=== PATIENT | female | born 1985 | race Hispanic/Latino ===

== ENCOUNTER → 2016-11-10 | Outpatient (CLI) | payer OTHER ==
[~2016-11-10] MED LIST: CIPR500T4 PO; FLC100T1 PO; GLBR5T; GLYB5TAB6 PO; HYDR-1231 PO; IBP600T1 PO; METF-380 PO; METR500T17 PO; MTF500T PO; ONDA8TAB13 PO; OXYC-12 PO; PREN1TAB39 PO; PRNMV1T
--- NOTE | 2016-11-10 16:13 | Diagnostic Imaging Report ---
INDICATION: Left-sided pelvic pain, irregular menstrual cycles. COMPARISON: None. DISCUSSION: Transabdominal and transvaginal sonographic evaluation of the pelvis was performed. The uterus is normal in echotexture and size measuring 6.6 x 5.7 x 4.9 cm. Normal endometrial thickness measuring 1.3 cm. The left ovary is enlarged. The left ovary contains a hemorrhagic-appearing follicle measuring 3.7 x 2.7 x 3.0 cm. Recommend 6-12 week sonographic followup to document resolution. The right ovary measures 2.9 x 2.3 x 2.1 cm. Normal color Doppler blood flow within the bilateral ovaries. Free fluid within the pelvis is likely physiologic. IMPRESSION: 1. Probable hemorrhagic follicle within the left ovary, however, recommend short-term sonographic followup to document resolution and to exclude other etiologies. Dictated by: Dictated on workstation # [id number]
== END ==
LOC: RAD 12:58
PROVIDERS: ATTEND Nurse Practitioner
DX: R10.32 Left lower quadrant pain (principal)
CPT/HCPCS: 76830; 76856

== ENCOUNTER 2017-05-25 23:11 | Emergency (ER) | payer OTHER ==
[~2017-05-25] VITALS: Ht 154.9 cm; Wt 60.8 kg
[2017-05-26 00:30] LABS: BASOPHILS % (AUTO) 0 % (0-10); EOSINOPHILS # (AUTO) 0.3 10^3/uL (0.0-0.3); EOSINOPHILS % (AUTO) 3 % (0-10); LYMPHOCYTES # (AUTO) 2.3 X 10^3 (1.0-4.0); LYMPHOCYTES % (AUTO) 23 % (12-44); MEAN CORPUSCULAR HEMOGLOBIN 26 PG (25-34); MEAN CORPUSCULAR HGB CONC 35 G/DL (32-36); MEAN CORPUSCULAR VOLUME 76 FL (80-99); MONOCYTES % (AUTO) 10 % (0-12); NEUTROPHILS # (AUTO) 6.5 X 10^3 (1.8-7.8); NEUTROPHILS % (AUTO) 64 % (42-75); PLATELET COUNT 342 10^3/uL (130-400); RED BLOOD COUNT 5.36 10^6/uL (4.35-5.85); RED CELL DISTRIBUTION WIDTH 12.5 % (10.0-14.5); WHITE BLOOD COUNT 10.1 10^3/uL (4.3-11.0)
[2017-05-26] MEDS ORDERED: OMEP20TA7 PO (00:37)
[2017-05-26] MEDS ORDERED: ATOR10TA66 PO (00:37)
[2017-05-26 00:38] LABS: ALANINE AMINOTRANSFERASE 19 U/L (0-55); ALBUMIN 4.4 GM/DL (3.2-4.5); AMYLASE 59 U/L (25-125); ANION GAP 12 MMOL/L (5-14); ASPARTATE AMINO TRANSFERASE 13 U/L (5-34); BILIRUBIN,TOTAL 0.6 MG/DL (0.1-1.0); BLOOD UREA NITROGEN 10 MG/DL (7-18); BUN/CREATININE RATIO 12; CALCIUM 9.6 MG/DL (8.5-10.1); CARBON DIOXIDE 21 MMOL/L (21-32); CHLORIDE 98 MMOL/L (98-107); CREATININE SERUM 0.86 MG/DL (0.60-1.30); GFR ESTIMATED > 60; LIPASE 35 U/L (8-78); POTASSIUM 3.9 MMOL/L (3.6-5.0); SODIUM 131 MMOL/L (135-145); TOTAL PROTEIN 8.6 GM/DL (6.4-8.2)
[2017-05-26] MEDS ORDERED: GLIM2TAB PO (00:38)
[2017-05-26] MEDS ORDERED: LISI-556 PO (00:38)
[2017-05-26] MEDS ORDERED: NITR100C PO (00:39)
[2017-05-26 00:40] LABS: GLUCOSE 451 MG/DL (70-105)
[2017-05-26] MEDS ORDERED: NS IV 1000 ML 1,000 ML IV ONE (00:48)
[2017-05-26] MEDS ORDERED: KETOROLAC 30 MG/ML VIAL IVP ONE (01:00)
[2017-05-26] MEDS ORDERED: PANTOPRAZOLE 40 MG/10 ML (PROTONIX) VIAL IV ONE (01:00)
[2017-05-26] MEDS ORDERED: inSUlin (REGULAR) HUMAN 1 UNIT/0.01 ML (CHARGE PER UNIT) IV ONE (01:00)
[2017-05-26] MEDS ORDERED: IOHEXOL 350 MG/ML 100 ML (OMNIPAQUE 350) VIAL IV ONE (01:30)
[2017-05-26] MEDS ORDERED: NS 100 ML (IVPB) BAG IV ONE (01:30)
[2017-05-26 01:50] LABS: BILIRUBIN,URINE NEGATIVE (NEGATIVE); KETONES,URINE 3+ (NEGATIVE); LEUKOCYTE ESTERASE ,URINE NEGATIVE (NEGATIVE); NITRITE,URINE NEGATIVE (NEGATIVE); PH,URINE 6 (5-9); PROTEIN,URINE 2+ (NEGATIVE); UROBILINOGEN,URINE NORMAL (NORMAL)
[2017-05-26 01:56] LABS: WBC,URINE RARE /HPF
[2017-05-26 01:57] LABS: SQUAMOUS EPITHELIAL CELL,UR 0-2 /HPF
[2017-05-26] MEDS ORDERED: NS IV 1000 ML 1,000 ML IV SCH (03:00)
[2017-05-26] MEDS ORDERED: HYOS0.1283 SL (03:51)
[2017-05-26] MEDS ORDERED: ONDA4TAB8 PO (03:51)
--- NOTE | 2017-05-26 03:51 | ED Abdominal Pain ---
General Chief Complaint: Abdominal/GI Problems Stated Complaint: RT SIDE PAIN Nursing Triage Note: PATIENT STATES THAT ABD PAIN BEGAN 2 WEEKS AGO AND THAT SHE HAS SEEN DR. WU FOR OVARIAN CYSTS, BUT THAT THE PAIN SIGNIFICANTLY INCREASED THIS EVENING AROUND 2100. Sepsis Screen: No Definite Risk Source of Information: Patient History of Present Illness Time Seen By Provider: 00:08 Initial Comments PT ARRIVES VIA POV FROM HOME PT C/O LUQ PAIN X 2 WEEKS, BECAME MUCH WORSE AT 2100 TONIGHT + NAUSEA, BUT NO VOMITING TODAY--HAS VOMITED A COUPLE OF TIMES OVER THE PAST COUPLE OF WEEKS NO DIARRHEA. HAD NORMAL BM TODAY. NO BLACK/BLOODY/TARRY STOOLS HAS HAD SUBJECTIVE LOW GRADE FEVER NO URINARY SYMPTOMS LMP--HAD DEPO PROVERA SHOT 2 WEEKS AGO, AND HAS BEEN SPOTTING SINCE THEN. PT HAS HAD BTL SAW DR. WU 2 WEEKS AGO FOR THIS PROBLEM, AND PT STATES DR. WU THOUGHT SHE HAD OVARIAN CYSTS, SO GAVE HER SHOT OF DEPO-PROVERA. PT STATES NO TESTS WERE DONE. PT DID HAVE UTI SYMPTOMS AND WAS SEEN AT [facility] 05/17 FOR THIS PROBLEM AND UTI SYMPTOMS, AND DX WITH UTI AND STARTED ON MACROBID. PT STATES UTI SYMPTOMS HAVE RESOLVED. HAS NOT ATTEMPTED TO FOLLOW UP WITH HER PCP AT [facility] FOR THIS PROBLEM NO HISTORY OF SIMILAR HAS NOT TAKEN ANYTHING FOR PAIN PCP: [facility] DYE COLORIST DYER: DR WU Allergies and Home Medications Allergies Coded Allergies: No Known Drug Allergies (Verified , 04/29/08) Home Medications Atorvastatin Calcium 10 Mg Tablet, 10 MG PO DAILY, (Reported) Glimepiride 2 Mg Tablet, 2 MG PO DAILY, (Reported) Hyoscyamine Sulfate 0.125 Mg Tab.subl, 1-2 TAB SL Q4H, #15 Prescribed by: ELLA AYALA on 05/26/17 0351 Lisinopril 5 Mg Tablet, 5 MG PO DAILY, (Reported) Metformin Hcl 500 Mg Tablet, 500 MG PO BID WITH MEALS, (Reported) Nitrofurantoin Macrocrystal 100 Mg Capsule, 100 MG PO BID, (Reported) Omeprazole 20 Mg Tablet.dr, 20 MG PO BID, (Reported) Ondansetron 4 Mg Tab.rapdis, 4 MG PO Q4H, #10 Prescribed by: ELLA AYALA on 05/26/17 0351 Review of Systems Constitutional: see HPI, fever EENTM: No Symptoms Reported Respiratory: No Symptoms Reported Cardiovascular: No Symptoms Reported Gastrointestinal: See HPI, Abdominal Pain, Denies Constipated, Denies Diarrhea , Nausea, Denies Vomiting Genitourinary: See HPI Musculoskeletal: no symptoms reported, No back pain Skin: no symptoms reported Psychiatric/Neurological: No Symptoms Reported Endocrine: No Symptoms Reported, Other (PT IS DIABETIC, DOES NOT CHECK HER BLOOD SUGARS, AND DID NOT TAKE HER MEDICATION TODAY) Hematologic/Lymphatic: No Symptoms Reported Past Tlimjbk-Opudqp-Snahni Hx Patient Social History Alcohol Use: Denies Use Recreational Drug Use: No Smoking Status: Never a Smoker Recent Foreign Travel: No Contact w/Someone Who Travel: No Recent Infectious Disease Expo: No Recent Hopitalizations: No Immunizations Up To Date Tetanus Booster (TDap): Less than 5yrs Date of Influenza Vaccine: May 16, 2012 Seasonal Allergies Seasonal Allergies: No Surgeries History of Surgeries: Yes (C-SECTIONS x3) Surgeries: Section, Tubal Ligation Respiratory History of Respiratory Disorde: No Cardiovascular History of Cardiac Disorders: Yes Cardiac Disorders: High Cholesterol, Hypertension Neurological History of Neurological Disord: No Reproductive System : No Hx Reproductive Disorders: No Female Reproductive Disorders: Ovarian Cyst 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 Genitourinary History of Genitourinary Disor: Yes Genitourinary Disorders: Bladder Infection Gastrointestinal History of Gastrointestinal Di: Yes Gastrointestinal Disorders: Gastroesophageal Reflux Musculoskeletal History of Musculoskeletal Dis: No Endocrine History of Endocrine Disorders: Yes Endocrine Disorders: Diabetes, Non-Insulin dep HEENT History of HEENT Disorders: No Cancer History of Cancer: No Psychosocial History of Psychiatric Problem: No Integumentary History of Skin or Integumenta: No Blood Transfusions History of Blood Disorders: No Physical Exam Vital Signs VS - Last 72 Hours, by Label 05/25/17 05/26/17 23:32 04:08 Temp 97.9 98.0 Pulse 106 79 Resp 20 18 B/P (MAP) 146/110 Pulse Ox 100 O2 Delivery Room Air Room Air Capillary Refill : Less Than 3 Seconds General Appearance: WD/WN, other (CRYING, HOLDING LUQ) HEENT: PERRL/EOMI Neck: normal inspection Respiratory: normal breath sounds, no respiratory distress, no accessory muscle use Cardiovascular: regular rate, rhythm, no murmur Gastrointestinal: normal bowel sounds, soft, no organomegaly, No distended, guarding, No rebound, tenderness (LUQ), No hernia, No mass Extremities: normal inspection, no pedal edema, no calf tenderness, normal capillary refill Back: normal inspection, no CVA tenderness, no vertebral tenderness Neurologic/Psychiatric: spring tacker II-XII nml as tested, no motor/sensory deficits, alert, oriented x 3 Skin: normal color, warm/dry, No rash Progress/Results/Core Measures Results/Orders Lab Results Laboratory Tests Test 05/25/17 00:01 05/26/17 01:40 05/26/17 02:38 05/26/17 03:46 Range/Units White Blood Count 10.1 4.3-11.0 10^3/uL Red Blood Count 5.36 4.35-5.85 10^6/uL Hemoglobin 14.1 11.5-16.0 G/DL Hematocrit 41 35-52 % Mean Corpuscular Volume 76 L 80-99 FL Mean Corpuscular Hemoglobin 26 25-34 PG Mean Corpuscular Hemoglobin Concent 35 32-36 G/DL Red Cell Distribution Width 12.5 10.0-14.5 % Platelet Count 342 130-400 10^3/uL Mean Platelet Volume 9.0 7.4-10.4 FL Neutrophils (%) (Auto) 64 42-75 % Lymphocytes (%) (Auto) 23 12-44 % Monocytes (%) (Auto) 10 0-12 % Eosinophils (%) (Auto) 3 0-10 % Basophils (%) (Auto) 0 0-10 % Neutrophils # (Auto) 6.5 1.8-7.8 X 10^3 Lymphocytes # (Auto) 2.3 1.0-4.0 X 10^3 Monocytes # (Auto) 1.0 0.0-1.0 X 10^3 Eosinophils # (Auto) 0.3 0.0-0.3 10^3/uL Basophils # (Auto) 0.0 0.0-0.1 10^3/uL Sodium Level 131 L 135-145 MMOL/L Potassium Level 3.9 3.6-5.0 MMOL/L Chloride Level 98 98-107 MMOL/L Carbon Dioxide Level 21 21-32 MMOL/L Anion Gap 12 5-14 MMOL/L Blood Urea Nitrogen 10 7-18 MG/DL Creatinine 0.86 0.60-1.30 MG/DL Estimat Glomerular Filtration Rate > 60 BUN/Creatinine Ratio 12 Glucose Level 451 *H 70-105 MG/DL Calcium Level 9.6 8.5-10.1 MG/DL Magnesium Level 2.0 1.8-2.4 MG/DL Total Bilirubin 0.6 0.1-1.0 MG/DL Aspartate Amino Transf (AST/SGOT) 13 5-34 U/L Alanine Aminotransferase (ALT/SGPT) 19 0-55 U/L Alkaline Phosphatase 105 40-136 U/L Total Protein 8.6 H 6.4-8.2 GM/DL Albumin 4.4 3.2-4.5 GM/DL Amylase Level 59 25-125 U/L Lipase 35 8-78 U/L Serum Test, Qualitative NEGATIVE NEGATIVE Urine Color YELLOW Urine Clarity CLEAR Urine pH 6 5-9 Urine Specific [place] 1.010 L 1.016-1.022 Urine Protein 2+ H NEGATIVE Urine Glucose (UA) 4+ H NEGATIVE Urine Ketones 3+ H NEGATIVE Urine Nitrite NEGATIVE NEGATIVE Urine Bilirubin NEGATIVE NEGATIVE Urine Urobilinogen NORMAL NORMAL MG/DL Urine Leukocyte Esterase NEGATIVE NEGATIVE Urine RBC (Auto) 5+ H NEGATIVE Urine RBC 0-2 /HPF Urine WBC RARE /HPF Urine Squamous Epithelial Cells 0-2 /HPF Urine Crystals NONE /LPF Urine Bacteria TRACE /HPF Urine Casts NONE /LPF Urine Mucus NEGATIVE /LPF Urine Culture Indicated NO Glucometer 365 H 272 H 70-110 MG/DL My Orders Orders - ELLA AYALA DO Saline Lock/Iv-Start (05/26/17 00:18) Amylase (05/26/17 00:18) Cbc With Automated Diff (05/26/17 00:18) Comprehensive Metabolic Panel (05/26/17 00:18) Hcg,Qualitative Serum (05/26/17 00:18) Lipase (05/26/17 00:18) Magnesium (05/26/17 00:18) Ua Culture If Indicated (05/26/17 00:18) Acute Abd Series (05/26/17 00:18) Ct Abdomen/Pelvis W (05/26/17 00:18) Ketorolac Injection (Toradol Injection) (05/26/17 01:00) Pantoprazole Injection (Protonix Injecti (05/26/17 01:00) Insulin (Regular) Human (Humulin R (Per (05/26/17 01:00) Saline Lock/Iv-Start (05/26/17 00:48) Ns Iv 1000 Ml (Sodium Chloride 0.9%) (05/26/17 00:48) Iohexol Injection (Omnipaque 350 Mg/Ml 1 (05/26/17 01:30) Ns (Ivpb) (Sodium Chloride 0.9% Ivpb Bag (05/26/17 01:30) Pharmacy Communication (Pharmacy Communi (05/26/17 01:25) Pharmacy Communication (Pharmacy Communi (05/26/17 01:25) Ns Iv 1000 Ml (Sodium Chloride 0.9%) (05/26/17 03:00) Accucheck Stat ONCE (05/26/17 03:25) Accucheck Stat ONCE (05/26/17 03:25) Medications Given in ED Current Medications Medications Dose Ordered Sig/Kendall Route Start Time Stop Time Status Last Admin Dose Admin Insulin Human Regular 20 unit ONCE ONCE IV 05/26/17 01:00 05/26/17 01:01 DC 05/26/17 01:04 20 UNIT Iohexol 100 ml ONCE ONCE IV 05/26/17 01:30 05/26/17 01:31 DC 05/26/17 01:29 100 ML Ketorolac Tromethamine 30 mg ONCE ONCE IVP 05/26/17 01:00 05/26/17 01:01 DC 05/26/17 01:04 30 MG Pantoprazole 40 mg ONCE ONCE IV 05/26/17 01:00 05/26/17 01:01 DC 05/26/17 01:04 40 MG Sodium Chloride 100 ml ONCE ONCE IV 05/26/17 01:30 05/26/17 01:31 DC 05/26/17 01:29 80 ML Sodium Chloride 1,000 ml @ 0 mls/hr Q0M ONCE IV 05/26/17 00:48 05/26/17 00:49 DC 05/26/17 01:04 0 MLS/HR Vital Signs/I&O Vital Sign - Last 12Hours 05/25/17 05/26/17 23:32 04:08 Temp 97.9 98.0 Pulse 106 79 Resp 20 18 B/P (MAP) 146/110 Pulse Ox 100 O2 Delivery Room Air Room Air Blood Pressure Mean: 122 Progress Note : Progress Note PT SLEPT THROUGH REMAINDER OF ER STAY ALL SYMPTOMS RESOLVED PRIOR TO DISMISSAL ACCUCHECK DOWN TO 272 AT DISMISSAL Diagnostic Imaging Comments ACUTE ABDOMEN XRAYS--NO ACUTE PROCESS, PENDING RADIOLOGIST REVIEW CT ABDOMEN/PELVIS--NON-SPECIFIC FLUID IN NON-DISTENDED LOOPS OF SMALL BOWEL, WITH SUGGESTION OF ENHANCED MUCOSA, NO BOWEL WALL THICKENING. POSSIBLE ENTERITIS. OTHERWISE NO ACUTE PROCESS--PER [facility] VIA FAX @ 0276 Reviewed: Reviewed by Me Departure Impression Impression: Primary Impression: LUQ abdominal pain Additional Impressions: Gastroenteritis UNCONTROLLED NIDDM Disposition: HOME, SELF-CARE Condition: Improved Departure-Patient Inst. Referrals: [facility] (PCP) Primary Care Physician VIKTOR HENSON (Family) Primary Care Physician Patient Instructions: Acute Abdomen (Belly Pain), Adult (DC), Blood Glucose Monitoring, Sick Day Management for Diabetics, Viral Gastroenteritis, Adult (DC) Add. Discharge Instructions: CLEAR LIQUIDS--WATER, BROTH, JELLO, GATORADE TOMORROW IF YOU ARE BETTER, ADD BRATS DIET TO CLEAR LIQUIDS--BANANAS, RICE, APPLESAUCE, TOAST, SALTINES CHECK YOUR BLOOD SUGAR AT LEAST 3 TIMES A DAY AND KEEP DIARY TAKE YOUR MEDICATIONS PRESCRIBED AND DO NOT MISS DOSES OF MEDICATIONS FOLLOW UP WITH [facility] IN 2-3 DAYS FOR FURTHER CARE All discharge instructions reviewed with patient and/or family. Voiced understanding. Scripts Hyoscyamine Sulfate (Levsin-Sl) 0.125 Mg Tab.subl 1-2 TAB SL Q4H for Abdominal Pain, #15 TAB Prov: ELLA AYALA DO 05/26/17 Ondansetron (Zofran Odt) 4 Mg Tab.rapdis 4 MG PO Q4H for Nausea/Vomiting, #10 TAB Prov: ELLA AYALA DO 05/26/17 ELLA AYALA DO May 26, 2017 03:51
[2017-05-26 04:08] VITALS: BP 124/89
--- NOTE | 2017-05-26 06:22 | Diagnostic Imaging Report ---
PROCEDURE: CT abdomen and pelvis with contrast. TECHNIQUE: Multiple contiguous axial images were obtained through the abdomen and pelvis after administration of intravenous contrast. INDICATION: Left-sided abdominal pain. COMPARISON: 04/29/2014. FINDINGS: Lower chest: The lung bases are clear. No pericardial or pleural effusion. Peritoneum: No free intraperitoneal air or fluid. Liver and biliary system: The liver has mild diffuse hypoattenuation which can be seen with hepatic steatosis. No focal hepatic lesion. Gallbladder is decompressed without radiopaque gallstones. No bile duct dilation. Spleen and Pancreas: Spleen is normal. The pancreas enhances normally without mass lesion or peripancreatic inflammatory changes. Adrenals: Normal. tract: The kidneys enhance normally without suspicious mass or obstruction. Urinary bladder is moderately distended without wall thickening. The uterus and ovaries are physiologic in appearance. GI tract: Stomach is decompressed. No bowel destruction. Multiple small bowel loops are fluid filled with mild uniform mucosal enhancement. No pericolonic inflammatory changes. The appendix is not seen with certainty, although there are no inflammatory changes in the right lower quadrant to indicate acute appendicitis. Vasculature and Lymph nodes: Normal caliber aorta. No abdominal or pelvic lymphadenopathy. Musculoskeletal: No concerning osseous lesion. IMPRESSION: 1. Findings suggestive of enteritis. No bowel obstruction, abscess or perforation. 2. Findings are in agreement with the preliminary report. Dictated by: Dictated on workstation # [id number]
--- NOTE | 2017-05-26 06:36 | Diagnostic Imaging Report ---
INDICATION: Left-sided abdominal pain for two weeks. Comparison study: None. FINDINGS: Upright view of the chest demonstrates the lungs to be clear. The heart, mediastinum, pulmonary vascularity are normal. Supine and upright views of the abdomen demonstrate increased stool throughout the colon. Small bowel gas pattern appears normal. No free air or air-fluid levels are present. Osseous structures are normal. IMPRESSION: Probable constipation. Dictated by: Dictated on workstation # [id number]
--- OUTSIDE RECORDS SUMMARY | 2017-05-26 08:59 | XMS REPORT ---
Author Author YVONNE GUAJARDO [facility] Address Unknown Care Team Providers Care Merchandising Intern Name Role Phone YVONNE GUAJARDO Unavailable PROBLEMS Type Condition ICD9-CM Code [id number] Code Onset Dates Condition Status SNOMED Code Problem Diabetes type 2, uncontrolled E11.65 Active 492503976 Problem Diabetes mellitus without mention of complication, type II or unspecified type, not stated as uncontrolled 250.00 Active 984454207 Assessment Dental examination Z01.20 Mar, Active 328049739 ALLERGIES Substance Reaction Event Type Date Status N.K.D.A. Unknown Non Drug Allergy Mar, Unknown SOCIAL HISTORY No smoking Hx information available PLAN OF CARE VITAL SIGNS Blood pressure systolic 132 mmHg 2016-04-06 Blood pressure diastolic 102-wrist 122 mmHg 2016-04-06 MEDICATIONS Medication Instructions Dosage Frequency Start Date End Date Duration Status Amoxicillin 500 MG Orally Three times a day 1 capsule 8h 7 days Active RESULTS No Results PROCEDURES Procedure Date Ordered Related Diagnosis Body Site LTD ORAL EVALUATION - PROBLEM FOCUS Apr 06, 2016 PANORAMIC FILM SEE ALSO CODE 46992 Apr 06, 2016 IMMUNIZATIONS No Known Immunizations
--- OUTSIDE RECORDS SUMMARY | 2017-05-26 08:59 | XMS REPORT ---
Author Author VIKTOR HENSON [facility] eClinicalWorks Address Unknown Phone Unavailable Care Team Providers Care Tank Cooper Name Role Phone VIKTOR HENSON Unavailable Allergies No Known Allergies Problems Problem Type Condition Code Onset Dates Condition Status Problem Diabetes mellitus without mention of complication, type II or unspecified type, not stated as uncontrolled 250.00 Active Problem Diabetes type 2, uncontrolled E11.65 Active Medications No Known Medications Results No Known Results Summary Purpose eClinicalWorks Submission
--- OUTSIDE RECORDS SUMMARY | 2017-05-26 08:59 | XMS REPORT ---
Author Author VIKTOR HENSON [facility] eClinicalWorks Address Unknown Phone Unavailable Care Team Providers Care Child Care Supervisor Name Role Phone VIKTOR HENSON Unavailable Allergies No Known Allergies Problems Problem Type Condition Code Onset Dates Condition Status Problem Diabetes mellitus without mention of complication, type II or unspecified type, not stated as uncontrolled 250.00 Active Problem Diabetes type 2, uncontrolled E11.65 Active Medications No Known Medications Results No Known Results Summary Purpose eClinicalWorks Submission
--- OUTSIDE RECORDS SUMMARY | 2017-05-26 08:59 | XMS REPORT ---
Author Author SIXTO VIKTOR Organization [facility] Address [address] [place] [address] Care Team Providers Care Grinder Mill Operator Name Role Phone VIKTOR HENSON Unavailable PROBLEMS Type Condition ICD9-CM Code ACM90-SI Code Onset Dates Condition Status SNOMED Code Problem Acute upper respiratory infection, unspecified J06.9 Active 745798372 Problem Diabetes type 2, uncontrolled E11.65 Active 539990594 ALLERGIES Substance Reaction Event Type Date Status N.K.D.A. Unknown Non Drug Allergy Jul, Unknown SOCIAL HISTORY No smoking Hx information available PLAN OF CARE Activity Details Follow Up 4 Weeks Reason:diabetes. VITAL SIGNS Height 61 in 2016-08-25 Weight 147.5 lbs 2016-08-25 Temperature 98.4 degrees Fahrenheit 2016-08-25 Heart Rate 82 bpm 2016-08-25 Respiratory Rate 18 2016-08-25 BMI 27.87 kg/m2 2016-08-25 Blood pressure systolic 132 mmHg 2016-08-25 Blood pressure diastolic 82 mmHg 2016-08-25 MEDICATIONS Medication Instructions Dosage Frequency Start Date End Date Duration Status Mucinex D 120-1200 MG Orally every 12 hrs 1 tablet as needed 12h Jul, Active MetFORMIN HCl ER 500 MG Orally 2 times a day 1 tablet 12h May, Active Levemir 100 UNIT/ML Subcutaneous Once a day 50 units 24h Sep, Active RESULTS Name Result Date Reference Range A1C (IN HOUSE) 2016-08-25 A1C IN HOUSE 13.4+ 4.3 - 5.6 % Previous A1c >14.0 Lot [id number] Exp date 05/2018 STREP A (IN HOUSE) 2016-08-25 STREP A negative Control + Lot # [id number] Exp date 02/02/2018 PROCEDURES Procedure Date Ordered Related Diagnosis Body Site Office Visit, Est Pt., Level 4 Aug 25, 2016 GLYCATED HEMOGLOBIN TEST Aug 25, 2016 STREP A ASSAY W/OPTIC Aug 25, 2016 IMMUNIZATIONS No Known Immunizations
--- OUTSIDE RECORDS SUMMARY | 2017-05-26 08:59 | XMS REPORT ---
Author Author SU CARRASCO [facility] Address [address] [place] [address] Care Team Providers Care Automatic Buffing Wheel Former Name Role Phone SU CARRASCO Unavailable PROBLEMS Type Condition ICD9-CM Code [id number] Code Onset Dates Condition Status SNOMED Code Problem Acute upper respiratory infection, unspecified J06.9 Active 040135184 Problem Diabetes type 2, uncontrolled E11.65 Active 582476130 ALLERGIES Unknown Allergies SOCIAL HISTORY No smoking Hx information available PLAN OF CARE VITAL SIGNS MEDICATIONS Unknown Medications RESULTS Name Result Date Reference Range TEST, SERUM (QUAL) 2016-09-07 hCG,Beta Subunit,Qual,Serum Negative Negative <6 PROCEDURES Procedure Date Ordered Related Diagnosis Body Site CHORIONIC GONADOTROPIN ASSAY Sep 07, 2016 VENIPUNCT, ROUTINE* Sep 07, 2016 IMMUNIZATIONS No Known Immunizations
--- OUTSIDE RECORDS SUMMARY | 2017-05-26 08:59 | XMS REPORT ---
Author Author VIKTOR HENSON [facility] eClinicalWorks Address Unknown Phone Unavailable Care Team Providers Care Small Engine Mechanic Name Role Phone VIKTOR HENSON Unavailable Allergies No Known Allergies Problems Problem Type Condition Code Onset Dates Condition Status Problem Diabetes mellitus without mention of complication, type II or unspecified type, not stated as uncontrolled 250.00 Active Problem Diabetes type 2, uncontrolled E11.65 Active Medications No Known Medications Results No Known Results Summary Purpose eClinicalWorks Submission
--- OUTSIDE RECORDS SUMMARY | 2017-05-26 08:59 | XMS REPORT | Continuity of Care Document ---
Author Author [facility] Address Unknown Phone Unavailable Allergies Active Description Code Type Severity Reaction Onset Reported/Identified Relationship to Patient Clinical Status Yes No Known Drug Allergies [id number] Drug Allergy Unknown N/ A 04/29/2008 Medications Problems Date Dx Coded Attending Type Code Diagnosis Diagnosed By 03/30/2009 SU CARRASCO DO 780.4 dizziness 03/30/2009 SU CARRASCO DO 780.79 MALAISE AND FATIGUE 09/27/2011 Ot 640.03 THREATEN ABORT-ANTEPART 06/09/2012 Ot 250.00 DIAB AXEL WO COMPL, TYPE II OR UNSPEC TY 06/09/2012 Ot 256.4 POLYCYSTIC OVARIES 06/09/2012 Ot 644.21 EARLY ONSET DELIVERY-DEL 06/09/2012 Ot 648.01 DIABETES-DELIVERED 06/09/2012 Ot 648.91 OTH CURR COND-DELIVERED 06/09/2012 Ot 648.92 OTH CURR COND-DEL W P/P 06/09/2012 Ot 654.21 PREV DELIVRY W/ OR W/O MENT ANT 06/09/2012 Ot 657.01 POLYHYDRAMNIOS,DEL W OR W/O MENTN ANTEPA 06/09/2012 Ot 659.71 ABN DEL FET HT RT/RHYTHM,W OR W/O MENTIO 06/09/2012 Ot 788.20 RETENTION OF URINE NOS 06/09/2012 Ot 997.5 SURG COMPL-URINARY TRACT 06/09/2012 Ot V02.51 GROUP B STREPT CARRIER/SUSPECTED CARRIER 06/09/2012 Ot V27.0 DELIVER-SINGLE LIVEBORN 02/04/2013 RHETT WU DO Ot 646.83 PREG COMPL NEC-ANTEPART 02/04/2013 RHETT WU DO Ot 789.00 ABDOMINAL PAIN, UNSPECIFIED SITE 03/19/2013 RHETT WU DO Ot 644.03 THRT ABEBE LABOR-ANTEPART 03/19/2013 RHETT WU DO Ot 648.83 ABN GLUCOSE-ANTEPARTUM 04/11/2013 KADEN MARTINEZ DO Ot 250.02 DIAB AXEL WO COMPL, TYPE II OR UNSPEC TY 04/11/2013 KADEN MARTINEZ DO Ot 278.00 OBESITY, NOS 04/11/2013 KADEN MARTINEZ DO Ot 644.03 THRT ABEBE LABOR-ANTEPART 04/11/2013 KADEN MARTINEZ DO Ot 648.03 DIABETES-ANTEPARTUM 04/11/2013 KADEN MARTINEZ DO Ot 649.13 OBESITY COMP PREG/CHILDBIRTH/PUERPERIUM , 04/11/2013 KADEN MARTINEZ DO Ot 654.23 PREV DELIVERY, ANTEPARTUM COND 04/11/2013 KADEN MARTINEZ DO Ot V15.81 HX OF PAST NONCOMPLIANCE 04/11/2013 KADEN MARTINEZ DO Ot V85.31 BODY MASS INDEX 31.0-31.9, ADULT 06/24/2013 SU CARRASCO DO 250.00 DIABETES II CONTROLLED (UNCOMPLICATED) 04/29/2014 FELICITAS OLIVAS Ot 564.00 UNSPEC CONSTIPATION 04/29/2014 FELICITAS OLIVAS Ot 599.0 URIN TRACT INFECTION NOS 04/29/2014 FELICITAS OLIVAS Ot 614.9 FEM PELV INFLAM DIS NOS 04/29/2014 FELICITAS OLIVAS Ot 789.00 ABDOMINAL PAIN, UNSPECIFIED SITE 06/23/2014 Ot 780.79 06/23/2014 Ot 625.9 06/23/2014 Ot 648.93 11/10/2016 Ot 625.9 FEM GENITAL SYMPTOMS NOS 11/10/2016 Ot 648.93 OTH CURR COND-ANTEPARTUM 11/10/2016 Ot 625.9 FEM GENITAL SYMPTOMS NOS 11/10/2016 Ot 648.93 OTH CURR COND-ANTEPARTUM 11/15/2016 МАРИЯ LOPEZ Ot R10.32 LEFT LOWER QUADRANT PAIN 11/25/2016 МАРИЯ LOPEZ Ot R10.32 LEFT LOWER QUADRANT PAIN Procedures Code Description Performed By Performed On 72.79 VACUUM EXTRACT DEL NEC 06/07/2012 74.1 LOW CERVICAL 06/07/2012 99.77 APPL/ADMIN OF AN ADHESION BARRIER SUBSTA 06/07/2012 75628 A1C (IN-HOUSE) Results Encounters ACCT No. Visit Date/Time Discharge Status Pt. Type Provider Facility Loc./Unit Complaint [id number] 06/24/2013 11:58:00 06/24/2013 23: 59:59 CLS Outpatient SU CARRASCO DO [id number] 11/10/2016 12:58:00 2016 23:59:59 CLS Outpatient МАРИЯ LOPEZ SHEET METAL ASSEMBLER [facility] RAD LLQ PAIN [id number] 04/29/2014 18:47:00 2013 23:01:00 DIS Emergency FELICITAS OLIVAS [facility] ER ABD PAIN [id number] 04/10/2013 17:50:00 2012 01:05:00 DIS Inpatient CORBINENRIS KADEN S [facility] WS C/O CONTRACTIONS [id number] 03/19/2013 14:00:00 2012 17:10:00 DIS Outpatient RHETT WU DO [facility] WSo C/O CONTRACTIONS [id number] 02/04/2013 09:30:00 2012 10:45:00 DIS Outpatient RHETT WU DO [facility] WSo ABD PAIN [id number] 06/23/2014 14:54:00 Document Registration [id number] 06/07/2012 09:55:00 Document Registration [id number] 09/28/2011 10:11:00 Document Registration [id number] 09/27/2011 17:11:00 Document Registration [id number] 03/31/2009 07:58:00 Document Registration
--- OUTSIDE RECORDS SUMMARY | 2017-05-26 08:59 | XMS REPORT ---
Author Author VIKTOR HENSON [facility] eClinicalWorks Address Unknown Phone Unavailable Care Team Providers Care Lean Consultant Name Role Phone VIKTOR HENSON Unavailable Allergies No Known Allergies Problems Problem Type Condition Code Onset Dates Condition Status Problem Diabetes mellitus without mention of complication, type II or unspecified type, not stated as uncontrolled 250.00 Active Problem Diabetes type 2, uncontrolled E11.65 Active Medications Medication Code System Code Instructions Start Date End Date Status Dosage MetFORMIN HCl ER [facility] [address]-51 500 MG Orally 2 times a day Jun 18, 2015 1 tablet Test strips NDC 0 Test Strips ICD10- E11.65 Ethan Contour 3 times a day November 02, 2015 test blood sugar Results No Known Results Summary Purpose eClinicalWorks Submission
--- OUTSIDE RECORDS SUMMARY | 2017-05-26 08:59 | XMS REPORT ---
Author VIKTOR Wright [facility] eClinicalWorks Address Unknown Phone Unavailable Care Team Providers Care Curing Press Operator Name Role Phone VIKTOR HENSON CP Unavailable Allergies, Adverse Reactions, Alerts Substance Reaction Event Type N.K.D.A. Info Not Available Non Drug Allergy Problems Problem Type Condition Code Onset Dates Condition Status Problem Diabetes mellitus without mention of complication, type II or unspecified type, not stated as uncontrolled 250.00 Active Assessment Diabetes type 2, uncontrolled E11.65 Active Problem Diabetes type 2, uncontrolled E11.65 Active Assessment Abdominal pain R10.9 Active Medications Medication Code System Code Instructions Start Date End Date Status Dosage MetFORMIN HCl ER [facility] [address]-76 500 MG Orally 2 times a day Jun 18, 2015 1 tablet with evening meal Esomeprazole Magnesium [facility] [address]-42 40 MG Orally Once a day Jun 18, 2015 1 capsule Procedures Procedure Coding System Code Date URINE TEST CPT-4 71405 Jun 18, 2015 IMMUNOASSAY,INFECTIOUS AGENT CPT-4 38243 Jun 18, 2015 GLYCATED HEMOGLOBIN TEST CPT-4 86437 Jun 18, 2015 Office Visit, Est Pt., Level 4 CPT-4 18085 Jun 18, 2015 Vital Signs Date/Time: Jun 18, 2015 Temperature 96.9 F Weight 136 lbs Height 61 in BMI 25.69 Index Blood Pressure Diastolic 82 mmHg Blood Pressure Systolic 128 mmHg Cardiac Monitoring Heart Rate 80 bpm Results Name Result Date Reference Range Unit Abnormality Flag A1C (IN HOUSE) Summary Purpose eClinicalWorks Submission
--- OUTSIDE RECORDS SUMMARY | 2017-05-26 08:59 | XMS REPORT ---
Author Author VIKTOR HENSON [facility] eClinicalWorks Address Unknown Phone Unavailable Care Team Providers Care Inspector Returned Materials Name Role Phone VIKTOR HENSON Unavailable Allergies No Known Allergies Problems Problem Type Condition Code Onset Dates Condition Status Problem Diabetes mellitus without mention of complication, type II or unspecified type, not stated as uncontrolled 250.00 Active Assessment Diabetes type 2, uncontrolled E11.65 Active Problem Diabetes type 2, uncontrolled E11.65 Active Medications Medication Code System Code Instructions Start Date End Date Status Dosage Blood Glucose Meter [facility] 0 November 30, 2015 not defined Results No Known Results Summary Purpose eClinicalWorks Submission
== END 2017-05-26 04:05 | disposition home or self-care (01) ==
LOC: EDUNIT# 23:11 → ER 23:14
DX: K52.9 Noninfective gastroenteritis and colitis, unspecified (principal); E11.9 Type 2 diabetes mellitus without complications; K21.9 Gastro-esophageal reflux disease without esophagitis; E78.00 Pure hypercholesterolemia, unspecified; I10 Essential (primary) hypertension; Z87.42 Personal history of other diseases of the female genital tract; Z98.51 Tubal ligation status; Z87.59 Personal history of other complications of pregnancy, childbirth and the puerperium; Z79.84 Long term (current) use of oral hypoglycemic drugs
CPT/HCPCS: 36415; 74022; 74177; 80053; 81000; 82150; 82962; 83690; 83735; 84703; 85025; 96374; 96375

== ENCOUNTER 2017-08-30 14:29 | Emergency (ER) | payer OTHER ==
[~2017-08-30] VITALS: Ht 154.9 cm; Wt 61.2 kg
[~2017-08-30 14:29] MED LIST changes: +ATOR10TA66 PO; +GLIM2TAB PO; +HYOS0.1283 SL; +LISI-556 PO; +NITR100C PO; +OMEP20TA7 PO; +ONDA4TAB8 PO
--- OUTSIDE RECORDS SUMMARY | 2017-08-30 14:36 | XMS REPORT | Continuity of Care Document ---
Author Author [facility] Address Unknown Phone Unavailable Allergies Active Description Code Type Severity Reaction Onset Reported/Identified Relationship to Patient Clinical Status Yes No Known Drug Allergies [id number] Drug Allergy Unknown N/A 04/29/2008 Medications There is no data. Problems Date Dx Coded Attending Type Code Diagnosis Diagnosed By 03/30/2009 SU CARRASCO DO 780.4 dizziness 03/30/2009 SU CARRASCO DO 780.79 MALAISE AND FATIGUE 09/27/2011 Ot 640.03 THREATEN ABORT-ANTEPART 06/09/2012 Ot 250.00 DIAB AXEL WO COMPL, TYPE II OR UNSPEC TY 06/09/2012 Ot 256.4 POLYCYSTIC OVARIES 06/09/2012 Ot 644.21 EARLY ONSET DELIVERY-DEL 06/09/2012 Ot 648.01 DIABETES- DELIVERED 06/09/2012 Ot 648.91 OTH CURR COND-DELIVERED 06/09/2012 Ot 648.92 OTH CURR COND-DEL W P/P 06/09/2012 Ot 654.21 PREV DELIVRY W/ OR W/O MENT ANT 06/09/2012 Ot 657.01 POLYHYDRAMNIOS,DEL W OR W/O MENTN ANTEPA 06/09/2012 Ot 659.71 ABN DEL FET HT RT/RHYTHM,W OR W/O MENTIO 06/09/2012 Ot 788.20 RETENTION OF URINE NOS 06/09/2012 Ot 997.5 SURG COMPL- URINARY TRACT 06/09/2012 Ot V02.51 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 B 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/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 06/09/2012 Ot V27.0 DELIVER- SINGLE LIVEBORN 02/04/2013 RHETT WU DO Ot 646.83 [...] KADEN MARTINEZ DO Ot 649.13 OBESITY COMP PREG/CHILDBIRTH/PUERPERIUM, 04/11/2013 KADEN MARTINEZ DO Ot 654.23 PREV [...] LOPEZ Ot R10.32 LEFT LOWER QUADRANT PAIN 05/26/2017 ELLA AYALA DO Ot E11.9 TYPE 2 DIABETES MELLITUS WITHOUT COMPLIC 05/26/2017 ELLA AYALA DO Ot E78.00 PURE HYPERCHOLESTEROLEMIA, UNSPECIFIED 05/26/2017 ELLA AYALA DO Ot I10 ESSENTIAL (PRIMARY) HYPERTENSION 05/26/2017 ELLA AYALA DO Ot K21.9 GASTRO-ESOPHAGEAL REFLUX DISEASE WITHOUT 05/26/2017 ELLA AYALA DO Ot K52.9 NONINFECTIVE GASTROENTERITIS AND COLITIS 05/26/2017 ELLA AYALA DO Sade Ot R10.12 LEFT UPPER QUADRANT PAIN 05/26/2017 ELLA AYALA DO Ot 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 05/26/2017 LUCY LOVETT ELLA Sade Ot Z87.42 PERSONAL HISTORY OF OTH DISEASES OF THE 05/26/2017 ELLA AYALA DO Sade Ot Z87.59 PERSONAL HISTORY OF COMP OF PREG, CHLDBR 05/26/2017 ELLA AYALA DO Ot Z98.51 TUBAL LIGATION STATUS Procedures Code Description Performed By Performed On 72.79 VACUUM EXTRACT DEL NEC 06/07/2012 74.1 LOW CERVICAL 06/07/2012 99.77 APPL/ADMIN OF AN ADHESION BARRIER SUBSTA 06/07/2012 82223 A1C (IN-HOUSE) 06/24/2013 Results Test Result Range Serum or plasma choriogonadotropin ( test) detection - 05/25/17 00:01 Serum or plasma choriogonadotropin ( test) detection NEGATIVE NEGATIVE Complete blood count (CBC) with automated white blood cell (WBC) differential - 05/25/17 00:01 Blood leukocytes automated count (number/volume) 10.1 10*3/uL 4.3-11.0 Blood erythrocytes automated count (number/volume) 5.36 10*6/uL 4.35-5.85 Venous blood hemoglobin measurement (mass/volume) 14.1 g/dL 11.5-16.0 Blood hematocrit (volume fraction) 41 % 35-52 Automated erythrocyte mean corpuscular volume 76 [foz_us] 80-99 Automated erythrocyte mean corpuscular hemoglobin (mass per erythrocyte) 26 pg 25-34 Automated erythrocyte mean corpuscular hemoglobin concentration measurement ( mass/volume) 35 g/dL 32-36 Automated erythrocyte distribution width ratio 12.5 % 10.0-14.5 Automated blood platelet count (count/volume) 342 10*3/uL 130-400 Automated blood platelet mean volume measurement 9.0 [foz_us] 7.4-10.4 Automated blood neutrophils/100 leukocytes 64 % 42-75 Automated blood lymphocytes/100 leukocytes 23 % 12-44 Blood monocytes/100 leukocytes 10 % 0-12 Automated blood eosinophils/100 leukocytes 3 % 0-10 Automated blood basophils/100 leukocytes 0 % 0-10 Blood neutrophils automated count (number/volume) 6.5 10*3 1.8-7.8 Blood lymphocytes automated count (number/volume) 2.3 10*3 1.0-4.0 Blood monocytes automated count (number/volume) 1.0 10*3 0.0-1.0 Automated eosinophil count 0.3 10*3/uL 0.0-0.3 Automated blood basophil count (count/volume) 0.0 10*3/uL 0.0-0.1 Comprehensive metabolic panel - 05/25/17 00:01 Serum or plasma sodium measurement (moles/volume) 131 mmol/L 135-145 Serum or plasma potassium measurement (moles/volume) 3.9 mmol/L 3.6-5.0 Serum or plasma chloride measurement (moles/volume) 98 mmol/L 98-107 Carbon dioxide 21 mmol/L 21-32 Serum or plasma anion gap determination (moles/volume) 12 mmol/L 5-14 Serum or plasma urea nitrogen measurement (mass/volume) 10 mg/dL 7-18 Serum or plasma creatinine measurement (mass/volume) 0.86 mg/dL 0.60-1.30 Serum or plasma urea nitrogen/creatinine mass ratio 12 NRG Serum or plasma creatinine measurement with calculation of estimated glomerular filtration rate > NRG Serum or plasma glucose measurement (mass/volume) 451 mg/dL 70-105 Serum or plasma calcium measurement (mass/volume) 9.6 mg/dL 8.5-10.1 Serum or plasma total bilirubin measurement (mass/volume) 0.6 mg/dL 0.1-1.0 Serum or plasma alkaline phosphatase measurement (enzymatic activity/volume) 105 U/L 40-136 Serum or plasma aspartate aminotransferase measurement (enzymatic activity/ volume) 13 U/L 5-34 Serum or plasma alanine aminotransferase measurement (enzymatic activity/volume ) 19 U/L 0-55 Serum or plasma protein measurement (mass/volume) 8.6 g/dL 6.4-8.2 Serum or plasma albumin measurement (mass/volume) 4.4 g/dL 3.2-4.5 Magnesium - 05/25/17 00:01 Magnesium 2.0 mg/dL 1.8-2.4 Serum or plasma amylase measurement (enzymatic activity/volume) - 05/25/17 00: 01 Serum or plasma amylase measurement (enzymatic activity/volume) 59 U /L 25-125 Lipase - 05/25/17 00:01 Lipase 35 U/L 8-78 Complete urinalysis with reflex to culture - 05/26/17 01:40 Urine color determination YELLOW NRG Urine clarity determination CLEAR NRG Urine pH measurement by test strip 6 5-9 Specific gravity of urine by test strip 1.010 1.016- 1.022 Urine protein assay by test strip, semi-quantitative 2+ NEGATIVE Urine glucose detection by automated test strip 4+ NEGATIVE Erythrocytes detection in urine sediment by light microscopy 5+ NEGATIVE Urine ketones detection by automated test strip 3+ NEGATIVE Urine nitrite detection by test strip NEGATIVE NEGATIVE Urine total bilirubin detection by test strip NEGATIVE NEGATIVE Urine urobilinogen measurement by automated test strip (mass/volume) NORMAL NORMAL Urine leukocyte esterase detection by dipstick NEGATIVE NEGATIVE Automated urine sediment erythrocyte count by microscopy (number/high power field) [HPF] NRG Automated urine sediment leukocyte count by microscopy (number/high power field ) RARE NRG Bacteria detection in urine sediment by light microscopy TRACE NRG Squamous epithelial cells detection in urine sediment by light microscopy 0-2 NRG Crystals detection in urine sediment by light microscopy NONE NRG Casts detection in urine sediment by light microscopy NONE NRG Mucus detection in urine sediment by light microscopy NEGATIVE NRG Complete urinalysis with reflex to culture NO NRG Capillary blood glucose measurement by glucometer (mass/volume) - 05/26/17 02: 38 Capillary blood glucose measurement by glucometer (mass/volume) 365 mg/dL 70-110 Capillary blood glucose measurement by glucometer (mass/volume) - 05/26/17 03: 46 Capillary blood glucose measurement by glucometer (mass/volume) 272 mg/dL 70-110 Encounters ACCT No. Visit Date/Time Discharge Status Pt. Type Provider Facility Loc./Unit Complaint [id number] 06/24/2013 11:58:00 06/24/2013 23:59:59 CLS Outpatient SU CARRASCO DO [id number] 05/25/2017 23:14:00 05/26/2017 04:05:00 DIS Emergency ELLA AYALA DO [facility] ER RT SIDE PAIN [id number] 11/10/2016 12:58:00 11/10/2016 23:59:59 CLS Outpatient JOHN МАРИЯLeisa LIRA [facility] RAD LLQ PAIN [id number] 04/29/2014 18:47:00 04/29/2014 23:01:00 DIS Emergency FELICITAS OLIVAS [facility] ER ABD PAIN [id number] 04/10/2013 17:50:00 04/11/2013 01:05:00 DIS Inpatient JUAN LOVETTKADEN S [facility] C/O CONTRACTIONS [id number] 03/19/2013 14:00:00 03/19/2013 17:10:00 DIS Outpatient RHETT WU DO [facility] C/O CONTRACTIONS [id number] 02/04/2013 09:30:00 02/04/2013 10:45:00 DIS Outpatient RHETT WU DO [facility] ABD PAIN [id number] 06/23/2014 14:54:00 Document Registration [id number] 06/07/2012 09:55:00 Document Registration [id number] 09/28/2011 10:11:00 Document Registration [id number] 09/27/2011 17:11:00 Document Registration [id number] 03/31/2009 07:58:00 Document Registration
--- NOTE | 2017-08-30 15:21 | ED General ---
General Chief Complaint: General Problems/Pain Stated Complaint: POSS DKA Nursing Triage Note: AMB TO ROOM FROM [facility] HAS BEEN SICK SINCE MONDAY WAS DX WITH UTI STARTED ON ANTIBIOITIC WAS SENT FROM [facility] FOR BODY ACHES AND HIGH BS. Nursing Sepsis Screen: No Definite Risk Source of Information: Patient Exam Limitations: No Limitations History of Present Illness Date Seen by Provider: Aug 30, 2017 Time Seen by Provider: 15:19 Initial Comments To ER per private vehicle referred here from quick care or urgent care. She's been sick since 08/25/16 with nausea, vomiting, body aches and general malaise. She was diagnosed with urinary tract infection at that time and has been on antibiotics. Urinalysis looked better today in the clinic but she is a known diabetic and her blood sugar has been high in the 570 range today. She has had fevers on Monday and Monday up to 103. Timing/Duration: 1-2 Days Severity: Moderate Associated Systoms: Headaches, Malaise, Nausea/Vomiting Allergies and Home Medications Allergies Coded Allergies: No Known Drug Allergies (Verified , 04/29/08) Home Medications Atorvastatin Calcium 10 Mg Tablet, 10 MG PO DAILY, (Reported) Glimepiride 2 Mg Tablet, 2 MG PO DAILY, (Reported) Hyoscyamine Sulfate 0.125 Mg Tab.subl, 1-2 TAB SL Q4H, #15 Prescribed by: ELLA AYALA on 05/26/17 0351 Lisinopril 5 Mg Tablet, 5 MG PO DAILY, (Reported) Metformin Hcl 500 Mg Tablet, 500 MG PO BID WITH MEALS, (Reported) Nitrofurantoin Macrocrystal 100 Mg Capsule, 100 MG PO BID, (Reported) Omeprazole 20 Mg Tablet.dr, 20 MG PO BID, (Reported) Ondansetron 4 Mg Tab.rapdis, 4 MG PO Q4H, #10 Prescribed by: ELLA AYALA on 05/26/17 0351 Constitutional: see HPI EENTM: see HPI Respiratory: no symptoms reported Cardiovascular: no symptoms reported Genitourinary: no symptoms reported Musculoskeletal: no symptoms reported Skin: no symptoms reported Psychiatric/Neurological: No Symptoms Reported Hematologic/Lymphatic: No Symptoms Reported Past [id number]-Epijcm-Xjvqvm Hx Patient Social History Alcohol Use: Denies Use Recreational Drug Use: No Recent Foreign Travel: No Contact w/Someone Who Travel: No Recent Infectious Disease Expo: No Recent Hopitalizations: No Immunizations Up To Date Tetanus Booster (TDap): Less than 5yrs Date of Influenza Vaccine: May 16, 2012 Seasonal Allergies Seasonal Allergies: No Surgeries History of Surgeries: Yes (C-SECTIONS x3) Surgeries: Section, Tubal Ligation Respiratory History of Respiratory Disorde: No Cardiovascular History of Cardiac Disorders: Yes Cardiac Disorders: High Cholesterol, Hypertension Neurological History of Neurological Disord: No Reproductive System Hx Reproductive Disorders: No Female Reproductive Disorders: Ovarian Cyst 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 Genitourinary History of Genitourinary Disor: Yes Genitourinary Disorders: Bladder Infection Gastrointestinal History of Gastrointestinal Di: Yes Gastrointestinal Disorders: Gastroesophageal Reflux Musculoskeletal History of Musculoskeletal Dis: No Endocrine History of Endocrine Disorders: Yes Endocrine Disorders: Diabetes, Non-Insulin dep HEENT History of HEENT Disorders: No Cancer History of Cancer: No Psychosocial History of Psychiatric Problem: No Integumentary History of Skin or Integumenta: No Blood Transfusions History of Blood Disorders: No Physical Exam Vital Signs Vital Sign - Last 12Hours 08/30/17 15:03 Temp 98.3 Pulse 117 Resp 18 B/P (MAP) 129/96 (107) Pulse Ox 96 O2 Delivery Room Air Capillary Refill : Less Than 3 Seconds General Appearance: No Apparent Distress, WD/WN Eyes: Bilateral Eye Normal Inspection, Bilateral Eye PERRL, Bilateral Eye EOMI HEENT: PERRL/EOMI, TMs Normal Neck: Full Range of Motion, Normal Inspection Respiratory: No Accessory Muscle Use, No Respiratory Distress Cardiovascular: Regular Rate, Rhythm, Normal Peripheral Pulses Gastrointestinal: Normal Bowel Sounds, Soft Extremity: Normal Capillary Refill, No Calf Tenderness Neurologic/Psychiatric: Alert, Oriented x3, No Motor/Sensory Deficits Skin: Normal Color, Warm/Dry Progress/Results/Core Measures Suspected Sepsis Recent Fever Within 48 Hours: Yes Infection Criteria Present: None New/Unexplained Altered Menta: No Sepsis Screen: No Definite Risk Sepsis Diagnosis: SIRS Temperature:98.3 Pulse: 117 Respiratory Rate: 18 Laboratory Tests 08/30/17 15:13: White Blood Count 10.8 Blood Pressure 129 /96 Mean: 107 Laboratory Tests 08/30/17 15:13: Creatinine 0.86, Platelet Count 329, Total Bilirubin 0.4 Results/Orders Lab Results Laboratory Tests Test 08/30/17 15:13 08/30/17 15:23 08/30/17 17:15 08/30/17 17:35 Range/Units White Blood Count 10.8 4.3-11.0 10^3/uL Red Blood Count 5.05 4.35-5.85 10^6/uL Hemoglobin 13.6 11.5-16.0 G/DL Hematocrit 39 35-52 % Mean Corpuscular Volume 77 L 80-99 FL Mean Corpuscular Hemoglobin 27 25-34 PG Mean Corpuscular Hemoglobin Concent 35 32-36 G/DL Red Cell Distribution Width 12.5 10.0-14.5 % Platelet Count 329 130-400 10^3/uL Mean Platelet Volume 8.9 7.4-10.4 FL Neutrophils (%) (Auto) 81 H 42-75 % Lymphocytes (%) (Auto) 11 L 12-44 % Monocytes (%) (Auto) 4 0-12 % Eosinophils (%) (Auto) 4 0-10 % Basophils (%) (Auto) 0 0-10 % Neutrophils # (Auto) 8.8 H 1.8-7.8 X 10^3 Lymphocytes # (Auto) 1.2 1.0-4.0 X 10^3 Monocytes # (Auto) 0.4 0.0-1.0 X 10^3 Eosinophils # (Auto) 0.4 H 0.0-0.3 10^3/uL Basophils # (Auto) 0.0 0.0-0.1 10^3/uL Sodium Level 130 L 135-145 MMOL/L Potassium Level 3.9 3.6-5.0 MMOL/L Chloride Level 97 L 98-107 MMOL/L Carbon Dioxide Level 22 21-32 MMOL/L Anion Gap 11 5-14 MMOL/L Blood Urea Nitrogen 12 7-18 MG/DL Creatinine 0.86 0.60-1.30 MG/DL Estimat Glomerular Filtration Rate > 60 BUN/Creatinine Ratio 14 Glucose Level 519 *H 70-105 MG/DL Calcium Level 8.8 8.5-10.1 MG/DL Total Bilirubin 0.4 0.1-1.0 MG/DL Aspartate Amino Transf (AST/SGOT) 13 5-34 U/L Alanine Aminotransferase (ALT/SGPT) 25 0-55 U/L Alkaline Phosphatase 90 40-136 U/L Total Protein 7.5 6.4-8.2 GM/DL Albumin 3.4 3.2-4.5 GM/DL Glucometer 427 *H 294 H 70-110 MG/DL Urine Color YELLOW Urine Clarity CLEAR Urine pH 6 5-9 Urine Specific [place] 1.010 L 1.016-1.022 Urine Protein NEGATIVE NEGATIVE Urine Glucose (UA) 4+ H NEGATIVE Urine Ketones 4+ H NEGATIVE Urine Nitrite NEGATIVE NEGATIVE Urine Bilirubin NEGATIVE NEGATIVE Urine Urobilinogen NORMAL NORMAL MG/DL Urine Leukocyte Esterase NEGATIVE NEGATIVE Urine RBC (Auto) NEGATIVE NEGATIVE Urine RBC NONE /HPF Urine WBC 0-2 /HPF Urine Crystals NONE /LPF Urine Bacteria NEGATIVE /HPF Urine Casts NONE /LPF Urine Mucus NEGATIVE /LPF Urine Culture Indicated NO Micro Results Microbiology 08/30/17 Influenza Types A,B Antigen (FABIOLA) - Final, Complete My Orders Orders - ERASMO KAUFMAN APRN Cbc With Automated Diff (08/30/17 15:18) Comprehensive Metabolic Panel (08/30/17 15:18) Ua Culture If Indicated (08/30/17 15:18) Urine Bedside (08/30/17 15:18) Saline Lock/Iv-Start (08/30/17 15:18) Ns Iv 1000 Ml (Sodium Chloride 0.9%) (08/30/17 15:30) Influenza A And B Antigens (08/30/17 15:18) Accucheck Stat ONCE (08/30/17 15:18) Ondansetron Injection (Zofran Injectio (08/30/17 15:30) Insulin (Regular) Human (Humulin R (Per (08/30/17 15:45) Ketorolac Injection (Toradol Injection) (08/30/17 16:15) Accucheck Stat ONCE (08/30/17 17:03) Ns Iv 1000 Ml (Sodium Chloride 0.9%) (08/30/17 17:30) Ns Iv 1000 Ml (Sodium Chloride 0.9%) (08/30/17 18:15) Medications Given in ED Current Medications Medications Dose Ordered Sig/Kendall Route Start Time Stop Time Status Last Admin Dose Admin Insulin Human Regular 8 unit ONCE ONCE IV 08/30/17 15:45 08/30/17 15:46 DC 08/30/17 16:18 8 UNIT Ketorolac Tromethamine 30 mg ONCE ONCE IVP 08/30/17 16:15 08/30/17 16:16 DC 08/30/17 16:18 30 MG Ondansetron HCl 4 mg ONCE ONCE IVP 08/30/17 15:30 08/30/17 15:31 DC 08/30/17 15:29 4 MG Vital Signs/I&O Vital Sign - Last 12Hours 08/30/17 15:03 Temp 98.3 Pulse 117 Resp 18 B/P (MAP) 129/96 (107) Pulse Ox 96 O2 Delivery Room Air Capillary Refill : Less Than 3 Seconds Blood Pressure Mean: 107 Departure Impression Impression: Primary Impression: Hyperglycemia Additional Impressions: Myalgia Viral syndrome Disposition: HOME, SELF-CARE Condition: Stable Departure-Patient Inst. Decision time for Depature: 18:12 Referrals: [facility]/ (PCP) Primary Care Physician VIKTOR HENSON (Family) Primary Care Physician Patient Instructions: DIABETES, VIRAL SYNDROME Add. Discharge Instructions: 1. Drink plenty of fluids and keep a close eye on her blood sugar. Return to ER for any concerns. Follow-up with your doctor within 2-3 days for recheck All discharge instructions reviewed with patient and/or family. Voiced understanding. ERASMO KAUFMAN APRN Aug 30, 2017 15:21
[2017-08-30 15:28] LABS: BASOPHILS % (AUTO) 0 % (0-10); EOSINOPHILS # (AUTO) 0.4 10^3/uL (0.0-0.3); EOSINOPHILS % (AUTO) 4 % (0-10); HEMATOCRIT 39 % (35-52); HEMOGLOBIN 13.6 G/DL (11.5-16.0); LYMPHOCYTES # (AUTO) 1.2 X 10^3 (1.0-4.0); LYMPHOCYTES % (AUTO) 11 % (12-44); MEAN CORPUSCULAR HEMOGLOBIN 27 PG (25-34); MEAN CORPUSCULAR HGB CONC 35 G/DL (32-36); MEAN CORPUSCULAR VOLUME 77 FL (80-99); MEAN PLATELET VOLUME 8.9 FL (7.4-10.4); MONOCYTES # (AUTO) 0.4 X 10^3 (0.0-1.0); MONOCYTES % (AUTO) 4 % (0-12); NEUTROPHILS # (AUTO) 8.8 X 10^3 (1.8-7.8); NEUTROPHILS % (AUTO) 81 % (42-75); PLATELET COUNT 329 10^3/uL (130-400); RED BLOOD COUNT 5.05 10^6/uL (4.35-5.85); RED CELL DISTRIBUTION WIDTH 12.5 % (10.0-14.5); WHITE BLOOD COUNT 10.8 10^3/uL (4.3-11.0)
[2017-08-30] MEDS ORDERED: ONDANSETRON 4 MG/2 ML (SDV) Z0FRAN IVP ONE (15:30)
[2017-08-30] MEDS ORDERED: NS IV 1000 ML 1,000 ML IV SCH ×3 (15:30→18:15)
[2017-08-30 15:39] LABS: ALANINE AMINOTRANSFERASE 25 U/L (0-55); ALBUMIN 3.4 GM/DL (3.2-4.5); ALKALINE PHOSPHATASE 90 U/L (40-136); BILIRUBIN,TOTAL 0.4 MG/DL (0.1-1.0); BUN/CREATININE RATIO 14; CALCIUM 8.8 MG/DL (8.5-10.1); CARBON DIOXIDE 22 MMOL/L (21-32); CHLORIDE 97 MMOL/L (98-107); CREATININE SERUM 0.86 MG/DL (0.60-1.30); GFR ESTIMATED > 60; POTASSIUM 3.9 MMOL/L (3.6-5.0); SODIUM 130 MMOL/L (135-145); TOTAL PROTEIN 7.5 GM/DL (6.4-8.2)
[2017-08-30] MEDS ORDERED: inSUlin (REGULAR) HUMAN 1 UNIT/0.01 ML (CHARGE PER UNIT) IV ONE (15:45)
[2017-08-30 15:46] LABS: GLUCOSE 519 MG/DL (70-105)
[2017-08-30] MEDS ORDERED: KETOROLAC 30 MG/ML VIAL IVP ONE (16:15)
[2017-08-30 17:44] LABS: BILIRUBIN,URINE NEGATIVE (NEGATIVE); CLARITY,URINE CLEAR; COLOR,URINE YELLOW; GLUCOSE, URINE (UA) 4+ (NEGATIVE); KETONES,URINE 4+ (NEGATIVE); LEUKOCYTE ESTERASE ,URINE NEGATIVE (NEGATIVE); NITRITE,URINE NEGATIVE (NEGATIVE); PH,URINE 6 (5-9); PROTEIN,URINE NEGATIVE (NEGATIVE); UROBILINOGEN,URINE NORMAL (NORMAL)
[2017-08-30 17:59] LABS: BACTERIA,URINE NEGATIVE /HPF; WBC,URINE 0-2 /HPF
[2017-08-30 18:24] VITALS: BP 119/78
== END 2017-08-30 18:24 | disposition home or self-care (01) ==
LOC: EDUNIT# 14:29 → ER 14:31
DX: E11.65 Type 2 diabetes mellitus with hyperglycemia (principal); M79.1 Myalgia; B34.9 Viral infection, unspecified; E78.00 Pure hypercholesterolemia, unspecified; I10 Essential (primary) hypertension; K21.9 Gastro-esophageal reflux disease without esophagitis; Z87.448 Personal history of other diseases of urinary system; Z79.84 Long term (current) use of oral hypoglycemic drugs; Z98.51 Tubal ligation status; Z87.59 Personal history of other complications of pregnancy, childbirth and the puerperium
CPT/HCPCS: 36415; 80053; 81000; 82962; 84703; 85025; 87804; 96361; 96374; 96375

== ENCOUNTER 2018-01-10 19:19 | Inpatient (IN) | payer OTHER ==
[~2018-01-10] VITALS: Ht 154.9 cm; Wt 58.9 kg
[2018-01-10] MEDS ORDERED: NS IV 1000 ML 1,000 ML IV ONE ×2 (19:48→20:40)
[2018-01-10 19:57] LABS: BASOPHILS % (AUTO) 0 % (0-10); EOSINOPHILS % (AUTO) 0 % (0-10); HEMATOCRIT 34 % (35-52); HEMOGLOBIN 11.3 G/DL (11.5-16.0); LYMPHOCYTES # (AUTO) 1.9 X 10^3 (1.0-4.0); LYMPHOCYTES % (AUTO) 22 % (12-44); MEAN CORPUSCULAR HEMOGLOBIN 26 PG (25-34); MEAN CORPUSCULAR HGB CONC 33 G/DL (32-36); MEAN CORPUSCULAR VOLUME 79 FL (80-99); MEAN PLATELET VOLUME 8.8 FL (7.4-10.4); MONOCYTES # (AUTO) 0.1 X 10^3 (0.0-1.0); MONOCYTES % (AUTO) 2 % (0-12); NEUTROPHILS # (AUTO) 6.4 X 10^3 (1.8-7.8); NEUTROPHILS % (AUTO) 75 % (42-75); PLATELET COUNT 578 10^3/uL (130-400); RED BLOOD COUNT 4.32 10^6/uL (4.35-5.85); RED CELL DISTRIBUTION WIDTH 12.2 % (10.0-14.5); WHITE BLOOD COUNT 8.5 10^3/uL (4.3-11.0)
[2018-01-10] MEDS ORDERED: LORazepam INJ 2 MG/ML (ATIVAN) VIAL IVP ONE (20:00)
[2018-01-10] MEDS ORDERED: fentaNYL INJECTION 100 MCG/2 ML AMP IVP ONE (20:00)
[2018-01-10 20:13] LABS: BILIRUBIN,URINE NEGATIVE (NEGATIVE); CLARITY,URINE SLIGHTLY CLOUDY; COLOR,URINE YELLOW; GLUCOSE, URINE (UA) 4+ (NEGATIVE); KETONES,URINE NEGATIVE (NEGATIVE); LEUKOCYTE ESTERASE ,URINE NEGATIVE (NEGATIVE); NITRITE,URINE POSITIVE (NEGATIVE); PH,URINE 5 (5-9); PROTEIN,URINE 3+ (NEGATIVE); UROBILINOGEN,URINE NORMAL (NORMAL)
[2018-01-10 20:14] LABS: ALANINE AMINOTRANSFERASE 23 U/L (0-55); ALKALINE PHOSPHATASE 129 U/L (40-136); BILIRUBIN,TOTAL 0.2 MG/DL (0.1-1.0); BUN/CREATININE RATIO 7; CALCIUM 9.8 MG/DL (8.5-10.1); CARBON DIOXIDE 16 MMOL/L (21-32); CHLORIDE 97 MMOL/L (98-107); CREATININE SERUM 0.96 MG/DL (0.60-1.30); GFR ESTIMATED > 60; POTASSIUM 4.2 MMOL/L (3.6-5.0); SODIUM 135 MMOL/L (135-145); TOTAL PROTEIN 8.8 GM/DL (6.4-8.2)
[2018-01-10 20:15] LABS: INR 1.2 (0.8-1.4); PROTHROMBIN TIME PATIENT 15.3 SEC (12.2-14.7)
[2018-01-10 20:17] LABS: GLUCOSE 417 MG/DL (70-105)
--- NOTE | 2018-01-10 20:19 | Diagnostic Imaging Report ---
INDICATION: Cold sweats, shaking. No chest complaints. Not feeling well. EXAMINATION: Chest, 01/10/2018. COMPARISON: 05/26/2017. FINDINGS: The cardiomediastinal silhouette is unremarkable. The pulmonary vasculature is within normal limits. The lungs and pleural spaces are clear. IMPRESSION: No evidence of an acute cardiopulmonary process. Dictated by: Dictated on workstation # [id number]
[2018-01-10 20:29] LABS: BACTERIA,URINE LARGE /HPF; WBC,URINE 50-100 /HPF
[2018-01-10] MEDS ORDERED: inSUlin (REGULAR) HUMAN 1 UNIT/0.01 ML (CHARGE PER UNIT) IV ONE (20:45)
[2018-01-10] MEDS ORDERED: cefTRIAXone INJECTION 1,000 MG in NS (IVPB) 50 ML IV ONE (20:45)
--- NOTE | 2018-01-10 21:20 | ED General ---
General Chief Complaint: Head/Cervical Problems Stated Complaint: DIABETES Nursing Triage Note: PT PRESENTS TO ER WITH COMPLAINT OF HEADACHE. STATES SHES HAD IT X6 DAYS. STATES HER NECK, CHEST, AND LEGS ARE PAINFUL. Nursing Sepsis Screen: No Definite Risk Source of Information: Patient Exam Limitations: No Limitations History of Present Illness Date Seen by Provider: Jan 10, 2018 Time Seen by Provider: 19:35 Initial Comments This 32-year-old woman presents to emergency room with complaints of fever, shortness of breath, back and leg aches, headaches, nausea, vomiting, and diarrhea. She reports her blood sugars have been high recently. She has tried to take metformin but does not tolerate it well as it causes nausea, vomiting, diarrhea. Her headaches and leg aches have been ongoing for about a month. Her fever and shortness of breath started within the last 24 hours. She appears to be hyperventilating and very anxious. She complains of numbness in her hands bilaterally. Patient is seen at [facility]. She is hyperglycemic with a fingerstick blood sugar of 362. She is extremely tachycardic. Monitor displays sinus tachycardia with a heart rate in the 160s. Allergies and Home Medications Allergies Coded Allergies: No Known Drug Allergies (Verified , 04/29/08) Home Medications Atorvastatin Calcium 10 Mg Tablet, 10 MG PO DAILY, (Reported) Glimepiride 2 Mg Tablet, 2 MG PO DAILY, (Reported) Hyoscyamine Sulfate 0.125 Mg Tab.subl, 1-2 TAB SL Q4H Prescribed by: ELLA AYALA on 05/26/17350 Lisinopril 5 Mg Tablet, 5 MG PO DAILY, (Reported) Metformin Hcl 500 Mg Tablet, 500 MG PO BID WITH MEALS, (Reported) Nitrofurantoin Macrocrystal 100 Mg Capsule, 100 MG PO BID, (Reported) Omeprazole 20 Mg Tablet.dr, 20 MG PO BID, (Reported) Ondansetron 4 Mg Tab.rapdis, 4 MG PO Q4H Prescribed by: ELLA AYALA on 05/26/17350 Patient Home Medication List Home Medication List Reviewed: Yes Review of Systems Constitutional: see HPI EENTM: no symptoms reported Respiratory: see HPI Cardiovascular: no symptoms reported Gastrointestinal: see HPI Genitourinary: no symptoms reported : No Musculoskeletal: see HPI Skin: no symptoms reported Psychiatric/Neurological: See HPI Hematologic/Lymphatic: No Symptoms Reported Immunological/Allergic: no symptoms reported Past Xsjlyha-Lkzxrw-Maqqci Hx Patient Social History Alcohol Use: Denies Use Recreational Drug Use: No Smoking Status: Never a Smoker Recent Foreign Travel: No Contact w/Someone Who Travel: No Recent Infectious Disease Expo: No Recent Hopitalizations: No Immunizations Up To Date Tetanus Booster (TDap): Less than 5yrs Date of Influenza Vaccine: May 16, 2012 Seasonal Allergies Seasonal Allergies: No Past Medical History Surgeries: Yes (C-SECTIONS x3) Section, Tubal Ligation Respiratory: No Cardiac: Yes High Cholesterol, Hypertension Neurological: No : No Reproductive Disorders: No Female Reproductive Disorders: 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 Genitourinary: Yes Bladder Infection Gastrointestinal: Yes Gastroesophageal Reflux Musculoskeletal: No Endocrine: Yes (Type II) Diabetes, Non-Insulin dep HEENT: No Cancer: No Psychosocial: No Integumentary: No Blood Disorders: No Physical Exam-Suspected Sepsis Physical Exam Vital Signs Vital Signs - First Documented 01/10/18 01/10/18 19:22 23:22 Temp 103.5 Pulse 154 Resp 35 B/P (MAP) 117/91 (100) Pulse Ox 97 O2 Delivery Room Air Capillary Refill : Less Than 3 Seconds Blood Pressure Mean: 100 General Appearance: WD/WN, Anxious, Moderate Distress (Hyperventilating) HEENT: PERRL/EOMI, Normal ENT Inspection, Pharynx Normal Neck: Normal Inspection Respiratory: Lungs Clear, Normal Breath Sounds, No Accessory Muscle Use, No Respiratory Distress, Other (Tachypnea) Cardiovascular: No Edema, No Murmur, Tachycardia Gastrointestinal: Normal Bowel Sounds, Non Tender, Soft Extremity: Normal Capillary Refill, Normal Inspection, Non Tender, No Calf Tenderness, No Pedal Edema Neurologic/Psychiatric: Alert, Oriented x3, No Motor/Sensory Deficits, 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 Norm as Tested, Other (Anxious, hyperventilating) Skin: normal color, warm/dry Focused Exam Lactate Level 01/10/18 19:35: Lactic Acid Level 10.63*H 01/10/18 21:42: Lactic Acid Level 3.53*H 01/11/18 02:00: Lactic Acid Level 1.48 Lactic Acid Level Progress/Results/Core Measures Suspected Sepsis Recent Fever Within 48 Hours: No Infection Criteria Present: None New/Unexplained Altered Menta: No Sepsis Screen: No Definite Risk SIRS Temperature:103.5 Pulse: 154 Respiratory Rate: 35 Laboratory Tests 01/10/18 19:35: White Blood Count 8.5 01/11/18 02:00: White Blood Count 15.6H Blood Pressure 117 /91 Mean: 100 01/10/18 19:35: Lactic Acid Level 10.63*H 01/10/18 21:42: Lactic Acid Level 3.53*H 01/11/18 02:00: Lactic Acid Level 1.48 Laboratory Tests 01/10/18 19:35: INR Comment 1.2, Platelet Count 578H, Total Bilirubin 0.2 01/11/18 00:25: Creatinine 0.76 01/11/18 02:00: Platelet Count 438H, Creatinine 0.67 01/11/18 05:55: Results/Orders Lab Results Laboratory Tests Test 01/10/18 19:30 01/10/18 19:35 01/10/18 20:03 01/10/18 21:42 Range/Units Glucometer 362 H 70-110 MG/DL White Blood Count 8.5 4.3-11.0 10^3/uL Red Blood Count 4.32 L 4.35-5.85 10^6/uL Hemoglobin 11.3 L 11.5-16.0 G/DL Hematocrit 34 L 35-52 % Mean Corpuscular Volume 79 L 80-99 FL Mean Corpuscular Hemoglobin 26 25-34 PG Mean Corpuscular Hemoglobin Concent 33 32-36 G/DL Red Cell Distribution Width 12.2 10.0-14.5 % Platelet Count 578 H 130-400 10^3/uL Mean Platelet Volume 8.8 7.4-10.4 FL Neutrophils (%) (Auto) 75 42-75 % Lymphocytes (%) (Auto) 22 12-44 % Monocytes (%) (Auto) 2 0-12 % Eosinophils (%) (Auto) 0 0-10 % Basophils (%) (Auto) 0 0-10 % Neutrophils # (Auto) 6.4 1.8-7.8 X 10^3 Lymphocytes # (Auto) 1.9 1.0-4.0 X 10^3 Monocytes # (Auto) 0.1 0.0-1.0 X 10^3 Eosinophils # (Auto) 0.0 0.0-0.3 10^3/uL Basophils # (Auto) 0.0 0.0-0.1 10^3/uL Prothrombin Time 15.3 H 12.2-14.7 SEC INR Comment 1.2 0.8-1.4 Activated Partial Thromboplast Time 27 24-35 SEC Sodium Level 135 135-145 MMOL/L Potassium Level 4.2 3.6-5.0 MMOL/L Chloride Level 97 L 98-107 MMOL/L Carbon Dioxide Level 16 L 21-32 MMOL/L Anion Gap 22 H 5-14 MMOL/L Blood Urea Nitrogen 7 7-18 MG/DL Creatinine 0.96 0.60-1.30 MG/DL Estimat Glomerular Filtration Rate > 60 BUN/Creatinine Ratio 7 Glucose Level 417 *H 70-105 MG/DL Lactic Acid Level 10.63 *H 3.53 *H 0.50-2.00 MMOL/L Calcium Level 9.8 8.5-10.1 MG/DL Total Bilirubin 0.2 0.1-1.0 MG/DL Aspartate Amino Transf (AST/SGOT) 22 5-34 U/L Alanine Aminotransferase (ALT/SGPT) 23 0-55 U/L Alkaline Phosphatase 129 40-136 U/L Total Creatine Kinase 36 29-168 U/L Total Protein 8.8 H 6.4-8.2 GM/DL Albumin 4.0 3.2-4.5 GM/DL Serum Test, Qualitative NEGATIVE NEGATIVE Urine Color YELLOW Urine Clarity SLIGHTLY CLOUDY Urine pH 5 5-9 Urine Specific Hamer 1.015 L 1.016-1.022 Urine Protein 3+ H NEGATIVE Urine Glucose (UA) 4+ H NEGATIVE Urine Ketones NEGATIVE NEGATIVE Urine Nitrite POSITIVE H NEGATIVE Urine Bilirubin NEGATIVE NEGATIVE Urine Urobilinogen NORMAL NORMAL MG/DL Urine Leukocyte Esterase NEGATIVE NEGATIVE Urine RBC (Auto) 3+ H NEGATIVE Urine RBC 10-25 H /HPF Urine WBC 50-100 H /HPF Urine Squamous Epithelial Cells 2-5 /HPF Urine Crystals NONE /LPF Urine Bacteria LARGE H /HPF Urine Casts NONE /LPF Urine Mucus NEGATIVE /LPF Urine Culture Indicated YES Test 01/10/18 23:14 01/10/18 23:40 01/11/18 00:25 01/11/18 01:04 Range/Units Glucometer 325 H 392 H 211 H 70-110 MG/DL Sodium Level 137 135-145 MMOL/L Potassium Level 3.5 L 3.6-5.0 MMOL/L Chloride Level 108 H 98-107 MMOL/L Carbon Dioxide Level 16 L 21-32 MMOL/L Anion Gap 13 5-14 MMOL/L Blood Urea Nitrogen 11 7-18 MG/DL Creatinine 0.76 0.60-1.30 MG/DL Estimat Glomerular Filtration Rate > 60 BUN/Creatinine Ratio 14 Glucose Level 261 H 70-105 MG/DL Calcium Level 8.9 8.5-10.1 MG/DL Test 01/11/18 02:00 01/11/18 02:02 01/11/18 03:07 01/11/18 03:59 Range/Units White Blood Count 15.6 H 4.3-11.0 10^3/uL Red Blood Count 3.41 L 4.35-5.85 10^6/uL Hemoglobin 9.1 L 11.5-16.0 G/DL Hematocrit 27 L 35-52 % Mean Corpuscular Volume 78 L 80-99 FL Mean Corpuscular Hemoglobin 27 25-34 PG Mean Corpuscular Hemoglobin Concent 34 32-36 G/DL Red Cell Distribution Width 11.9 10.0-14.5 % Platelet Count 438 H 130-400 10^3/uL Mean Platelet Volume 8.2 7.4-10.4 FL Neutrophils (%) (Auto) 79 H 42-75 % Lymphocytes (%) (Auto) 14 12-44 % Monocytes (%) (Auto) 8 0-12 % Eosinophils (%) (Auto) 0 0-10 % Basophils (%) (Auto) 0 0-10 % Neutrophils # (Auto) 12.3 H 1.8-7.8 X 10^3 Lymphocytes # (Auto) 2.1 1.0-4.0 X 10^3 Monocytes # (Auto) 1.2 H 0.0-1.0 X 10^3 Eosinophils # (Auto) 0.0 0.0-0.3 10^3/uL Basophils # (Auto) 0.0 0.0-0.1 10^3/uL Neutrophils % (Manual) 84 % Lymphocytes % (Manual) 13 % Monocytes % (Manual) 3 % Eosinophils % (Manual) 0 % Basophils % (Manual) 0 % Band Neutrophils 0 % Blood Morphology Comment NORMAL Sodium Level 136 135-145 MMOL/L Potassium Level 4.0 3.6-5.0 MMOL/L Chloride Level 107 98-107 MMOL/L Carbon Dioxide Level 18 L 21-32 MMOL/L Anion Gap 11 5-14 MMOL/L Blood Urea Nitrogen 11 7-18 MG/DL Creatinine 0.67 0.60-1.30 MG/DL Estimat Glomerular Filtration Rate > 60 BUN/Creatinine Ratio 16 Glucose Level 235 H 70-105 MG/DL Lactic Acid Level 1.48 0.50-2.00 MMOL/L Calcium Level 8.7 8.5-10.1 MG/DL Phosphorus Level 1.8 L 2.3-4.7 MG/DL Magnesium Level 1.5 L 1.8-2.4 MG/DL Glucometer 237 H 189 H 191 H 70-110 MG/DL Test 01/11/18 05:04 01/11/18 05:36 01/11/18 05:55 01/11/18 06:04 Range/Units Glucometer 148 H 148 H 140 H 70-110 MG/DL Micro Results Microbiology 01/10/18 Influenza Types A,B Antigen (FABIOLA) - Final, Complete My Orders Orders - MANDEEP MAXWELL MD Lorazepam Injection (Ativan Injection) (01/10/18 20:00) Fentanyl Injection (Sublimaze Injection (01/10/18 20:00) Cbc With Automated Diff (01/10/18 19:48) Comprehensive Metabolic Panel (01/10/18 19:48) Lactic Acid Analyzer (01/10/18 19:48) Blood Culture (01/10/18 19:48) Sputum Culture (01/10/18 19:48) Ua Culture If Indicated (01/10/18 19:48) Protime With Inr (01/10/18 19:48) Partial Thromboplastin Time (01/10/18 19:48) Chest 1 View, Ap/Pa Only (01/10/18 19:48) O2 (01/10/18 19:48) Saline Lock/Iv-Start (01/10/18 19:48) Saline Lock/Iv-Start (01/10/18 19:48) Vital Signs Adult Sepsis Patie Q1H (01/10/18 19:48) Remove Rings In Anticipation O (01/10/18 19:48) Influenza A And B Antigens (01/10/18 19:48) Saline Lock/Iv-Start (01/10/18 19:48) Ns Iv 1000 Ml (Sodium Chloride 0.9%) (01/10/18 19:48) Creatine Kinase (01/10/18 19:54) Urine Culture (01/10/18 20:03) Ceftriaxone Injection (Rocephin Injectio (01/10/18 20:45) Ns Iv 1000 Ml (Sodium Chloride 0.9%) (01/10/18 20:40) Insulin (Regular) Human (Humulin R (Per (01/10/18 20:45) Hcg,Qualitative Serum (01/10/18 20:47) Medications Given in ED Current Medications Medications Dose Ordered Sig/Kendall Route Start Time Stop Time Status Last Admin Dose Admin Ceftriaxone Sodium 1000 mg/ Sodium Chloride 50 ml @ 100 mls/hr ONCE ONCE IV 01/10/18 20:45 01/10/18 21:14 DC 01/10/18 21:02 100 MLS/HR Fentanyl Citrate 50 mcg ONCE ONCE IVP 01/10/18 20:00 01/10/18 20:01 DC 01/10/18 20:04 50 MCG Insulin Human Regular 5 unit ONCE ONCE IV 01/10/18 20:45 01/10/18 20:46 DC 01/10/18 21:01 5 UNIT Lorazepam 0.5 mg ONCE ONCE IVP 01/10/18 20:00 01/10/18 20:01 DC 01/10/18 20:03 0.5 MG Sodium Chloride 1,000 ml @ 0 mls/hr Q0M ONCE IV 01/10/18 19:48 01/10/18 19:50 DC 01/10/18 20:03 1,000 MLS/HR Sodium Chloride 1,000 ml @ 0 mls/hr Q0M ONCE IV 01/10/18 20:40 01/10/18 20:42 DC 01/10/18 21:02 1,000 MLS/HR Vital Signs/I&O 01/10/18 01/10/18 01/10/18 01/10/18 19:22 23:22 23:30 23:30 Temp 103.5 97.7 99.3 Pulse 154 115 112 Resp 35 24 12 B/P (MAP) 117/91 (100) 106/67 107/61 (76) Pulse Ox 97 97 98 O2 Delivery Room Air Room Air Room Air Room Air 01/10/18 01/11/18 01/11/18 01/11/18 23:34 00:00 01:00 01:00 Pulse 114 111 111 110 Resp 35 22 B/P (MAP) 101/65 (77) 96/61 (73) Pulse Ox 97 98 O2 Delivery Room Air Room Air 01/11/18 01/11/18 01/11/18 01/11/18 02:00 03:00 04:00 05:00 Pulse 106 102 101 96 Resp 37 29 29 21 B/P (MAP) 98/70 (79) 98/69 (79) 99/68 (78) 117/86 (96) Pulse Ox 97 97 99 99 O2 Delivery Room Air Room Air Room Air Room Air 01/11/18 06:00 Pulse 104 Resp 29 B/P (MAP) 113/89 (97) Pulse Ox 98 O2 Delivery Room Air Capillary Refill : Less Than 3 Seconds Blood Pressure Mean: 100 Progress Note : Progress Note Patient's anxiety was treated with Ativan and her pain was treated with fentanyl. This resolved her hyperventilating and improved her vital signs. She received 2 L of normal saline boluses. Heart rate improved significantly with fluid resuscitation. Insulin 5 units was administered by IV route in the ER. Patient was found to have urinary tract infection and was therefore presumed septic. Rocephin was started for initial antibiotic therapy. Case was discussed with Dr. Herrera who also requested an ABG. After 3 attempts ABG could not be obtained. Diagnostic Imaging Diagonstic Imaging: Xray Plain Films/CT/US/NM/MRI: chest Comments Chest x-ray viewed by me and report reviewed. See report below: NAME: LEIDA [facility]DEN [facility] REC#: [id number] PT STATUS: REG ER : 1985 PHYSICIAN: MANDEEP MAXWELL MD ADMIT DATE: 01/10/18/ER Signed Date of Exam: 01/10/18 CHEST 1 VIEW, AP/PA ONLY INDICATION: Cold sweats, shaking. No chest complaints. Not feeling well. EXAMINATION: Chest, 01/10/2018. COMPARISON: 05/26/2017. FINDINGS: The cardiomediastinal silhouette is unremarkable. The pulmonary vasculature is within normal limits. The lungs and pleural spaces are clear. IMPRESSION: No evidence of an acute cardiopulmonary process. Dictated by: Dictated on workstation # [id number] Dict: 01/10/182015 Trans: 01/10/182022 Interpreted by: BENEDICT SIERRA MD Electronically signed by: BENEDICT SIERRA MD 01/10/182022 Departure Communication (Admissions) Time/Spoke to Admitting Phy: 20:47 Dr. Herrera Impression Primary Impression: Sepsis Qualified Codes: A41.9 - Sepsis, unspecified organism Additional Impressions: Urinary tract infection Qualified Codes: N39.0 - Urinary tract infection, site not specified Hyperglycemia Diabetes mellitus type II, uncontrolled Qualified Codes: E11.10 - Type 2 diabetes mellitus with ketoacidosis without coma Anxiety Diabetic ketoacidosis Qualified Codes: E11.10 - Type 2 diabetes mellitus with ketoacidosis without coma Disposition: ADMITTED INPATIENT Condition: Improved Admissions Decision to Admit Reason: Admit from ER (General) Decision to Admit/Date: Jan 10, 2018 Time/Decision to Admit Time: 20:40 Departure-Patient Inst. Referrals: [facility]/ (PCP) Primary Care Physician VIKTOR HENSON (Family) Primary Care Physician MANDEEP MAXWELL MD Jan 10, 2018 21:20
--- OUTSIDE RECORDS SUMMARY | 2018-01-10 21:35 | XMS REPORT ---
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 Name Role Phone PERDOMODONY De La Fuente Unavailable PROBLEMS Type Condition ICD9-CM Code UJS63-NN Code Onset Dates Condition Status SNOMED Code Problem Gastroesophageal reflux disease without esophagitis K21.9 Active 729256846 Problem Acute upper respiratory infection, unspecified J06.9 Active 935885556 Problem Elevated LDL cholesterol level E78.00 Active 327859126 Problem Diabetes type 2, uncontrolled E11.65 Active 232776385 Problem Low HDL (under 40) E78.6 Active 148814339 ALLERGIES No Information ENCOUNTERS Encounter Location Date Diagnosis [place] [address] [address] [id number] [place] [phone] November, [place] [address] [address] Sep, Diabetes type 2, uncontrolled E11.65 [place] [id number] [place] [address] [phone] 17 Aug, 2017 [place] [id number] [place] [address] 31517- 1610 Aug, Encounter for test Z32.00 [place] [address] [address] [id number] [place] [phone] Apr, [place] [address] [address] Apr, Diabetes type 2, uncontrolled E11.65 ; Epigastric pain R10.13 and Gastroesophageal reflux disease without esophagitis K21.9 [place] [id number] [place] [phone] Oct, [facility] [address] [address] 08 Aug, 2016 Encounter for test, result unknown Z32.00 [facility] [id number] [place] [address]07- [address] 26 Jul, 2016 Acute upper respiratory infection, unspecified J06.9 ; Other viral agents as the cause of diseases classified elsewhere B97.89 and Diabetes type 2, uncontrolled E11.65 [facility] [id number] [place] [address] 30609- [phone] Apr, [facility] [id number] [place] [id number] [phone] Mar, 2016 Dental examination Z01.20 [facility] [id number] [place] [address]7620- [phone] November, [place] [address] [address] [id number] [place] [address] 12898- 9958 November, Diabetes type 2, uncontrolled E11.65 [facility] [id number] [place] [address] 60201- [address] Oct, [facility] [id number] [place] [address] [phone]- [phone] Oct, [facility] [id number] [place] [address] 78135- 9084 Oct, [facility] [id number] [place] [address] [phone] Oct, [facility] [id number] [place] [address] [phone] Sep, [facility] [id number] [place] [address] 36875- [phone] 30 Sep, 2015 [facility] [address] [place] [address] 01343- 8493 Sep, Diabetes type 2, uncontrolled E11.65 [facility] [id number] [place] [phone] [phone] Sep, ADRYAN (secretory otitis media) H65.90 ; Diabetes type 2, uncontrolled E11.65 ; Cindy vaginitis B37.3 and Nausea R11.0 [place] [id number] [place] [address] 36565- 6575 May, Diabetes type 2, uncontrolled E11.65 and Abdominal pain R10.9 [place] [address] [address] [id number] [place] [address] [phone] Jun, [place] [address] [address] [id number] [place] [address] [phone] Jun, [place] [address] [address] [id number] [place] [address]16- [address] May, [place] [id number] [place] [address] 44522- [phone] May, IMMUNIZATIONS No Known Immunizations SOCIAL HISTORY Never Assessed REASON FOR VISIT Med per Lab Result PLAN OF CARE VITAL SIGNS MEDICATIONS Medication Instructions Dosage Frequency Start Date End Date Duration Status Atorvastatin Calcium 10 mg Orally Once a day 1 tablet 24h Apr, Active RESULTS No Results PROCEDURES No Known procedures INSTRUCTIONS MEDICATIONS ADMINISTERED No Known Medications MEDICAL (GENERAL) HISTORY Type Description Date Medical History Diabetes type II Medical History gerd Surgical History cesearian section x3 Surgical History tubal ligation Hospitalization History Surgeries/childbirth only
--- OUTSIDE RECORDS SUMMARY | 2018-01-10 21:36 | XMS REPORT ---
Author Author CONORPHILLIPDONY Organization [facility] Address [address] [place] [address] Care Team Providers Care Co Director Name Role Phone TURKDONY De La Fuente Unavailable PROBLEMS Type Condition ICD9-CM Code VAC32-OK Code Onset Dates Condition Status SNOMED Code Problem Gastroesophageal reflux disease without esophagitis K21.9 Active 456851397 Problem Acute upper respiratory infection, unspecified J06.9 Active 985051179 Problem Elevated LDL cholesterol level E78.00 Active 740838547 Problem Diabetes type 2, uncontrolled E11.65 Active 343138248 Problem Low HDL (under 40) E78.6 Active [id number] ALLERGIES No Known Allergies ENCOUNTERS Encounter Location Date Diagnosis [place] [id number] [place] [address] November, [place] [address] [address] Sep, Diabetes type 2, uncontrolled E11.65 [place] [id number] [place] [address] 48903- [address] 17 Aug, 2017 [place] [id number] [place] [address] 74164- 7928 Aug, Encounter for test Z32.00 [place] [id number] [place] [address] 48745- 8414 Apr, [place] [address] [address] Apr, Diabetes type 2, uncontrolled E11.65 ; Epigastric pain R10.13 and Gastroesophageal reflux disease without esophagitis K21.9 [place] [address] [address] Oct, [facility] [address] [place] [address] 45365- [address] 08 Aug, 2016 Encounter for test, result unknown Z32.00 [facility] [id number] [place] [address] 36853- 2724 Jul, Acute upper respiratory infection, unspecified J06.9 ; Other viral agents as the cause of diseases classified elsewhere B97.89 and Diabetes type 2, uncontrolled E11.65 [facility] [id number] [place] [address] 10599- 0284 Apr, [facility] [address] [id number] Mar, 2016 Dental examination Z01.20 [facility] [id number] [place] [address] 80836- [address]96 November, [place] [address] [address] November, Diabetes type 2, uncontrolled E11.65 [facility] [id number] [place] [address] 28503- 2299 Oct, [facility] [id number] [place] [address] 41555- 6339 Oct, [facility] [id number] [place] [address] 15915- 2039 Oct, [facility] [id number] [place] [address] 92346- 3966 Oct, [facility] [id number] [place] [address] 24282- 3625 Sep, [facility] [address] [address] Sep, [facility] [id number] [place] [address] 16819- 4692 Sep, Diabetes type 2, uncontrolled E11.65 [facility] [id number] [place] [address] 92761 -[address]134 Sep, ADRYAN (secretory otitis media) H65.90 ; Diabetes type 2, uncontrolled E11.65 ; Cindy vaginitis B37.3 and Nausea R11.0 [place] [address] [place] [address] 11094- 4716 May, Diabetes type 2, uncontrolled E11.65 and Abdominal pain R10.9 [place] [id number] [place] [address] 47526- 3269 Jun, [place] [id number] [place] [address] 67716- 6007 Jun, [place] [id number] [place] [address] 49817- 4144 May, [place] [id number] [place] [address] 70917- 4423 May, IMMUNIZATIONS No Known Immunizations SOCIAL HISTORY Never Assessed REASON FOR VISIT Abdominal pain, pt. states constant pain in the middle of her upper abdomen and below her belly---[place],[facility] PLAN OF CARE Activity Details Follow Up 4 Weeks Reason:DM f/u with Turk please VITAL SIGNS Height 61 in 2017-05-08 Weight 139.1 lbs 2017-05-08 Temperature 97.6 degrees Fahrenheit 2017-05-08 Heart Rate 80 bpm 2017-05-08 Respiratory Rate 18 2017-05-08 BMI 26.28 kg/m2 2017-05-08 Blood pressure systolic 132 mmHg 2017-05-08 Blood pressure diastolic 84 mmHg 2017-05-08 MEDICATIONS Medication Instructions Dosage Frequency Start Date End Date Duration Status Lisinopril 5 mg Orally Once a day 1 tablet 24h Apr, 30 day(s) Active Glucocard Expression Test 1 subcutaneously 2 times a day test 2 times per day Apr, 12 months Active MetFORMIN HCl ER 500 mg Orally twice a day 1 tablet with evening meal x 1 week, then increase to one tablet twice daily with meals h Apr, 30 day(s) Active Glimepiride 2 MG Orally Once a day 1 tablet with breakfast or the first main meal of the day 24h Apr, 30 day(s) Active Omeprazole 20 mg Orally twice a day 1 capsule 12h Apr, 30 day(s ) Active RESULTS Name Result Date Reference Range A1C (IN HOUSE) 2017-05-08 A1C IN HOUSE >14 4.3 - 5.6 % Previous A1c 13.4 Lot [id number] Exp date MICROALBUMIN, URINE (IN HOUSE) 2017-05-08 MICROALBUMIN ABNORMAL Lot # [id number] Exp date 17/04/30 Clarity Clear Color Yellow ALB 80mg/L CRE 200mg/dL A:C (IN HOUSE) 30-300mg/g Control Control Lot # Exp TEST, URINE (IN HOUSE) 2017-05-08 RESULTS Negative Lot # [id number] Control + Exp date 18/08/30 UA LONG DIP (IN HOUSE) 2017-05-08 Lot # [id number] Exp date 15/10/30 Clarity Clear Color Yellow Odor None GLU 3+ EMILY Negative KET Negative SG 1.015 BLO 2+ pH 5.5 Protein Negative URO 0.2 NIT Negative LORNA Negative Lot # Exp THYROID ANALYZER 2017-05-08 TSH 1.340 0.450-4.500 CBC 2017-05-08 WBC 6.2 3.4-10.8 RBC 5.23 3.77-5.28 Hemoglobin 13.7 11.1-15.9 Hematocrit 43.1 34.0-46.6 MCV 82 79-97 MCH 26.2 26.6-33.0 MCHC 31.8 31.5-35.7 RDW 13.9 12.3-15.4 Platelets 367 150-379 Neutrophils 56 Not Estab. Lymphs 37 Not Estab. Monocytes 6 Not Estab. Eos 1 Not Estab. Basos 0 Not Estab. Neutrophils (Absolute) 3.5 1.4-7.0 Lymphs (Absolute) 2.3 0.7-3.1 Monocytes(Absolute) 0.4 0.1-0.9 Eos (Absolute) 0.1 0.0-0.4 Baso (Absolute) 0.0 0.0-0.2 Immature Granulocytes 0 Not Estab. Immature Grans (Abs) 0.0 0.0-0.1 MICROALBUMIN/CREATININE RATIO, URINE 2017-05-08 Creatinine, Urine 81.1 Not Estab. Microalbumin, Urine 22.9 Not Estab. Microalb/Creat Ratio 28.2 0.0-30.0 LIPID PANEL 2017-05-08 Cholesterol, Total 179 100-199 Triglycerides 128 0-149 HDL Cholesterol 33 >39 VLDL Cholesterol Chad 26 5-40 LDL Cholesterol Calc 120 0-99 CMP 2017-05-08 Glucose, Serum 381 65-99 BUN 9 6-20 Creatinine, Serum 0.55 0.57-1.00 eGFR If NonAfricn Am 125 >59 eGFR If Africn Am 144 >59 BUN/Creatinine Ratio 16 9-23 Sodium, Serum 132 134-144 Potassium, Serum 4.6 3.5-5.2 Chloride, Serum 95 96-106 Carbon Dioxide, Total 22 18-29 Calcium, Serum 9.8 8.7-10.2 Protein, Total, Serum 7.2 6.0-8.5 Albumin, Serum 4.4 3.5-5.5 Globulin, Total 2.8 1.5-4.5 A/G Ratio 1.6 1.2-2.2 Bilirubin, Total 0.3 0.0-1.2 Alkaline Phosphatase, S 92 39-117 AST (SGOT) 12 0-40 ALT (SGPT) 14 0-32 PROCEDURES Procedure Date Ordered Result Body Site MICROALBUMIN, QUANTITATIVE May 08, 2017 VENIPUNCT, ROUTINE* May 08, 2017 GLYCATED HEMOGLOBIN TEST May 08, 2017 MICROALBUMIN, SEMIQUANT May 08, 2017 URINALYSIS, AUTO, W/O SCOPE May 08, 2017 URINE TEST May 08, 2017 ASSAY OF URINE CREATININE May 08, 2017 COMPREHEN METABOLIC PANEL May 08, 2017 COMPLETE CBC W/AUTO DIFF WBC May 08, 2017 LIPID PANEL May 08, 2017 ASSAY THYROID STIM HORMONE May 08, 2017 INSTRUCTIONS MEDICATIONS ADMINISTERED No Known Medications MEDICAL (GENERAL) HISTORY Type Description Date Medical History Diabetes type II Medical History gerd Surgical History cesearian section x3 Surgical History tubal ligation Hospitalization History Surgeries/childbirth only
--- OUTSIDE RECORDS SUMMARY | 2018-01-10 21:37 | XMS REPORT | Continuity of Care Document ---
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 05/26/2017 ELLA AYALA DO Ot Z87.42 PERSONAL HISTORY OF OTH DISEASES OF THE 05/26/2017 ELLA AYALA DO Ot Z87.59 PERSONAL HISTORY OF COMP OF PREG, CHLDBR 05/26/2017 ELLA AYALA DO Ot Z98.51 TUBAL LIGATION STATUS 08/30/2017 ERASMO KAUFMAN APRN Ot B34.9 VIRAL INFECTION, UNSPECIFIED 08/30/2017 ERASMO KAUFMAN APRN Ot E11.65 TYPE 2 DIABETES MELLITUS WITH HYPERGLYCE 08/30/2017 ERASMO KAUFMAN APRN Ot E78.00 PURE HYPERCHOLESTEROLEMIA, UNSPECIFIED 08/30/2017 ERASMO KAUFMAN APRN Ot I10 ESSENTIAL (PRIMARY) HYPERTENSION 08/30/2017 ERASMO KAUFMAN APRN Ot K21.9 GASTRO-ESOPHAGEAL REFLUX DISEASE WITHOUT 08/30/2017 ERASMO KAUFMAN APRN Ot M79.1 MYALGIA 08/30/2017 ERASMO KAUFMAN APRN Ot R11.2 NAUSEA WITH VOMITING, UNSPECIFIED 08/30/2017 ERASMO KAUFMAN APRN Ot Z79.84 MCC (CURRENT) USE OF ORAL HYPOGLYC 08/30/2017 ERASMO KAUFMAN APRN Ot Z87.448 PERSONAL HISTORY OF OTHER DISEASES OF UR 08/30/2017 ERASMO KAUFMAN APRN Ot Z87.59 PERSONAL HISTORY OF COMP OF PREG, CHLDBR 08/30/2017 ERASMO KAUFMAN APRN Ot Z98.51 TUBAL LIGATION STATUS 08/30/2017 МАРИЯ LOPEZ Ot R10.32 LEFT LOWER QUADRANT PAIN 09/01/2017 ERASMO KAUFMAN APRN Ot B34.9 VIRAL INFECTION, UNSPECIFIED 09/01/2017 ERASMO KAUFMAN APRN Ot E11.65 TYPE 2 DIABETES MELLITUS WITH HYPERGLYCE 09/01/2017 ERASMO KAUFMAN APRN Ot E78.00 PURE HYPERCHOLESTEROLEMIA, UNSPECIFIED 09/01/2017 ERASMO KAUFMAN APRN Ot I10 ESSENTIAL (PRIMARY) HYPERTENSION 09/01/2017 ERASMO KAUFMAN APRN Ot K21.9 GASTRO-ESOPHAGEAL REFLUX DISEASE WITHOUT 09/01/2017 ERASMO KAUFMAN APRN Ot M79.1 MYALGIA 09/01/2017 ERASMO KAUFMAN APRN Ot R11.2 NAUSEA WITH VOMITING, UNSPECIFIED 09/01/2017 ERASMO KAUFMAN APRN Ot Z79.84 MCC (CURRENT) USE OF ORAL HYPOGLYC 09/01/2017 ERASMO KAUFMAN APRN Ot Z87.448 PERSONAL HISTORY OF OTHER DISEASES OF UR 09/01/2017 ERASMO KAUFMAN APRN, Ot Z87.59 PERSONAL HISTORY OF COMP OF PREG, CHLDBR 09/01/2017 ERASMO KAUFMAN APRN Ot Z98.51 TUBAL LIGATION STATUS Procedures Code Description Performed By Performed On 72.79 VACUUM EXTRACT DEL NEC 06/07/2012 74.1 LOW CERVICAL 06/07/2012 99.77 APPL/ADMIN OF AN ADHESION BARRIER SUBSTA 06/07/2012 42154 A1C (IN-HOUSE) 06/24/2013 Results Test Result Range hCG,Beta Subunit,Qual,Serum - 09/07/16 12:07 hCG,Beta Subunit,Qual,Serum Negative mIU/mL Negative <6 CMP - 05/08/17 08:56 Glucose, Serum 381 mg/dL 65-99 BUN 9 mg/dL 6-20 Creatinine, Serum 0.55 mg/dL 0.57-1.00 eGFR If NonAfricn Am 125 mL/min/1.73 >59 eGFR If Africn Am 144 mL/min/1.73 >59 BUN/Creatinine Ratio 16 9-23 Sodium, Serum 132 mmol/L 134-144 Potassium, Serum 4.6 mmol/L 3.5-5.2 Chloride, Serum 95 mmol/L 96-106 Carbon Dioxide, Total 22 mmol/L 18-29 Calcium, Serum 9.8 mg/dL 8.7-10.2 Protein, Total, Serum 7.2 g/dL 6.0-8.5 Albumin, Serum 4.4 g/dL 3.5-5.5 Globulin, Total 2.8 g/dL 1.5-4.5 A/G Ratio 1.6 1.2-2.2 Bilirubin, Total 0.3 mg/dL 0.0-1.2 Alkaline Phosphatase, S 92 IU/L 39-117 AST (SGOT) 12 IU/L 0-40 ALT (SGPT) 14 IU/L 0-32 MICROALBUMIN/CREATININE RATIO, URINE - 05/08/17 08:56 Creatinine, Urine 81.1 mg/dL Not Estab. Microalbumin, Urine 22.9 ug/mL Not Estab. Microalb/Creat Ratio 28.2 mg/g creat 0.0-30.0 Microalb/Creat Ratio, [facility] - 05/08/17 08:56 Creatinine, Urine 81.1 mg/dL Not Estab. Microalbumin, Urine 22.9 ug/mL Not Estab. Microalb/Creat Ratio 28.2 mg/g creat 0.0-30.0 CBC With Differential/Platelet - 05/08/17 08:56 WBC 6.2 x10E3/uL 3.4-10.8 RBC 5.23 x10E6/uL 3.77-5.28 Hemoglobin 13.7 g/dL 11.1-15.9 Hematocrit 43.1 % 34.0-46.6 MCV 82 fL 79-97 MCH 26.2 pg 26.6-33.0 MCHC 31.8 g/dL 31.5-35.7 RDW 13.9 % 12.3-15.4 Platelets 367 x10E3/uL 150-379 Neutrophils 56 % Not Estab. Lymphs 37 % Not Estab. Monocytes 6 % Not Estab. Eos 1 % Not Estab. Basos 0 % Not Estab. Neutrophils (Absolute) 3.5 x10E3/uL 1.4-7.0 Lymphs (Absolute) 2.3 x10E3/uL 0.7-3.1 Monocytes(Absolute) 0.4 x10E3/uL 0.1-0.9 Eos (Absolute) 0.1 x10E3/uL 0.0-0.4 Baso (Absolute) 0.0 x10E3/uL 0.0-0.2 Immature Granulocytes 0 % Not Estab. Immature Grans (Abs) 0.0 x10E3/uL 0.0-0.1 Comp. Metabolic Panel (14) - 05/08/17 08:56 Glucose, Serum 381 mg/dL 65-99 BUN 9 mg/dL 6-20 Creatinine, Serum 0.55 mg/dL 0.57-1.00 eGFR If NonAfricn Am 125 mL/min/1.73 >59 eGFR If Africn Am 144 mL/min/1.73 >59 BUN/Creatinine Ratio 16 9-23 Sodium, Serum 132 mmol/L 134-144 Potassium, Serum 4.6 mmol/L 3.5-5.2 Chloride, Serum 95 mmol/L 96-106 Carbon Dioxide, Total 22 mmol/L 18-29 Calcium, Serum 9.8 mg/dL 8.7-10.2 Protein, Total, Serum 7.2 g/dL 6.0-8.5 Albumin, Serum 4.4 g/dL 3.5-5.5 Globulin, Total 2.8 g/dL 1.5-4.5 A/G Ratio 1.6 1.2-2.2 Bilirubin, Total 0.3 mg/dL 0.0-1.2 Alkaline Phosphatase, S 92 IU/L 39-117 AST (SGOT) 12 IU/L 0-40 ALT (SGPT) 14 IU/L 0-32 Lipid Panel - 05/08/17 08:56 Cholesterol, Total 179 mg/dL 100-199 Triglycerides 128 mg/dL 0-149 HDL Cholesterol 33 mg/dL >39 VLDL Cholesterol Chad 26 mg/dL 5-40 LDL Cholesterol Calc 120 mg/dL 0-99 Thyroid [place] Profile - 05/08/17 08:56 TSH 1.340 uIU/mL 0.450-4.500 Serum or plasma choriogonadotropin ( test) detection [...] measurement by glucometer (mass/volume) 272 mg/dL 70-110 Complete blood count (CBC) with automated white blood cell (WBC) differential - 08/30/17 15:13 Blood leukocytes automated count (number/volume) 10.8 10*3/uL 4.3-11.0 Blood erythrocytes automated count (number/volume) 5.05 10*6/uL 4.35-5.85 Venous blood hemoglobin measurement (mass/volume) 13.6 g/dL 11.5-16.0 Blood hematocrit (volume fraction) 39 % 35-52 Automated erythrocyte mean corpuscular volume 77 [foz_us] 80-99 Automated erythrocyte mean corpuscular hemoglobin (mass per erythrocyte) 27 pg 25-34 Automated erythrocyte mean corpuscular hemoglobin concentration measurement ( mass/volume) 35 g/dL 32-36 Automated erythrocyte distribution width ratio 12.5 % 10.0-14.5 Automated blood platelet count (count/volume) 329 10*3/uL 130-400 Automated blood platelet mean volume measurement 8.9 [foz_us] 7.4-10.4 Automated blood neutrophils/100 leukocytes 81 % 42-75 Automated blood lymphocytes/100 leukocytes 11 % 12-44 Blood monocytes/100 leukocytes 4 % 0-12 Automated blood eosinophils/100 leukocytes 4 % 0-10 Automated blood basophils/100 leukocytes 0 % 0-10 Blood neutrophils automated count (number/volume) 8.8 10*3 1.8-7.8 Blood lymphocytes automated count (number/volume) 1.2 10*3 1.0-4.0 Blood monocytes automated count (number/volume) 0.4 10*3 0.0-1.0 Automated eosinophil count 0.4 10*3/uL 0.0-0.3 Automated blood basophil count (count/volume) 0.0 10*3/uL 0.0-0.1 Comprehensive metabolic panel - 08/30/17 15:13 Serum or plasma sodium measurement (moles/volume) 130 mmol/L 135-145 Serum or plasma potassium measurement (moles/volume) 3.9 mmol/L 3.6-5.0 Serum or plasma chloride measurement (moles/volume) 97 mmol/L 98-107 Carbon dioxide 22 mmol/L 21-32 Serum or plasma anion gap determination (moles/volume) 11 mmol/L 5-14 Serum or plasma urea nitrogen measurement (mass/volume) 12 mg/dL 7-18 Serum or plasma creatinine measurement (mass/volume) 0.86 mg/dL 0.60-1.30 Serum or plasma urea nitrogen/creatinine mass ratio 14 NRG Serum or plasma creatinine measurement with calculation of estimated glomerular filtration rate > NRG Serum or plasma glucose measurement (mass/volume) 519 mg/dL 70-105 Serum or plasma calcium measurement (mass/volume) 8.8 mg/dL 8.5-10.1 Serum or plasma total bilirubin measurement (mass/volume) 0.4 mg/dL 0.1-1.0 Serum or plasma alkaline phosphatase measurement (enzymatic activity/volume) 90 U/L 40-136 Serum or plasma aspartate aminotransferase measurement (enzymatic activity/ volume) 13 U/L 5-34 Serum or plasma alanine aminotransferase measurement (enzymatic activity/volume ) 25 U/L 0-55 Serum or plasma protein measurement (mass/volume) 7.5 g/dL 6.4-8.2 Serum or plasma albumin measurement (mass/volume) 3.4 g/dL 3.2-4.5 Influenza virus A and B antigen detection - 08/30/17 15:22 FLU RESULT NEGATIVE FOR INFLUENZA A AND B ANTIGENS BY IA NRG Capillary blood glucose measurement by glucometer (mass/volume) - 08/30/17 15: 23 Capillary blood glucose measurement by glucometer (mass/volume) 427 mg/dL 70-110 Capillary blood glucose measurement by glucometer (mass/volume) - 08/30/17 17: 15 Capillary blood glucose measurement by glucometer (mass/volume) 294 mg/dL 70-110 Complete urinalysis with reflex to culture - 08/30/17 17:35 Urine color determination YELLOW NRG Urine clarity determination CLEAR NRG Urine pH measurement by test strip 6 5-9 Specific gravity of urine by test strip 1.010 1.016- 1.022 Urine protein assay by test strip, semi-quantitative NEGATIVE NEGATIVE Urine glucose detection by automated test strip 4+ NEGATIVE Erythrocytes detection in urine sediment by light microscopy NEGATIVE NEGATIVE Urine ketones detection by automated test strip 4+ NEGATIVE Urine nitrite detection by test strip NEGATIVE NEGATIVE Urine total bilirubin detection by test strip NEGATIVE NEGATIVE Urine urobilinogen measurement by automated test strip (mass/volume) NORMAL NORMAL Urine leukocyte esterase detection by dipstick NEGATIVE NEGATIVE Automated urine sediment erythrocyte count by microscopy (number/high power field) NONE NRG Automated urine sediment leukocyte count by microscopy (number/high power field ) [HPF] NRG Bacteria detection in urine sediment by light microscopy NEGATIVE NRG Crystals detection in urine sediment by light microscopy NONE NRG Casts detection in urine sediment by light microscopy NONE NRG Mucus detection in urine sediment by light microscopy NEGATIVE NRG Complete urinalysis with reflex to culture NO NRG Capillary blood glucose measurement by glucometer (mass/volume) - 08/30/17 18: 19 Capillary blood glucose measurement by glucometer (mass/volume) 274 mg/dL 70-110 TEST, SERUM (QUAL) - 09/14/17 12:15 HCG, TOTAL, QL NEGATIVE See Note: Encounters ACCT No. Visit Date/Time Discharge Status Pt. Type Provider Facility Loc./Unit Complaint [id number] 06/24/2013 11:58:00 06/24/2013 23:59:59 CLS Outpatient SU CARRASCO DO [id number] 09/08/2016 08:06:00 Document Registration [id number] 12/28/2017 13:00:00 12/28/2017 23:59:59 CLS Outpatient CRISTIAN TRUJILLO APRN [facility] [id number] 09/14/2017 12:00:00 Document Registration [id number] 05/08/2017 08:00:00 Document Registration [id number] 05/09/2017 12:09:00 Document Registration [id number] 05/09/2017 12:09:00 Document Registration [id number] 08/30/2017 14:31:00 08/30/2017 18:24:00 DIS Emergency ERASMO KAUFMAN APRN [facility] ER POSS DKA [id number] 05/25/2017 23:14:00 05/26/2017 04:05:00 DIS Emergency ELLA AYALA DO [facility] ER RT SIDE PAIN [id number] 11/10/2016 12:58:00 11/10/2016 23:59:59 CLS Outpatient МАРИЯ LOPEZ [employer]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 [facility] RAD LLQ PAIN [id number] 04/29/2014 18:47:00 04/29/2014 23:01:00 DIS Emergency FELICITAS OLIVAS [facility] ER ABD PAIN [id number] 04/10/2013 17:50:00 04/11/2013 01:05:00 DIS Inpatient KADEN MARTINEZ DO [facility] C/O CONTRACTIONS [id number] 03/19/2013 14:00:00 03/19/2013 17:10:00 DIS Outpatient RHETT WU DO [facility] C/O CONTRACTIONS [id number] 02/04/2013 09:30:00 02/04/2013 10:45:00 DIS Outpatient RHETT WU DO [facility] ABD PAIN [id number] 06/23/2014 14:54:00 Document Registration [id number] 06/07/2012 09:55:00 Document Registration [id number] 09/28/2011 10:11:00 Document Registration [id number] 09/27/2011 17:11:00 Document Registration [id number] 03/31/2009 07:58:00 Document Registration
[2018-01-10 23:30] VITALS: BP 107/61
[2018-01-10] MEDS ORDERED: inSUlin (REGULAR) HUMAN 1 UNIT/0.01 ML (CHARGE PER UNIT) ONE (23:42)
[2018-01-10] MEDS ORDERED: NORMAL SALINE 250 ML ONE (23:43)
[2018-01-10] MEDS: DEXTROSE 10% IV SOLUTION 1,000 ML IV SCH (23:45)
[2018-01-10] MEDS: D5 1/2 NS IV 1,000 ML IV SCH (23:45)
[2018-01-10] MEDS ORDERED: ONDANSETRON 4 MG/2 ML (SDV) Z0FRAN IV PRN (23:45)
[2018-01-10] MEDS ORDERED: NS IV 1000 ML X 1 WIDE OPEN IV ONE (23:45)
[2018-01-10] MEDS ORDERED: 1/2 NS W/KCL 20 MEQ/L 1,000 ML IV ONE (23:55)
[2018-01-11] VITALS (24 sets, daily range): BP systolic 96–160; BP diastolic 61–127
[2018-01-11] MEDS: REGULAR inSUlin DRIP 250 UNITS/NS 250 ML IV SCH ×4 (00:02→23:30)
[2018-01-11 01:01] LABS: BUN/CREATININE RATIO 14; CALCIUM 8.9 MG/DL (8.5-10.1); CARBON DIOXIDE 16 MMOL/L (21-32); CHLORIDE 108 MMOL/L (98-107); CREATININE SERUM 0.76 MG/DL (0.60-1.30); GFR ESTIMATED > 60; GLUCOSE 261 MG/DL (70-105); POTASSIUM 3.5 MMOL/L (3.6-5.0); SODIUM 137 MMOL/L (135-145)
[2018-01-11] MEDS ORDERED: D5 1/2 NS W/KCL 20 MEQ/L 1,000 ML IV ONE ×2 (01:07→05:09)
[2018-01-11] MEDS: 1/2 NS IV SOLUTION 1,000 ML IV SCH ×4 (02:06→11:29)
[2018-01-11 02:09] LABS: EOSINOPHILS % (AUTO) 0 % (0-10); HEMATOCRIT 27 % (35-52); HEMOGLOBIN 9.1 G/DL (11.5-16.0); LYMPHOCYTES % (AUTO) 14 % (12-44); MEAN CORPUSCULAR HEMOGLOBIN 27 PG (25-34); MEAN CORPUSCULAR HGB CONC 34 G/DL (32-36); MEAN CORPUSCULAR VOLUME 78 FL (80-99); MEAN PLATELET VOLUME 8.2 FL (7.4-10.4); MONOCYTES % (AUTO) 8 % (0-12); NEUTROPHILS % (AUTO) 79 % (42-75); PLATELET COUNT 438 10^3/uL (130-400); RED BLOOD COUNT 3.41 10^6/uL (4.35-5.85); RED CELL DISTRIBUTION WIDTH 11.9 % (10.0-14.5); WHITE BLOOD COUNT 15.6 10^3/uL (4.3-11.0)
[2018-01-11 02:10] LABS: BASOPHILS % (AUTO) 0 % (0-10); LYMPHOCYTES # (AUTO) 2.1 X 10^3 (1.0-4.0); MONOCYTES # (AUTO) 1.2 X 10^3 (0.0-1.0); NEUTROPHILS # (AUTO) 12.3 X 10^3 (1.8-7.8)
[2018-01-11 02:27] LABS: BUN/CREATININE RATIO 16; CARBON DIOXIDE 18 MMOL/L (21-32); CHLORIDE 107 MMOL/L (98-107); CREATININE SERUM 0.67 MG/DL (0.60-1.30); GFR ESTIMATED > 60; GLUCOSE 235 MG/DL (70-105); MAGNESIUM 1.5 MG/DL (1.8-2.4); PHOSPHORUS 1.8 MG/DL (2.3-4.7); SODIUM 136 MMOL/L (135-145)
[2018-01-11 02:34] LABS: BAND NEUTROPHILS 0 %; EOSINOPHILS % (MANUAL) 0 %; LYMPHOCYTES % (MANUAL) 13 %; MONOCYTES % (MANUAL) 3 %; NEUTROPHILS % (MANUAL) 84 %
[2018-01-11 02:35] LABS: BASOPHILS % (MANUAL) 0 %; RBC MORPH NORMAL
[2018-01-11 02:36] LABS: CALCIUM 8.7 MG/DL (8.5-10.1)
[2018-01-11] MEDS: D5 1/2 NS IV 1,000 ML IV SCH ×3 (03:45→11:29)
[2018-01-11] MEDS: POTASSIUM CL 10MEQ/50ML IVPB 50 ML IV SCH (05:20)
[2018-01-11] MEDS: KCL 20 MEQ TAB (K-DUR) PO SCH (05:21)
[2018-01-11] MEDS: MAGNESIUM 1 GM/100 ML IVPB 100 ML IV SCH ×3 (05:21→06:45)
[2018-01-11] MEDS ORDERED: MAGNESIUM 1 GM/100 ML IVPB 200 ML IV ONE (05:45)
[2018-01-11] MEDS: DEXTROSE 10% IV SOLUTION 1,000 ML IV SCH (05:54)
[2018-01-11 06:21] LABS: BUN/CREATININE RATIO 12; CALCIUM 8.8 MG/DL (8.5-10.1); CARBON DIOXIDE 19 MMOL/L (21-32); CHLORIDE 107 MMOL/L (98-107); CREATININE SERUM 0.58 MG/DL (0.60-1.30); GFR ESTIMATED > 60; GLUCOSE 140 MG/DL (70-105); SODIUM 135 MMOL/L (135-145)
--- NOTE | 2018-01-11 07:54 | Diagnostic Imaging Report ---
INDICATION: Sepsis, urinary tract infection. TECHNIQUE: Single view chest 3:26 AM. CORRELATION STUDY: 01/10/2018 FINDINGS: Heart size and vasculature within normal limits. Does appear to be suggestion of slight right perihilar and small basilar infiltrate, changed from prior study. Remaining lung coulter clear. IMPRESSION: 1. Suggestion minimal right perihilar and basilar infiltrate, changed from prior study. Dictated by: Dictated on workstation # [id number]
--- NOTE | 2018-01-11 08:42 | History & Physicial (CHS) ---
HPI History of Present Illness: From ED notes: This 32-year-old woman presents to emergency room with complaints of fever, shortness of breath, back and leg aches, headaches, nausea, vomiting, and diarrhea. She reports her blood sugars have been high recently. She has tried to take metformin but does not tolerate it well as it causes nausea, vomiting, diarrhea. Her headaches and leg aches have been ongoing for about a month. Her fever and shortness of breath started within the last 24 hours. She appears to be hyperventilating and very anxious. She complains of numbness in her hands bilaterally. Patient is seen at [facility]. She is hyperglycemic with a fingerstick blood sugar of 362. She is extremely tachycardic. Monitor displays sinus tachycardia with a heart rate in the 160s. Clinic chart review shows that pt was seen on 12/28 to re-establish care and her A1C was too high to be read on the fingerstick machine. The patient reported she had not been taking her metformin because she was unable to tolerate the GI side effects. She was started on glipizide. Patient is admitted to ICU for DKA, Sepsis secondary to UTI. Source: patient, RN/MD, RN notes reviewed, old records Exam Limitations: no limitations Date seen by provider: Jan 11, 2018 Time Seen by Provider: 09:43 Attending Physician Sloane Herrera DO [facility] Consult Date of Admission Jan 10, 2018 at 21:24 Home Medications Home Medications Reviewed patient Home Medication Reconciliation performed by pharmacy medication reconciliations chief technician x ray and/or nursing. Patients Allergies have been reviewed. Allergies Coded Allergies: No Known Drug Allergies (Verified , 04/29/08) [id number] Hx Patient Social History Marrital Status: Number of Children: 3 Number of living children: 3 Living Status: lives at home with family Employed/Student: unemployed Alcohol Use: Denies Use Recreational Drug Use: No Smoking Status: Never a Smoker 2nd Hand Smoke Exposure: No Recent Foreign Travel: No Contact w/other who traveled: No Recent Hopitalizations: No Recent Infectious Disease Expo: No Physical Abuse Screen: No Sexual Abuse: No Immunizations Up To Date Tetanus Booster (TDap): Less than 5yrs Date of Pneumonia Vaccine: Jan 11, 2015 Date of Influenza Vaccine: May 16, 2012 Past Medical History Type II Diabetes SAB x1 C/S x3 Family Medical History Family History: Patient reports no known family medical history. Review of Systems (CHC) Constitutional: see HPI EENTM: see HPI Respiratory: no symptoms reported Cardiovascular: no symptoms reported Gastrointestinal: see HPI, abdominal pain, loss of appetite, nausea Genitourinary: see HPI, dysuria, frequency : No Musculoskeletal: see HPI Skin: no symptoms reported Psychiatric/Neurological: Headache Reviewed Test Results Reviewed Test Results Lab 01/10/18 19:35: Lactic Acid Level 10.63*H 01/10/18 21:42: Lactic Acid Level 3.53*H 01/11/18 02:00: Lactic Acid Level 1.48 Laboratory Tests Test 01/10/18 19:30 01/10/18 19:35 01/10/18 20:03 01/10/18 21:42 Range/Units Glucometer 362 H 70-110 MG/DL White Blood Count 8.5 4.3-11.0 10^3/uL Red Blood Count 4.32 L 4.35-5.85 10^6/uL Hemoglobin 11.3 L 11.5-16.0 G/DL Hematocrit 34 L 35-52 % Mean Corpuscular Volume 79 L 80-99 FL Mean Corpuscular Hemoglobin 26 25-34 PG Mean Corpuscular Hemoglobin Concent 33 32-36 G/DL Red Cell Distribution Width 12.2 10.0-14.5 % Platelet Count 578 H 130-400 10^3/uL Mean Platelet Volume 8.8 7.4-10.4 FL Neutrophils (%) (Auto) 75 42-75 % Lymphocytes (%) (Auto) 22 12-44 % Monocytes (%) (Auto) 2 0-12 % Eosinophils (%) (Auto) 0 0-10 % Basophils (%) (Auto) 0 0-10 % Neutrophils # (Auto) 6.4 1.8-7.8 X 10^3 Lymphocytes # (Auto) 1.9 1.0-4.0 X 10^3 Monocytes # (Auto) 0.1 0.0-1.0 X 10^3 Eosinophils # (Auto) 0.0 0.0-0.3 10^3/uL Basophils # (Auto) 0.0 0.0-0.1 10^3/uL Prothrombin Time 15.3 H 12.2-14.7 SEC INR Comment 1.2 0.8-1.4 Activated Partial Thromboplast Time 27 24-35 SEC Sodium Level 135 135-145 MMOL/L Potassium Level 4.2 3.6-5.0 MMOL/L Chloride Level 97 L 98-107 MMOL/L Carbon Dioxide Level 16 L 21-32 MMOL/L Anion Gap 22 H 5-14 MMOL/L Blood Urea Nitrogen 7 7-18 MG/DL Creatinine 0.96 0.60-1.30 MG/DL Estimat Glomerular Filtration Rate > 60 BUN/Creatinine Ratio 7 Glucose Level 417 *H 70-105 MG/DL Lactic Acid Level 10.63 *H 3.53 *H 0.50-2.00 MMOL/L Calcium Level 9.8 8.5-10.1 MG/DL Total Bilirubin 0.2 0.1-1.0 MG/DL Aspartate Amino Transf (AST/SGOT) 22 5-34 U/L Alanine Aminotransferase (ALT/SGPT) 23 0-55 U/L Alkaline Phosphatase 129 40-136 U/L Total Creatine Kinase 36 29-168 U/L Total Protein 8.8 H 6.4-8.2 GM/DL Albumin 4.0 3.2-4.5 GM/DL Serum Test, Qualitative NEGATIVE NEGATIVE Urine Color YELLOW Urine Clarity SLIGHTLY CLOUDY Urine pH 5 5-9 Urine Specific [place] 1.015 L 1.016-1.022 Urine Protein 3+ H NEGATIVE Urine Glucose (UA) 4+ H NEGATIVE Urine Ketones NEGATIVE NEGATIVE Urine Nitrite POSITIVE H NEGATIVE Urine Bilirubin NEGATIVE NEGATIVE Urine Urobilinogen NORMAL NORMAL MG/DL Urine Leukocyte Esterase NEGATIVE NEGATIVE Urine RBC (Auto) 3+ H NEGATIVE Urine RBC 10-25 H /HPF Urine WBC 50-100 H /HPF Urine Squamous Epithelial Cells 2-5 /HPF Urine Crystals NONE /LPF Urine Bacteria LARGE H /HPF Urine Casts NONE /LPF Urine Mucus NEGATIVE /LPF Urine Culture Indicated YES Test 01/10/18 23:14 01/10/18 23:40 01/11/18 00:25 01/11/18 01:04 Range/Units Glucometer 325 H 392 H 211 H 70-110 MG/DL Sodium Level 137 135-145 MMOL/L Potassium Level 3.5 L 3.6-5.0 MMOL/L Chloride Level 108 H 98-107 MMOL/L Carbon Dioxide Level 16 L 21-32 MMOL/L Anion Gap 13 5-14 MMOL/L Blood Urea Nitrogen 11 7-18 MG/DL Creatinine 0.76 0.60-1.30 MG/DL Estimat Glomerular Filtration Rate > 60 BUN/Creatinine Ratio 14 Glucose Level 261 H 70-105 MG/DL Calcium Level 8.9 8.5-10.1 MG/DL Test 01/11/18 02:00 01/11/18 02:02 01/11/18 03:07 01/11/18 03:59 Range/Units White Blood Count 15.6 H 4.3-11.0 10^3/uL Red Blood Count 3.41 L 4.35-5.85 10^6/uL Hemoglobin 9.1 L 11.5-16.0 G/DL Hematocrit 27 L 35-52 % Mean Corpuscular Volume 78 L 80-99 FL Mean Corpuscular Hemoglobin 27 25-34 PG Mean Corpuscular Hemoglobin Concent 34 32-36 G/DL Red Cell Distribution Width 11.9 10.0-14.5 % Platelet Count 438 H 130-400 10^3/uL Mean Platelet Volume 8.2 7.4-10.4 FL Neutrophils (%) (Auto) 79 H 42-75 % Lymphocytes (%) (Auto) 14 12-44 % Monocytes (%) (Auto) 8 0-12 % Eosinophils (%) (Auto) 0 0-10 % Basophils (%) (Auto) 0 0-10 % Neutrophils # (Auto) 12.3 H 1.8-7.8 X 10^3 Lymphocytes # (Auto) 2.1 1.0-4.0 X 10^3 Monocytes # (Auto) 1.2 H 0.0-1.0 X 10^3 Eosinophils # (Auto) 0.0 0.0-0.3 10^3/uL Basophils # (Auto) 0.0 0.0-0.1 10^3/uL Neutrophils % (Manual) 84 % Lymphocytes % (Manual) 13 % Monocytes % (Manual) 3 % Eosinophils % (Manual) 0 % Basophils % (Manual) 0 % Band Neutrophils 0 % Blood Morphology Comment NORMAL Sodium Level 136 135-145 MMOL/L Potassium Level 4.0 3.6-5.0 MMOL/L Chloride Level 107 98-107 MMOL/L Carbon Dioxide Level 18 L 21-32 MMOL/L Anion Gap 11 5-14 MMOL/L Blood Urea Nitrogen 11 7-18 MG/DL Creatinine 0.67 0.60-1.30 MG/DL Estimat Glomerular Filtration Rate > 60 BUN/Creatinine Ratio 16 Glucose Level 235 H 70-105 MG/DL Lactic Acid Level 1.48 0.50-2.00 MMOL/L Calcium Level 8.7 8.5-10.1 MG/DL Phosphorus Level 1.8 L 2.3-4.7 MG/DL Magnesium Level 1.5 L 1.8-2.4 MG/DL Glucometer 237 H 189 H 191 H 70-110 MG/DL Test 01/11/18 05:04 01/11/18 05:36 01/11/18 05:55 01/11/18 06:04 Range/Units Glucometer 148 H 148 H 140 H 70-110 MG/DL Sodium Level 135 135-145 MMOL/L Potassium Level 4.0 3.6-5.0 MMOL/L Chloride Level 107 98-107 MMOL/L Carbon Dioxide Level 19 L 21-32 MMOL/L Anion Gap 9 5-14 MMOL/L Blood Urea Nitrogen 7 7-18 MG/DL Creatinine 0.58 L 0.60-1.30 MG/DL Estimat Glomerular Filtration Rate > 60 BUN/Creatinine Ratio 12 Glucose Level 140 H 70-105 MG/DL Calcium Level 8.8 8.5-10.1 MG/DL Test 01/11/18 06:31 01/11/18 07:46 01/11/18 08:36 01/11/18 09:32 Range/Units Glucometer 173 H 201 H 312 H 361 H 70-110 MG/DL Test 01/11/18 14:00 01/11/18 14:25 01/11/18 16:49 01/11/18 19:52 Range/Units Sodium Level 138 135-145 MMOL/L Potassium Level 3.6 3.6-5.0 MMOL/L Chloride Level 109 H 98-107 MMOL/L Carbon Dioxide Level 23 21-32 MMOL/L Anion Gap 6 5-14 MMOL/L Blood Urea Nitrogen 5 L 7-18 MG/DL Creatinine 0.56 L 0.60-1.30 MG/DL Estimat Glomerular Filtration Rate > 60 BUN/Creatinine Ratio 9 Glucose Level 85 70-105 MG/DL Calcium Level 8.8 8.5-10.1 MG/DL Glucometer 82 212 H 79 70-110 MG/DL Test 01/11/18 22:22 01/12/18 04:26 01/12/18 04:28 01/12/18 11:24 Range/Units Glucometer 184 H 111 H 253 H 70-110 MG/DL White Blood Count 12.0 H 4.3-11.0 10^3/uL Red Blood Count 3.62 L 4.35-5.85 10^6/uL Hemoglobin 9.4 L 11.5-16.0 G/DL Hematocrit 28 L 35-52 % Mean Corpuscular Volume 78 L 80-99 FL Mean Corpuscular Hemoglobin 26 25-34 PG Mean Corpuscular Hemoglobin Concent 33 32-36 G/DL Red Cell Distribution Width 12.5 10.0-14.5 % Platelet Count 566 H 130-400 10^3/uL Mean Platelet Volume 8.5 7.4-10.4 FL Neutrophils (%) (Auto) 67 42-75 % Lymphocytes (%) (Auto) 21 12-44 % Monocytes (%) (Auto) 11 0-12 % Eosinophils (%) (Auto) 1 0-10 % Basophils (%) (Auto) 0 0-10 % Neutrophils # (Auto) 8.0 H 1.8-7.8 X 10^3 Lymphocytes # (Auto) 2.6 1.0-4.0 X 10^3 Monocytes # (Auto) 1.3 H 0.0-1.0 X 10^3 Eosinophils # (Auto) 0.1 0.0-0.3 10^3/uL Basophils # (Auto) 0.0 0.0-0.1 10^3/uL Sodium Level 136 135-145 MMOL/L Potassium Level 3.7 3.6-5.0 MMOL/L Chloride Level 105 98-107 MMOL/L Carbon Dioxide Level 21 21-32 MMOL/L Anion Gap 10 5-14 MMOL/L Blood Urea Nitrogen 5 L 7-18 MG/DL Creatinine 0.57 L 0.60-1.30 MG/DL Estimat Glomerular Filtration Rate > 60 BUN/Creatinine Ratio 9 Glucose Level 109 H 70-105 MG/DL Calcium Level 9.5 8.5-10.1 MG/DL Phosphorus Level 3.5 2.3-4.7 MG/DL Magnesium Level 1.9 1.8-2.4 MG/DL Test 01/12/18 16:10 01/12/18 20:20 Range/Units Glucometer 221 H 188 H 70-110 MG/DL Radiology Date of Exam: 01/10/18 CHEST 1 VIEW, AP/PA ONLY INDICATION: Cold sweats, shaking. No chest complaints. Not feeling well. EXAMINATION: Chest, 01/10/2018. COMPARISON: 05/26/2017. FINDINGS: The cardiomediastinal silhouette is unremarkable. The pulmonary vasculature is within normal limits. The lungs and pleural spaces are clear. IMPRESSION: No evidence of an acute cardiopulmonary process. Physical Exam-(CHC) Physical Exam Vital Signs VS - Last 72 Hours, by Label 01/10/18 01/10/18 01/10/18 01/10/18 19:22 23:22 23:30 23:30 Temp 103.5 97.7 99.3 Pulse 154 115 112 Resp 35 24 12 B/P (MAP) 117/91 (100) 106/67 107/61 (76) Pulse Ox 97 97 98 O2 Delivery Room Air Room Air Room Air Room Air 01/10/18 01/11/18 01/11/18 01/11/18 23:34 00:00 01:00 01:00 Pulse 114 111 111 110 Resp 35 22 B/P (MAP) 101/65 (77) 96/61 (73) Pulse Ox 97 98 O2 Delivery Room Air Room Air 01/11/18 01/11/18 01/11/18 01/11/18 02:00 03:00 04:00 04:00 Pulse 106 102 101 Resp 37 29 29 B/P (MAP) 98/70 (79) 98/69 (79) 99/68 (78) Pulse Ox 97 97 98 99 O2 Delivery Room Air Room Air Room Air Room Air 01/11/18 01/11/18 01/11/18 01/11/18 05:00 06:00 07:00 07:32 Pulse 96 104 107 101 Resp 21 29 18 B/P (MAP) 117/86 (96) 113/89 (97) 113/79 (90) Pulse Ox 99 98 98 O2 Delivery Room Air Room Air Room Air 01/11/18 01/11/18 01/11/18 01/11/18 08:00 08:00 09:00 10:00 Temp 98.6 Pulse 112 105 101 Resp 24 34 21 B/P (MAP) 119/84 (96) 99/67 (78) 117/83 (94) Pulse Ox 98 98 99 98 O2 Delivery Room Air Room Air Room Air Room Air 01/11/18 01/11/18 01/11/18 01/11/18 11:00 12:00 12:00 13:00 Temp 97.8 Pulse 98 94 94 Resp 22 22 17 B/P (MAP) 112/89 (97) 98/67 (77) 119/83 (95) Pulse Ox 99 98 99 99 O2 Delivery Room Air Room Air Room Air Room Air 01/11/18 01/11/18 01/11/18 01/11/18 13:00 14:00 15:00 16:00 Temp 97.6 Pulse 96 92 107 Resp 26 27 B/P (MAP) 106/73 (84) 108/73 (85) Pulse Ox 99 99 O2 Delivery Room Air Room Air 01/11/18 01/11/18 01/11/18 01/11/18 16:00 16:00 17:00 18:00 Pulse 96 96 93 Resp 24 27 21 B/P (MAP) 116/74 (88) 114/84 (94) 125/92 (103) Pulse Ox 98 100 99 100 O2 Delivery Room Air Room Air Room Air Room Air 01/11/18 01/11/18 01/11/18 01/11/18 19:00 19:00 20:00 20:00 Pulse 86 103 80 Resp 15 16 B/P (MAP) 136/98 (111) 160/127 (138) Pulse Ox 100 99 93 O2 Delivery Room Air Room Air Room Air 01/11/18 01/11/18 01/11/18 01/12/18 21:00 22:00 23:00 00:00 Pulse 67 78 76 Resp 10 12 15 B/P (MAP) 137/97 (110) 137/99 (112) 149/107 (121) Pulse Ox 99 95 96 99 O2 Delivery Room Air Room Air Room Air Room Air 01/12/18 01/12/18 01/12/18 01/12/18 00:00 01:00 01:00 02:00 Pulse 90 88 90 96 Resp 11 22 27 Pulse Ox 98 97 98 O2 Delivery Room Air Room Air Room Air 01/12/18 01/12/18 01/12/18 01/12/18 03:00 04:00 04:00 05:00 Pulse 94 101 111 Resp 28 26 28 B/P (MAP) 151/116 (128) Pulse Ox 99 99 98 97 O2 Delivery Room Air Room Air Room Air Room Air 01/12/18 01/12/18 01/12/18 01/12/18 06:00 07:00 07:00 08:00 Temp 97.8 Pulse 102 103 101 102 Resp 20 25 23 B/P (MAP) 160/100 (120) 120/86 (97) 127/94 (105) Pulse Ox 96 99 98 O2 Delivery Room Air Room Air Room Air 01/12/18 01/12/18 01/12/18 01/12/18 08:00 09:00 10:58 11:31 Temp 97.2 Pulse 95 90 Resp 22 18 B/P (MAP) 156/84 (108) Pulse Ox 100 99 98 O2 Delivery Room Air Room Air Room Air 01/12/18 01/12/18 01/12/18 12:24 16:00 20:00 Temp 97.9 99.0 98.0 Pulse 95 94 100 Resp 20 16 20 B/P (MAP) 156/84 (108) 140/97 (111) 164/99 (120) Pulse Ox 99 98 98 O2 Delivery Room Air Room Air Room Air Capillary Refill : Less Than 3 Seconds General Appearance: WD/WN, no apparent distress Eyes: Bilateral Eye Normal Inspection, Bilateral Eye EOMI HEENT: normal ENT inspection; No scleral icterus (R), No scleral icterus (L), No photophobia Neck: non-tender, full range of motion, supple, normal inspection Respiratory: chest non-tender, lungs clear, normal breath sounds, no respiratory distress, no accessory muscle use Cardiovascular: regular rate, rhythm, no edema, no gallop, no JVD, no murmur Gastrointestinal: normal bowel sounds, non tender, soft, no organomegaly, no pulsatile mass Rectal: deferred Back: normal inspection, no CVA tenderness, no vertebral tenderness Extremities: normal range of motion, non-tender, normal inspection, no pedal edema, no calf tenderness, normal capillary refill Neurologic/Psychiatric: map plotter II-XII nml as tested, no motor/sensory deficits, alert, normal mood/affect, oriented x 3 Skin: normal color, warm/dry Assessment/Plan Assessment/Plan Admission Dx DKA Sepsis UTI Type II Diabetes, Uncontrolled Admission Status: Inpatient Order (span 2 midnights) Reason for Inpatient Admission: treatment and stabilization of admission conditions (1) Diabetic ketoacidosis Status: Acute Assessment & Plan: 01/11 -insulin gtt per protocol started on admission -gap has closed and CO2 has normalized -given pt's severity of illness, will continue gtt at 1/hr for 24 hours -start sliding scale insulin with meals -accu checks AC and HS -levemir 30 units SQ -diabetic diet -pt needs to remain in ICU while on insulin gtt Qualifiers: Qualified Codes: E11.10 - Type 2 diabetes mellitus with ketoacidosis without coma (2) Sepsis Status: Acute Assessment & Plan: 01/11 -secondary to UTI -bolus 2L IVF this AM -lactate has normalized -see below for further details Qualifiers: Qualified Codes: A41.9 - Sepsis, unspecified organism (3) Urinary tract infection Status: Acute Assessment & Plan: 01/11 -day 2 Rocephin -culture pending -WBC 8.5 --> 15.6; rise reasonable considering bacteriolysis with initiation of abx Qualifiers: Qualified Codes: N30.00 - Acute cystitis without hematuria (4) Diabetes mellitus type II, uncontrolled Status: Chronic Assessment & Plan: 01/11 -DKA resolving as above -nausea improved, start diabetic diet -sliding scale B with meals, accuchecks AC and HS -30 units levemir SQ -discussed with patient that she will need to continue insulin use at home; pt reports she has been diabetic for about 10 years, was gestational diabetic with all of her pregnancies Qualifiers: Qualified Codes: E11.10 - Type 2 diabetes mellitus with ketoacidosis without coma (5) Anemia Assessment & Plan: 01/11 -Hgb 11.5 --> 9.1 -will continue to monitor Qualifiers: Qualified Codes: D64.9 - Anemia, unspecified Clinical Quality Measures DVT/VTE Risk/Contraindication: Risk Factor Score Per Nursin RFS Level Per Nursing on Admit: 3=High Copy Copies To 1: [facility]/SLOANE GAMING DO Jan 11, 2018 08:42
[2018-01-11] MEDS ORDERED: inSUlin DETERMIR 1 UNIT/0.01 ML (LEVEMIR) CHARGE PER UNIT SQ NR (08:45)
[2018-01-11] MEDS: NS IV 1000 ML 1,000 ML IV SCH ×7 (08:59→18:15)
[2018-01-11] MEDS ORDERED: GLIM4TAB PO (09:01)
[2018-01-11] MEDS ORDERED: OMEP20CA12 PO (09:01)
[2018-01-11] MEDS ORDERED: NAPR-915 PO (09:01)
[2018-01-11] MEDS ORDERED: METF500T8 PO (09:01)
[2018-01-11] MEDS ORDERED: GABA-488 PO (09:01)
[2018-01-11] MEDS ORDERED: inSUlin ASPART (NovoLOG) 1 UNIT/0.01 ML (CHARGE PER UNIT) ONE (09:42)
[2018-01-11] MEDS: ACETAMINOPHEN 500 MG TAB (TYLENOL) PO PRN ×2 (09:43→19:54)
[2018-01-11] MEDS ORDERED: inSUlin ASPART (NovoLOG) 1 UNIT/0.01 ML (CHARGE PER UNIT) SC SCH (09:45)
[2018-01-11] MEDS: inSUlin ASPART (NovoLOG) 1 UNIT/0.01 ML (CHARGE PER UNIT) SC SCH ×3 (09:59→22:25)
[2018-01-11 14:42] LABS: BUN/CREATININE RATIO 9; CALCIUM 8.8 MG/DL (8.5-10.1); CARBON DIOXIDE 23 MMOL/L (21-32); CHLORIDE 109 MMOL/L (98-107); CREATININE SERUM 0.56 MG/DL (0.60-1.30); GFR ESTIMATED > 60; GLUCOSE 85 MG/DL (70-105); POTASSIUM 3.6 MMOL/L (3.6-5.0); SODIUM 138 MMOL/L (135-145)
[2018-01-11] MEDS: cefTRIAXone 1 GM/NS 50 ML IVPB IV SCH ×2 (21:07)
[2018-01-12] VITALS (8 sets, daily range): BP systolic 120–164; BP diastolic 84–116
[2018-01-12 04:49] LABS: BASOPHILS % (AUTO) 0 % (0-10); EOSINOPHILS # (AUTO) 0.1 10^3/uL (0.0-0.3); EOSINOPHILS % (AUTO) 1 % (0-10); HEMATOCRIT 28 % (35-52); HEMOGLOBIN 9.4 G/DL (11.5-16.0); LYMPHOCYTES # (AUTO) 2.6 X 10^3 (1.0-4.0); LYMPHOCYTES % (AUTO) 21 % (12-44); MEAN CORPUSCULAR HEMOGLOBIN 26 PG (25-34); MEAN CORPUSCULAR HGB CONC 33 G/DL (32-36); MEAN CORPUSCULAR VOLUME 78 FL (80-99); MEAN PLATELET VOLUME 8.5 FL (7.4-10.4); MONOCYTES # (AUTO) 1.3 X 10^3 (0.0-1.0); MONOCYTES % (AUTO) 11 % (0-12); NEUTROPHILS % (AUTO) 67 % (42-75); PLATELET COUNT 566 10^3/uL (130-400); RED BLOOD COUNT 3.62 10^6/uL (4.35-5.85); RED CELL DISTRIBUTION WIDTH 12.5 % (10.0-14.5)
[2018-01-12] MEDS: NS IV 1000 ML 1,000 ML IV SCH ×4 (05:01→20:10)
[2018-01-12] MEDS: ACETAMINOPHEN 500 MG TAB (TYLENOL) PO PRN ×2 (05:02→23:54)
[2018-01-12 05:05] LABS: MAGNESIUM 1.9 MG/DL (1.8-2.4); PHOSPHORUS 3.5 MG/DL (2.3-4.7)
[2018-01-12] MEDS: MAGNESIUM 1 GM/100 ML IVPB 100 ML IV SCH (05:29)
[2018-01-12] MEDS: inSUlin ASPART (NovoLOG) 1 UNIT/0.01 ML (CHARGE PER UNIT) SC SCH ×4 (05:40→21:04)
[2018-01-12 05:45] LABS: BUN/CREATININE RATIO 9; CALCIUM 9.5 MG/DL (8.5-10.1); CARBON DIOXIDE 21 MMOL/L (21-32); CHLORIDE 105 MMOL/L (98-107); CREATININE SERUM 0.57 MG/DL (0.60-1.30); GFR ESTIMATED > 60; GLUCOSE 109 MG/DL (70-105); POTASSIUM 3.7 MMOL/L (3.6-5.0); SODIUM 136 MMOL/L (135-145)
[2018-01-12] MEDS: POTASSIUM CL 10MEQ/50ML IVPB 50 ML IV SCH (06:08)
[2018-01-12] MEDS: KCL 20 MEQ TAB (K-DUR) PO SCH (06:08)
--- NOTE | 2018-01-12 08:21 | Diagnostic Imaging Report ---
Indication: Sepsis. Portable chest 3:45 AM Heart size and pulmonary vascularity normal. Lungs are clear. There are no effusions or pneumothoraces. Impression: Negative chest Dictated by: Dictated on workstation # [id number]
--- NOTE | 2018-01-12 08:51 | Progress Note (SOAP) ---
Subjective Subjective/Events-last exam Patient has done well overnight. No complaints this morning other than a headache that does not seem to be getting better, pt thinks she might have an infected tooth, feels like the left side of her jaw is painful and swollen compared to right. Tolerating PO well, no nausea, no vomiting. No shortness of breath. Review of Systems Date Seen by Provider: Jan 12, 2018 Time Seen by Provider: 10:05 General: No Chills, No Night Sweats, No Fatigue, No Malaise, No Appetite, No Other HEENT: Head Aches; No Visual Changes, No Eye Pain, No Ear Pain, No Dysphasia, No Sinus Congestion, No Post Nasal Drip, No Sore Throat; Other (jaw pain/dental pain) Pulmonary: No Dyspnea, No Cough, No Pleuritic Chest Pain, No Other Cardiovascular: No: Chest Pain, Palpitations, Orthopnea, Paroxysmal Noc. Dyspnea, Edema, Lt Headedness, Other Gastrointestinal: No: Nausea, Vomiting, Abdominal Pain, Diarrhea, Constipation , Melena, Hematochezia, Other Genitourinary: No Dysuria, No Frequency, No Incontinence, No Hematuria, No Retention, No Other Musculoskeletal: No: other, neck pain, shoulder pain, arm pain, back pain, hand pain, leg pain, foot pain Neurological: No: Weakness, Numbness, Incoordination, Change in speech, Confusion, Seizures, Other Focused Exam Lactate Level 01/10/18 19:35: Lactic Acid Level 10.63*H 01/10/18 21:42: Lactic Acid Level 3.53*H 01/11/18 02:00: Lactic Acid Level 1.48 Objective Exam Last Set of Vital Signs Vital Signs Date Time Temp Pulse Resp B/P (MAP) Pulse Ox O2 Delivery O2 Flow Rate FiO2 01/12/18 07:00 101 01/12/18 06:00 20 160/100 (120) 96 Room Air 01/11/18 16:00 97.6 Capillary Refill : Less Than 3 Seconds I&O Intake and Output 01/12/18 00:00 Intake Total 5400 ml Output Total 3800 ml Balance 1600 ml Intake Oral 2800 ml IV Total 2600 ml Output Urine Total 3800 ml # Voids 3 General: Alert, Oriented X3, Cooperative, No Acute Distress HEENT: Atraumatic, EOMI, Mucous Memb Moist/Shiner, Other (no obvious signs of dental infection in mouth) Neck: Supple, No Thyromegaly, Other (left cervical lymphadenopathy) Lungs: Clear to Auscultation, Normal Air Movement Heart: Regular Rate, Normal S1, Normal S2 Abdomen: Normal Bowel Sounds, Soft, No Tenderness, No Masses Extremities: No Clubbing, No Cyanosis, No Edema, Normal Pulses Skin: No Rashes, No Significant Lesion Neuro: Normal Gait, Normal Speech, Normal Tone, Sensation Intact, Cranial Nerves 3-12 NL Psych/Mental Status: Mental Status NL, Mood NL Results/Procedures Lab Laboratory Tests 01/11/18 09:32: Glucometer 361H 01/11/18 14:00: Sodium Level 138, Potassium Level 3.6, Chloride Level 109H, Carbon Dioxide Level 23, Anion Gap 6, Blood Urea Nitrogen 5L, Creatinine 0.56L, Estimat Glomerular Filtration Rate > 60, BUN/Creatinine Ratio 9, Glucose Level 85, Calcium Level 8.8 01/11/18 14:25: Glucometer 82 01/11/18 16:49: Glucometer 212H 01/11/18 19:52: Glucometer 79 01/11/18 22:22: Glucometer 184H 01/12/18 04:26: White Blood Count 12.0H, Red Blood Count 3.62L, Hemoglobin 9.4L, Hematocrit 28L , Mean Corpuscular Volume 78L, Mean Corpuscular Hemoglobin 26, Mean Corpuscular Hemoglobin Concent 33, Red Cell Distribution Width 12.5, Platelet Count 566H, Mean Platelet Volume 8.5, Neutrophils (%) (Auto) 67, Lymphocytes (%) (Auto) 21, Monocytes (%) (Auto) 11, Eosinophils (%) (Auto) 1, Basophils (%) (Auto) 0, Neutrophils # (Auto) 8.0H, Lymphocytes # (Auto) 2.6, Monocytes # (Auto) 1.3H, Eosinophils # (Auto) 0.1, Basophils # (Auto) 0.0, Sodium Level 136, Potassium Level 3.7, Chloride Level 105, Carbon Dioxide Level 21, Anion Gap 10, Blood Urea Nitrogen 5L, Creatinine 0.57L, Estimat Glomerular Filtration Rate > 60, BUN /Creatinine Ratio 9, Glucose Level 109H, Calcium Level 9.5, Phosphorus Level 3.5 , Magnesium Level 1.9 01/12/18 04:28: Glucometer 111H Microbiology 01/10/18 Blood Culture - Preliminary, Resulted Escherichia coli 01/10/18 MRSA Screen - Final, Complete MRSA not isolated 01/10/18 Urine Culture - Preliminary, Resulted Escherichia coli Sent To [facility] Assessment/Plan Assessment/Plan (1) Diabetic ketoacidosis Status: Resolved Assessment & Plan: 01/11 -insulin gtt per protocol started on admission -gap has closed and CO2 has normalized -given pt's severity of illness, will continue gtt at 1/hr for 24 hours -start sliding scale insulin with meals -accu checks AC and HS -levemir 30 units SQ -diabetic diet -pt needs to remain in ICU while on insulin gtt 01/12 -pt has done well over the last 24 hours -insulin gtt off Qualifiers: Qualified Codes: E11.10 - Type 2 diabetes mellitus with ketoacidosis without coma (2) Sepsis Status: Acute Assessment & Plan: 01/11 -secondary to UTI -bolus 2L IVF this AM -lactate has normalized -see below for further details 01/12 -ecoli UTI, pt also with ecoli bacteremia Qualifiers: Qualified Codes: A41.51 - Sepsis due to Escherichia coli [e. coli] (3) Urinary tract infection Status: Acute Assessment & Plan: 01/11 -day 2 Rocephin -culture pending -WBC 8.5 --> 15.6; rise reasonable considering bacteriolysis with initiation of abx 01/12 -day 3 Rocephin -ecoli UTI, sensitive to Rocephin -continue abx Qualifiers: Qualified Codes: N30.00 - Acute cystitis without hematuria (4) Diabetes mellitus type II, uncontrolled Status: Chronic Assessment & Plan: 01/11 -DKA resolving as above -nausea improved, start diabetic diet -sliding scale B with meals, accuchecks AC and HS -30 units levemir SQ -discussed with patient that she will need to continue insulin use at home; pt reports she has been diabetic for about 10 years, was gestational diabetic with all of her pregnancies 01/12 -pt has done well over last 24 hours -continue sliding scale B, levemir 30 units at HS -accuchecks AC and HS -transfer to floor -if pt does well, likely could discharge home on PO abx in 24-48 hours Qualifiers: Qualified Codes: E11.10 - Type 2 diabetes mellitus with ketoacidosis without coma (5) Anemia Qualifiers: Qualified Codes: D64.9 - Anemia, unspecified (6) Pain, dental Status: Acute Assessment & Plan: 01/12 -no obvious signs of infection noted on exam -will monitor closely -if pt has rise in white count or any signs of dental infection, consider starting clindamycin for improved dental coverage -norco, ibuprofen PRN pain added (7) Bacteremia due to Escherichia coli Status: Acute Assessment & Plan: 01/12 -pt on day 3 Rocephin -ecoli sensitive to rocephin -will continue abx -pt afebrile with decreasing white count, if continues to do well, anticipate able to discharge home in 24-48 hours on PO abx Clinical Quality Measures DVT/VTE Risk/Contraindication: Risk Factor Score Per Nursin RFS Level Per Nursing on Admit: 3=High Copy Copies To 1: [facility]/LIZZETH GAMING DO Jan 12, 2018 08:51
[2018-01-12] MEDS ORDERED: IBUPROFEN 600 MG (MOTRIN) TAB PO PRN (10:45)
[2018-01-12] MEDS: HYDROcodone/APAP 5 MG/325 MG (LORTAB) TAB PO PRN (16:54)
[2018-01-12] MEDS: cefTRIAXone 1 GM/NS 50 ML IVPB IV SCH ×2 (20:11)
[2018-01-12] MEDS ORDERED: inSUlin DETERMIR 1 UNIT/0.01 ML (LEVEMIR) CHARGE PER UNIT SQ SCH (21:00)
[2018-01-13] VITALS: BP_SYST 156; BP_SYST 174; BP_DIAS 109; BP_DIAS 92
[2018-01-13] MEDS: NS IV 1000 ML 1,000 ML IV SCH (03:32)
[2018-01-13] MEDS: HYDROcodone/APAP 5 MG/325 MG (LORTAB) TAB PO PRN ×2 (03:34→10:43)
[2018-01-13 04:00] VITALS: BP 136/89
[2018-01-13 05:11] LABS: BASOPHILS % (AUTO) 0 % (0-10); EOSINOPHILS # (AUTO) 0.2 10^3/uL (0.0-0.3); EOSINOPHILS % (AUTO) 2 % (0-10); HEMATOCRIT 26 % (35-52); HEMOGLOBIN 8.8 G/DL (11.5-16.0); LYMPHOCYTES # (AUTO) 2.9 X 10^3 (1.0-4.0); LYMPHOCYTES % (AUTO) 30 % (12-44); MEAN CORPUSCULAR HEMOGLOBIN 26 PG (25-34); MEAN CORPUSCULAR HGB CONC 34 G/DL (32-36); MEAN CORPUSCULAR VOLUME 78 FL (80-99); MEAN PLATELET VOLUME 8.4 FL (7.4-10.4); MONOCYTES # (AUTO) 0.7 X 10^3 (0.0-1.0); MONOCYTES % (AUTO) 7 % (0-12); NEUTROPHILS # (AUTO) 6.1 X 10^3 (1.8-7.8); NEUTROPHILS % (AUTO) 61 % (42-75); PLATELET COUNT 583 10^3/uL (130-400); RED BLOOD COUNT 3.37 10^6/uL (4.35-5.85); WHITE BLOOD COUNT 9.9 10^3/uL (4.3-11.0)
[2018-01-13 05:27] LABS: BUN/CREATININE RATIO 7; CALCIUM 9.2 MG/DL (8.5-10.1); CARBON DIOXIDE 19 MMOL/L (21-32); CHLORIDE 107 MMOL/L (98-107); CREATININE SERUM 0.58 MG/DL (0.60-1.30); GFR ESTIMATED > 60; GLUCOSE 120 MG/DL (70-105); POTASSIUM 3.8 MMOL/L (3.6-5.0); SODIUM 138 MMOL/L (135-145)
[2018-01-13 05:28] LABS: MAGNESIUM 1.7 MG/DL (1.8-2.4); PHOSPHORUS 4.3 MG/DL (2.3-4.7)
[2018-01-13] MEDS: inSUlin ASPART (NovoLOG) 1 UNIT/0.01 ML (CHARGE PER UNIT) SC SCH ×2 (05:31→11:46)
[2018-01-13 08:00] VITALS: BP 156/48
[2018-01-13] MEDS ORDERED: INSU100V16 SC (10:23)
[2018-01-13] MEDS ORDERED: INSU100V5 SQ (10:24)
[2018-01-13] MEDS ORDERED: CIPR250T3 PO (10:24)
[2018-01-13] MEDS ORDERED: LISI-556 PO (10:24)
--- NOTE | 2018-01-13 10:27 | Discharge Instructions ---
Discharge Inst-[facility] Discharge Medications New, Converted or Re-Newed RX: Transmitted to Pharmacy ([facility]) New Medications: Ciprofloxacin HCl (Ciprofloxacin HCl) 250 Mg Tablet 250 MG PO BID for 3 Days, #6 TAB 0 Refills Insulin Aspart (Novolog) 100 Unit/1 Ml Susp 10 UNIT SC WM, #1 ML 3 Refills Insulin Determir (Levemir) 1,000 Units/10 Ml Soln 30 UNIT SQ HS, #1 EA 3 Refills Lisinopril (Lisinopril) 5 Mg Tablet 10 MG PO DAILY, #30 TAB 3 Refills Continued Medications: Gabapentin (Gabapentin) 300 Mg Capsule 300 MG PO DAILY, CAP Naproxen (Naproxen) 500 Mg Tablet 500 MG PO Q12H, TAB Omeprazole (Omeprazole) 20 Mg Capsule.dr 20 MG PO BID, CAP Discontinued Medications: Glimepiride (Glimepiride) 4 Mg Tablet 4 MG PO BID, TAB Lisinopril (Lisinopril) 5 Mg Tablet 5 MG PO DAILY, TAB Patient Instructions Goal/Follow Up Appt: Follow-up w Kvng Hunter APRN at [facility] 01/18/18 at 2pm Will need referral to Yaz Schulz for Diabetic Education at [facility] Activity & Diet Discharge Diet: ADA Diet Activity as Tolerated: Yes SU CARRASCO DO Jan 13, 2018 10:27
[2018-01-13] MEDS ORDERED: lisINopril 5 MG (PRINIVIL) TABLET PO SCH (10:30)
--- NOTE | 2018-01-13 10:35 | Discharge Summary ---
Diagnosis/Chief Complaint Date of Admission Jan 10, 2018 at 21:24 Date of Discharge January 13, 2018 Admission Diagnosis Admission Diagnosis DKA Sepsis UTI Type II Diabetes, Uncontrolled Discharge Diagnosis (1) Diabetic ketoacidosis Status: Resolved Assessment & Plan: 01/11 -insulin gtt per protocol started on admission -gap has closed and CO2 has normalized -given pt's severity of illness, will continue gtt at 1/hr for 24 hours -start sliding scale insulin with meals -accu checks AC and HS -levemir 30 units SQ -diabetic diet -pt needs to remain in ICU while on insulin gtt 01/12 -pt has done well over the last 24 hours -insulin gtt off Qualifiers: Qualified Codes: E11.10 - Type 2 diabetes mellitus with ketoacidosis without coma (2) Sepsis Status: Acute Assessment & Plan: 01/11 -secondary to UTI -bolus 2L IVF this AM -lactate has normalized -see below for further details 01/12 -ecoli UTI, pt also with ecoli bacteremia 01/13 - E coli sensitive to Rocephin RESOLVED Qualifiers: Qualified Codes: A41.51 - Sepsis due to Escherichia coli [e. coli] (3) Urinary tract infection Status: Acute Assessment & Plan: 01/11 -day 2 Rocephin -culture pending -WBC 8.5 --> 15.6; rise reasonable considering bacteriolysis with initiation of abx 01/12 -day 3 Rocephin -ecoli UTI, sensitive to Rocephin -continue abx 01/13 - day 4 Rocephin - will DC home of po Cipro to complete 7d of antibiotics Qualifiers: Qualified Codes: N30.00 - Acute cystitis without hematuria (4) Diabetes mellitus type II, uncontrolled Status: Chronic Assessment & Plan: 01/11 -DKA resolving as above -nausea improved, start diabetic diet -sliding scale B with meals, accuchecks AC and HS -30 units levemir SQ -discussed with patient that she will need to continue insulin use at home; pt reports she has been diabetic for about 10 years, was gestational diabetic with all of her pregnancies 01/12 -pt has done well over last 24 hours -continue sliding scale B, levemir 30 units at HS -accuchecks AC and HS -transfer to floor -if pt does well, likely could discharge home on PO abx in 24-48 hours 01/13 - BS improved but continues to be sporadic - though initially dx as Type 2, pt appears to be more consistent with Type 1 DM at this time. At risk for DKA, will need to continue to insulin. - DC home on Levemir 30 units qhs and Novolog 10 units w/ meals; will check BS fasting and 2h pp and bring to f/u appoint - patient needs f/u with Yaz Schulz for Diabetic Education; consider consult w / Dr. Mercado if BS are difficult to control. Qualifiers: Qualified Codes: E11.10 - Type 2 diabetes mellitus with ketoacidosis without coma (5) Anemia Qualifiers: Qualified Codes: D64.9 - Anemia, unspecified (6) Pain, dental Status: Acute Assessment & Plan: 01/12 -no obvious signs of infection noted on exam -will monitor closely -if pt has rise in white count or any signs of dental infection, consider starting clindamycin for improved dental coverage -norco, ibuprofen PRN pain added 01/13 - pt reports improvement in pain; pt will schedule w/ dental (7) Bacteremia due to Escherichia coli Status: Acute Assessment & Plan: 01/12 -pt on day 3 Rocephin -ecoli sensitive to rocephin -will continue abx -pt afebrile with decreasing white count, if continues to do well, anticipate able to discharge home in 24-48 hours on PO abx (8) Hypertension 01/13 - BP consistently elevated - increase Lisinopril to 10mg on DC DC home today F/u with Kirk Hunter 01/18/18 at 2pm. Chief Complaint/HPI Chief Complaint/HPI From ED notes: This 32-year-old woman presents to emergency room with complaints of fever, shortness of breath, back and leg aches, headaches, nausea, vomiting, and diarrhea. She reports her blood sugars have been high recently. She has tried to take metformin but does not tolerate it well as it causes nausea, vomiting, diarrhea. Her headaches and leg aches have been ongoing for about a month. Her fever and shortness of breath started within the last 24 hours. She appears to be hyperventilating and very anxious. She complains of numbness in her hands bilaterally. Patient is seen at [facility]. She is hyperglycemic with a fingerstick blood sugar of 362. She is extremely tachycardic. Monitor displays sinus tachycardia with a heart rate in the 160s. Clinic chart review shows that pt was seen on 12/28 to re-establish care and her A1C was too high to be read on the fingerstick machine. The patient reported she had not been taking her metformin because she was unable to tolerate the GI side effects. She was started on glipizide. Patient is admitted to ICU for DKA, Sepsis secondary to UTI. Discharge Summary-Simple/Stand Consultations Discharge Physical Examination Allergies: Coded Allergies: No Known Drug Allergies (Verified , 04/29/08) Vitals & I&Os Vital Sign - Last 12Hours Date Time Temp Pulse Resp B/P (MAP) Pulse Ox O2 Delivery O2 Flow Rate FiO2 01/13/18 08:00 97.1 95 20 156/48 (84) 94 Room Air Intake and Output 01/13/18 00:00 Intake Total 1930 ml Output Total 1200 ml Balance 730 ml General Appearance: Alert, Oriented X3, Cooperative Psych/Mental Status: Mood NL Hospital Course See final discharge diagnosis. Radiology Reviewed Date of Exam: 01/10/18 CHEST 1 VIEW, AP/PA ONLY INDICATION: Cold sweats, shaking. No chest complaints. Not feeling well. EXAMINATION: Chest, 01/10/2018. COMPARISON: 05/26/2017. FINDINGS: The cardiomediastinal silhouette is unremarkable. The pulmonary vasculature is within normal limits. The lungs and pleural spaces are clear. IMPRESSION: No evidence of an acute cardiopulmonary process. Discharge Instructions to patient/family Please see electronic discharge instructions given to patient. Patient Instructions Goal/Follow Up Appt: Follow-up jaqueline Hunter APRN at [facility] 01/18/18 at 2pm Will need referral to Yaz Schulz for Diabetic Education at [facility] Activity & Diet Discharge Diet: ADA Diet Activity as Tolerated: Yes Discharge Medications Reviewed and agree with Discharge Medication list on patient's Discharge Instruction sheet Discharge Medications New, Converted or Re-Newed RX: Transmitted to Pharmacy ([facility]) New Medications: Ciprofloxacin HCl (Ciprofloxacin HCl) 250 Mg Tablet 250 MG PO BID for 3 Days, #6 TAB 0 Refills Insulin Aspart (Novolog) 100 Unit/1 Ml Susp 10 UNIT SC WM, #1 ML 3 Refills Insulin Determir (Levemir) 1,000 Units/10 Ml Soln 30 UNIT SQ HS, #1 EA 3 Refills Lisinopril (Lisinopril) 5 Mg Tablet 10 MG PO DAILY, #30 TAB 3 Refills Continued Medications: Gabapentin (Gabapentin) 300 Mg Capsule 300 MG PO DAILY, CAP Naproxen (Naproxen) 500 Mg Tablet 500 MG PO Q12H, TAB Omeprazole (Omeprazole) 20 Mg Capsule.dr 20 MG PO BID, CAP Discontinued Medications: Glimepiride (Glimepiride) 4 Mg Tablet 4 MG PO BID, TAB Lisinopril (Lisinopril) 5 Mg Tablet 5 MG PO DAILY, TAB Clinical Quality Measures DVT/VTE Risk/Contraindication: Risk Factor Score Per Nursin RFS Level Per Nursing on Admit: 3=High SU CARRASCO DO Jan 13, 2018 10:35
[2018-01-13 12:00] VITALS: BP 154/72
[2018-01-13] MEDS ORDERED: inSUlin ASPART (NovoLOG) 1 UNIT/0.01 ML (CHARGE PER UNIT) SC SCH (12:00)
[2018-01-14] MEDS ORDERED: lisINopril 5 MG (PRINIVIL) TABLET PO SCH (09:00)
== END 2018-01-13 12:00 | disposition home or self-care (01) | DRG 871 ==
LOC: EDUNIT# 19:19 → ER 19:20 → ICU 21:24 → 4TH 01-12 10:50
PROVIDERS: ADMIT Family Medicine; ATTEND Family Medicine
DX: A41.51 Sepsis due to Escherichia coli [E. coli] (principal); N30.00 Acute cystitis without hematuria; E11.10 Type 2 diabetes mellitus with ketoacidosis without coma; E11.65 Type 2 diabetes mellitus with hyperglycemia; F41.9 Anxiety disorder, unspecified; I10 Essential (primary) hypertension; M79.661 Pain in right lower leg; M79.662 Pain in left lower leg; D64.9 Anemia, unspecified; R51 Headache; K08.89 Other specified disorders of teeth and supporting structures
CPT/HCPCS: 36415; 71045; 80048; 80053; 81000; 82550; 82962; 83605; 83735; 84100; 84703; 85007; 85025; 85027; 85610; 85730; 87040; 87077; 87081; 87088; 87186; 87804; 96361; 96365; 96375

== ENCOUNTER → 2018-10-02 | Outpatient (CLI) | payer OTHER ==
[~2018-10-02] MED LIST changes: +CIPR250T3 PO; +GABA-488 PO; +GLIM4TAB PO; +INSU100V16 SC; +INSU100V5 SQ; +METF500T8 PO; +NAPR-915 PO; +OMEP20CA12 PO
--- NOTE | 2018-10-02 10:38 | Diagnostic Imaging Report ---
INDICATION: Generalized abdominal pain TECHNIQUE: Multiple grayscale sonographic images were obtained of the right upper quadrant of the abdomen. CORRELATION STUDY: None FINDINGS: LIVER: There is uniform echotexture within the visualized portions of the liver. Liver size normal 16.5 cm. GALLBLADDER: The gallbladder demonstrates no definitive shadowing gallstones. No abnormal gallbladder wall thickening or pericholecystic fluid. COMMON BILE DUCT: Not visualized, largely obscured. No suggestion for bile duct dilatation. PANCREAS: Visualized portions appearing unremarkable. RIGHT KIDNEY: Measures 11.6 x 5.3 x 5.3 cm. No hydronephrosis. AORTA/IVC: Not well visualized. OTHER: None. IMPRESSION: 1. Negative appearing right upper quadrant abdominal ultrasound. Dictated by: Dictated on workstation # [id number]
== END ==
LOC: RAD 09:02
PROVIDERS: ATTEND Nurse Practitioner Community Health
DX: R10.84 Generalized abdominal pain (principal)
CPT/HCPCS: 76705

== ENCOUNTER 2019-02-14 10:34 | Observation (INO) | payer OTHER ==
[~2019-02-14] VITALS: Ht 154.9 cm; Wt 64.4 kg
[~2019-02-14 10:34] MED LIST changes: -OMEP20CA12 PO; +OMEP20CA13 PO
--- OUTSIDE RECORDS SUMMARY | 2019-02-14 10:39 | XMS REPORT ---
Author Author CRISTIAN TRUJILLO Organization [facility] Address [address] [place] [address] Care Team Providers Care Guest History Clerk Name Role Phone CRISTIAN TRUJILLO Unavailable PROBLEMS Type Condition ICD9-CM Code [id number] Code Onset Dates Condition Status SNOMED Code Problem Gastroesophageal reflux disease without esophagitis K21.9 Active 564943660 Problem Type 2 diabetes mellitus with hyperglycemia E11.65 Active 512140091773563 Problem Primary insomnia F51.01 Active 9264915 Problem Elevated LDL cholesterol level E78.00 Active 834847140 Problem Low HDL (under 40) E78.6 Active 784761980 Problem Diabetes type 2, uncontrolled E11.65 Active 469836964 Problem Acute upper respiratory infection, unspecified J06.9 Active 663028562 Problem Seasonal allergic rhinitis due to pollen J30.1 Active 66600301 Problem Arthritis M19.90 Active 4788386 Problem Hypertension, benign I10 Active 42707077 Problem Type 2 diabetes mellitus with diabetic autonomic (poly)neuropathy E11.43 Active 90078062 Problem Chronic fatigue R53.82 Active 37717848 Problem Uncontrolled type 2 diabetes mellitus without complication, without long- term current use of insulin E11.65 Active 258493149 ALLERGIES No Information ENCOUNTERS Encounter Location Date Diagnosis [facility] [id number] [place] [phone] Mar, Seasonal allergic rhinitis due to pollen J30.1 [facility] [id number] [address] Mar, [facility] [id number] [place] [phone] Mar, [facility] [id number] [address] Feb, [facility] [id number] [place] [phone] Feb, Chronic fatigue R53.82 ; Arthritis M19.90 and Frequent headaches R51 [place] [id number] [place] [phone] Feb, Diabetes type 2, uncontrolled E11.65 [place] [id number] [place] [phone] Feb, Diabetes type 2, uncontrolled E11.65 ; Hypertension, benign I10 and Primary insomnia F51.01 [place] [id number] [place] [phone] Jan, Uncontrolled type 2 diabetes mellitus without complication, without long-term current use of insulin E11.65 and Diabetes type 2, uncontrolled E11.65 [place] [id number] [place] [phone] Jan, Type 2 diabetes mellitus with diabetic autonomic (poly)neuropathy E11.43 [place] [id number] [place] [phone] Jan, Uncontrolled type 2 diabetes mellitus without complication, without long-term current use of insulin E11.65 and Primary insomnia F51.01 [place] [id number] [place] [phone] Jan, [place] [id number] [place] [phone] Dec, Uncontrolled type 2 diabetes mellitus without complication, without long-term current use of insulin E11.65 [place] [address] [address] Dec, Diabetes type 2, uncontrolled E11.65 [place] [id number] [place] [phone] Dec, [place] [id number] [place] [phone] Dec, Type 2 diabetes mellitus with diabetic autonomic (poly)neuropathy E11.43 [place] [id number] [address] Dec, [place] [id number] [place] [phone] Dec, [place] [id number] [place] [phone] November, Type 2 diabetes mellitus with diabetic autonomic (poly)neuropathy E11.43 [place] [id number] [place] [phone] November, Type 2 diabetes mellitus with diabetic autonomic (poly)neuropathy E11.43 ; Type 2 diabetes mellitus with hyperglycemia E11.65 ; Hypertension, benign I10 and Primary insomnia F51.01 [place] [id number] [place] [address] Sep, Diabetes type 2, uncontrolled E11.65 [place] [id number] [place] [phone] 17 Aug, 2017 [place] [id number] [place] [phone] Aug, Encounter for test Z32.00 [place] [id number] [place] [phone] Apr, [place] [id number] [place] [phone] Apr, Diabetes type 2, uncontrolled E11.65 ; Epigastric pain R10.13 and Gastroesophageal reflux disease without esophagitis K21.9 [place] [id number] [place] [phone] Oct, [place] [id number] [place] [phone] 08 Aug, 2016 Encounter for test, result unknown Z32.00 [place] [id number] [place] [phone] Jul, Acute upper respiratory infection, unspecified J06.9 ; Other viral agents as the cause of diseases classified elsewhere B97.89 and Diabetes type 2, uncontrolled E11.65 [facility] [id number] [address] Apr, [facility] [id number] [id number] 07 Mar, 2016 Dental examination Z01.20 [facility] [id number] [address] November, [facility] [id number] [place] [phone] November, Diabetes type 2, uncontrolled E11.65 [facility] [id number] [place] [phone] Oct, [facility] [id number] [place] [phone] Oct, [facility] [id number] [place] [phone] Oct, [facility] [id number] [place] [phone] Oct, [facility] [id number] [place] [phone] Sep, [facility] [id number] [address] Sep, [facility] [id number] [place] [phone] 28 Sep, 2015 Diabetes type 2, uncontrolled E11.65 [facility] [address] [address] Sep, ADRYAN (secretory otitis media) H65.90 ; Diabetes type 2, uncontrolled E11.65 ; Cindy vaginitis B37.3 and Nausea R11.0 [facility] [address] [address] May, Diabetes type 2, uncontrolled E11.65 and Abdominal pain R10.9 [facility] [address] [facility] [id number] [place] [address] Jun, [facility] [address] [facility] [id number] [address] Jun, [facility] [id number] [address] May, [facility] [address] [facility] [id number] [address] May, IMMUNIZATIONS No Known Immunizations SOCIAL HISTORY Never Assessed REASON FOR VISIT BS f/u PLAN OF CARE VITAL SIGNS MEDICATIONS No Known Medications RESULTS No Results PROCEDURES No Known procedures INSTRUCTIONS MEDICATIONS ADMINISTERED No Known Medications MEDICAL (GENERAL) HISTORY Type Description Date Medical History Diabetes type II Medical History gerd Surgical History cesearian section x3 Surgical History tubal ligation Hospitalization History Surgeries/childbirth only Hospitalization History DKA, Sepsis, UTI-[facility] 01/15/18
--- OUTSIDE RECORDS SUMMARY | 2019-02-14 10:39 | XMS REPORT ---
Author Author DONY Barnes Organization [facility] Address [address] [place] [address] Care Team Providers Care Fruit Farmer Name Role Phone DONY Barnes Unavailable PROBLEMS Type Condition ICD9-CM Code VOH11-RV Code Onset Dates Condition Status SNOMED Code Problem Gastroesophageal reflux disease without esophagitis K21.9 Active 227692259 Problem Type 2 diabetes mellitus with hyperglycemia E11.65 Active 520209350776134 Problem Primary insomnia F51.01 Active 6302884 Problem Elevated LDL cholesterol level E78.00 Active 022165204 Problem Low HDL (under 40) E78.6 Active 331297236 Problem Diabetes type 2, uncontrolled E11.65 Active 789971658 Problem Acute upper respiratory infection, unspecified J06.9 Active 772194189 Problem Seasonal allergic rhinitis due to pollen J30.1 Active 99504097 Problem Arthritis M19.90 Active 4235549 Problem Hypertension, benign I10 Active 74894211 Problem Type 2 diabetes mellitus with diabetic autonomic (poly)neuropathy E11.43 Active 04845921 Problem Chronic fatigue R53.82 Active 89853549 Problem Uncontrolled type 2 diabetes mellitus without complication, without long- term current use of insulin E11.65 Active 842458103 ALLERGIES No Known Allergies ENCOUNTERS Encounter Location Date Diagnosis [facility] [id number] [address] Mar, Seasonal allergic rhinitis due to pollen J30.1 [facility] [id number], [place] [address] Mar, [facility] [address], [place] [address] Mar, [facility] [id number], [place] [address] Feb, [facility] [id number], [place] [address] Feb, Chronic fatigue R53.82 ; Arthritis M19.90 and Frequent headaches R51 [place] [id number] [place] [address] Feb, Diabetes type 2, uncontrolled E11.65 [place] [id number] [place] [address] Feb, Diabetes type 2, uncontrolled E11.65 ; Hypertension, benign I10 and Primary insomnia F51.01 [place] [id number] [place] [address] Jan, Uncontrolled type 2 diabetes mellitus without complication, without long-term current use of insulin E11.65 and Diabetes type 2, uncontrolled E11.65 [place] [id number] [place] [address] Jan, Type 2 diabetes mellitus with diabetic autonomic (poly)neuropathy E11.43 [place] [id number] [place] [address] Jan, Uncontrolled type 2 diabetes mellitus without complication, without long-term current use of insulin E11.65 and Primary insomnia F51.01 [place] [id number] [place] [address] Jan, [place] [id number] [place] [address] Dec, Uncontrolled type 2 diabetes mellitus without complication, without long-term current use of insulin E11.65 [place] [address] [place] [address] Dec, Diabetes type 2, uncontrolled E11.65 [place] [id number] [place] [address] Dec, [place] [id number] [place] [address] Dec, Type 2 diabetes mellitus with diabetic autonomic (poly)neuropathy E11.43 [place] [address], [place] [address] Dec, [place] [id number] [place] [address] Dec, [place] [address] [address] November, Type 2 diabetes mellitus with diabetic autonomic (poly)neuropathy E11.43 [facility] [id number] [place] [address] November, Type 2 diabetes mellitus with diabetic autonomic (poly)neuropathy E11.43 ; Type 2 diabetes mellitus with hyperglycemia E11.65 ; Hypertension, benign I10 and Primary insomnia F51.01 [place] [id number], [place] [address] Sep, Diabetes type 2, uncontrolled E11.65 [place] [id number] [place] [address] 17 Aug, 2017 [place] [id number] [place] [address] 15 Aug, 2017 Encounter for test Z32.00 [place] [address] [place] [address] Apr, [place] [address] [place] [address] Apr, Diabetes type 2, uncontrolled E11.65 ; Epigastric pain R10.13 and Gastroesophageal reflux disease without esophagitis K21.9 [place] [address], [place] [address] Oct, [place] [id number] [place] [address] 08 Aug, 2016 Encounter for test, result unknown Z32.00 [place] [address], [place] [address] Jul, Acute upper respiratory infection, unspecified J06.9 ; Other viral agents as the cause of diseases classified elsewhere B97.89 and Diabetes type 2, uncontrolled E11.65 [facility] [address], [place] [address] Apr, [facility] [address] [id number] 07 Mar, 2016 Dental examination Z01.20 [facility] [id number] [place] [address] November, [facility] [id number] [place] [address] November, Diabetes type 2, uncontrolled E11.65 [facility] [id number] [place] [address] Oct, [facility] [id number] [place] [address] Oct, [facility] [id number] [place] [address] Oct, [facility] [id number] [place] [address] Oct, [facility] [id number] [place] [address] Sep, [facility] [address], [place] [address] Sep, [facility] [id number] [place] [address] Sep, Diabetes type 2, uncontrolled E11.65 [facility] [address], [place] [address] Sep, ADRYAN (secretory otitis media) H65.90 ; Diabetes type 2, uncontrolled E11.65 ; Cindy vaginitis B37.3 and Nausea R11.0 [facility] [address], [place] [address] May, Diabetes type 2, uncontrolled E11.65 and Abdominal pain R10.9 [facility] [address] [facility] [id number] [address] Jun, [facility] [address] [facility] [id number] [address] Jun, [facility] [address] [facility] [id number] [address] May, [facility] [address] [facility] [id number] [address] May, IMMUNIZATIONS Vaccine Route Administration Date Status DEXAMETHASONE 4MG/ML (PER 1 MG) IM Intramuscular 2018 Administered DEPO MEDROL 40 MG/ML IM Intramuscular 2018 Administered SOCIAL HISTORY Never Assessed REASON FOR VISIT cough/congestion x 2 days. C/O brown colored sputum. Patient c/o right lower naila k pain. C/O headache that will not go away.-awoods PLAN OF CARE Activity Details Follow Up prn Reason: VITAL SIGNS Height 61 in 2018 Weight 121.7 lbs 2018 Temperature 98.8 degrees Fahrenheit 2018 Heart Rate 100 bpm 2018 Respiratory Rate 18 2018 BMI 22.99 kg/m2 2018 Blood pressure systolic 112 mmHg 2018 Blood pressure diastolic 82 mmHg 2018 MEDICATIONS Medication Instructions Dosage Frequency Start Date End Date Duration Status Glimepiride 4 MG Orally 2 times a day 1 tablet 12h Apr, Active Calcium & Vit D3 Bone Health Active Lisinopril 20 MG Orally Once a day 1 tablet 24h Apr, 30 days Active Levemir FlexTouch 100 UNIT/ML Subcutaneous 2 times a day inject 25 units 12h Dec, Active NovoFine 32G X 6 MM subcutaneously 3 times a day use with humalog flex pens to inject insulin 8h Dec, Active Ferrous Sulfate 325 (65 Fe) MG Orally Once a day 1 tablet 24h Feb, Active RESULTS No Results PROCEDURES Procedure Date Ordered Result Body Site DEPO MEDROL 40 MG/ML 2018 THER/PROPH/DIAG INJ, SC/IM 2018 DEXAMETHASONE 4MG/ML (PER 1 MG) 2018 INSTRUCTIONS MEDICATIONS ADMINISTERED No Known Medications MEDICAL (GENERAL) HISTORY Type Description Date Medical History Diabetes type II Medical History gerd Surgical History cesearian section x3 Surgical History tubal ligation Hospitalization History Surgeries/childbirth only Hospitalization History DKA, Sepsis, UTI-[facility] 01/15/18
--- OUTSIDE RECORDS SUMMARY | 2019-02-14 10:39 | XMS REPORT ---
Author Author CRISTIAN TRUJILLO Organization [facility] Address [address] [place] [address] Care Team Providers Care Brewery Pumper Name Role Phone CRISTIAN TRUJILLO Unavailable PROBLEMS Type Condition ICD9-CM Code AIE28-IG Code Onset Dates Condition Status SNOMED Code Problem Acute upper respiratory infection, unspecified J06.9 Active 555130949 Problem Primary insomnia F51.01 Active 7904049 Problem Gastroesophageal reflux disease without esophagitis K21.9 Active 101365395 Problem Elevated LDL cholesterol level E78.00 Active 078785200 Problem Low HDL (under 40) E78.6 Active 448875818 Problem Diabetes type 2, uncontrolled E11.65 Active 989075003 Problem Arthritis M19.90 Active 3604159 Problem Chronic fatigue R53.82 Active 39541837 Problem Type 2 diabetes mellitus with diabetic autonomic (poly)neuropathy E11.43 Active 79236569 Problem Type 2 diabetes mellitus with hyperglycemia E11.65 Active 486674235897479 Problem Uncontrolled type 2 diabetes mellitus without complication, without long- term current use of insulin E11.65 Active 015715093 Problem Hypertension, benign I10 Active 93818520 ALLERGIES No Known Allergies ENCOUNTERS Encounter Location Date Diagnosis [facility] [address] [place] [address] Mar, [facility] [id number] [place] [address] Mar, [facility] [address] [place] [address] Feb, [place] [id number] [place] [address] Feb, Chronic fatigue R53.82 ; Arthritis M19.90 and Frequent headaches R51 [facility] [id number] [place] [address] Feb, Diabetes type 2, uncontrolled E11.65 [facility] [address], [place] [address] Feb, Diabetes type 2, uncontrolled E11.65 ; Hypertension, benign I10 and Primary insomnia F51.01 [facility] [id number], [place] [address] Jan, Uncontrolled type 2 diabetes mellitus without complication, without long-term current use of insulin E11.65 and Diabetes type 2, uncontrolled E11.65 [facility] [id number] [place] [address] Jan, Type 2 diabetes mellitus with diabetic autonomic (poly)neuropathy E11.43 [facility] [id number] [place] [address] Jan, Uncontrolled type 2 diabetes mellitus without complication, without long-term current use of insulin E11.65 and Primary insomnia F51.01 [facility] [id number] [place] [address] Jan, [facility] [id number] [place] [address] Dec, Uncontrolled type 2 diabetes mellitus without complication, without long-term current use of insulin E11.65 [facility] [address], [place] [address] Dec, Diabetes type 2, uncontrolled E11.65 [facility] [id number], [place] [address] Dec, [facility] [address], [place] [address] Dec, Type 2 diabetes mellitus with diabetic autonomic (poly)neuropathy E11.43 [facility] [address], [place] [address] Dec, [facility] [id number], [place] [address] Dec, [place] [address], [place] [address] November, Type 2 diabetes mellitus with diabetic autonomic (poly)neuropathy E11.43 [place] [id number] [place] [address] November, Type 2 diabetes mellitus with diabetic autonomic (poly)neuropathy E11.43 ; Type 2 diabetes mellitus with hyperglycemia E11.65 ; Hypertension, benign I10 and Primary insomnia F51.01 [place] [address] [place] [address] Sep, Diabetes type 2, uncontrolled E11.65 [address] [place] [address] 17 Aug, 2017 [address] [place] [address] 15 Aug, 2017 Encounter for test Z32.00 [address] [place] [address] Apr, [address] [place] [address] Apr, Diabetes type 2, uncontrolled E11.65 ; Epigastric pain R10.13 and Gastroesophageal reflux disease without esophagitis K21.[address] [place] [address] Oct, [id number] [place] [address] 08 Aug, 2016 Encounter for test, result unknown Z32.00 [address] [place] [address] Jul, Acute upper respiratory infection, unspecified J06.9 ; Other viral agents as the cause of diseases classified elsewhere B97.89 and Diabetes type 2, uncontrolled E11.65 [address] [place] [address] Apr, [address] [id number] 07 Mar, 2016 Dental examination Z01.20 [facility] [address], [place] [address] November, [facility] [address], [place] [address] November, Diabetes type 2, uncontrolled E11.65 [facility] [id number] [place] [address] Oct, [facility] [address] [place] [address] Oct, [facility] [id number] [place] [address] Oct, [facility] [id number] [place] [address] Oct, [facility] [id number] [place] [address] Sep, [facility] [address], [place] [address] Sep, [facility] [address] [place] [address] Sep, Diabetes type 2, uncontrolled E11.65 [facility] [address], [place] [address] Sep, ADRYAN (secretory otitis media) H65.90 ; Diabetes type 2, uncontrolled E11.65 ; Cindy vaginitis B37.3 and Nausea R11.0 [facility] [address], [place] [address] May, Diabetes type 2, uncontrolled E11.65 and Abdominal pain R10.9 [facility] [address], [place] [address] Jun, [facility] [id number] [place] [address] Jun, [facility] [address] [facility] [id number] [place] [address] May, [facility] [address] [facility] [id number], [place] [address] May, IMMUNIZATIONS Vaccine Route Administration Date Status TORADOL (IM) 60 MG/2ML (UP TO 15 MG) IM Intramuscular Mar 22, 2018 Administered SOCIAL HISTORY Never Assessed REASON FOR VISIT Swelling(feet) and pain continues, reports not much better. CBrumbackRN PLAN OF CARE VITAL SIGNS Height 61 in 2018-03-22 Weight 129.0 lbs 2018-03-22 Temperature 98.8 degrees Fahrenheit 2018-03-22 Heart Rate 106 bpm 2018-03-22 Respiratory Rate 18 2018-03-22 BMI 24.37 kg/m2 2018-03-22 Blood pressure systolic 118 mmHg 2018-03-22 Blood pressure diastolic 76 mmHg 2018-03-22 MEDICATIONS Medication Instructions Dosage Frequency Start Date End Date Duration Status Spironolactone 25 MG Orally Once a day 1 tablet 24h Feb, Active Lyrica 50 mg Orally Twice a day 1 capsule 12h Feb, Active Lisinopril 20 MG Orally Once a day 1 tablet 24h Apr, 30 days Active Glimepiride 4 MG Orally 2 times a day 1 tablet 12h Apr, Active Levemir FlexTouch 100 UNIT/ML Subcutaneous 2 times a day inject 25 units 12h Dec, Active NovoFine 32G X 6 MM subcutaneously 3 times a day use with humalog flex pens to inject insulin 8h Dec, Active Bactrim DS 800-160 MG Orally Twice a day 1 tablet 12h Feb, Mar, 10 day(s) Active Doxepin HCl 50 mg Orally Once a day 1 capsule at bedtime 24h Feb, 30 day(s) Not-Taking RESULTS No Results PROCEDURES Procedure Date Ordered Result Body Site URINE CULTURE/COLONY COUNT Mar 22, 2018 GLYCATED HEMOGLOBIN TEST Mar 22, 2018 TORADOL (IM) 60 MG/2ML (UP TO 15 MG) Mar 22, 2018 THER/PROPH/DIAG INJ, SC/IM Mar 22, 2018 URINALYSIS, AUTO, W/O SCOPE Mar 22, 2018 ASSAY THYROID STIM HORMONE Mar 22, 2018 VENIPUNCT, ROUTINE* Mar 22, 2018 COMPREHEN METABOLIC PANEL Mar 22, 2018 LIPID PANEL Mar 22, 2018 C-REACTIVE PROTEIN Mar 22, 2018 COMPLETE CBC W/AUTO DIFF WBC Mar 22, 2018 INSTRUCTIONS MEDICATIONS ADMINISTERED No Known Medications MEDICAL (GENERAL) HISTORY Type Description Date Medical History Diabetes type II Medical History gerd Surgical History cesearian section x3 Surgical History tubal ligation Hospitalization History Surgeries/childbirth only Hospitalization History DKA, Sepsis, UTI-[facility] 01/15/18
--- OUTSIDE RECORDS SUMMARY | 2019-02-14 10:39 | XMS REPORT ---
Author Author CRISTIAN TRUJILLO Organization [facility] Address [address] [place] [address] Care Team Providers Care High Density Finishing Operator Name Role Phone CRISTIAN TRUJILLO Unavailable PROBLEMS Type Condition ICD9-CM Code OAU97-NG Code Onset Dates Condition Status SNOMED Code Problem Gastroesophageal reflux disease without esophagitis K21.9 Active 530508220 Problem Type 2 diabetes mellitus with hyperglycemia E11.65 Active 091135437461986 Problem Primary insomnia F51.01 Active 4637131 Problem Elevated LDL cholesterol level E78.00 Active 958793587 Problem Low HDL (under 40) E78.6 Active 301255300 Problem Diabetes type 2, uncontrolled E11.65 Active 373656112 Problem Acute upper respiratory infection, unspecified J06.9 Active 466123900 Problem Seasonal allergic rhinitis due to pollen J30.1 Active 30368080 Problem Arthritis M19.90 Active 5071350 Problem Hypertension, benign I10 Active 22180427 Problem Type 2 diabetes mellitus with diabetic autonomic (poly)neuropathy E11.43 Active 31225957 Problem Chronic fatigue R53.82 Active 14805369 Problem Uncontrolled type 2 diabetes mellitus without complication, without long- term current use of insulin E11.65 Active 388176134 ALLERGIES No Information ENCOUNTERS Encounter Location Date Diagnosis [facility] [id number] [place] [address] Mar, Seasonal allergic rhinitis due to pollen J30.1 [facility] [id number] [address] Mar, [facility] [id number] [place] [address] Mar, [facility] [address] [address] Feb, [facility] [id number] [place] [address] Feb, Chronic fatigue R53.82 ; Arthritis M19.90 and Frequent headaches R51 [facility] [id number] [place] [address] Feb, Diabetes type 2, uncontrolled E11.65 [facility] [id number] [place] [address] Feb, Diabetes type 2, uncontrolled E11.65 ; Hypertension, benign I10 and Primary insomnia F51.01 [facility] [id number] [place] [address] Jan, Uncontrolled type 2 diabetes mellitus without complication, without long-term current use of insulin E11.65 and Diabetes type 2, uncontrolled E11.65 [facility] [id number] [place] [address] Jan, Type 2 diabetes mellitus with diabetic autonomic (poly)neuropathy E11.43 [facility] [id number] [place] [address] Jan, Uncontrolled type 2 diabetes mellitus without complication, without long-term current use of insulin E11.65 and Primary insomnia F51.01 [facility] [id number] [place] [address] Jan, [facility] [id number] [place] [address] Dec, Uncontrolled type 2 diabetes mellitus without complication, without long-term current use of insulin E11.65 [facility] [address] [address] Dec, Diabetes type 2, uncontrolled E11.65 [facility] [id number] [place] [address] Dec, [facility] [id number] [place] [address] Dec, Type 2 diabetes mellitus with diabetic autonomic (poly)neuropathy E11.43 [facility] [id number] [address] Dec, [facility] [id number] [place] [address] Dec, [facility] [id number] [place] [address] November, Type 2 diabetes mellitus with diabetic autonomic (poly)neuropathy E11.43 [facility] [id number] [place] [address] November, Type 2 diabetes mellitus with diabetic autonomic (poly)neuropathy E11.43 ; Type 2 diabetes mellitus with hyperglycemia E11.65 ; Hypertension, benign I10 and Primary insomnia F51.01 [facility] [id number] [place] [address] Sep, Diabetes type 2, uncontrolled E11.65 [facility] [id number] [place] [address] 17 Aug, 2017 [facility] [id number] [place] [address] Aug, Encounter for test Z32.00 [facility] [id number] [place] [address] Apr, [facility] [id number] [place] [address] Apr, Diabetes type 2, uncontrolled E11.65 ; Epigastric pain R10.13 and Gastroesophageal reflux disease without esophagitis K21.9 [facility] [id number] [place] [address] Oct, [facility] [id number] [place] [address] 08 Aug, 2016 Encounter for test, result unknown Z32.00 [facility] [id number] [place] [address] Jul, Acute upper respiratory infection, unspecified J06.9 ; Other viral agents as the cause of diseases classified elsewhere B97.89 and Diabetes type 2, uncontrolled E11.65 [facility] [address] [address] Apr, [facility] [address] [id number] 07 Mar, 2016 Dental examination Z01.20 [facility] [id number] [address] November, [facility] [id number] [place] [address] November, Diabetes type 2, uncontrolled E11.65 [facility] [id number] [place] [address] Oct, [facility] [id number] [place] [address] Oct, [facility] [id number] [place] [address] Oct, [facility] [id number] [place] [address] Oct, [facility] [id number] [place] [address] Sep, [facility] [address] [address] Sep, [facility] [id number] [place] [address] 28 Sep, 2015 Diabetes type 2, uncontrolled E11.65 [facility] [address] [address] Sep, ADRYAN (secretory otitis media) H65.90 ; Diabetes type 2, uncontrolled E11.65 ; Cindy vaginitis B37.3 and Nausea R11.0 [facility] [address] [address] May, Diabetes type 2, uncontrolled E11.65 and Abdominal pain R10.9 [facility] [address] [facility] [id number] [address] Jun, [facility] [address] [facility] [id number] [address] Jun, [facility] [id number] [address] May, [facility] [address] [facility] [id number] [address] May, IMMUNIZATIONS No Known Immunizations SOCIAL HISTORY Never Assessed REASON FOR VISIT BS ck f/u PLAN OF CARE VITAL SIGNS MEDICATIONS No Known Medications RESULTS No Results PROCEDURES No Known procedures INSTRUCTIONS MEDICATIONS ADMINISTERED No Known Medications MEDICAL (GENERAL) HISTORY Type Description Date Medical History Diabetes type II Medical History gerd Surgical History cesearian section x3 Surgical History tubal ligation Hospitalization History Surgeries/childbirth only Hospitalization History DKA, Sepsis, UTI-[facility] 01/15/18
--- OUTSIDE RECORDS SUMMARY | 2019-02-14 10:40 | XMS REPORT ---
Author Author CRISTIAN TRUJILLO Organization [facility] Address [address] [place] [address] Care Team Providers Care Mold Operator Name Role Phone CRISTIAN TRUJILLO Unavailable PROBLEMS Type Condition ICD9-CM Code LFE38-IW Code Onset Dates Condition Status SNOMED Code Problem Acute upper respiratory infection, unspecified J06.9 Active 568980912 Problem Primary insomnia F51.01 Active 7575735 Problem Gastroesophageal reflux disease without esophagitis K21.9 Active 203084269 Problem Elevated LDL cholesterol level E78.00 Active 249419251 Problem Low HDL (under 40) E78.6 Active 051925116 Problem Diabetes type 2, uncontrolled E11.65 Active 739736725 Problem Arthritis M19.90 Active 4667456 Problem Chronic fatigue R53.82 Active 88105506 Problem Type 2 diabetes mellitus with diabetic autonomic (poly)neuropathy E11.43 Active 13662814 Problem Type 2 diabetes mellitus with hyperglycemia E11.65 Active 726462348223089 Problem Uncontrolled type 2 diabetes mellitus without complication, without long- term current use of insulin E11.65 Active 020337027 Problem Hypertension, benign I10 Active 18243413 ALLERGIES No Known Allergies ENCOUNTERS Encounter Location Date Diagnosis [facility] [address] [place] [address] Mar, [facility] [id number] [place] [address] Feb, [facility] [id number] [place] [address] Feb, Chronic fatigue R53.82 ; Arthritis M19.90 and Frequent headaches R51 [facility] [address] [place] [address] Feb, Diabetes type 2, uncontrolled E11.65 [facility] [id number] [place] [address] Feb, Diabetes type 2, uncontrolled E11.65 ; Hypertension, benign I10 and Primary insomnia F51.01 [facility] [address] [place] [address] Jan, Uncontrolled type 2 diabetes mellitus without complication, without long-term current use of insulin E11.65 and Diabetes type 2, uncontrolled E11.65 [facility] [address] [place] [address] Jan, Type 2 diabetes mellitus with diabetic autonomic (poly)neuropathy E11.43 [facility] [address] [place] [address] Jan, Uncontrolled type 2 diabetes mellitus without complication, without long-term current use of insulin E11.65 and Primary insomnia F51.01 [facility] [id number] [place] [address] Jan, [facility] [address] [place] [address] Dec, Uncontrolled type 2 diabetes mellitus without complication, without long-term current use of insulin E11.65 [facility] [address] [place] [address] Dec, Diabetes type 2, uncontrolled E11.65 [facility] [id number] [address] Dec, [facility] [address] [place] [address] Dec, Type 2 diabetes mellitus with diabetic autonomic (poly)neuropathy E11.43 [facility] [id number] [place] [address] Dec, [facility] [facility] [address] [place] [address] Dec, [facility] [address], [place] [address] November, Type 2 diabetes mellitus with diabetic autonomic (poly)neuropathy E11.43 [facility] [address] [place] [address] November, Type 2 diabetes mellitus with diabetic autonomic (poly)neuropathy E11.43 ; Type 2 diabetes mellitus with hyperglycemia E11.65 ; Hypertension, benign I10 and Primary insomnia F51.01 [place] [address] [address] Sep, Diabetes type 2, uncontrolled E11.65 [facility] [address] [address] 17 Aug, 2017 [place] [address] [address] 15 Aug, 2017 Encounter for test Z32.00 [facility] [facility] [address] [address] Apr, [facility] [facility] [address] [address] 09 Apr, 2017 Diabetes type 2, uncontrolled E11.65 ; Epigastric pain R10.13 and Gastroesophageal reflux disease without esophagitis K21.9 [facility] [address] [address] Oct, [facility] [address] [address] 08 Aug, 2016 Encounter for test, result unknown Z32.00 [facility] [address] [address] Jul, Acute upper respiratory infection, unspecified J06.9 ; Other viral agents as the cause of diseases classified elsewhere B97.89 and Diabetes type 2, uncontrolled E11.65 [facility] [id number] [place] [address] Apr, [facility] [id number] [place] [id number] 07 Mar, 2016 Dental examination Z01.20 [facility] [address], [place] [address] November, [facility] [id number] [place] [address] November, Diabetes type 2, uncontrolled E11.65 [facility] [address], [place] [address] Oct, [facility] [id number] [place] [address] Oct, [facility] [address], [place] [address] Oct, [facility] [id number] [place] [address] Oct, [facility] [id number] [place] [address] Sep, [facility] [id number] [place] [address] Sep, [facility] [address] [place] [address] Sep, Diabetes type 2, uncontrolled E11.65 [facility] [address], [place] [address] Sep, ADRYAN (secretory otitis media) H65.90 ; Diabetes type 2, uncontrolled E11.65 ; Cindy vaginitis B37.3 and Nausea R11.0 [facility] [address], [place] [address] May, Diabetes type 2, uncontrolled E11.65 and Abdominal pain R10.9 [facility] [address], [place] [address] Jun, [facility] [address], [place] [address] Jun, [facility] [address], [place] [address] May, [facility] [address] [facility] [id number] [place] [address] May, IMMUNIZATIONS No Known Immunizations SOCIAL HISTORY Never Assessed REASON FOR VISIT DM f/u. KBoleRN, Concerned about high BP. PLAN OF CARE Activity Details Follow Up 4 Weeks Reason:dm2 uncontrolled VITAL SIGNS Height 61 in 2018-03-07 Weight 130.1 lbs 2018-03-07 Temperature 98.5 degrees Fahrenheit 2018-03-07 Heart Rate 88 bpm 2018-03-07 Respiratory Rate 18 2018-03-07 BMI 24.58 kg/m2 2018-03-07 Blood pressure systolic 142 mmHg 2018-03-07 Blood pressure diastolic 96 mmHg 2018-03-07 MEDICATIONS Medication Instructions Dosage Frequency Start Date End Date Duration Status Meloxicam 7.5 MG Orally Once a day 1 tablet 24h Feb, Mar, 30 day(s) Active Lisinopril 20 MG Orally Once a day 1 tablet 24h Apr, 30 days Active Glimepiride 4 MG Orally 2 times a day 1 tablet 12h Apr, Active Doxepin HCl 50 mg Orally Once a day 1 capsule at bedtime 24h Feb, 30 day(s) Active NovoFine 32G X 6 MM subcutaneously 3 times a day use with humalog flex pens to inject insulin 8h Dec, Active Levemir FlexTouch 100 UNIT/ML Subcutaneous 2 times a day inject 25 units 12h Dec, Active Humalog KwikPen 100 UNIT/ML Subcutaneous 3 times a day with meals Inject 15 units Dec, Active RESULTS No Results PROCEDURES No Known procedures INSTRUCTIONS MEDICATIONS ADMINISTERED No Known Medications MEDICAL (GENERAL) HISTORY Type Description Date Medical History Diabetes type II Medical History gerd Surgical History cesearian section x3 Surgical History tubal ligation Hospitalization History Surgeries/childbirth only Hospitalization History DKA, Sepsis, UTI-[facility] 01/15/18
--- OUTSIDE RECORDS SUMMARY | 2019-02-14 10:40 | XMS REPORT ---
Author Author CRISTIAN TRUJILLO Organization [facility] Address [address] [place] [address] Care Team Providers Care Assistant Distribution Manager Name Role Phone CRISTIAN TRUJILLO Unavailable PROBLEMS Type Condition ICD9-CM Code LXM72-XY Code Onset Dates Condition Status SNOMED Code Problem Acute upper respiratory infection, unspecified J06.9 Active 590249933 Problem Primary insomnia F51.01 Active 6549117 Problem Gastroesophageal reflux disease without esophagitis K21.9 Active 896444495 Problem Elevated LDL cholesterol level E78.00 Active 854087929 Problem Low HDL (under 40) E78.6 Active 048178173 Problem Diabetes type 2, uncontrolled E11.65 Active 553716322 Problem Arthritis M19.90 Active 8661485 Problem Chronic fatigue R53.82 Active 70374253 Problem Type 2 diabetes mellitus with diabetic autonomic (poly)neuropathy E11.43 Active 50781838 Problem Type 2 diabetes mellitus with hyperglycemia E11.65 Active 756890769115265 Problem Uncontrolled type 2 diabetes mellitus without complication, without long- term current use of insulin E11.65 Active 661156729 Problem Hypertension, benign I10 Active 55637699 ALLERGIES No Information ENCOUNTERS Encounter Location Date Diagnosis [facility] [address] [place] [address] Mar, [facility] [address] [place] [address] Feb, [facility] [id number] [place] [address] Feb, Chronic fatigue R53.82 ; Arthritis M19.90 and Frequent headaches R51 [facility] [id number] [place] [address] Feb, Diabetes type 2, uncontrolled E11.65 [facility] [id number] [place] [address] Feb, Diabetes type 2, uncontrolled E11.65 ; Hypertension, benign I10 and Primary insomnia F51.01 [facility] [address] [place] [address] Jan, Uncontrolled type 2 diabetes mellitus without complication, without long-term current use of insulin E11.65 and Diabetes type 2, uncontrolled E11.65 [facility] [id number] [place] [address] Jan, Type 2 diabetes mellitus with diabetic autonomic (poly)neuropathy E11.43 [facility] [address] [place] [address] Jan, Uncontrolled type 2 diabetes mellitus without complication, without long-term current use of insulin E11.65 and Primary insomnia F51.01 [facility] [place] [id number] [place] [address] Jan, [facility] [place] [id number] [place] [address] Dec, Uncontrolled type 2 diabetes mellitus without complication, without long-term current use of insulin E11.65 [facility] [id number] [place] [address] Dec, Diabetes type 2, uncontrolled E11.65 [facility] [id number] [place] [address] Dec, [facility] [place] [id number] [place] [address] Dec, Type 2 diabetes mellitus with diabetic autonomic (poly)neuropathy E11.43 [facility] [id number] [place] [address] Dec, [facility] [place] [id number] [place] [address] Dec, [facility] [place] [id number] [place] [address] November, Type 2 diabetes mellitus with diabetic autonomic (poly)neuropathy E11.43 [facility] [id number] [place] [address] November, Type 2 diabetes mellitus with diabetic autonomic (poly)neuropathy E11.43 ; Type 2 diabetes mellitus with hyperglycemia E11.65 ; Hypertension, benign I10 and Primary insomnia F51.01 [place] [address] [address] Sep, Diabetes type 2, uncontrolled E11.65 [facility] [address] [address] 17 Aug, 2017 [place] [address] [address] 15 Aug, 2017 Encounter for test Z32.00 [place] [address] [address] Apr, [place] [address] [address] 09 Apr, 2017 Diabetes type 2, uncontrolled E11.65 ; Epigastric pain R10.13 and Gastroesophageal reflux disease without esophagitis K21.9 [facility] [address] [address] 05 Oct, 2016 [place] [address] [address] 08 Aug, 2016 Encounter for test, result unknown Z32.00 [place] [address] [address] Jul, Acute upper respiratory infection, unspecified J06.9 ; Other viral agents as the cause of diseases classified elsewhere B97.89 and Diabetes type 2, uncontrolled E11.65 [place] [id number] [place] [address] Apr, [facility] [address] [place] [address] [id number] 07 Mar, 2016 Dental examination Z01.20 [place] [address], [place] [address] November, [facility] [address], [place] [address] November, Diabetes type 2, uncontrolled E11.65 [facility] [address], [place] [address] Oct, [facility] [id number] [place] [address] Oct, [facility] [address], [place] [address] Oct, [facility] [id number] [place] [address] Oct, [facility] [id number] [place] [address] Sep, [facility] [id number] [place] [address] Sep, [facility] [address] [place] [address] Sep, Diabetes type 2, uncontrolled E11.65 [facility] [address], [place] [address] Sep, ADRYAN (secretory otitis media) H65.90 ; Diabetes type 2, uncontrolled E11.65 ; Cindy vaginitis B37.3 and Nausea R11.0 [facility] [address], [place] [address] May, Diabetes type 2, uncontrolled E11.65 and Abdominal pain R10.9 [facility] [address], [place] [address] Jun, [facility] [address], [place] [address] Jun, [facility] [address], [place] [address] May, [facility] [address] [facility] [id number] [place] [address] May, IMMUNIZATIONS No Known Immunizations SOCIAL HISTORY Never Assessed REASON FOR VISIT BS f/u PLAN OF CARE VITAL SIGNS MEDICATIONS Medication Instructions Dosage Frequency Start Date End Date Duration Status Levemir FlexTouch 100 UNIT/ML Subcutaneous 2 times [...] History Surgeries/childbirth only Hospitalization History DKA, Sepsis, UTI-VC 01/15/18
--- OUTSIDE RECORDS SUMMARY | 2019-02-14 10:40 | XMS REPORT ---
Author Author CRISTIAN TRUJILLO Organization [facility] [place] Address [address] [place] [address] Care Team Providers Care Enterprise Cloud Architect Name Role Phone CRISTIAN TRUJILLO Unavailable PROBLEMS Type Condition ICD9-CM Code TNY65-OM Code Onset Dates Condition Status SNOMED Code Problem Acute upper respiratory infection, unspecified J06.9 Active 288695912 Problem Primary insomnia F51.01 Active 4866835 Problem Gastroesophageal reflux disease without esophagitis K21.9 Active 905116988 Problem Elevated LDL cholesterol level E78.00 Active 820705661 Problem Low HDL (under 40) E78.6 Active 905181423 Problem Diabetes type 2, uncontrolled E11.65 Active 940073622 Problem Arthritis M19.90 Active 9196683 Problem Chronic fatigue R53.82 Active 73646339 Problem Type 2 diabetes mellitus with diabetic autonomic (poly)neuropathy E11.43 Active 16212153 Problem Type 2 diabetes mellitus with hyperglycemia E11.65 Active 970055981791198 Problem Uncontrolled type 2 diabetes mellitus without complication, without long- term current use of insulin E11.65 Active 540730038 Problem Hypertension, benign I10 Active 07964104 ALLERGIES No Known Allergies ENCOUNTERS Encounter Location Date Diagnosis [facility] [place] [id number] [place] [address] Mar, [facility] [place] [id number] [place] [address] Feb, [facility] [place] [id number] [place] [address] Feb, Chronic fatigue R53.82 ; Arthritis M19.90 and Frequent headaches R51 [facility] [place] [id number] [place] [address] Feb, Diabetes type 2, uncontrolled E11.65 [facility] [place] [id number] [place] [address] Feb, Diabetes type 2, uncontrolled E11.65 ; Hypertension, benign I10 and Primary insomnia F51.01 [facility] [place] [id number] [place] [address] Jan, Uncontrolled type 2 diabetes mellitus without complication, without long-term current use of insulin E11.65 and Diabetes type 2, uncontrolled E11.65 [place] [id number] [place] [address] Jan, Type 2 diabetes mellitus with diabetic autonomic (poly)neuropathy E11.43 [place] [id number] [place] [address] Jan, Uncontrolled type 2 diabetes mellitus without complication, without long-term current use of insulin E11.65 and Primary insomnia F51.01 [place] [id number] [place] [address] Jan, [place] [id number] [place] [address] Dec, Uncontrolled type 2 diabetes mellitus without complication, without long-term current use of insulin E11.65 [place] [id number] [place] [address] Dec, Diabetes type 2, uncontrolled E11.65 [place] [id number] [place] [address] Dec, [place] [id number] [place] [address] Dec, Type 2 diabetes mellitus with diabetic autonomic (poly)neuropathy E11.43 [facility] [place] [id number] [place] [address] Dec, [place] [id number] [place] [address] Dec, [facility] [place] [address] [place] [address] November, Type 2 diabetes mellitus with diabetic autonomic (poly)neuropathy E11.43 [place] [id number] [place] [address] November, Type 2 diabetes mellitus with diabetic autonomic (poly)neuropathy E11.43 ; Type 2 diabetes mellitus with hyperglycemia E11.65 ; Hypertension, benign I10 and Primary insomnia F51.01 [place] [address] [address] Sep, Diabetes type 2, uncontrolled E11.65 [place] [address] [address] 17 Aug, 2017 [place] [address] [address] 15 Aug, 2017 Encounter for test Z32.00 [place] [address] [address] Apr, [place] [address] [address] 09 Apr, 2017 Diabetes type 2, uncontrolled E11.65 ; Epigastric pain R10.13 and Gastroesophageal reflux disease without esophagitis K21.9 [place] [address] [address] Oct, [place] [address] [address] 08 Aug, 2016 Encounter for test, result unknown Z32.00 [place] [address] [address] Jul, Acute upper respiratory infection, unspecified J06.9 ; Other viral agents as the cause of diseases classified elsewhere B97.89 and Diabetes type 2, uncontrolled E11.65 [place] [id number] [place] [address] Apr, [facility] [id number] [place] [id number] 07 Mar, 2016 Dental examination Z01.20 [place] [address] [place] [address] November, [facility] [place] [id number] [place] [address] November, Diabetes type 2, uncontrolled E11.65 [facility] [place] [address] [place] [address] Oct, [facility] [place] [id number] [place] [address] Oct, [facility] [place] [address] [place] [address] Oct, [facility] [place] [id number] [place] [address] Oct, [facility] [place] [id number] [place] [address] Sep, [facility] [place] [id number] [place] [address] Sep, [facility] [place] [id number] [place] [address] Sep, Diabetes type 2, uncontrolled E11.65 [facility] [address] [place] [address] Sep, ADRYAN (secretory otitis media) H65.90 ; Diabetes type 2, uncontrolled E11.65 ; Cindy vaginitis B37.3 and Nausea R11.0 [facility] [place] [address] [place] [address] May, Diabetes type 2, uncontrolled E11.65 and Abdominal pain R10.9 [facility] [place] [address] [place] [address] Jun, [facility] [place] [address] [place] [address] Jun, [facility] [place] [address] [place] [address] May, [facility] [address] [facility] [id number] [place] [address] May, IMMUNIZATIONS No Known Immunizations SOCIAL HISTORY Never Assessed REASON FOR VISIT Diabetes-Daniela SRIVASTAVA, -Sen SRIVASTAVA PLAN OF CARE Activity Details Follow Up 4 Weeks Reason:dm2 ooc VITAL SIGNS Height 61 in 2018-02-07 Weight 125.0 lbs 2018-02-07 Temperature 97.9 degrees Fahrenheit 2018-02-07 Heart Rate 91 bpm 2018-02-07 Respiratory Rate 20 2018-02-07 Oximetry on room air:97 % 2018-02-07 BMI 23.62 kg/m2 2018-02-07 Blood pressure systolic 136 mmHg 2018-02-07 Blood pressure diastolic 100 mmHg 2018-02-07 MEDICATIONS Medication Instructions Dosage Frequency Start Date End Date Duration Status Naproxen 500 mg Orally every 12 hrs 1 tablet with food or milk as needed 12h November, Active Omeprazole 20 mg Orally twice a day 1 capsule 12h Apr, 30 day(s) Active NovoFine 32G X 6 MM subcutaneously 3 times a day use with humalog flex pens to inject insulin 8h Dec, Active Lisinopril 10 MG Orally Once a day 1 tablet 24h Apr, Active Levemir FlexTouch 100 UNIT/ML Subcutaneous 2 times a day inject 20 units 12h Dec, Active Amitriptyline HCl 50 mg Orally Once a day 1 tablet 24h Jan, 30 day(s) Active Humalog KwikPen 100 UNIT/ML Subcutaneous 3 times a day with meals Inject 10 units Dec, Active RESULTS No Results PROCEDURES No Known procedures INSTRUCTIONS MEDICATIONS ADMINISTERED No Known Medications MEDICAL (GENERAL) HISTORY Type Description Date Medical History Diabetes type II Medical History gerd Surgical History cesearian section x3 Surgical History tubal ligation Hospitalization History Surgeries/childbirth only Hospitalization History DKA, Sepsis, UTI-[facility] 01/15/18
--- OUTSIDE RECORDS SUMMARY | 2019-02-14 10:40 | XMS REPORT ---
Author Author CRISTIAN TRUJILLO Organization [facility] Address [address] [place] [address] Care Team Providers Care Billiard Table Mechanic Name Role Phone CRISTIAN TRUJILLO Unavailable PROBLEMS Type Condition ICD9-CM Code NRX32-CM Code Onset Dates Condition Status SNOMED Code Problem Acute upper respiratory infection, unspecified J06.9 Active 410999761 Problem Primary insomnia F51.01 Active 7246082 Problem Gastroesophageal reflux disease without esophagitis K21.9 Active 740682781 Problem Elevated LDL cholesterol level E78.00 Active 397783647 Problem Low HDL (under 40) E78.6 Active 550065687 Problem Diabetes type 2, uncontrolled E11.65 Active 742417136 Problem Arthritis M19.90 Active 2100450 Problem Chronic fatigue R53.82 Active 15322903 Problem Type 2 diabetes mellitus with diabetic autonomic (poly)neuropathy E11.43 Active 50359452 Problem Type 2 diabetes mellitus with hyperglycemia E11.65 Active 254695011619571 Problem Uncontrolled type 2 diabetes mellitus without complication, without long- term current use of insulin E11.65 Active 903427947 Problem Hypertension, benign I10 Active 92629285 ALLERGIES No Information ENCOUNTERS Encounter Location Date Diagnosis [facility] [id number] [place] [address] Mar, [facility] [id number] [place] [address] Mar, [facility] [id number] [place] [address] Feb, [place] [id number] [place] [address] Feb, Chronic fatigue R53.82 ; Arthritis M19.90 and Frequent headaches R51 [facility] [id number] [place] [address] Feb, Diabetes type 2, uncontrolled E11.65 [facility] [address], [place] [address] Feb, Diabetes type 2, uncontrolled E11.65 ; Hypertension, benign I10 and Primary insomnia F51.01 [facility] [id number], [place] [address] Jan, Uncontrolled type 2 diabetes mellitus without complication, without long-term current use of insulin E11.65 and Diabetes type 2, uncontrolled E11.65 [facility] [id number] [place] [address] Jan, Type 2 diabetes mellitus with diabetic autonomic (poly)neuropathy E11.43 [facility] [id number] [place] [address] Jan, Uncontrolled type 2 diabetes mellitus without complication, without long-term current use of insulin E11.65 and Primary insomnia F51.01 [facility] [id number] [place] [address] Jan, [facility] [id number] [place] [address] Dec, Uncontrolled type 2 diabetes mellitus without complication, without long-term current use of insulin E11.65 [facility] [address], [place] [address] Dec, Diabetes type 2, uncontrolled E11.65 [facility] [address], [place] [address] Dec, [facility] [address], [place] [address] Dec, Type 2 diabetes mellitus with diabetic autonomic (poly)neuropathy E11.43 [facility] [address], [place] [address] Dec, [facility] [id number], [place] [address] Dec, [place] [id number] [place] [address] November, Type 2 diabetes mellitus with diabetic autonomic (poly)neuropathy E11.43 [place] [id number] [place] [address] November, Type 2 diabetes mellitus with diabetic autonomic (poly)neuropathy E11.43 ; Type 2 diabetes mellitus with hyperglycemia E11.65 ; Hypertension, benign I10 and Primary insomnia F51.01 [place] [id number] [place] [address] Sep, Diabetes type 2, uncontrolled E11.[address] [address] Aug, [place] [id number] [place] [address] 15 Aug, 2017 Encounter for test Z32.00 [place] [id number] [place] [address] Apr, [place] [id number] [place] [address] Apr, Diabetes type 2, uncontrolled E11.65 ; Epigastric pain R10.13 and Gastroesophageal reflux disease without esophagitis K21.9 [place] [id number] [place] [address] Oct, [place] [id number] [place] [address] 08 Aug, 2016 Encounter for test, result unknown Z32.00 [place] [id number] [place] [address] Jul, Acute upper respiratory infection, unspecified J06.9 ; Other viral agents as the cause of diseases classified elsewhere B97.89 and Diabetes type 2, uncontrolled E11.65 [address] [place] [address] Apr, [place] [address] [id number] [id number] 07 Mar, 2016 Dental examination Z01.20 [facility] [address], [place] [address] November, [facility] [id number], [place] [address] November, Diabetes type 2, uncontrolled E11.65 [facility] [id number] [place] [address] Oct, [facility] [address], [place] [address] Oct, [facility] [address] [place] [address] Oct, [facility] [address] [place] [address] Oct, [facility] [address] [place] [address] Sep, [facility] [address], [place] [address] Sep, [facility] [address], [place] [address] Sep, Diabetes type 2, uncontrolled E11.65 [facility] [id number] [address] Sep, ADRYAN (secretory otitis media) H65.90 ; Diabetes type 2, uncontrolled E11.65 ; Cindy vaginitis B37.3 and Nausea R11.0 [facility] [address], [place] [address] May, Diabetes type 2, uncontrolled E11.65 and Abdominal pain R10.9 [facility] [address], [place] [address] Jun, [facility] [id number] [place] [address] Jun, [facility] [address] [facility] [id number] [place] [address] May, [facility] [address] [facility] [id number] [address] May, IMMUNIZATIONS No Known Immunizations SOCIAL HISTORY Never Assessed REASON FOR VISIT Lab results PLAN OF CARE VITAL SIGNS MEDICATIONS Medication Instructions Dosage Frequency Start Date End Date Duration Status Ferrous Sulfate 325 (65 Fe) MG Orally Once a day 1 tablet 24h Feb, 30 day(s) Active RESULTS No Results PROCEDURES No Known procedures INSTRUCTIONS MEDICATIONS ADMINISTERED No Known Medications MEDICAL (GENERAL) HISTORY Type Description Date Medical History Diabetes type II Medical History gerd Surgical History cesearian section x3 Surgical History tubal ligation Hospitalization History Surgeries/childbirth only Hospitalization History DKA, Sepsis, UTI-[facility] 01/15/18
--- OUTSIDE RECORDS SUMMARY | 2019-02-14 10:40 | XMS REPORT ---
Author Author CRISTIAN TRUJILLO Organization [facility] Address [address] [place] [address] Care Team Providers Care Reinstatement Clerk Name Role Phone CRISTIAN TRUJILLO Unavailable PROBLEMS Type Condition ICD9-CM Code [id number] Code Onset Dates Condition Status SNOMED Code Problem Acute upper respiratory infection, unspecified J06.9 Active 233860530 Problem Primary insomnia F51.01 Active 5894474 Problem Gastroesophageal reflux disease without esophagitis K21.9 Active 577146639 Problem Elevated LDL cholesterol level E78.00 Active 822050087 Problem Low HDL (under 40) E78.6 Active 424617943 Problem Diabetes type 2, uncontrolled E11.65 Active 364353761 Problem Arthritis M19.90 Active 0555879 Problem Chronic fatigue R53.82 Active 09273595 Problem Type 2 diabetes mellitus with diabetic autonomic (poly)neuropathy E11.43 Active 27307175 Problem Type 2 diabetes mellitus with hyperglycemia E11.65 Active 986457690520891 Problem Uncontrolled type 2 diabetes mellitus without complication, without long- term current use of insulin E11.65 Active 820209823 Problem Hypertension, benign I10 Active 65517756 ALLERGIES No Information ENCOUNTERS Encounter Location Date Diagnosis [facility] [id number] [place] [address] Mar, [facility] [id number] [place] [address] Mar, [facility] [id number] [place] [address] Feb, [place] [id number] [place] [address] Feb, Chronic fatigue R53.82 ; Arthritis M19.90 and Frequent headaches R51 [facility] [id number] [place] [address] Feb, Diabetes type 2, uncontrolled E11.65 [facility] [address] [address] Feb, Diabetes type 2, uncontrolled E11.65 ; Hypertension, benign I10 and Primary insomnia F51.01 [facility] [id number] [address] Jan, Uncontrolled type 2 diabetes mellitus without complication, without long-term current use of insulin E11.65 and Diabetes type 2, uncontrolled E11.65 [facility] [id number] [place] [address] Jan, Type 2 diabetes mellitus with diabetic autonomic (poly)neuropathy E11.43 [facility] [id number] [place] [address] Jan, Uncontrolled type 2 diabetes mellitus without complication, without long-term current use of insulin E11.65 and Primary insomnia F51.01 [facility] [id number] [place] [address] Jan, [facility] [id number] [place] [address] Dec, Uncontrolled type 2 diabetes mellitus without complication, without long-term current use of insulin E11.65 [facility] [address] [address] Dec, Diabetes type 2, uncontrolled E11.65 [facility] [address] [address] Dec, [facility] [address] [address] Dec, Type 2 diabetes mellitus with diabetic autonomic (poly)neuropathy E11.43 [facility] [address] [address] Dec, [facility] [id number] [address] Dec, [place] [id number] [place] [address] November, Type 2 diabetes mellitus with diabetic autonomic (poly)neuropathy E11.43 [place] [id number] [place] [address] November, Type 2 diabetes mellitus with diabetic autonomic (poly)neuropathy E11.43 ; Type 2 diabetes mellitus with hyperglycemia E11.65 ; Hypertension, benign I10 and Primary insomnia F51.01 [place] [id number] [place] [address] Sep, Diabetes type 2, uncontrolled E11.[address] [address] Aug, [place] [id number] [place] [address] 15 Aug, 2017 Encounter for test Z32.00 [place] [id number] [place] [address] Apr, [place] [address] [id number] [place] [address] Apr, Diabetes type 2, uncontrolled E11.65 ; Epigastric pain R10.13 and Gastroesophageal reflux disease without esophagitis K21.9 [place] [id number] [place] [address] Oct, [place] [id number] [place] [address] 08 Aug, 2016 Encounter for test, result unknown Z32.00 [place] [id number] [place] [address] Jul, Acute upper respiratory infection, unspecified J06.9 ; Other viral agents as the cause of diseases classified elsewhere B97.89 and Diabetes type 2, uncontrolled E11.65 [address] [place] [address] Apr, [place] [id number] [id number] 07 Mar, 2016 Dental examination Z01.20 [facility] [address] [address] November, [facility] [id number] [address] November, Diabetes type 2, uncontrolled E11.65 [facility] [id number] [place] [address] Oct, [facility] [address] [address] Oct, [facility] [address] [place] [address] Oct, [facility] [address] [place] [address] Oct, [facility] [address] [place] [address] Sep, [facility] [address] [address] Sep, [facility] [address] [address] Sep, Diabetes type 2, uncontrolled E11.65 [facility] [id number] [address] Sep, ADRYAN (secretory otitis media) H65.90 ; Diabetes type 2, uncontrolled E11.65 ; Cindy vaginitis B37.3 and Nausea R11.0 [facility] [address] [address] May, Diabetes type 2, uncontrolled E11.65 and Abdominal pain R10.9 [facility] [address] [address] Jun, [facility] [id number] [place] [address] Jun, [facility] [address] [facility] [id number] [place] [address] May, [facility] [address] [facility] [id number] [address] May, IMMUNIZATIONS No Known Immunizations SOCIAL HISTORY Never Assessed REASON FOR VISIT BS f/u PLAN OF CARE VITAL SIGNS MEDICATIONS Medication Instructions Dosage Frequency Start Date End Date Duration Status Humalog KwikPen 100 UNIT/ML Subcutaneous 3 times a day with meals Inject 20 units Dec, Active RESULTS No Results PROCEDURES No Known procedures INSTRUCTIONS MEDICATIONS ADMINISTERED No Known Medications MEDICAL (GENERAL) HISTORY Type Description Date Medical History Diabetes type II Medical History gerd Surgical History cesearian section x3 Surgical History tubal ligation Hospitalization History Surgeries/childbirth only Hospitalization History DKA, Sepsis, UTI-[facility] 01/15/18
--- OUTSIDE RECORDS SUMMARY | 2019-02-14 10:41 | XMS REPORT ---
Author Author CRISTIAN TRUJILLO Organization [facility] Address [address] [place] [address] Care Team Providers Care Rod Cup Filler Name Role Phone CRISTIAN TRUJILLO Unavailable PROBLEMS Type Condition ICD9-CM Code [id number] Code Onset Dates Condition Status SNOMED Code Problem Acute upper respiratory infection, unspecified J06.9 Active 308053066 Problem Primary insomnia F51.01 Active 5330844 Problem Gastroesophageal reflux disease without esophagitis K21.9 Active 418203341 Problem Elevated LDL cholesterol level E78.00 Active 300279296 Problem Low HDL (under 40) E78.6 Active 900189278 Problem Diabetes type 2, uncontrolled E11.65 Active 342426588 Problem Arthritis M19.90 Active 1027307 Problem Chronic fatigue R53.82 Active 18629972 Problem Type 2 diabetes mellitus with diabetic autonomic (poly)neuropathy E11.43 Active 39560575 Problem Type 2 diabetes mellitus with hyperglycemia E11.65 Active 149845945483336 Problem Uncontrolled type 2 diabetes mellitus without complication, without long- term current use of insulin E11.65 Active 346758526 Problem Hypertension, benign I10 Active 84041180 ALLERGIES No Information ENCOUNTERS Encounter Location Date Diagnosis [facility] [id number] [place] [address] Mar, [facility] [id number] [place] [address] Mar, [facility] [id number] [place] [address] Feb, [place] [id number] [place] [address] Feb, Chronic fatigue R53.82 ; Arthritis M19.90 and Frequent headaches R51 [facility] [id number] [place] [address] Feb, Diabetes type 2, uncontrolled E11.65 [facility] [address] [address] Feb, Diabetes type 2, uncontrolled E11.65 ; Hypertension, benign I10 and Primary insomnia F51.01 [facility] [id number] [address] Jan, Uncontrolled type 2 diabetes mellitus without complication, without long-term current use of insulin E11.65 and Diabetes type 2, uncontrolled E11.65 [facility] [id number] [place] [address] Jan, Type 2 diabetes mellitus with diabetic autonomic (poly)neuropathy E11.43 [facility] [id number] [place] [address] Jan, Uncontrolled type 2 diabetes mellitus without complication, without long-term current use of insulin E11.65 and Primary insomnia F51.01 [facility] [id number] [place] [address] Jan, [facility] [id number] [place] [address] Dec, Uncontrolled type 2 diabetes mellitus without complication, without long-term current use of insulin E11.65 [facility] [address] [address] Dec, Diabetes type 2, uncontrolled E11.65 [facility] [address] [address] Dec, [facility] [address] [address] Dec, Type 2 diabetes mellitus with diabetic autonomic (poly)neuropathy E11.43 [facility] [address] [address] Dec, [facility] [id number] [address] Dec, [place] [place] [id number] [place] [address] November, Type 2 diabetes mellitus with diabetic autonomic (poly)neuropathy E11.43 [place] [id number] [place] [address] November, Type 2 diabetes mellitus with diabetic autonomic (poly)neuropathy E11.43 ; Type 2 diabetes mellitus with hyperglycemia E11.65 ; Hypertension, benign I10 and Primary insomnia F51.01 [place] [id number] [place] [address] Sep, Diabetes type 2, uncontrolled E11.[address] [address] Aug, [place] [id number] [place] [address] 15 Aug, 2017 Encounter for test Z32.00 [place] [id number] [place] [address] Apr, [place] [id number] [place] [address] Apr, Diabetes type 2, uncontrolled E11.65 ; Epigastric pain R10.13 and Gastroesophageal reflux disease without esophagitis K21.9 [place] [id number] [place] [address] Oct, [place] [id number] [place] [address] 08 Aug, 2016 Encounter for test, result unknown Z32.00 [place] [id number] [place] [address] Jul, Acute upper respiratory infection, unspecified J06.9 ; Other viral agents as the cause of diseases classified elsewhere B97.89 and Diabetes type 2, uncontrolled E11.65 [address] [place] [address] Apr, [place] [id number] [id number] 07 Mar, 2016 Dental examination Z01.20 [facility] [address] [address] November, [facility] [id number] [address] November, Diabetes type 2, uncontrolled E11.65 [facility] [id number] [place] [address] Oct, [facility] [address] [address] Oct, [facility] [address] [place] [address] Oct, [facility] [address] [place] [address] Oct, [facility] [address] [place] [address] Sep, [facility] [address] [address] Sep, [facility] [address] [address] Sep, Diabetes type 2, uncontrolled E11.65 [facility] [id number] [address] Sep, ADRYAN (secretory otitis media) H65.90 ; Diabetes type 2, uncontrolled E11.65 ; Cindy vaginitis B37.3 and Nausea R11.0 [facility] [address] [address] May, Diabetes type 2, uncontrolled E11.65 and Abdominal pain R10.9 [facility] [address] [address] Jun, [facility] [id number] [place] [address] Jun, [facility] [address] [facility] [id number] [place] [address] May, [facility] [address] [facility] [id number] [address] May, IMMUNIZATIONS No Known Immunizations SOCIAL HISTORY Never Assessed REASON FOR VISIT PLAN OF CARE VITAL SIGNS MEDICATIONS Medication Instructions Dosage Frequency Start Date End Date Duration Status Lisinopril 10 mg Orally Once a day 1 tablet 24h Apr, 30 days Active RESULTS No Results PROCEDURES No Known procedures INSTRUCTIONS MEDICATIONS ADMINISTERED No Known Medications MEDICAL (GENERAL) HISTORY Type Description Date Medical History Diabetes type II Medical History gerd Surgical History cesearian section x3 Surgical History tubal ligation Hospitalization History Surgeries/childbirth only Hospitalization History DKA, Sepsis, UTI-[facility] 01/15/18
--- OUTSIDE RECORDS SUMMARY | 2019-02-14 10:41 | XMS REPORT ---
Author Author CRISTIAN TRUJILLO Organization [facility] Address [address] [place] [address] Care Team Providers Care Director Of Math Name Role Phone CRISTIAN TRUJILLO Unavailable PROBLEMS Type Condition ICD9-CM Code ITC04-IV Code Onset Dates Condition Status SNOMED Code Problem Acute upper respiratory infection, unspecified J06.9 Active 672824123 Problem Primary insomnia F51.01 Active 9314738 Problem Gastroesophageal reflux disease without esophagitis K21.9 Active 613324386 Problem Elevated LDL cholesterol level E78.00 Active 025986684 Problem Low HDL (under 40) E78.6 Active 010796018 Problem Diabetes type 2, uncontrolled E11.65 Active 831538666 Problem Arthritis M19.90 Active 5417073 Problem Chronic fatigue R53.82 Active 89658223 Problem Type 2 diabetes mellitus with diabetic autonomic (poly)neuropathy E11.43 Active 38905350 Problem Type 2 diabetes mellitus with hyperglycemia E11.65 Active 525548994456876 Problem Uncontrolled type 2 diabetes mellitus without complication, without long- term current use of insulin E11.65 Active 985404463 Problem Hypertension, benign I10 Active 25790448 ALLERGIES No Known Allergies ENCOUNTERS Encounter Location Date Diagnosis [facility] [address] [place] [address] Mar, [facility] [id number] [place] [address] Feb, [facility] [id number] [place] [address] Feb, Chronic fatigue R53.82 ; Arthritis M19.90 and Frequent headaches R51 [facility] [address] [place] [address] Feb, Diabetes type 2, uncontrolled E11.65 [facility] [id number] [place] [address] Feb, Diabetes type 2, uncontrolled E11.65 ; Hypertension, benign I10 and Primary insomnia F51.01 [facility] [id number] [place] [address] Jan, Uncontrolled type 2 diabetes mellitus without complication, without long-term current use of insulin E11.65 and Diabetes type 2, uncontrolled E11.65 [place] [id number] [place] [address] Jan, Type 2 diabetes mellitus with diabetic autonomic (poly)neuropathy E11.43 [place] [id number] [place] [address] Jan, Uncontrolled type 2 diabetes mellitus without complication, without long-term current use of insulin E11.65 and Primary insomnia F51.01 [place] [id number] [place] [address] Jan, [place] [id number] [place] [address] Dec, Uncontrolled type 2 diabetes mellitus without complication, without long-term current use of insulin E11.65 [place] [id number] [place] [address] Dec, Diabetes type 2, uncontrolled E11.65 [place] [id number] [address] Dec, [place] [id number] [place] [address] Dec, Type 2 diabetes mellitus with diabetic autonomic (poly)neuropathy E11.43 [facility] [id number] [place] [address] Dec, [place] [id number] [place] [address] Dec, [facility] [address] [address] November, Type 2 diabetes mellitus with diabetic autonomic (poly)neuropathy E11.43 [place] [id number] [place] [address] November, Type 2 diabetes mellitus with diabetic autonomic (poly)neuropathy E11.43 ; Type 2 diabetes mellitus with hyperglycemia E11.65 ; Hypertension, benign I10 and Primary insomnia F51.01 [place] [address] [address] Sep, Diabetes type 2, uncontrolled E11.65 [place] [address] [address] 17 Aug, 2017 [place] [address] [address] 15 Aug, 2017 Encounter for test Z32.00 [place] [address] [address] Apr, [place] [address] [address] 09 Apr, 2017 Diabetes type 2, uncontrolled E11.65 ; Epigastric pain R10.13 and Gastroesophageal reflux disease without esophagitis K21.9 [place] [address] [address] Oct, [place] [address] [address] 08 Aug, 2016 Encounter for test, result unknown Z32.00 [place] [address] [address] Jul, Acute upper respiratory infection, unspecified J06.9 ; Other viral agents as the cause of diseases classified elsewhere B97.89 and Diabetes type 2, uncontrolled E11.65 [place] [id number] [place] [address] Apr, [facility] [id number] [place] [id number] 07 Mar, 2016 Dental examination Z01.20 [place] [address] [address] November, [facility] [id number] [place] [address] November, Diabetes type 2, uncontrolled E11.65 [facility] [address] [address] Oct, [facility] [id number] [place] [address] Oct, [facility] [address] [address] Oct, [facility] [id number] [place] [address] Oct, [facility] [id number] [place] [address] Sep, [facility] [id number] [place] [address] Sep, [facility] [address] [place] [address] Sep, Diabetes type 2, uncontrolled E11.65 [facility] [address] [address] Sep, ADRYAN (secretory otitis media) H65.90 ; Diabetes type 2, uncontrolled E11.65 ; Cindy vaginitis B37.3 and Nausea R11.0 [facility] [address] [address] May, Diabetes type 2, uncontrolled E11.65 and Abdominal pain R10.9 [facility] [address] [address] Jun, [facility] [address] [address] Jun, [facility] [address] [address] May, [facility] [address] [facility] [id number] [place] [address] May, IMMUNIZATIONS No Known Immunizations SOCIAL HISTORY Never Assessed REASON FOR VISIT PA for novolog PLAN OF CARE VITAL SIGNS MEDICATIONS Medication Instructions Dosage Frequency Start Date End Date Duration Status NovoFine 32G X 6 MM subcutaneously 3 times a day use with humalog flex pens to inject insulin 8h Dec, Active Humalog KwikPen 100 UNIT/ML Subcutaneous 3 times a day with meals Inject 10 units Dec, Active RESULTS No Results PROCEDURES No Known procedures INSTRUCTIONS MEDICATIONS ADMINISTERED No Known Medications MEDICAL (GENERAL) HISTORY Type Description Date Medical History Diabetes type II Medical History gerd Surgical History cesearian section x3 Surgical History tubal ligation Hospitalization History Surgeries/childbirth only Hospitalization History DKA, Sepsis, UTI-[facility] 01/15/18
--- OUTSIDE RECORDS SUMMARY | 2019-02-14 10:41 | XMS REPORT ---
Author Author CRISTIAN TRUJILLO Organization [facility] Address [address] [place] [address] Care Team Providers Care Television Actor Name Role Phone CRISTIAN TRUJILLO Unavailable PROBLEMS Type Condition ICD9-CM Code JSU87-XT Code Onset Dates Condition Status SNOMED Code Problem Acute upper respiratory infection, unspecified J06.9 Active 730737374 Problem Primary insomnia F51.01 Active 6160369 Problem Gastroesophageal reflux disease without esophagitis K21.9 Active 255461006 Problem Elevated LDL cholesterol level E78.00 Active 036422837 Problem Low HDL (under 40) E78.6 Active 846776666 Problem Diabetes type 2, uncontrolled E11.65 Active 453875217 Problem Arthritis M19.90 Active 5407862 Problem Chronic fatigue R53.82 Active 23398151 Problem Type 2 diabetes mellitus with diabetic autonomic (poly)neuropathy E11.43 Active 76564418 Problem Type 2 diabetes mellitus with hyperglycemia E11.65 Active 811076166099097 Problem Uncontrolled type 2 diabetes mellitus without complication, without long- term current use of insulin E11.65 Active 685717484 Problem Hypertension, benign I10 Active 38296500 ALLERGIES No Known Allergies ENCOUNTERS Encounter Location Date Diagnosis [facility] [address] [place] [address] Mar, [facility] [id number] [place] [address] Feb, [facility] [id number] [place] [address] Feb, Chronic fatigue R53.82 ; Arthritis M19.90 and Frequent headaches R51 [facility] [address] [place] [address] Feb, Diabetes type 2, uncontrolled E11.65 [facility] [id number] [place] [address] Feb, Diabetes type 2, uncontrolled E11.65 ; Hypertension, benign I10 and Primary insomnia F51.01 [facility] [id number] [place] [address] Jan, Uncontrolled type 2 diabetes mellitus without complication, without long-term current use of insulin E11.65 and Diabetes type 2, uncontrolled E11.65 [facility] [address] [place] [address] Jan, Type 2 diabetes mellitus with diabetic autonomic (poly)neuropathy E11.43 [facility] [address] [place] [address] Jan, Uncontrolled type 2 diabetes mellitus without complication, without long-term current use of insulin E11.65 and Primary insomnia F51.01 [facility] [address] [place] [address] Jan, [facility] [id number] [place] [address] Dec, Uncontrolled type 2 diabetes mellitus without complication, without long-term current use of insulin E11.65 [facility] [address] [place] [address] Dec, Diabetes type 2, uncontrolled E11.65 [facility] [address] [address] Dec, [facility] [address] [place] [address] Dec, Type 2 diabetes mellitus with diabetic autonomic (poly)neuropathy E11.43 [facility] [id number] [place] [address] Dec, [facility] [id number] [place] [address] Dec, [facility] [address] [place] [address] November, Type 2 diabetes mellitus with diabetic autonomic (poly)neuropathy E11.43 [facility] [address] [place] [address] November, Type 2 diabetes mellitus with diabetic autonomic (poly)neuropathy E11.43 ; Type 2 diabetes mellitus with hyperglycemia E11.65 ; Hypertension, benign I10 and Primary insomnia F51.01 [place] [address] [address] Sep, Diabetes type 2, uncontrolled E11.65 [place] [address] [address] 17 Aug, 2017 [place] [address] [address] 15 Aug, 2017 Encounter for test Z32.00 [place] [address] [address] Apr, [place] [address] [address] 09 Apr, 2017 Diabetes type 2, uncontrolled E11.65 ; Epigastric pain R10.13 and Gastroesophageal reflux disease without esophagitis K21.9 [place] [address] [address] Oct, [place] [address] [address] 08 Aug, 2016 Encounter for test, result unknown Z32.00 [place] [address] [address] Jul, Acute upper respiratory infection, unspecified J06.9 ; Other viral agents as the cause of diseases classified elsewhere B97.89 and Diabetes type 2, uncontrolled E11.65 [facility] [id number] [place] [address] Apr, [facility] [id number] [place] [id number] 07 Mar, 2016 Dental examination Z01.20 [place] [address] [address] November, [facility] [id number] [place] [address] November, Diabetes type 2, uncontrolled E11.65 [facility] [address], [place] [address] Oct, [facility] [id number] [place] [address] Oct, [facility] [address], [place] [address] Oct, [facility] [id number] [place] [address] Oct, [facility] [id number] [place] [address] Sep, [facility] [id number] [place] [address] Sep, [facility] [address] [place] [address] Sep, Diabetes type 2, uncontrolled E11.65 [facility] [address] [address] Sep, ADRYAN (secretory otitis media) H65.90 ; Diabetes type 2, uncontrolled E11.65 ; Cindy vaginitis B37.3 and Nausea R11.0 [facility] [address] [address] May, Diabetes type 2, uncontrolled E11.65 and Abdominal pain R10.9 [facility] [address], [place] [address] Jun, [facility] [address], [place] [address] Jun, [facility] [address], [place] [address] May, [facility] [address] [facility] [id number] [address] May, IMMUNIZATIONS No Known Immunizations SOCIAL HISTORY Never Assessed REASON FOR VISIT Diabetes f/u past BS running 169-200 CBrumbackRn PLAN OF CARE Activity Details Follow Up 2 Weeks Reason:dm2 uncontrolled VITAL SIGNS Height 61 in 2018-01-26 Weight 128.1 lbs 2018-01-26 Temperature 98.4 degrees Fahrenheit 2018-01-26 Heart Rate 92 bpm 2018-01-26 Respiratory Rate 18 2018-01-26 BMI 24.20 kg/m2 2018-01-26 Blood pressure systolic 124 mmHg 2018-01-26 Blood pressure diastolic 78 mmHg 2018-01-26 MEDICATIONS Medication Instructions Dosage Frequency Start Date End Date Duration Status Humalog KwikPen 100 UNIT/ML Subcutaneous 3 times a day with meals Inject 10 units Dec, Active NovoFine 32G X 6 MM subcutaneously 3 times a day use with humalog flex pens to inject insulin 8h Dec, Active Levemir FlexTouch 100 UNIT/ML Subcutaneous 2 times a day inject 15 units 12h Dec, Active Lisinopril 10 MG Orally Once a day 1 tablet 24h Apr, Active Omeprazole 20 mg Orally twice a day 1 capsule 12h Apr, 30 day(s) Active Neurontin 300 MG Orally Once a day, at night 1 capsule November, Active Naproxen 500 mg Orally every 12 hrs 1 tablet with food or milk as needed 12h November, Active RESULTS No Results PROCEDURES No Known procedures INSTRUCTIONS MEDICATIONS ADMINISTERED No Known Medications MEDICAL (GENERAL) HISTORY Type Description Date Medical History Diabetes type II Medical History gerd Surgical History cesearian section x3 Surgical History tubal ligation Hospitalization History Surgeries/childbirth only Hospitalization History DKA, Sepsis, UTI-[facility] 01/15/18
--- OUTSIDE RECORDS SUMMARY | 2019-02-14 10:41 | XMS REPORT ---
Author Author CRISTIAN TRUJILLO Organization [facility] Address [address] [place] [address] Care Team Providers Care Tobacco Feeder Catcher Name Role Phone CRISTIAN TRUJILLO Unavailable PROBLEMS Type Condition ICD9-CM Code KJC03-MN Code Onset Dates Condition Status SNOMED Code Problem Acute upper respiratory infection, unspecified J06.9 Active 278786077 Problem Primary insomnia F51.01 Active 1497778 Problem Gastroesophageal reflux disease without esophagitis K21.9 Active 409411670 Problem Elevated LDL cholesterol level E78.00 Active 406898053 Problem Low HDL (under 40) E78.6 Active 683692567 Problem Diabetes type 2, uncontrolled E11.65 Active 402796972 Problem Arthritis M19.90 Active 1161017 Problem Chronic fatigue R53.82 Active 09249354 Problem Type 2 diabetes mellitus with diabetic autonomic (poly)neuropathy E11.43 Active 27876704 Problem Type 2 diabetes mellitus with hyperglycemia E11.65 Active 005147210755100 Problem Uncontrolled type 2 diabetes mellitus without complication, without long- term current use of insulin E11.65 Active 254934263 Problem Hypertension, benign I10 Active 60576208 ALLERGIES No Information ENCOUNTERS Encounter Location Date Diagnosis [facility] [address] [place] [address] Mar, [facility] [id number] [place] [address] Feb, [facility] [id number] [place] [address] Feb, Chronic fatigue R53.82 ; Arthritis M19.90 and Frequent headaches R51 [facility] [id number] [place] [address] Feb, Diabetes type 2, uncontrolled E11.65 [facility] [id number] [place] [address] Feb, Diabetes type 2, uncontrolled E11.65 ; Hypertension, benign I10 and Primary insomnia F51.01 [facility] [facility] [id number] [place] [address] Jan, Uncontrolled type 2 diabetes mellitus without complication, without long-term current use of insulin E11.65 and Diabetes type 2, uncontrolled E11.65 [facility] [facility] [id number] [place] [address] Jan, Type 2 diabetes mellitus with diabetic autonomic (poly)neuropathy E11.43 [facility] [id number] [place] [address] Jan, Uncontrolled type 2 diabetes mellitus without complication, without long-term current use of insulin E11.65 and Primary insomnia F51.01 [facility] [facility] [id number] [place] [address] Jan, [facility] [id number] [place] [address] Dec, Uncontrolled type 2 diabetes mellitus without complication, without long-term current use of insulin E11.65 [facility] [id number] [place] [address] Dec, Diabetes type 2, uncontrolled E11.65 [facility] [id number] [place] [address] Dec, [facility] [id number] [place] [address] Dec, Type 2 diabetes mellitus with diabetic autonomic (poly)neuropathy E11.43 [facility] [id number] [place] [address] Dec, [facility] [id number] [place] [address] Dec, [facility] [id number] [place] [address] November, Type 2 diabetes mellitus with diabetic autonomic (poly)neuropathy E11.43 [facility] [facility] [id number] [place] [address] November, Type 2 diabetes mellitus with diabetic autonomic (poly)neuropathy E11.43 ; Type 2 diabetes mellitus with hyperglycemia E11.65 ; Hypertension, benign I10 and Primary insomnia F51.01 [place] [address] [address] Sep, Diabetes type 2, uncontrolled E11.65 [place] [address] [address] 17 Aug, 2017 [place] [address] [address] 15 Aug, 2017 Encounter for test Z32.00 [place] [address] [address] Apr, [place] [address] [address] 09 Apr, 2017 Diabetes type 2, uncontrolled E11.65 ; Epigastric pain R10.13 and Gastroesophageal reflux disease without esophagitis K21.9 [place] [facility] [address] [address] 05 Oct, 2016 [place] [address] [address] 08 Aug, 2016 Encounter for test, result unknown Z32.00 [place] [address] [address] Jul, Acute upper respiratory infection, unspecified J06.9 ; Other viral agents as the cause of diseases classified elsewhere B97.89 and Diabetes type 2, uncontrolled E11.65 [place] [id number] [place] [address] Apr, [facility] [address] [id number] 07 Mar, 2016 Dental examination Z01.20 [place] [address] [address] November, [facility] [address], [place] [address] November, Diabetes type 2, uncontrolled E11.65 [facility] [address], [place] [address] Oct, [facility] [id number] [place] [address] Oct, [facility] [address], [place] [address] Oct, [facility] [id number] [place] [address] Oct, [facility] [id number] [place] [address] Sep, [facility] [id number] [place] [address] Sep, [facility] [address] [place] [address] Sep, Diabetes type 2, uncontrolled E11.65 [facility] [address], [place] [address] Sep, ADRYAN (secretory otitis media) H65.90 ; Diabetes type 2, uncontrolled E11.65 ; Cindy vaginitis B37.3 and Nausea R11.0 [facility] [address], [place] [address] May, Diabetes type 2, uncontrolled E11.65 and Abdominal pain R10.9 [facility] [address], [place] [address] Jun, [facility] [address], [place] [address] Jun, [facility] [address], [place] [address] May, [facility] [address] [facility] [id number] [place] [address] May, IMMUNIZATIONS No Known Immunizations SOCIAL HISTORY Never Assessed REASON FOR VISIT BS f/u PLAN OF CARE VITAL SIGNS MEDICATIONS Unknown Medications RESULTS No Results PROCEDURES No Known procedures INSTRUCTIONS MEDICATIONS ADMINISTERED No Known Medications MEDICAL (GENERAL) HISTORY Type Description Date Medical History Diabetes type II Medical History gerd Surgical History cesearian section x3 Surgical History tubal ligation Hospitalization History Surgeries/childbirth only Hospitalization History DKA, Sepsis, UTI-[facility] 01/15/18
--- OUTSIDE RECORDS SUMMARY | 2019-02-14 10:41 | XMS REPORT ---
Author Author SU CARRASCO [facility] Address [address] [place] [address] Care Team Providers Care Route Jumper Name Role Phone SU CARRASCO Unavailable PROBLEMS Type Condition ICD9-CM Code TJB95-LA Code Onset Dates Condition Status SNOMED Code Problem Acute upper respiratory infection, unspecified J06.9 Active 431984273 Problem Primary insomnia F51.01 Active 7770510 Problem Gastroesophageal reflux disease without esophagitis K21.9 Active 144823984 Problem Elevated LDL cholesterol level E78.00 Active 654612569 Problem Low HDL (under 40) E78.6 Active 267281231 Problem Diabetes type 2, uncontrolled E11.65 Active 043945952 Problem Arthritis M19.90 Active 0871067 Problem Chronic fatigue R53.82 Active 90178714 Problem Type 2 diabetes mellitus with diabetic autonomic (poly)neuropathy E11.43 Active 90431309 Problem Type 2 diabetes mellitus with hyperglycemia E11.65 Active 998116135948619 Problem Uncontrolled type 2 diabetes mellitus without complication, without long- term current use of insulin E11.65 Active 419939926 Problem Hypertension, benign I10 Active 12190609 ALLERGIES No Information ENCOUNTERS Encounter Location Date Diagnosis [facility] [address] [place] [address] Mar, [facility] [id number] [place] [address] Feb, [facility] [id number] [place] [address] Feb, Chronic fatigue R53.82 ; Arthritis M19.90 and Frequent headaches R51 [facility] [address], [place] [address] Feb, Diabetes type 2, uncontrolled E11.65 [facility] [id number] [place] [address] Feb, Diabetes type 2, uncontrolled E11.65 ; Hypertension, benign I10 and Primary insomnia F51.01 [facility] [id number] [place] [address] Jan, Uncontrolled type 2 diabetes mellitus without complication, without long-term current use of insulin E11.65 and Diabetes type 2, uncontrolled E11.65 [place] [facility] [id number] [place] [address] Jan, Type 2 diabetes mellitus with diabetic autonomic (poly)neuropathy E11.43 [place] [facility] [id number] [place] [address] Jan, Uncontrolled type 2 diabetes mellitus without complication, without long-term current use of insulin E11.65 and Primary insomnia F51.01 [place] [id number] [place] [address] Jan, [place] [id number] [place] [address] Dec, Uncontrolled type 2 diabetes mellitus without complication, without long-term current use of insulin E11.65 [place] [address] [place] [address] Dec, Diabetes type 2, uncontrolled E11.65 [place] [address] [address] Dec, [place] [id number] [place] [address] Dec, Type 2 diabetes mellitus with diabetic autonomic (poly)neuropathy E11.43 [facility] [address] [address] Dec, [place] [id number] [place] [address] Dec, [place] [address] [place] [address] 31 May, 2018 Type 2 diabetes mellitus with diabetic autonomic (poly)neuropathy E11.43 [place] [id number] [place] [address] November, Type 2 diabetes mellitus with diabetic autonomic (poly)neuropathy E11.43 ; Type 2 diabetes mellitus with hyperglycemia E11.65 ; Hypertension, benign I10 and Primary insomnia F51.01 [place] [address] [address] Sep, Diabetes type 2, uncontrolled E11.65 [place] [address] [address] 17 Aug, [address] [address] 15 Aug, 2017 Encounter for test Z32.[address] [address] Apr, [address] [address] 09 Apr, 2017 Diabetes type 2, uncontrolled E11.65 ; Epigastric pain R10.13 and Gastroesophageal reflux disease without esophagitis K21.[address] [address] Oct, [address] [address] 08 Aug, 2016 Encounter for test, result unknown Z32.[address] [address] Jul, Acute upper respiratory infection, unspecified J06.9 ; Other viral agents as the cause of diseases classified elsewhere B97.89 and Diabetes type 2, uncontrolled E11.65 [place] [id number] [place] [address] Apr, [facility] [id number] [place] [id number] 07 Mar, 2016 Dental examination Z01.[address] [address] November, [facility] [address], [place] [address] November, Diabetes type 2, uncontrolled E11.65 [facility] [address], [place] [address] Oct, [facility] [id number] [place] [address] Oct, [facility] [address] [place] [address] Oct, [facility] [id number] [place] [address] Oct, [facility] [id number] [place] [address] Sep, [facility] [id number] [place] [address] Sep, [facility] [address] [place] [address] Sep, Diabetes type 2, uncontrolled E11.65 [facility] [address] [place] [address] Sep, ADRYAN (secretory otitis media) H65.90 ; Diabetes type 2, uncontrolled E11.65 ; Cindy vaginitis B37.3 and Nausea R11.0 [facility] [address], [place] [address] May, Diabetes type 2, uncontrolled E11.65 and Abdominal pain R10.9 [facility] [address] [address] Jun, [facility] [address], [place] [address] Jun, [facility] [address] [place] [address] May, [facility] [address] [facility] [id number] [place] [address] May, IMMUNIZATIONS No Known Immunizations SOCIAL HISTORY Never Assessed REASON FOR VISIT Requests return call PLAN OF CARE VITAL SIGNS MEDICATIONS Unknown Medications RESULTS No Results PROCEDURES No Known procedures INSTRUCTIONS MEDICATIONS ADMINISTERED No Known Medications MEDICAL (GENERAL) HISTORY Type Description Date Medical History Diabetes type II Medical History gerd Surgical History cesearian section x3 Surgical History tubal ligation Hospitalization History Surgeries/childbirth only Hospitalization History DKA, Sepsis, UTI-[facility] 01/15/18
--- OUTSIDE RECORDS SUMMARY | 2019-02-14 10:41 | XMS REPORT ---
Author Author SU CARRASCO [facility] Address [address] [place] [address] Care Team Providers Care Film Cleaner Name Role Phone SU CARRASCO Unavailable PROBLEMS Type Condition ICD9-CM Code NVM68-JH Code Onset Dates Condition Status SNOMED Code Problem Acute upper respiratory infection, unspecified J06.9 Active 357075599 Problem Primary insomnia F51.01 Active 6898147 Problem Gastroesophageal reflux disease without esophagitis K21.9 Active 045487504 Problem Elevated LDL cholesterol level E78.00 Active 762717920 Problem Low HDL (under 40) E78.6 Active 405156365 Problem Diabetes type 2, uncontrolled E11.65 Active 774739341 Problem Arthritis M19.90 Active 4304381 Problem Chronic fatigue R53.82 Active 93903642 Problem Type 2 diabetes mellitus with diabetic autonomic (poly)neuropathy E11.43 Active 36318065 Problem Type 2 diabetes mellitus with hyperglycemia E11.65 Active 548007640632493 Problem Uncontrolled type 2 diabetes mellitus without complication, without long- term current use of insulin E11.65 Active 359540855 Problem Hypertension, benign I10 Active 19471990 ALLERGIES No Information ENCOUNTERS Encounter Location Date Diagnosis [facility] [id number] [place] [address] Mar, [facility] [id number] [place] [address] Feb, [facility] [id number] [place] [address] Feb, Chronic fatigue R53.82 ; Arthritis M19.90 and Frequent headaches R51 [facility] [address] [address] Feb, Diabetes type 2, uncontrolled E11.65 [facility] [id number] [place] [address] Feb, Diabetes type 2, uncontrolled E11.65 ; Hypertension, benign I10 and Primary insomnia F51.01 [facility] [id number] [place] [address] Jan, Uncontrolled type 2 diabetes mellitus without complication, without long-term current use of insulin E11.65 and Diabetes type 2, uncontrolled E11.65 [place] [id number] [place] [address] Jan, Type 2 diabetes mellitus with diabetic autonomic (poly)neuropathy E11.43 [place] [id number] [place] [address] Jan, Uncontrolled type 2 diabetes mellitus without complication, without long-term current use of insulin E11.65 and Primary insomnia F51.01 [place] [id number] [place] [address] Jan, [place] [id number] [place] [address] Dec, Uncontrolled type 2 diabetes mellitus without complication, without long-term current use of insulin E11.65 [place] [address] [place] [address] Dec, Diabetes type 2, uncontrolled E11.65 [place] [id number] [address] Dec, [place] [id number] [place] [address] Dec, Type 2 diabetes mellitus with diabetic autonomic (poly)neuropathy E11.43 [facility] [id number] [address] Dec, [place] [id number] [place] [address] Dec, [place] [address] [address] 31 May, 2018 Type 2 diabetes mellitus with diabetic autonomic (poly)neuropathy E11.43 [place] [id number] [place] [address] November, Type 2 diabetes mellitus with diabetic autonomic (poly)neuropathy E11.43 ; Type 2 diabetes mellitus with hyperglycemia E11.65 ; Hypertension, benign I10 and Primary insomnia F51.01 [place] [address] [address] Sep, Diabetes type 2, uncontrolled E11.65 [place] [address] [address] 17 Aug, [address] [address] 15 Aug, 2017 Encounter for test Z32.[address] [address] Apr, [address] [address] 09 Apr, 2017 Diabetes type 2, uncontrolled E11.65 ; Epigastric pain R10.13 and Gastroesophageal reflux disease without esophagitis K21.[address] [address] Oct, [address] [address] 08 Aug, 2016 Encounter for test, result unknown Z32.[address] [address] Jul, Acute upper respiratory infection, unspecified J06.9 ; Other viral agents as the cause of diseases classified elsewhere B97.89 and Diabetes type 2, uncontrolled E11.65 [place] [id number] [place] [address] Apr, [facility] [id number] [place] [id number] 07 Mar, 2016 Dental examination Z01.[address] [address] November, [facility] [address] [address] November, Diabetes type 2, uncontrolled E11.65 [facility] [address] [address] Oct, [facility] [id number] [place] [address] Oct, [facility] [address] [place] [address] Oct, [facility] [id number] [place] [address] Oct, [facility] [id number] [place] [address] Sep, [facility] [id number] [place] [address] Sep, [facility] [address] [place] [address] Sep, Diabetes type 2, uncontrolled E11.65 [facility] [address] [address] Sep, ADRYAN (secretory otitis media) H65.90 ; Diabetes type 2, uncontrolled E11.65 ; Cindy vaginitis B37.3 and Nausea R11.0 [facility] [address] [address] May, Diabetes type 2, uncontrolled E11.65 and Abdominal pain R10.9 [facility] [id number] [address] Jun, [facility] [address] [address] Jun, [facility] [address] [place] [address] May, [facility] [address] [facility] [id number] [address] May, IMMUNIZATIONS No Known Immunizations SOCIAL HISTORY Never Assessed REASON FOR VISIT BS f/u PLAN OF CARE VITAL SIGNS MEDICATIONS Medication Instructions Dosage Frequency Start Date End Date Duration Status NovoLog Flexpen 100 UNIT/ML Subcutaneous 3 times a day before meals Inject 10 units Dec, Active Levemir FlexTouch 100 UNIT/ML Subcutaneous 2 times a day 15 inits 12h Dec, Active RESULTS No Results PROCEDURES No Known procedures INSTRUCTIONS MEDICATIONS ADMINISTERED No Known Medications MEDICAL (GENERAL) HISTORY Type Description Date Medical History Diabetes type II Medical History gerd Surgical History cesearian section x3 Surgical History tubal ligation Hospitalization History Surgeries/childbirth only Hospitalization History DKA, Sepsis, UTI-[facility] 01/15/18
--- OUTSIDE RECORDS SUMMARY | 2019-02-14 10:41 | XMS REPORT ---
Author Author SU CARRASCO [facility] Address [address] [place] [address] Care Team Providers Care Warehouse Pricing And Inventory Clerk Name Role Phone SU CARRASCO Unavailable PROBLEMS Type Condition ICD9-CM Code SAB03-OM Code Onset Dates Condition Status SNOMED Code Problem Acute upper respiratory infection, unspecified J06.9 Active 794791328 Problem Primary insomnia F51.01 Active 9450461 Problem Gastroesophageal reflux disease without esophagitis K21.9 Active 984689264 Problem Elevated LDL cholesterol level E78.00 Active 493838498 Problem Low HDL (under 40) E78.6 Active 119012742 Problem Diabetes type 2, uncontrolled E11.65 Active 975910976 Problem Arthritis M19.90 Active 6772061 Problem Chronic fatigue R53.82 Active 38622791 Problem Type 2 diabetes mellitus with diabetic autonomic (poly)neuropathy E11.43 Active 62231779 Problem Type 2 diabetes mellitus with hyperglycemia E11.65 Active 590128862971558 Problem Uncontrolled type 2 diabetes mellitus without complication, without long- term current use of insulin E11.65 Active 364779046 Problem Hypertension, benign I10 Active 75195032 ALLERGIES No Information ENCOUNTERS Encounter Location Date Diagnosis [facility] [address] [place] [address] Mar, [facility] [id number] [place] [address] Feb, [facility] [id number] [place] [address] Feb, Chronic fatigue R53.82 ; Arthritis M19.90 and Frequent headaches R51 [facility] [address], [place] [address] Feb, Diabetes type 2, uncontrolled E11.65 [facility] [id number] [place] [address] Feb, Diabetes type 2, uncontrolled E11.65 ; Hypertension, benign I10 and Primary insomnia F51.01 [facility] [id number] [place] [address] Jan, Uncontrolled type 2 diabetes mellitus without complication, without long-term current use of insulin E11.65 and Diabetes type 2, uncontrolled E11.65 [place] [id number] [place] [address] Jan, Type 2 diabetes mellitus with diabetic autonomic (poly)neuropathy E11.43 [place] [id number] [place] [address] Jan, Uncontrolled type 2 diabetes mellitus without complication, without long-term current use of insulin E11.65 and Primary insomnia F51.01 [place] [id number] [place] [address] Jan, [place] [id number] [place] [address] Dec, Uncontrolled type 2 diabetes mellitus without complication, without long-term current use of insulin E11.65 [place] [address] [place] [address] Dec, Diabetes type 2, uncontrolled E11.65 [place] [id number], [place] [address] Dec, [place] [id number] [place] [address] Dec, Type 2 diabetes mellitus with diabetic autonomic (poly)neuropathy E11.43 [facility] [id number], [place] [address] Dec, [place] [id number] [place] [address] Dec, [place] [address], [place] [address] 31 May, 2018 Type 2 diabetes mellitus with diabetic autonomic (poly)neuropathy E11.43 [place] [id number] [place] [address] November, Type 2 diabetes mellitus with diabetic autonomic (poly)neuropathy E11.43 ; Type 2 diabetes mellitus with hyperglycemia E11.65 ; Hypertension, benign I10 and Primary insomnia F51.01 [place] [address] [address] Sep, Diabetes type 2, uncontrolled E11.65 [place] [address] [address] 17 Aug, [address] [address] 15 Aug, 2017 Encounter for test Z32.[address] [address] Apr, [address] [address] 09 Apr, 2017 Diabetes type 2, uncontrolled E11.65 ; Epigastric pain R10.13 and Gastroesophageal reflux disease without esophagitis K21.[address] [address] Oct, [address] [address] 08 Aug, 2016 Encounter for test, result unknown Z32.[address] [address] Jul, Acute upper respiratory infection, unspecified J06.9 ; Other viral agents as the cause of diseases classified elsewhere B97.89 and Diabetes type 2, uncontrolled E11.65 [place] [id number] [place] [address] Apr, [facility] [id number] [place] [id number] 07 Mar, 2016 Dental examination Z01.[address], [place] [address] November, [facility] [address], [place] [address] November, Diabetes type 2, uncontrolled E11.65 [facility] [address], [place] [address] Oct, [facility] [id number] [place] [address] Oct, [facility] [address] [place] [address] Oct, [facility] [id number] [place] [address] Oct, [facility] [id number] [place] [address] Sep, [facility] [id number] [place] [address] Sep, [facility] [address] [place] [address] Sep, Diabetes type 2, uncontrolled E11.65 [facility] [address], [place] [address] Sep, ADRYAN (secretory otitis media) H65.90 ; Diabetes type 2, uncontrolled E11.65 ; Cindy vaginitis B37.3 and Nausea R11.0 [facility] [address], [place] [address] May, Diabetes type 2, uncontrolled E11.65 and Abdominal pain R10.9 [facility] [id number], [place] [address] Jun, [facility] [address], [place] [address] Jun, [facility] [address] [place] [address] May, [facility] [address] [facility] [id number] [address] May, IMMUNIZATIONS No Known Immunizations SOCIAL HISTORY Never Assessed REASON FOR VISIT TCM Call/Med rec PLAN OF CARE VITAL SIGNS MEDICATIONS Medication Instructions Dosage Frequency Start Date End Date Duration Status Lisinopril 10 MG Orally Once a day 1 tablet 24h Apr, Active Omeprazole 20 mg Orally twice a day 1 capsule 12h Apr, 30 day(s) Active Neurontin 300 MG Orally Once a day, at night 1 capsule November, Active Levemir FlexTouch 100 UNIT/ML Subcutaneous Once a day at bedtime 30 inits Dec, Active NovoLog Flexpen 100 UNIT/ML Subcutaneous 3 times a day before meals Inject 10 units Dec, Active Ciprofloxacin HCl 250 MG Orally every 12 hrs 1 tablet 12h Dec, Dec, Active Naproxen 500 mg Orally every 12 [...]
--- OUTSIDE RECORDS SUMMARY | 2019-02-14 10:42 | XMS REPORT ---
Author Author CRISTIAN TRUJILLO Organization [facility] Address [address] [place] [address] Care Team Providers Care Chronometer Assembler Name Role Phone CRISTIAN TRUJILLO Unavailable PROBLEMS Type Condition ICD9-CM Code RDP31-PG Code Onset Dates Condition Status SNOMED Code Problem Low HDL (under 40) E78.6 Active 707739759 Problem Acute upper respiratory infection, unspecified J06.9 Active 468001951 Problem Diabetes type 2, uncontrolled E11.65 Active 083721731 Problem Elevated LDL cholesterol level E78.00 Active 495538289 Problem Uncontrolled type 2 diabetes mellitus without complication, without long- term current use of insulin E11.65 Active 082933820 Problem Hypertension, benign I10 Active 92063217 Problem Primary insomnia F51.01 Active 7102283 Problem Gastroesophageal reflux disease without esophagitis K21.9 Active 267668625 Problem Type 2 diabetes mellitus with diabetic autonomic (poly)neuropathy E11.43 Active 58211089 Problem Type 2 diabetes mellitus with hyperglycemia E11.65 Active [id number] ALLERGIES No Known Allergies ENCOUNTERS Encounter Location Date Diagnosis [facility] [address] [address] Mar, [facility] [id number] [place] [address] Feb, Diabetes type 2, uncontrolled E11.65 ; Hypertension, benign I10 and Primary insomnia F51.01 [facility] [address], [place] [address] Jan, Uncontrolled type 2 diabetes mellitus without complication, without long-term current use of insulin E11.65 and Diabetes type 2, uncontrolled E11.65 [facility] [address], [place] [address] Jan, Type 2 diabetes mellitus with diabetic autonomic (poly)neuropathy E11.43 [facility] [address], [place] [address] 11 Jan, 2018 Uncontrolled type 2 diabetes mellitus without complication, without long-term current use of insulin E11.65 and Primary insomnia F51.01 [facility] [address], [place] [address] Jan, [facility] [id number] [place] [address] Dec, Uncontrolled type 2 diabetes mellitus without complication, without long-term current use of insulin E11.65 [facility] [address], [place] [address] Dec, Diabetes type 2, uncontrolled E11.65 [facility] [address] [address] Dec, [place] [id number] [place] [address] Dec, Type 2 diabetes mellitus with diabetic autonomic (poly)neuropathy E11.43 [facility] [address], [place] [address] 16 Dec, 2017 [facility] [address], [place] [address] Dec, [facility] [address], [place] [address] November, Type 2 diabetes mellitus with diabetic autonomic (poly)neuropathy E11.43 [facility] [address], [place] [address] November, Type 2 diabetes mellitus with diabetic autonomic (poly)neuropathy E11.43 ; Type 2 diabetes mellitus with hyperglycemia E11.65 ; Hypertension, benign I10 and Primary insomnia F51.01 [facility] [address], [place] [address] Sep, Diabetes type 2, uncontrolled E11.65 [facility] [address], [place] [address] 17 Aug, 2017 [facility] [address] [place] [address] 15 Aug, 2017 Encounter for test Z32.00 [facility] [id number] [place] [address] 11 Apr, 2017 [facility] [id number] [place] [address] Apr, Diabetes type 2, uncontrolled E11.65 ; Epigastric pain R10.13 and Gastroesophageal reflux disease without esophagitis K21.9 [place] [id number] [place] [address] Oct, [place] [id number] [place] [address] 08 Aug, 2016 Encounter for test, result unknown Z32.00 [place] [id number] [place] [address] Jul, Acute upper respiratory infection, unspecified J06.9 ; Other viral agents as the cause of diseases classified elsewhere B97.89 and Diabetes type 2, uncontrolled E11.65 [place] [id number] [place] [address] Apr, [facility] [address] [place] [id number] 07 Mar, 2016 Dental examination Z01.20 [facility] [id number] [place] [address] November, [facility] [id number] [place] [address] November, Diabetes type 2, uncontrolled E11.65 [facility] [id number] [place] [address] Oct, [facility] [id number] [place] [address] Oct, [facility] [address] [place] [address] Oct, [facility] [id number] [place] [address] Oct, [facility] [id number] [place] [address] Sep, [facility] [id number] [place] [address] Sep, [facility] [id number] [place] [address] Sep, Diabetes type 2, uncontrolled E11.65 [facility] [id number] [place] [address] Sep, ADRYAN (secretory otitis media) H65.90 ; Diabetes type 2, uncontrolled E11.65 ; Cindy vaginitis B37.3 and Nausea R11.0 [place] [id number] [place] [address] May, Diabetes type 2, uncontrolled E11.65 and Abdominal pain R10.9 [place] [id number] [place] [address] Jun, [facility] [id number] [place] [address] Jun, [place] [id number] [place] [address] May, [place] [id number] [place] [address] May, IMMUNIZATIONS No Known Immunizations SOCIAL HISTORY Never Assessed REASON FOR VISIT Transition of Care, PT has gone two weeks now not able to sleep at night and has swollen feet with pain-[facility] PLAN OF CARE Activity Details Follow Up 4 Weeks Reason:dm2 ooc VITAL SIGNS Height 61 in 2017-12-28 Weight 124.7 lbs 2017-12-28 Temperature 98.6 degrees Fahrenheit 2017-12-28 Heart Rate 89 bpm 2017-12-28 Respiratory Rate 18 2017-12-28 Oximetry 99 % 2017-12-28 BMI 23.56 kg/m2 2017-12-28 Blood pressure systolic 130 mmHg 2017-12-28 Blood pressure diastolic 82 mmHg 2017-12-28 MEDICATIONS Medication Instructions Dosage Frequency Start Date End Date Duration Status Lisinopril 5 mg Orally Once a day 1 tablet 24h Apr, 30 day(s) Active Omeprazole 20 mg Orally twice a day 1 capsule 12h Apr, 30 day(s) Active Naproxen 500 mg Orally every 12 hrs 1 tablet with food or milk as needed h November, Active Neurontin 300 MG Orally Once a day, at night 1 capsule November, Active Glimepiride 4 MG Orally 2 times a day 1 tablet with breakfast or the first main meal of the day 12h Apr, 30 day(s) Active RESULTS Name Result Date Reference Range A1C (IN HOUSE) 2017-12-28 A1C IN HOUSE >14 4.3 - 5.6 % Previous A1c >14 Lot [id number] Exp date 09/2019 PROCEDURES Procedure Date Ordered Result Body Site GLYCATED HEMOGLOBIN TEST December 28, 2017 INSTRUCTIONS MEDICATIONS ADMINISTERED No Known Medications MEDICAL (GENERAL) HISTORY Type Description Date Medical History Diabetes type II Medical History gerd Surgical History cesearian section x3 Surgical History tubal ligation Hospitalization History Surgeries/childbirth only Hospitalization History DKA, Sepsis, UTI-[facility] 01/15/18
--- OUTSIDE RECORDS SUMMARY | 2019-02-14 10:42 | XMS REPORT ---
Author Author CONOR DONY Organization [facility] Address [address] [place] [address] Care Team Providers Care Sample Tester Name Role Phone PERDOMOPHILLIP De La FuenteELE Unavailable PROBLEMS Type Condition ICD9-CM Code KUP36-CO Code Onset Dates Condition Status SNOMED Code Problem Low HDL (under 40) E78.6 Active 823970882 Problem Acute upper respiratory infection, unspecified J06.9 Active 836473873 Problem Diabetes type 2, uncontrolled E11.65 Active 822330079 Problem Elevated LDL cholesterol level E78.00 Active 030465890 Problem Uncontrolled type 2 diabetes mellitus without complication, without long- term current use of insulin E11.65 Active 157302957 Problem Hypertension, benign I10 Active 42290403 Problem Primary insomnia F51.01 Active 1952919 Problem Gastroesophageal reflux disease without esophagitis K21.9 Active 970866271 Problem Type 2 diabetes mellitus with diabetic autonomic (poly)neuropathy E11.43 Active 18241550 Problem Type 2 diabetes mellitus with hyperglycemia E11.65 Active [id number] ALLERGIES No Information ENCOUNTERS Encounter Location Date Diagnosis [place] [id number] [place] [address] Feb, [place] [id number] [place] [address] Jan, Uncontrolled type 2 diabetes mellitus without complication, without long-term current use of insulin E11.65 and Diabetes type 2, uncontrolled E11.65 [facility] [id number] [place] [address] Jan, Type 2 diabetes mellitus with diabetic autonomic (poly)neuropathy E11.43 [place] [id number] [place] [address] Jan, Uncontrolled type 2 diabetes mellitus without complication, without long-term current use of insulin E11.65 and Primary insomnia F51.01 [facility] [address], [place] [address] Jan, [facility] [id number] [place] [address] Dec, Uncontrolled type 2 diabetes mellitus without complication, without long-term current use of insulin E11.65 [facility] [id number] [place] [address] Dec, Diabetes type 2, uncontrolled E11.65 [facility] [id number] [place] [address] Dec, [place] [id number] [place] [address] Dec, Type 2 diabetes mellitus with diabetic autonomic (poly)neuropathy E11.43 [place] [id number] [place] [address] Dec, [facility] [id number] [place] [address] Dec, [place] [id number] [place] [address] November, Type 2 diabetes mellitus with diabetic autonomic (poly)neuropathy E11.43 [place] [id number] [place] [address] November, Type 2 diabetes mellitus with diabetic autonomic (poly)neuropathy E11.43 ; Type 2 diabetes mellitus with hyperglycemia E11.65 ; Hypertension, benign I10 and Primary insomnia F51.01 [facility] [address] [place] [address] Sep, Diabetes type 2, uncontrolled E11.65 [place] [address] [place] [address] Aug, [facility] [address], [place] [address] Aug, Encounter for test Z32.00 [place] [id number] [place] [address] Apr, [place] [address] [address] Apr, Diabetes type 2, uncontrolled E11.65 ; Epigastric pain R10.13 and Gastroesophageal reflux disease without esophagitis K21.9 [place] [address] [address] Oct, [place] [id number] [place] [address] Aug, Encounter for test, result unknown Z32.00 [place] [address] [address] Jul, Acute upper respiratory infection, unspecified J06.9 ; Other viral agents as the cause of diseases classified elsewhere B97.89 and Diabetes type 2, uncontrolled E11.65 [place] [id number] [place] [address] Apr, [facility] [id number] [place] [id number] Mar, Dental examination Z01.20 [place] [id number] [place] [address] November, [place] [id number] [place] [address] November, Diabetes type 2, uncontrolled E11.65 [place] [id number] [place] [address] Oct, [place] [address] [address] Oct, [facility] [id number] [place] [address] Oct, [place] [address] [address] Oct, [facility] [address], [place] [address] Sep, [facility] [id number] [place] [address] Sep, [facility] [id number] [place] [address] Sep, Diabetes type 2, uncontrolled E11.65 [facility] [id number] [place] [address] Sep, ADRYAN (secretory otitis media) H65.90 ; Diabetes type 2, uncontrolled E11.65 ; Cindy vaginitis B37.3 and Nausea R11.0 [facility] [id number] [place] [address] May, Diabetes type 2, uncontrolled E11.65 and Abdominal pain R10.9 [place] [id number] [place] [address] Jun, [facility] [id number] [place] [address] Jun, [place] [id number] [place] [address] May, [facility] [id number] [place] [address] May, IMMUNIZATIONS No Known Immunizations SOCIAL HISTORY Never Assessed REASON FOR VISIT Refill request PLAN OF CARE VITAL SIGNS MEDICATIONS Medication Instructions Dosage Frequency Start Date End Date Duration Status MetFORMIN HCl ER 500 mg Orally twice a day 1 tablet 12h Apr, 30 day(s) Active RESULTS No Results PROCEDURES No Known procedures INSTRUCTIONS MEDICATIONS ADMINISTERED No Known Medications MEDICAL (GENERAL) HISTORY Type Description Date Medical History Diabetes type II Medical History gerd Surgical History cesearian section x3 Surgical History tubal ligation Hospitalization History Surgeries/childbirth only Hospitalization History DKA, Sepsis, UTI-[facility] 01/15/18
--- OUTSIDE RECORDS SUMMARY | 2019-02-14 10:42 | XMS REPORT ---
Author Author SU CARRASCO [facility] Address [address] [place] [address] Care Team Providers Care Patient Financial Representative Name Role Phone SU CARRASCO Unavailable PROBLEMS Type Condition ICD9-CM Code TRN81-XC Code Onset Dates Condition Status SNOMED Code Problem Low HDL (under 40) E78.6 Active 202983815 Problem Acute upper respiratory infection, unspecified J06.9 Active 446177653 Problem Diabetes type 2, uncontrolled E11.65 Active 271037932 Problem Elevated LDL cholesterol level E78.00 Active 871417474 Problem Uncontrolled type 2 diabetes mellitus without complication, without long- term current use of insulin E11.65 Active 499241121 Problem Hypertension, benign I10 Active 73876247 Problem Primary insomnia F51.01 Active 1019079 Problem Gastroesophageal reflux disease without esophagitis K21.9 Active 636210176 Problem Type 2 diabetes mellitus with diabetic autonomic (poly)neuropathy E11.43 Active 97534536 Problem Type 2 diabetes mellitus with hyperglycemia E11.65 Active [id number] ALLERGIES No Information ENCOUNTERS Encounter Location Date Diagnosis [place] [address] [place] [address] Jan, [place] [address] [id number] [place] [address] Jan, [place] [address] [id number] [place] [address] Dec, Uncontrolled type 2 diabetes mellitus without complication, without long-term current use of insulin E11.65 [place] [id number] [place] [address] Dec, Diabetes type 2, uncontrolled E11.65 [place] [id number] [place] [address] Dec, [place] [address] [place] [address] Dec, Type 2 diabetes mellitus with diabetic autonomic (poly)neuropathy E11.43 [place] [id number] [place] [address] Dec, [place] [id number] [place] [address] Dec, [place] [address] [id number] [place] [address] November, Type 2 diabetes mellitus with diabetic autonomic (poly)neuropathy E11.43 [place] [address] [address] November, Type 2 diabetes mellitus with diabetic autonomic (poly)neuropathy E11.43 ; Type 2 diabetes mellitus with hyperglycemia E11.65 ; Hypertension, benign I10 and Primary insomnia F51.01 [place] [id number] [place] [address] Sep, Diabetes type 2, uncontrolled E11.65 [place] [address] [id number] [place] [address] 17 Aug, 2017 [place] [address] [id number] [place] [address] 15 Aug, 2017 Encounter for test Z32.00 [place] [id number] [place] [address] Apr, [place] [address] [id number] [place] [address] Apr, Diabetes type 2, uncontrolled E11.65 ; Epigastric pain R10.13 and Gastroesophageal reflux disease without esophagitis K21.9 [place] [id number] [place] [address] Oct, [place] [address] [id number] [place] [address] 08 Aug, 2016 Encounter for test, result unknown Z32.00 [facility] [address], [place] [address] Jul, Acute upper respiratory infection, unspecified J06.9 ; Other viral agents as the cause of diseases classified elsewhere B97.89 and Diabetes type 2, uncontrolled E11.65 [facility] [address], [place] [address] Apr, [facility] [address] [id number] 07 Mar, 2016 Dental examination Z01.20 [facility] [id number] [place] [address] November, [facility] [address] [id number] [place] [address] November, Diabetes type 2, uncontrolled E11.65 [facility] [id number] [place] [address] Oct, [facility] [address] [place] [address] Oct, [facility] [id number] [place] [address] Oct, [facility] [address], [place] [address] Oct, [facility] [id number] [place] [address] Sep, [facility] [address], [place] [address] Sep, [facility] [id number] [place] [address] Sep, Diabetes type 2, uncontrolled E11.65 [facility] [address], [place] [address] Sep, ADRYAN (secretory otitis media) H65.90 ; Diabetes type 2, uncontrolled E11.65 ; Cindy vaginitis B37.3 and Nausea R11.0 [facility] [address], [place] [address] May, Diabetes type 2, uncontrolled E11.65 and Abdominal pain R10.9 [facility] [address], [place] [address] Jun, [facility] [id number] [place] [address] Jun, [facility] [address], [place] [address] May, [place] [id number] [place] [address] May, IMMUNIZATIONS No Known Immunizations SOCIAL HISTORY Never Assessed REASON FOR VISIT test (walk-in)--[facility] PLAN OF CARE VITAL SIGNS MEDICATIONS Unknown Medications RESULTS No Results PROCEDURES Procedure Date Ordered Result Body Site CHORIONIC GONADOTROPIN ASSAY Sep 14, 2017 VENIPUNCT, ROUTINE* Sep 14, 2017 INSTRUCTIONS MEDICATIONS ADMINISTERED No Known Medications MEDICAL (GENERAL) HISTORY Type Description Date Medical History Diabetes type II Medical History gerd Surgical History cesearian section x3 Surgical History tubal ligation Hospitalization History Surgeries/childbirth only Hospitalization History DKA, Sepsis, UTI-[facility] 01/15/18
--- OUTSIDE RECORDS SUMMARY | 2019-02-14 10:42 | XMS REPORT ---
Author Author SU CARRASCO [facility] Address [address] [place] [address] Care Team Providers Care Waste Water Or Water Plant Operator Name Role Phone SU CARRASCO Unavailable PROBLEMS Type Condition ICD9-CM Code PXD01-DL Code Onset Dates Condition Status SNOMED Code Problem Low HDL (under 40) E78.6 Active 313017497 Problem Acute upper respiratory infection, unspecified J06.9 Active 262247305 Problem Diabetes type 2, uncontrolled E11.65 Active 552724003 Problem Elevated LDL cholesterol level E78.00 Active 537426075 Problem Uncontrolled type 2 diabetes mellitus without complication, without long- term current use of insulin E11.65 Active 736968085 Problem Hypertension, benign I10 Active 76025300 Problem Primary insomnia F51.01 Active 3272687 Problem Gastroesophageal reflux disease without esophagitis K21.9 Active 440875227 Problem Type 2 diabetes mellitus with diabetic autonomic (poly)neuropathy E11.43 Active 97157688 Problem Type 2 diabetes mellitus with hyperglycemia E11.65 Active [id number] ALLERGIES No Information ENCOUNTERS Encounter Location Date Diagnosis [place] [address] [place] [address] Jan, [place] [address] [place] [id number] [place] [address] Jan, [place] [address] [id number] [place] [address] Dec, Uncontrolled type 2 diabetes mellitus without complication, without long-term current use of insulin E11.65 [place] [id number] [place] [address] Dec, Diabetes type 2, uncontrolled E11.65 [place] [id number] [place] [address] Dec, [place] [address] [place] [address] Dec, Type 2 diabetes mellitus with diabetic autonomic (poly)neuropathy E11.43 [place] [id number] [place] [address] Dec, [place] [id number] [place] [address] Dec, [place] [id number] [place] [address] November, Type 2 diabetes mellitus with diabetic autonomic (poly)neuropathy E11.43 [place] [address] [address] November, Type 2 diabetes mellitus with diabetic autonomic (poly)neuropathy E11.43 ; Type 2 diabetes mellitus with hyperglycemia E11.65 ; Hypertension, benign I10 and Primary insomnia F51.01 [place] [id number] [place] [address] Sep, Diabetes type 2, uncontrolled E11.65 [place] [id number] [place] [address] 17 Aug, 2017 [place] [id number] [place] [address] 15 Aug, 2017 Encounter for test Z32.00 [place] [id number] [place] [address] Apr, [place] [id number] [place] [address] Apr, Diabetes type 2, uncontrolled E11.65 ; Epigastric pain R10.13 and Gastroesophageal reflux disease without esophagitis K21.9 [place] [id number] [place] [address] Oct, [place] [id number] [place] [address] 08 Aug, 2016 Encounter for test, result unknown Z32.00 [facility] [address], [place] [address] Jul, Acute upper respiratory infection, unspecified J06.9 ; Other viral agents as the cause of diseases classified elsewhere B97.89 and Diabetes type 2, uncontrolled E11.65 [facility] [address], [place] [address] Apr, [facility] [address] [id number] 07 Mar, 2016 Dental examination Z01.20 [facility] [id number] [place] [address] November, [facility] [address] [id number] [place] [address] November, Diabetes type 2, uncontrolled E11.65 [facility] [id number] [place] [address] Oct, [facility] [address] [place] [address] Oct, [facility] [id number] [place] [address] Oct, [facility] [address], [place] [address] Oct, [facility] [id number] [place] [address] Sep, [facility] [address], [place] [address] Sep, [facility] [id number] [place] [address] Sep, Diabetes type 2, uncontrolled E11.65 [facility] [address], [place] [address] Sep, ADRYAN (secretory otitis media) H65.90 ; Diabetes type 2, uncontrolled E11.65 ; Cindy vaginitis B37.3 and Nausea R11.0 [facility] [address], [place] [address] May, Diabetes type 2, uncontrolled E11.65 and Abdominal pain R10.9 [facility] [address], [place] [address] Jun, [facility] [id number] [place] [address] Jun, [facility] [address], [place] [address] May, [place] [address] [place] [address] May, IMMUNIZATIONS No Known Immunizations SOCIAL HISTORY [...] History Surgeries/childbirth only Hospitalization History DKA, Sepsis, UTI-[facility] 01/15/18
--- OUTSIDE RECORDS SUMMARY | 2019-02-14 10:42 | XMS REPORT ---
Author Author CRISTIAN TRUJILLO Organization [facility] Address [address] [place] [address] Care Team Providers Care Sales Assistant Name Role Phone CRISTIAN TRUJILLO Unavailable PROBLEMS Type Condition ICD9-CM Code IHZ52-HE Code Onset Dates Condition Status SNOMED Code Problem Acute upper respiratory infection, unspecified J06.9 Active 097663405 Problem Primary insomnia F51.01 Active 8066539 Problem Gastroesophageal reflux disease without esophagitis K21.9 Active 788184613 Problem Elevated LDL cholesterol level E78.00 Active 050345850 Problem Low HDL (under 40) E78.6 Active 187218185 Problem Diabetes type 2, uncontrolled E11.65 Active 039865314 Problem Arthritis M19.90 Active 1968571 Problem Chronic fatigue R53.82 Active 38619061 Problem Type 2 diabetes mellitus with diabetic autonomic (poly)neuropathy E11.43 Active 39683629 Problem Type 2 diabetes mellitus with hyperglycemia E11.65 Active 363371639282797 Problem Uncontrolled type 2 diabetes mellitus without complication, without long- term current use of insulin E11.65 Active 560789808 Problem Hypertension, benign I10 Active 51498246 ALLERGIES No Information ENCOUNTERS Encounter Location Date Diagnosis [facility] [id number] [place] [address] Mar, [facility] [id number] [place] [address] Feb, [facility] [id number] [place] [address] Feb, Chronic fatigue R53.82 ; Arthritis M19.90 and Frequent headaches R51 [facility] [id number] [place] [address] Feb, Diabetes type 2, uncontrolled E11.65 [facility] [id number] [place] [address] Feb, Diabetes type 2, uncontrolled E11.65 ; Hypertension, benign I10 and Primary insomnia F51.01 [place] [id number] [place] [address] Jan, Uncontrolled type 2 diabetes mellitus without complication, without long-term current use of insulin E11.65 and Diabetes type 2, uncontrolled E11.65 [place] [id number] [place] [address] Jan, Type 2 diabetes mellitus with diabetic autonomic (poly)neuropathy E11.43 [facility] [facility] [id number] [place] [address] Jan, Uncontrolled type 2 diabetes mellitus without complication, without long-term current use of insulin E11.65 and Primary insomnia F51.01 [place] [id number] [place] [address] Jan, [place] [id number] [place] [address] Dec, Uncontrolled type 2 diabetes mellitus without complication, without long-term current use of insulin E11.65 [facility] [facility] [id number] [place] [address] Dec, Diabetes type 2, uncontrolled E11.65 [facility] [id number] [place] [address] Dec, [facility] [facility] [id number] [place] [address] Dec, Type 2 diabetes mellitus with diabetic autonomic (poly)neuropathy E11.43 [facility] [id number] [place] [address] Dec, [place] [id number] [place] [address] Dec, [place] [facility] [id number] [place] [address] November, Type 2 diabetes mellitus with diabetic autonomic (poly)neuropathy E11.43 [place] [id number] [place] [address] November, Type 2 diabetes mellitus with diabetic autonomic (poly)neuropathy E11.43 ; Type 2 diabetes mellitus with hyperglycemia E11.65 ; Hypertension, benign I10 and Primary insomnia F51.01 [place] [address] [address] Sep, Diabetes type 2, uncontrolled E11.65 [place] [address] [address] 17 Aug, 2017 [place] [address] [address] 15 Aug, 2017 Encounter for test Z32.00 [place] [address] [address] Apr, [place] [address] [address] 09 Apr, 2017 Diabetes type 2, uncontrolled E11.65 ; Epigastric pain R10.13 and Gastroesophageal reflux disease without esophagitis K21.9 [place] [address] [address] 05 Oct, 2016 [place] [address] [address] 08 Aug, 2016 Encounter for test, result unknown Z32.00 [place] [address] [address] Jul, Acute upper respiratory infection, unspecified J06.9 ; Other viral agents as the cause of diseases classified elsewhere B97.89 and Diabetes type 2, uncontrolled E11.65 [place] [id number] [place] [address] Apr, [facility] [address] [id number] 07 Mar, 2016 Dental examination Z01.20 [place] [address] [address] November, [facility] [address] [address] November, Diabetes type 2, uncontrolled E11.65 [facility] [address] [address] Oct, [facility] [id number] [place] [address] Oct, [facility] [address] [address] Oct, [facility] [id number] [place] [address] Oct, [facility] [id number] [place] [address] Sep, [facility] [id number] [place] [address] Sep, [facility] [address] [place] [address] Sep, Diabetes type 2, uncontrolled E11.65 [facility] [address] [address] Sep, ADRYAN (secretory otitis media) H65.90 ; Diabetes type 2, uncontrolled E11.65 ; Cindy vaginitis B37.3 and Nausea R11.0 [facility] [address] [address] May, Diabetes type 2, uncontrolled E11.65 and Abdominal pain R10.9 [facility] [address] [address] Jun, [facility] [address] [address] Jun, [facility] [address] [address] May, [facility] [address] [facility] [id number] [place] [address] May, IMMUNIZATIONS No Known Immunizations SOCIAL HISTORY [...]
--- OUTSIDE RECORDS SUMMARY | 2019-02-14 10:42 | XMS REPORT ---
Author Author CRISTIAN TRUJILLO Organization [facility] Address [address] [place] [address] Care Team Providers Care Counselor Camp Name Role Phone CRISTIAN TRUJILLO Unavailable PROBLEMS Type Condition ICD9-CM Code TBJ16-ZO Code Onset Dates Condition Status SNOMED Code Problem Low HDL (under 40) E78.6 Active 526046695 Problem Acute upper respiratory infection, unspecified J06.9 Active 614666823 Problem Diabetes type 2, uncontrolled E11.65 Active 152847495 Problem Elevated LDL cholesterol level E78.00 Active 254041178 Problem Uncontrolled type 2 diabetes mellitus without complication, without long- term current use of insulin E11.65 Active 172412110 Problem Hypertension, benign I10 Active 89919296 Problem Primary insomnia F51.01 Active 3485075 Problem Gastroesophageal reflux disease without esophagitis K21.9 Active 965265969 Problem Type 2 diabetes mellitus with diabetic autonomic (poly)neuropathy E11.43 Active 33858553 Problem Type 2 diabetes mellitus with hyperglycemia E11.65 Active [id number] ALLERGIES No Information ENCOUNTERS Encounter Location Date Diagnosis [facility] [address] [place] [address] Mar, [facility] [id number] [place] [address] Feb, Diabetes type 2, uncontrolled E11.65 ; Hypertension, benign I10 and Primary insomnia F51.01 [facility] [id number] [place] [address] Jan, Uncontrolled type 2 diabetes mellitus without complication, without long-term current use of insulin E11.65 and Diabetes type 2, uncontrolled E11.65 [facility] [address] [place] [address] Jan, Type 2 diabetes mellitus with diabetic autonomic (poly)neuropathy E11.43 [place] [address], [place] [address] Jan, Uncontrolled type 2 diabetes mellitus without complication, without long-term current use of insulin E11.65 and Primary insomnia F51.01 [facility] [id number] [address] Jan, [facility] [id number] [place] [address] Dec, Uncontrolled type 2 diabetes mellitus without complication, without long-term current use of insulin E11.65 [facility] [address], [place] [address] Dec, Diabetes type 2, uncontrolled E11.65 [facility] [id number] [address] Dec, [place] [id number] [place] [address] Dec, Type 2 diabetes mellitus with diabetic autonomic (poly)neuropathy E11.43 [place] [address], [place] [address] Dec, [place] [id number] [address] Dec, [place] [address], [place] [address] November, Type 2 diabetes mellitus with diabetic autonomic (poly)neuropathy E11.43 [facility] [address], [place] [address] November, Type 2 diabetes mellitus with diabetic autonomic (poly)neuropathy E11.43 ; Type 2 diabetes mellitus with hyperglycemia E11.65 ; Hypertension, benign I10 and Primary insomnia F51.01 [facility] [address], [place] [address] Sep, Diabetes type 2, uncontrolled E11.65 [facility] [address], [place] [address] 17 Aug, 2017 [facility] [address] [place] [address] 15 Aug, 2017 Encounter for test Z32.00 [facility] [id number] [place] [address] 11 Apr, 2017 [facility] [id number] [place] [address] Apr, Diabetes type 2, uncontrolled E11.65 ; Epigastric pain R10.13 and Gastroesophageal reflux disease without esophagitis K21.9 [place] [id number] [place] [address] Oct, [place] [id number] [place] [address] 08 Aug, 2016 Encounter for test, result unknown Z32.00 [place] [id number] [place] [address] Jul, Acute upper respiratory infection, unspecified J06.9 ; Other viral agents as the cause of diseases classified elsewhere B97.89 and Diabetes type 2, uncontrolled E11.65 [place] [id number] [place] [address] Apr, [facility] [address] [place] [id number] 07 Mar, 2016 Dental examination Z01.20 [facility] [id number] [place] [address] November, [place] [id number] [place] [address] November, Diabetes type 2, uncontrolled E11.65 [facility] [id number] [place] [address] Oct, [facility] [id number] [place] [address] Oct, [facility] [address] [place] [address] Oct, [facility] [id number] [place] [address] Oct, [facility] [id number] [place] [address] Sep, [facility] [id number] [place] [address] Sep, [facility] [id number] [place] [address] Sep, Diabetes type 2, uncontrolled E11.65 [facility] [id number] [place] [address] Sep, ADRYAN (secretory otitis media) H65.90 ; Diabetes type 2, uncontrolled E11.65 ; Cindy vaginitis B37.3 and Nausea R11.0 [place] [id number] [place] [address] May, Diabetes type 2, uncontrolled E11.65 and Abdominal pain R10.9 [place] [id number] [place] [address] Jun, [facility] [id number] [place] [address] Jun, [place] [address] [place] [address] May, [place] [id number] [place] [address] May, IMMUNIZATIONS No Known Immunizations SOCIAL HISTORY Never Assessed REASON FOR VISIT PLAN OF CARE VITAL SIGNS MEDICATIONS Medication Instructions Dosage Frequency Start Date End Date Duration Status Glimepiride 4 MG Orally 2 times a day 1 tablet 12h 09 Apr, 2017 30 day(s) Active RESULTS No Results PROCEDURES No Known procedures INSTRUCTIONS MEDICATIONS ADMINISTERED No Known Medications MEDICAL (GENERAL) HISTORY Type Description Date Medical History Diabetes type II Medical History gerd Surgical History cesearian section x3 Surgical History tubal ligation Hospitalization History Surgeries/childbirth only Hospitalization History DKA, Sepsis, UTI-[facility] 01/15/18
--- OUTSIDE RECORDS SUMMARY | 2019-02-14 10:45 | XMS REPORT | Continuity of Care Document ---
Author Organization Unknown Address Unknown Allergies Active Description Code Type Severity Reaction Onset Reported/Identified Relationship to Patient Clinical Status Yes No Known Drug Allergies [id number] Drug Allergy Unknown N/A 04/29/2008 Medications There is no data. Problems Date Dx Coded Attending Type Code Diagnosis Diagnosed By 03/30/2009 SU CARRASCO DO 780.4 dizziness 03/30/2009 SU CARRASCO DO 780.79 MALAISE AND FATIGUE 09/27/2011 Ot 640.03 THREATEN ABORT- ANTEPART 06/09/2012 Ot 250.00 DIAB AXEL WO COMPL, TYPE II OR UNSPEC TY 06/09/2012 Ot 256.4 POLYCYSTIC OVARIES 06/09/2012 Ot 644.21 EARLY ONSET DELIVERY- DEL 06/09/2012 Ot 648.01 DIABETES-DELIVERED 06/09/2012 Ot 648.91 OTH CURR COND- DELIVERED 06/09/2012 Ot 648.92 OTH CURR COND- DEL W P/P 06/09/2012 Ot 654.21 PREV DELIVRY [...] SYMPTOMS NOS 11/10/2016 Ot 648.93 OTH CURR COND- ANTEPARTUM 11/10/2016 Ot 625.9 FEM GENITAL SYMPTOMS NOS 11/10/2016 Ot 648.93 OTH CURR COND- ANTEPARTUM 11/15/2016 МАРИЯ LOPEZ Ot R10.32 LEFT LOWER [...] PAIN 05/26/2017 ELLA AYALA DO Ot 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 05/26/2017 ELLA AYALA DO Ot Z87.42 PERSONAL HISTORY OF OTH DISEASES OF THE 05/26/2017 ELLA AYALA DO Ot Z87.59 PERSONAL HISTORY OF COMP OF PREG, CHLDBR 05/26/2017 LUCY LOVETT ELLA K Ot Z98.51 TUBAL LIGATION STATUS 08/30/2017 ERASMO [...] UNSPECIFIED 08/30/2017 ERASMO KAUFMAN APRN Ot Z79.84 FPC (CURRENT) USE OF ORAL HYPOGLYC 08/30/2017 ERASMO KAUFMAN APRN Ot Z87.448 PERSONAL HISTORY OF OTHER DISEASES OF UR 08/30/2017 ERASOM KAUFMAN APRN Ot Z87.59 PERSONAL HISTORY OF [...] UNSPECIFIED 09/01/2017 ERASMO KAUFMAN APRN Ot Z79.84 FPC (CURRENT) USE OF ORAL HYPOGLYC 09/01/2017 ERASMO KAUFMAN APRN Ot Z87.448 PERSONAL HISTORY OF OTHER DISEASES OF UR 09/01/2017 ERASMO KAUFMAN APRN Ot Z87.59 PERSONAL HISTORY OF COMP OF PREG, CHLDBR 09/01/2017 ERASMO KAUFMAN APRN Ot Z98.51 TUBAL LIGATION STATUS 01/12/2018 LEXNIDGUrban DOLIZZETH Ot A41.9 SEPSIS, UNSPECIFIED ORGANISM 01/12/2018 LIZZETH PRESCOTT DO Ot E11.10 TYPE 2 DIABETES MELLITUS WITH KETOACIDOS 01/12/2018 LIZZETH PRESCOTT DO Ot E11.65 TYPE 2 DIABETES MELLITUS WITH HYPERGLYCE 01/12/2018 LIZZETH PRESCOTT DO Ot F41.9 ANXIETY DISORDER, UNSPECIFIED 01/12/2018 LIZZETH PRESCOTT DO Ot M79.661 PAIN IN RIGHT LOWER LEG 01/12/2018 LIZZETH PRESCOTT DO Ot M79.662 PAIN IN LEFT LOWER LEG 01/12/2018 LIZZETH PRESCOTT DO Ot N39.0 URINARY TRACT INFECTION, SITE NOT SPECIF 01/12/2018 LEXNILIZZETH BRYAN DO Ot R51 HEADACHE 01/12/2018 LIZZETH PRESCOTT DO Ot A41.9 SEPSIS, UNSPECIFIED ORGANISM 01/12/2018 LIZZETH PRESCOTT DO E Ot E11.10 TYPE 2 DIABETES MELLITUS WITH KETOACIDOS 01/12/2018 LIZZETH PRESCOTT DO Ot E11.65 TYPE 2 DIABETES MELLITUS WITH HYPERGLYCE 01/12/2018 LIZZETH PRESCOTT DO Ot F41.9 ANXIETY DISORDER, UNSPECIFIED 01/12/2018 LIZZETH PRESCOTT DO Ot M79.661 PAIN IN RIGHT LOWER LEG 01/12/2018 BARNIE DO, LIZZETH Duggan Ot M79.662 PAIN IN LEFT LOWER LEG 01/12/2018 BARNIE DO, LIZZETH Duggan Ot N39.0 URINARY TRACT INFECTION, SITE NOT SPECIF 01/12/2018 BARNIE DOLIZZETH Ot R51 HEADACHE 01/13/2018 [facility] DOLIZZETH Ot A41.9 SEPSIS, UNSPECIFIED ORGANISM 01/13/2018 [facility] DOLIZZETH Ot E11.10 TYPE 2 DIABETES MELLITUS WITH KETOACIDOS 01/13/2018 [facility] DOLIZZETH Ot E11.65 TYPE 2 DIABETES MELLITUS WITH HYPERGLYCE 01/13/2018 [facility] DOLIZZETH Ot F41.9 ANXIETY DISORDER, UNSPECIFIED 01/13/2018 [facility] DOLIZZETH Ot M79.661 PAIN IN RIGHT LOWER LEG 01/13/2018 [facility] DOLIZZETH Ot M79.662 PAIN IN LEFT LOWER LEG 01/13/2018 [facility] DO, LIZZETH Duggan Ot N39.0 URINARY TRACT INFECTION, SITE NOT SPECIF 01/13/2018 [facility] DOLIZZETH Ot R51 HEADACHE 01/13/2018 [facility] DOLIZZETH Ot A41.51 SEPSIS DUE TO ESCHERICHIA COLI [E. COLI] 01/13/2018 [facility] DOLIZZETH Ot A41.9 SEPSIS, UNSPECIFIED ORGANISM 01/13/2018 [facility] DOLIZZETH Ot D64.9 ANEMIA, UNSPECIFIED 01/13/2018 [facility] DOLIZZETH Ot E11.10 TYPE 2 DIABETES MELLITUS WITH KETOACIDOS 01/13/2018 [facility] DOLIZZETH Ot E11.65 TYPE 2 DIABETES MELLITUS WITH HYPERGLYCE 01/13/2018 [facility] DOLIZZETH Ot F41.9 ANXIETY DISORDER, UNSPECIFIED 01/13/2018 [facility] DOLIZZETH Ot I10 ESSENTIAL (PRIMARY) HYPERTENSION 01/13/2018 [facility] DOLIZZETH Ot K08.89 OTHER SPECIFIED DISORDERS OF TEETH AND S 01/13/2018 LIZZETH PRESCOTT DO Ot M79.661 PAIN IN RIGHT LOWER LEG 01/13/2018 GAYLALIZZETH Duggan DO Ot M79.662 PAIN IN LEFT LOWER LEG 01/13/2018 GAYLALIZZETH Duggan DO Ot N30.00 ACUTE CYSTITIS WITHOUT HEMATURIA 01/13/2018 LIZZETH PRESCOTT DO Ot N39.0 URINARY TRACT INFECTION, SITE NOT SPECIF 01/13/2018 LIZZETH PRESCOTT DO Ot R51 HEADACHE 07/10/2018 МАРИЯ LOPEZ ANIMAL NUTRITION TEACHER Ot R10.32 LEFT LOWER QUADRANT PAIN 10/01/2018 МАРИЯ LOPEZ ANIMAL NUTRITION TEACHER Ot R10.32 LEFT LOWER QUADRANT PAIN 10/05/2018 CRISTIAN TRUJILLO ANIMAL NUTRITION TEACHER Ot R10.84 GENERALIZED ABDOMINAL PAIN 11/27/2018 CRISTIAN TRUJILLO Ot R10.84 GENERALIZED ABDOMINAL PAIN 11/27/2018 CRISTIAN TRUJILLOP Ot R10.84 GENERALIZED ABDOMINAL PAIN 12/05/2018 CRISTIAN TRUJILLO ANIMAL NUTRITION TEACHER Ot R10.84 GENERALIZED ABDOMINAL PAIN Procedures Code Description Performed By Performed On 72.79 VACUUM EXTRACT DEL NEC 06/07/2012 74.1 LOW CERVICAL 06/07/2012 99.77 APPL/ADMIN OF AN ADHESION BARRIER SUBSTA 06/07/2012 35169 A1C (IN-HOUSE) 06/24/2013 Results Test Result Range [...] Automated erythrocyte mean corpuscular hemoglobin concentration measurement (mass/volume) 35 g/dL 32-36 Automated erythrocyte distribution width ratio 12.5 % 10.0- 14.5 Automated blood platelet count (count/volume) 342 10*3/uL [...] Blood monocytes automated count (number/volume) 1.0 10*3 0.0- 1.0 Automated eosinophil count 0.3 10*3/uL 0.0-0.3 Automated [...] Serum or plasma aspartate aminotransferase measurement (enzymatic activity/volume) 13 U/L 5-34 Serum or plasma alanine aminotransferase measurement (enzymatic activity/volume) 19 U/L 0-55 Serum or plasma protein measurement (mass/volume) 8.6 g/dL 6.4-8.2 Serum or plasma albumin measurement (mass/volume) 4.4 g/dL 3.2-4.5 Magnesium - 05/25/17 00:01 Magnesium 2.0 mg/dL 1.8-2.4 Serum or plasma amylase measurement (enzymatic activity/volume) - 05/25/17 00:01 Serum or plasma amylase measurement (enzymatic activity/volume) 59 U/L 25-125 Lipase - 05/25/17 00:01 Lipase 35 U/L 8-78 Complete urinalysis with reflex to culture - 05/26/17 01:40 Urine color determination YELLOW NRG Urine clarity determination CLEAR NRG Urine pH measurement by test strip 6 5-9 Specific gravity of urine by test strip 1.010 1.016-1.022 Urine protein assay by test strip, semi-quantitative [...] sediment leukocyte count by microscopy (number/high power field) RARE NRG Bacteria detection in urine sediment [...] glucose measurement by glucometer (mass/volume) - 05/26/17 02:38 Capillary blood glucose measurement by glucometer (mass/volume) 365 mg/dL 70-110 Capillary blood glucose measurement by glucometer (mass/volume) - 05/26/17 03:46 Capillary blood glucose measurement by glucometer (mass/volume) [...] Automated erythrocyte mean corpuscular hemoglobin concentration measurement (mass/volume) 35 g/dL 32-36 Automated erythrocyte distribution width ratio 12.5 % 10.0- 14.5 Automated blood platelet count (count/volume) 329 10*3/uL [...] Blood monocytes automated count (number/volume) 0.4 10*3 0.0- 1.0 Automated eosinophil count 0.4 10*3/uL 0.0-0.3 Automated [...] Serum or plasma aspartate aminotransferase measurement (enzymatic activity/volume) 13 U/L 5-34 Serum or plasma alanine aminotransferase measurement (enzymatic activity/volume) 25 U/L 0-55 Serum or plasma protein measurement (mass/volume) 7.5 g/dL 6.4-8.2 Serum or plasma albumin measurement (mass/volume) 3.4 g/dL 3.2-4.5 Influenza virus A and B antigen detection - 08/30/17 15:22 FLU RESULT NEGATIVE FOR INFLUENZA A AND B ANTIGENS BY IA NRG Capillary blood glucose measurement by glucometer (mass/volume) - 08/30/17 15:23 Capillary blood glucose measurement by glucometer (mass/volume) 427 mg/dL 70-110 Capillary blood glucose measurement by glucometer (mass/volume) - 08/30/17 17:15 Capillary blood glucose measurement by glucometer (mass/volume) 294 mg/dL 70-110 Complete urinalysis with reflex to culture - 08/30/17 17:35 Urine color determination YELLOW NRG Urine clarity determination CLEAR NRG Urine pH measurement by test strip 6 5-9 Specific gravity of urine by test strip 1.010 1.016-1.022 Urine protein assay by test strip, semi-quantitative [...] sediment leukocyte count by microscopy (number/high power field) [HPF] NRG Bacteria detection in urine sediment by light microscopy NEGATIVE NRG Crystals detection in urine sediment by light microscopy NONE NRG Casts detection in urine sediment by light microscopy NONE NRG Mucus detection in urine sediment by light microscopy NEGATIVE NRG Complete urinalysis with reflex to culture NO NRG Capillary blood glucose measurement by glucometer (mass/volume) - 08/30/17 18:19 Capillary blood glucose measurement by glucometer (mass/volume) 274 mg/dL 70-110 Capillary blood glucose measurement by glucometer (mass/volume) - 01/10/18 19:30 Capillary blood glucose measurement by glucometer (mass/volume) 362 mg/dL 70-110 Complete blood count (CBC) with automated white blood cell (WBC) differential - 01/10/18 19:35 Blood leukocytes automated count (number/volume) 8.5 10*3/uL 4.3-11.0 Blood erythrocytes automated count (number/volume) 4.32 10*6/uL 4.35-5.85 Venous blood hemoglobin measurement (mass/volume) 11.3 g/dL 11.5-16.0 Blood hematocrit (volume fraction) 34 % 35-52 Automated erythrocyte mean corpuscular volume 79 [foz_us] 80-99 Automated erythrocyte mean corpuscular hemoglobin (mass per erythrocyte) 26 pg 25-34 Automated erythrocyte mean corpuscular hemoglobin concentration measurement (mass/volume) 33 g/dL 32-36 Automated erythrocyte distribution width ratio 12.2 % 10.0- 14.5 Automated blood platelet count (count/volume) 578 10*3/uL 130-400 Automated blood platelet mean volume measurement 8.8 [foz_us] 7.4-10.4 Automated blood neutrophils/100 leukocytes 75 % 42-75 Automated blood lymphocytes/100 leukocytes 22 % 12-44 Blood monocytes/100 leukocytes 2 % 0-12 Automated blood eosinophils/100 leukocytes 0 % 0-10 Automated blood basophils/100 leukocytes 0 % 0-10 Blood neutrophils automated count (number/volume) 6.4 10*3 1.8-7.8 Blood lymphocytes automated count (number/volume) 1.9 10*3 1.0-4.0 Blood monocytes automated count (number/volume) 0.1 10*3 0.0- 1.0 Automated eosinophil count 0.0 10*3/uL 0.0-0.3 Automated blood basophil count (count/volume) 0.0 10*3/uL 0.0-0.1 Blood lactic acid measurement (moles/volume) - 01/10/18 19:35 Blood lactic acid measurement (moles/volume) 10.63 mmol/L 0.50-2.00 Comprehensive metabolic panel - 01/10/18 19:35 Serum or plasma sodium measurement (moles/volume) 135 mmol/L 135-145 Serum or plasma potassium measurement (moles/volume) 4.2 mmol/L 3.6-5.0 Serum or plasma chloride measurement (moles/volume) 97 mmol/L 98-107 Carbon dioxide 16 mmol/L 21-32 Serum or plasma anion gap determination (moles/volume) 22 mmol/L 5-14 Serum or plasma urea nitrogen measurement (mass/volume) 7 mg/dL 7-18 Serum or plasma creatinine measurement (mass/volume) 0.96 mg/dL 0.60-1.30 Serum or plasma urea nitrogen/creatinine mass ratio 7 NRG Serum or plasma creatinine measurement with calculation of estimated glomerular filtration rate > NRG Serum or plasma glucose measurement (mass/volume) 417 mg/dL 70-105 Serum or plasma calcium measurement (mass/volume) 9.8 mg/dL 8.5-10.1 Serum or plasma total bilirubin measurement (mass/volume) 0.2 mg/dL 0.1-1.0 Serum or plasma alkaline phosphatase measurement (enzymatic activity/volume) 129 U/L 40-136 Serum or plasma aspartate aminotransferase measurement (enzymatic activity/volume) 22 U/L 5-34 Serum or plasma alanine aminotransferase measurement (enzymatic activity/volume) 23 U/L 0-55 Serum or plasma protein measurement (mass/volume) 8.8 g/dL 6.4-8.2 Serum or plasma albumin measurement (mass/volume) 4.0 g/dL 3.2-4.5 Serum or plasma creatine kinase measurement (enzymatic activity/volume) - 01/10/18 19:35 Serum or plasma creatine kinase measurement (enzymatic activity/volume) 36 U/L 29-168 PT panel in platelet poor plasma by coagulation assay - 01/10/18 19:35 Prothrombin time (PT) in platelet poor plasma by coagulation assay 15.3 s 12.2-14.7 INR in platelet poor plasma or blood by coagulation assay 1.2 0.8-1.4 Activated partial thromboplastin time (aPTT) in platelet poor plasma bycoagulation assay - 01/10/18 19:35 Activated partial thromboplastin time (aPTT) in platelet poor plasma bycoagulation assay 27 s 24-35 Serum or plasma choriogonadotropin ( test) detection - 01/10/18 19:35 Serum or plasma choriogonadotropin ( test) detection NEGATIVE NEGATIVE Bacterial blood culture - 01/10/18 19:35 Bacterial blood culture NG NRG Influenza virus A and B antigen detection - 01/10/18 19:48 FLU RESULT NEGATIVE FOR INFLUENZA A AND B ANTIGENS BY IA NRG Complete urinalysis with reflex to culture - 01/10/18 20:03 Urine color determination YELLOW NRG Urine clarity determination SLIGHTLY CLOUDY NRG Urine pH measurement by test strip 5 5-9 Specific gravity of urine by test strip 1.015 1.016-1.022 Urine protein assay by test strip, semi-quantitative 3+ NEGATIVE Urine glucose detection by automated test strip 4+ NEGATIVE Erythrocytes detection in urine sediment by light microscopy 3+ NEGATIVE Urine ketones detection by automated test strip NEGATIVE NEGATIVE Urine nitrite detection by test strip POSITIVE NEGATIVE Urine total bilirubin detection by test strip NEGATIVE NEGATIVE Urine urobilinogen measurement by automated test strip (mass/volume) NORMAL NORMAL Urine leukocyte esterase detection by dipstick NEGATIVE NEGATIVE Automated urine sediment erythrocyte count by microscopy (number/high power field) [HPF] NRG Automated urine sediment leukocyte count by microscopy (number/high power field) [HPF] NRG Bacteria detection in urine sediment by light microscopy LARGE NRG Squamous epithelial cells detection in urine sediment by light microscopy 2-5 NRG Crystals detection in urine sediment by light microscopy NONE NRG Casts detection in urine sediment by light microscopy NONE NRG Mucus detection in urine sediment by light microscopy NEGATIVE NRG Complete urinalysis with reflex to culture YES NRG Bacterial urine culture - 01/10/18 20:03 Bacterial urine culture RML NRG COLONY COUNT . NRG FTX;REPORTABLE RML SENT SENSITIVITY REPORT 01/12 09:06 NR RML Sensitivity Panel - 01/10/18 20:03 Gentamicin susceptibility test by minimum inhibitory concentration <= NRG Trimethoprim/sulfamethoxazole susceptibility test by minimum inhibitoryconcentration > NRG Levofloxacin susceptibility test by minimum inhibitory concentration <= NRG Ampicillin susceptibility test by minimum inhibitory concentration > NRG Cefazolin susceptibility test by minimum inhibitory concentration 2 NRG Ceftriaxone susceptibility test by minimum inhibitory concentration <= NRG Ciprofloxacin susceptibility test by minimum inhibitory concentration <= NRG Meropenem susceptibility test by minimum inhibitory concentration <= NRG Nitrofurantoin susceptibility test by minimum inhibitory concentration <= NRG Amoxicillin and clavulanate potassium susc FABIOLA = NRG Bacterial blood culture - 01/10/18 20:07 FREE TEXT EXTERNAL REFER TO CULTURE URINE [id number] FOR SENS NRG QUANTITY OF GROWTH Isolated NRG Bacterial blood culture [id number] NRG Serum or plasma lactate measurement (moles/volume) - 01/10/18 21:42 Serum or plasma lactate measurement (moles/volume) 3.53 mmol/L 0.50-2.00 Capillary blood glucose measurement by glucometer (mass/volume) - 01/10/18 23:14 Capillary blood glucose measurement by glucometer (mass/volume) 325 mg/dL 70-110 Methicillin resistant Staphylococcus aureus (MRSA) screening culture - 01/10/18 23:30 Methicillin resistant Staphylococcus aureus (MRSA) screening culture NEG NRG Capillary blood glucose measurement by glucometer (mass/volume) - 01/10/18 23:40 Capillary blood glucose measurement by glucometer (mass/volume) 392 mg/dL 70-110 Whole blood basic metabolic panel - 01/11/18 00:25 Serum or plasma sodium measurement (moles/volume) 137 mmol/L 135-145 Serum or plasma potassium measurement (moles/volume) 3.5 mmol/L 3.6-5.0 Serum or plasma chloride measurement (moles/volume) 108 mmol/L 98-107 Carbon dioxide 16 mmol/L 21-32 Serum or plasma anion gap determination (moles/volume) 13 mmol/L 5-14 Serum or plasma urea nitrogen measurement (mass/volume) 11 mg/dL 7-18 Serum or plasma creatinine measurement (mass/volume) 0.76 mg/dL 0.60-1.30 Serum or plasma urea nitrogen/creatinine mass ratio 14 NRG Serum or plasma creatinine measurement with calculation of estimated glomerular filtration rate > NRG Serum or plasma glucose measurement (mass/volume) 261 mg/dL 70-105 Serum or plasma calcium measurement (mass/volume) 8.9 mg/dL 8.5-10.1 Capillary blood glucose measurement by glucometer (mass/volume) - 01/11/18 01:04 Capillary blood glucose measurement by glucometer (mass/volume) 211 mg/dL 70-110 Complete blood count (CBC) with automated white blood cell (WBC) differential - 01/11/18 02:00 Blood leukocytes automated count (number/volume) 15.6 10*3/uL 4.3-11.0 Blood erythrocytes automated count (number/volume) 3.41 10*6/uL 4.35-5.85 Venous blood hemoglobin measurement (mass/volume) 9.1 g/dL 11.5-16.0 Blood hematocrit (volume fraction) 27 % 35-52 Automated erythrocyte mean corpuscular volume 78 [foz_us] 80-99 Automated erythrocyte mean corpuscular hemoglobin (mass per erythrocyte) 27 pg 25-34 Automated erythrocyte mean corpuscular hemoglobin concentration measurement (mass/volume) 34 g/dL 32-36 Automated erythrocyte distribution width ratio 11.9 % 10.0- 14.5 Automated blood platelet count (count/volume) 438 10*3/uL 130-400 Automated blood platelet mean volume measurement 8.2 [foz_us] 7.4-10.4 Automated blood neutrophils/100 leukocytes 79 % 42-75 Automated blood lymphocytes/100 leukocytes 14 % 12-44 Blood monocytes/100 leukocytes 8 % 0-12 Automated blood eosinophils/100 leukocytes 0 % 0-10 Automated blood basophils/100 leukocytes 0 % 0-10 Blood neutrophils automated count (number/volume) 12.3 10*3 1.8-7.8 Blood lymphocytes automated count (number/volume) 2.1 10*3 1.0-4.0 Blood monocytes automated count (number/volume) 1.2 10*3 0.0- 1.0 Automated eosinophil count 0.0 10*3/uL 0.0-0.3 Automated blood basophil count (count/volume) 0.0 10*3/uL 0.0-0.1 Blood lactic acid measurement (moles/volume) - 01/11/18 02:00 Blood lactic acid measurement (moles/volume) 1.48 mmol/L 0.50- 2.00 Whole blood basic metabolic panel - 01/11/18 02:00 Serum or plasma sodium measurement (moles/volume) 136 mmol/L 135-145 Serum or plasma potassium measurement (moles/volume) 4.0 mmol/L 3.6-5.0 Serum or plasma chloride measurement (moles/volume) 107 mmol/L 98-107 Carbon dioxide 18 mmol/L 21-32 Serum or plasma anion gap determination (moles/volume) 11 mmol/L 5-14 Serum or plasma urea nitrogen measurement (mass/volume) 11 mg/dL 7-18 Serum or plasma creatinine measurement (mass/volume) 0.67 mg/dL 0.60-1.30 Serum or plasma urea nitrogen/creatinine mass ratio 16 NRG Serum or plasma creatinine measurement with calculation of estimated glomerular filtration rate > NRG Serum or plasma glucose measurement (mass/volume) 235 mg/dL 70-105 Serum or plasma calcium measurement (mass/volume) 8.7 mg/dL 8.5-10.1 Serum or plasma phosphate measurement (mass/volume) - 01/11/18 02:00 Serum or plasma phosphate measurement (mass/volume) 1.8 mg/dL 2.3-4.7 Magnesium - 01/11/18 02:00 Magnesium 1.5 mg/dL 1.8-2.4 Blood manual differential performed detection - 01/11/18 02:00 Blood monocytes/100 leukocytes 3 % NRG Manual blood segmented neutrophils/100 leukocytes 84 % NRG Blood band neutrophils/100 leukocytes 0 % NRG Manual blood lymphocytes/100 leukocytes 13 % NRG Manual eosinophils/100 leukocytes in nose 0 % NRG Manual blood basophils/100 leukocytes 0 % NRG Blood erythrocyte morphology finding identification NORMAL NRG Capillary blood glucose measurement by glucometer (mass/volume) - 01/11/18 02:02 Capillary blood glucose measurement by glucometer (mass/volume) 237 mg/dL 70-110 Capillary blood glucose measurement by glucometer (mass/volume) - 01/11/18 03:07 Capillary blood glucose measurement by glucometer (mass/volume) 189 mg/dL 70-110 Capillary blood glucose measurement by glucometer (mass/volume) - 01/11/18 03:59 Capillary blood glucose measurement by glucometer (mass/volume) 191 mg/dL 70-110 Capillary blood glucose measurement by glucometer (mass/volume) - 01/11/18 05:04 Capillary blood glucose measurement by glucometer (mass/volume) 148 mg/dL 70-110 Capillary blood glucose measurement by glucometer (mass/volume) - 01/11/18 05:36 Capillary blood glucose measurement by glucometer (mass/volume) 148 mg/dL 70-110 Whole blood basic metabolic panel - 01/11/18 05:55 Serum or plasma sodium measurement (moles/volume) 135 mmol/L 135-145 Serum or plasma potassium measurement (moles/volume) 4.0 mmol/L 3.6-5.0 Serum or plasma chloride measurement (moles/volume) 107 mmol/L 98-107 Carbon dioxide 19 mmol/L Serum or plasma anion gap determination (moles/volume) 9 mmol/L -14 Serum or plasma urea nitrogen measurement (mass/volume) 7 mg/dL -18 Serum or plasma creatinine measurement (mass/volume) 0.58 mg/dL 0.60-1.30 Serum or plasma urea nitrogen/creatinine mass ratio 12 NRG Serum or plasma creatinine measurement with calculation of estimated glomerular filtration rate > NRG Serum or plasma glucose measurement (mass/volume) 140 mg/dL 70-105 Serum or plasma calcium measurement (mass/volume) 8.8 mg/dL 8.5-10.1 Capillary blood glucose measurement by glucometer (mass/volume) - 01/11/18 06:04 Capillary blood glucose measurement by glucometer (mass/volume) 140 mg/dL 70-110 Capillary blood glucose measurement by glucometer (mass/volume) - 01/11/18 06:31 Capillary blood glucose measurement by glucometer (mass/volume) 173 mg/dL 70-110 Capillary blood glucose measurement by glucometer (mass/volume) - 01/11/18 07:46 Capillary blood glucose measurement by glucometer (mass/volume) 201 mg/dL 70-110 Capillary blood glucose measurement by glucometer (mass/volume) - 01/11/18 08:36 Capillary blood glucose measurement by glucometer (mass/volume) 312 mg/dL 70-110 Capillary blood glucose measurement by glucometer (mass/volume) - 01/11/18 09:32 Capillary blood glucose measurement by glucometer (mass/volume) 361 mg/dL 70-110 Whole blood basic metabolic panel - 01/11/18 14:00 Serum or plasma sodium measurement (moles/volume) 138 mmol/L 135-145 Serum or plasma potassium measurement (moles/volume) 3.6 mmol/L 3.6-5.0 Serum or plasma chloride measurement (moles/volume) 109 mmol/L 98-107 Carbon dioxide 23 mmol/L -32 Serum or plasma anion gap determination (moles/volume) 6 mmol/L -14 Serum or plasma urea nitrogen measurement (mass/volume) 5 mg/dL 18 Serum or plasma creatinine measurement (mass/volume) 0.56 mg/dL 0.60-1.30 Serum or plasma urea nitrogen/creatinine mass ratio 9 NRG Serum or plasma creatinine measurement with calculation of estimated glomerular filtration rate > NRG Serum or plasma glucose measurement (mass/volume) 85 mg/dL 70-105 Serum or plasma calcium measurement (mass/volume) 8.8 mg/dL 8.5-10.1 Capillary blood glucose measurement by glucometer (mass/volume) - 01/11/18 14:25 Capillary blood glucose measurement by glucometer (mass/volume) 82 mg/dL 70-110 Capillary blood glucose measurement by glucometer (mass/volume) - 01/11/18 16:49 Capillary blood glucose measurement by glucometer (mass/volume) 212 mg/dL 70-110 Capillary blood glucose measurement by glucometer (mass/volume) - 01/11/18 19:52 Capillary blood glucose measurement by glucometer (mass/volume) 79 mg/dL 70-110 Capillary blood glucose measurement by glucometer (mass/volume) - 01/11/18 22:22 Capillary blood glucose measurement by glucometer (mass/volume) 184 mg/dL 70-110 Complete blood count (CBC) with automated white blood cell (WBC) differential - 01/12/18 04:26 Blood leukocytes automated count (number/volume) 12.0 10*3/uL 4.3-11.0 Blood erythrocytes automated count (number/volume) 3.62 10*6/uL 4.35-5.85 Venous blood hemoglobin measurement (mass/volume) 9.4 g/dL 11.5-16.0 Blood hematocrit (volume fraction) 28 % 35-52 Automated erythrocyte mean corpuscular volume 78 [foz_us] 80-99 Automated erythrocyte mean corpuscular hemoglobin (mass per erythrocyte) 26 pg 25-34 Automated erythrocyte mean corpuscular hemoglobin concentration measurement (mass/volume) 33 g/dL 32-36 Automated erythrocyte distribution width ratio 12.5 % 10.0- 14.5 Automated blood platelet count (count/volume) 566 10*3/uL 130-400 Automated blood platelet mean volume measurement 8.5 [foz_us] 7.4-10.4 Automated blood neutrophils/100 leukocytes 67 % 42-75 Automated blood lymphocytes/100 leukocytes 21 % 12-44 Blood monocytes/100 leukocytes 11 % 0-12 Automated blood eosinophils/100 leukocytes 1 % 0-10 Automated blood basophils/100 leukocytes 0 % 0-10 Blood neutrophils automated count (number/volume) 8.0 10*3 1.8-7.8 Blood lymphocytes automated count (number/volume) 2.6 10*3 1.0-4.0 Blood monocytes automated count (number/volume) 1.3 10*3 0.0- 1.0 Automated eosinophil count 0.1 10*3/uL 0.0-0.3 Automated blood basophil count (count/volume) 0.0 10*3/uL 0.0-0.1 Serum or plasma phosphate measurement (mass/volume) - 01/12/18 04:26 Serum or plasma phosphate measurement (mass/volume) 3.5 mg/dL 2.3-4.7 Magnesium - 01/12/18 04:26 Magnesium 1.9 mg/dL 1.8-2.4 Whole blood basic metabolic panel - 01/12/18 04:26 Serum or plasma sodium measurement (moles/volume) 136 mmol/L 135-145 Serum or plasma potassium measurement (moles/volume) 3.7 mmol/L 3.6-5.0 Serum or plasma chloride measurement (moles/volume) 105 mmol/L 98-107 Carbon dioxide 21 mmol/L 21-32 Serum or plasma anion gap determination (moles/volume) 10 mmol/L 5-14 Serum or plasma urea nitrogen measurement (mass/volume) 5 mg/dL 7-18 Serum or plasma creatinine measurement (mass/volume) 0.57 mg/dL 0.60-1.30 Serum or plasma urea nitrogen/creatinine mass ratio 9 NRG Serum or plasma creatinine measurement with calculation of estimated glomerular filtration rate > NRG Serum or plasma glucose measurement (mass/volume) 109 mg/dL 70-105 Serum or plasma calcium measurement (mass/volume) 9.5 mg/dL 8.5-10.1 Capillary blood glucose measurement by glucometer (mass/volume) - 01/12/18 04:28 Capillary blood glucose measurement by glucometer (mass/volume) 111 mg/dL 70-110 Capillary blood glucose measurement by glucometer (mass/volume) - 01/12/18 11:24 Capillary blood glucose measurement by glucometer (mass/volume) 253 mg/dL 70-110 Capillary blood glucose measurement by glucometer (mass/volume) - 01/12/18 16:10 Capillary blood glucose measurement by glucometer (mass/volume) 221 mg/dL 70-110 Capillary blood glucose measurement by glucometer (mass/volume) - 01/12/18 20:20 Capillary blood glucose measurement by glucometer (mass/volume) 188 mg/dL 70-110 Complete blood count (CBC) with automated white blood cell (WBC) differential - 01/13/18 04:47 Blood leukocytes automated count (number/volume) 9.9 10*3/uL 4.3-11.0 Blood erythrocytes automated count (number/volume) 3.37 10*6/uL 4.35-5.85 Venous blood hemoglobin measurement (mass/volume) 8.8 g/dL 11.5-16.0 Blood hematocrit (volume fraction) 26 % 35-52 Automated erythrocyte mean corpuscular volume 78 [foz_us] 80-99 Automated erythrocyte mean corpuscular hemoglobin (mass per erythrocyte) 26 pg 25-34 Automated erythrocyte mean corpuscular hemoglobin concentration measurement (mass/volume) 34 g/dL 32-36 Automated erythrocyte distribution width ratio 12.0 % 10.0- 14.5 Automated blood platelet count (count/volume) 583 10*3/uL 130-400 Automated blood platelet mean volume measurement 8.4 [foz_us] 7.4-10.4 Automated blood neutrophils/100 leukocytes 61 % 42-75 Automated blood lymphocytes/100 leukocytes 30 % 12-44 Blood monocytes/100 leukocytes 7 % 0-12 Automated blood eosinophils/100 leukocytes 2 % 0-10 Automated blood basophils/100 leukocytes 0 % 0-10 Blood neutrophils automated count (number/volume) 6.1 10*3 1.8-7.8 Blood lymphocytes automated count (number/volume) 2.9 10*3 1.0-4.0 Blood monocytes automated count (number/volume) 0.7 10*3 0.0- 1.0 Automated eosinophil count 0.2 10*3/uL 0.0-0.3 Automated blood basophil count (count/volume) 0.0 10*3/uL 0.0-0.1 Whole blood basic metabolic panel - 01/13/18 04:47 Serum or plasma sodium measurement (moles/volume) 138 mmol/L 135-145 Serum or plasma potassium measurement (moles/volume) 3.8 mmol/L 3.6-5.0 Serum or plasma chloride measurement (moles/volume) 107 mmol/L 98-107 Carbon dioxide 19 mmol/L 21-32 Serum or plasma anion gap determination (moles/volume) 12 mmol/L 5-14 Serum or plasma urea nitrogen measurement (mass/volume) 4 mg/dL 7-18 Serum or plasma creatinine measurement (mass/volume) 0.58 mg/dL 0.60-1.30 Serum or plasma urea nitrogen/creatinine mass ratio 7 NRG Serum or plasma creatinine measurement with calculation of estimated glomerular filtration rate > NRG Serum or plasma glucose measurement (mass/volume) 120 mg/dL 70-105 Serum or plasma calcium measurement (mass/volume) 9.2 mg/dL 8.5-10.1 Serum or plasma phosphate measurement (mass/volume) - 01/13/18 04:47 Serum or plasma phosphate measurement (mass/volume) 4.3 mg/dL 2.3-4.7 Magnesium - 01/13/18 04:47 Magnesium 1.7 mg/dL 1.8-2.4 Capillary blood glucose measurement by glucometer (mass/volume) - 01/13/18 10:43 Capillary blood glucose measurement by glucometer (mass/volume) 191 mg/dL 70-110 Encounters ACCT No. Visit Date/Time Discharge Status Pt. Type Provider Facility Loc./Unit Complaint [id number] 06/24/2013 11:58:00 06/24/2013 23:59:59 CLS Outpatient SU CARRASCO DO [id number] 10/02/2018 09:02:00 10/02/2018 23:59:59 CLS Outpatient CRISTIAN TRUJILLO [facility] RAD GENERALIZED ABD PAIN [id number] 01/10/2018 21:24:00 01/13/2018 12:00:00 DIS Inpatient LIZZETH PRESCOTT DO [facility] 4TH SEPSIS;UTI;LACTIC ACIDOSIS;HYPERGLYCEMIA;ANXIETY [id number] 08/30/2017 14:31:00 08/30/2017 18:24:00 DIS Emergency ERASMO KAUFMAN APRN [facility] ER POSS DKA [id number] 05/25/2017 23:14:00 05/26/2017 04:05:00 DIS Emergency ELLA AYALA DO [facility] ER RT SIDE PAIN [id number] 11/10/2016 12:58:00 11/10/2016 23:59:59 CLS Outpatient JOHN МАРИЯLeisa LIRA [facility] RAD LLQ PAIN [id number] 04/29/2014 18:47:00 04/29/2014 23:01:00 DIS Emergency FELICITAS OLIVAS [facility] ER ABD PAIN [id number] 04/10/2013 17:50:00 04/11/2013 01:05:00 DIS Inpatient CORBINNERIS KADEN S [facility] C/O CONTRACTIONS [id number] 03/19/2013 14:00:00 03/19/2013 17:10:00 DIS Outpatient RHETT WU DO [facility] C/O CONTRACTIONS [id number] 02/04/2013 09:30:00 02/04/2013 10:45:00 DIS Out[facility] [id number] 06/23/2014 14:54:00 Document Registration [id number] 06/07/2012 09:55:00 Document Registration [id number] 09/28/2011 10:11:00 Document Registration [id number] 09/27/2011 17:11:00 Document Registration [id number] 03/31/2009 07:58:00 Document Registration
[2019-02-14] MEDS ORDERED: LACTATED RINGERS 1,000 ML IV ONE ×2 (10:48)
--- NOTE | 2019-02-14 10:58 | ED Respiratory ---
General Stated Complaint: LIGHTHEADED;SOA;BODY ACHES;WEAKNESS Source: patient Exam Limitations: no limitations History of Present Illness Date Seen by Provider: Feb 14, 2019 Time Seen by Provider: 10:40 Initial Comments The patient presents to ER by private conveyance with chief complaint of one week of body aches nausea without vomiting and shortness of breath. She has had diarrhea for the past week off and on. She took some Pepto-Bismol with moderate benefit. She denies any recent camping or drinking unsafe water supply. She denies recent travel outside the [facility]. Does have a history of diabetes for which she is mostly on insulin but she has not taken it for over a year and does not divulge a reason why. She's had C-sections and a tubal ligation on her most recent child. No dysuria, discharge. No tick bites or insect bites that she is aware of. She has not seen anybody else for this yet. She's had a cough that is not productive and denies a history of COPD, asthma, lung disease or history of smoking alcohol or drugs. Allergies and Home Medications Allergies Coded Allergies: No Known Drug Allergies (Verified , 04/29/08) Home Medications Gabapentin 300 Mg Capsule, 300 MG PO DAILY, (Reported) Insulin Aspart 100 Unit/1 Ml Susp, 10 UNIT SC WM Prescribed by: SU CARRASCO on 01/13/18 1023 Insulin Determir 1,000 Units/10 Ml Soln, 30 UNIT SQ HS Prescribed by: SU CARRASCO on 01/13/18 1024 Lisinopril 5 Mg Tablet, 10 MG PO DAILY Prescribed by: SU CARRASCO on 01/13/18 1024 Patient Home Medication List Home Medication List Reviewed: Yes Review of Systems Review of Systems Constitutional: No chills, No diaphoresis EENTM: No ear discharge, No hearing loss Respiratory: see HPI, cough; No phlegm; short of breath; No wheezing Cardiovascular: No chest pain, No edema, No palpitations Gastrointestinal: No abdominal pain, No constipation; diarrhea, nausea; No vomiting Genitourinary: No discharge Musculoskeletal: No back pain, No joint pain Skin: No pruritus, No rash Psychiatric/Neurological: Headache; Denies Numbness, Denies Paresthesia Past Qztjlmf-Mswmew-Ambfwl Hx Patient Social History Alcohol Use: Denies Use Recreational Drug Use: No Smoking Status: Never a Smoker 2nd Hand Smoke Exposure: No Recent Hopitalizations: No Immunizations Up To Date Tetanus Booster (TDap): Less than 5yrs Date of Pneumonia Vaccine: Jan 11, 2015 Date of Influenza Vaccine: May 16, 2012 Seasonal Allergies Seasonal Allergies: No Past Medical History Surgeries: Yes (C-SECTIONS x3) Section, Tubal Ligation Respiratory: No Cardiac: No High Cholesterol, Hypertension Neurological: No Reproductive Disorders: No Female Reproductive Disorders: 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 Physical Exam Vital Signs - First Documented 02/14/19 10:38 Temp 98.0 Pulse 105 Resp 18 B/P (MAP) 147/94 (111) Pulse Ox 98 O2 Delivery Room Air Capillary Refill : Height: 5'1.00" Weight: 129lbs. 12.8oz. 58.163748tm; 24.2 BMI Method:Stated General Appearance: WD/WN, mild distress Eyes: Bilateral Eye Normal Inspection, Bilateral Eye PERRL, Bilateral Eye EOMI HEENT: PERRL/EOMI, normal ENT inspection, TMs normal; No photophobia; pharyngeal erythema; No tonsillar exudate Neck: non-tender, full range of motion, supple, normal inspection Respiratory: chest non-tender, lungs clear, normal breath sounds, no respiratory distress, no accessory muscle use Cardiovascular: normal peripheral pulses, regular rate, rhythm, no edema Gastrointestinal: normal bowel sounds, non tender, soft, no organomegaly Neurologic/Psychiatric: no motor/sensory deficits, alert, normal mood/affect, oriented x 3 Skin: normal color, warm/dry Focused Exam Lactate Level 02/14/19 10:52: Lactic Acid Level 2.18*H Lactic Acid Level Laboratory Tests Test 02/14/19 10:52 Lactic Acid Level 2.18 MMOL/L (0.50-2.00) *H Progress/Results/Core Measures Suspected Sepsis SIRS Temperature: Pulse: Respiratory Rate: Laboratory Tests 02/14/19 10:52: White Blood Count 7.8 Blood Pressure / Mean: 02/14/19 10:52: Lactic Acid Level 2.18*H Laboratory Tests 02/14/19 10:52: Creatinine 1.25, INR Comment 1.0, Platelet Count 629H, Total Bilirubin 0.3 Results/Orders Lab Results Laboratory Tests Test 02/14/19 10:52 02/14/19 11:08 02/14/19 11:09 Range/Units White Blood Count 7.8 4.3-11.0 10^3/uL Red Blood Count 5.03 4.35-5.85 10^6/uL Hemoglobin 10.8 L 11.5-16.0 G/DL Hematocrit 34 L 35-52 % Mean Corpuscular Volume 68 L 80-99 FL Mean Corpuscular Hemoglobin 21 L 25-34 PG Mean Corpuscular Hemoglobin Concent 32 32-36 G/DL Red Cell Distribution Width 15.7 H 10.0-14.5 % Platelet Count 629 H 130-400 10^3/uL Mean Platelet Volume 8.4 7.4-10.4 FL Neutrophils (%) (Auto) 60 42-75 % Lymphocytes (%) (Auto) 30 12-44 % Monocytes (%) (Auto) 9 0-12 % Eosinophils (%) (Auto) 1 0-10 % Basophils (%) (Auto) 0 0-10 % Neutrophils # (Auto) 4.7 1.8-7.8 X 10^3 Lymphocytes # (Auto) 2.4 1.0-4.0 X 10^3 Monocytes # (Auto) 0.7 0.0-1.0 X 10^3 Eosinophils # (Auto) 0.1 0.0-0.3 10^3/uL Basophils # (Auto) 0.0 0.0-0.1 10^3/uL Prothrombin Time 13.4 12.2-14.7 SEC INR Comment 1.0 0.8-1.4 Activated Partial Thromboplast Time 26 24-35 SEC Sodium Level 132 L 135-145 MMOL/L Potassium Level 4.1 3.6-5.0 MMOL/L Chloride Level 98 98-107 MMOL/L Carbon Dioxide Level 24 21-32 MMOL/L Anion Gap 10 5-14 MMOL/L Blood Urea Nitrogen 10 7-18 MG/DL Creatinine 1.25 0.60-1.30 MG/DL Estimat Glomerular Filtration Rate 49 BUN/Creatinine Ratio 8 Glucose Level 457 *H 70-105 MG/DL Lactic Acid Level 2.18 *H 0.50-2.00 MMOL/L Calcium Level 9.9 8.5-10.1 MG/DL Corrected Calcium 9.6 8.5-10.1 MG/DL Total Bilirubin 0.3 0.1-1.0 MG/DL Aspartate Amino Transf (AST/SGOT) 13 5-34 U/L Alanine Aminotransferase (ALT/SGPT) 17 0-55 U/L Alkaline Phosphatase 114 40-136 U/L Total Protein 8.5 H 6.4-8.2 GM/DL Albumin 4.4 3.2-4.5 GM/DL Urine Color YELLOW Urine Clarity CLEAR Urine pH 6 5-9 Urine Specific [place] 1.015 L 1.016-1.022 Urine Protein NEGATIVE NEGATIVE Urine Glucose (UA) 4+ H NEGATIVE Urine Ketones NEGATIVE NEGATIVE Urine Nitrite POSITIVE H NEGATIVE Urine Bilirubin NEGATIVE NEGATIVE Urine Urobilinogen NORMAL NORMAL MG/DL Urine Leukocyte Esterase 1+ H NEGATIVE Urine RBC (Auto) 4+ H NEGATIVE Urine RBC 0-2 /HPF Urine WBC 5-10 H /HPF Urine Squamous Epithelial Cells 2-5 /HPF Urine Crystals NONE /LPF Urine Bacteria MODERATE H /HPF Urine Casts NONE /LPF Urine Mucus NEGATIVE /LPF Urine Culture Indicated CULTURE PENDING Urine Test NEGATIVE NEGATIVE Urine Opiates Screen NEGATIVE NEGATIVE Urine Oxycodone Screen NEGATIVE NEGATIVE Urine Methadone Screen NEGATIVE NEGATIVE Urine Propoxyphene Screen NEGATIVE NEGATIVE Urine Barbiturates Screen NEGATIVE NEGATIVE Ur Tricyclic Antidepressants Screen NEGATIVE NEGATIVE Urine Phencyclidine Screen NEGATIVE NEGATIVE Urine Amphetamines Screen NEGATIVE NEGATIVE Urine Methamphetamines Screen NEGATIVE NEGATIVE Urine Benzodiazepines Screen NEGATIVE NEGATIVE Urine Cocaine Screen NEGATIVE NEGATIVE Urine Cannabinoids Screen NEGATIVE NEGATIVE Group A Streptococcus Screen NEGATIVE NEGATIVE My Orders Orders - AUGUSTINA GUTIERREZ Cbc With Automated Diff (02/14/19 10:48) Comprehensive Metabolic Panel (02/14/19 10:48) Blood Culture (02/14/19 10:48) Sputum Culture (02/14/19 10:48) Urinalysis (02/14/19 10:48) Urine Culture (02/14/19 10:48) Protime With Inr (02/14/19 10:48) Partial Thromboplastin Time (02/14/19 10:48) Ed Iv/Invasive Line Start (02/14/19 10:48) Ed Iv/Invasive Line Start (02/14/19 10:48) Vital Signs Adult Sepsis Patie Q15M (02/14/19 10:48) Ondansetron Injection (Zofran Injectio (02/14/19 11:00) O2 (02/14/19 10:48) Remove Rings In Anticipation O (02/14/19 10:48) Lactic Acid Analyzer (02/14/19 10:48) Lactated Ringers (Lr 1000 Ml Iv Solution (02/14/19 10:48) Ceftriaxone For Iv Use (Rocephin For I (02/14/19 11:00) Azithromycin Injection (Zithromax Inject (02/14/19 11:00) Rapid Strep A Screen (02/14/19 10:48) Drug Screen Stat (Urine) (02/14/19 10:48) Chest Pa/Lat (2 View) (02/14/19 10:48) Ketorolac Injection (Toradol Injection) (02/14/19 11:00) Ed Iv/Invasive Line Start (02/14/19 10:48) Lactated Ringers (Lr 1000 Ml Iv Solution (02/14/19 10:48) Hcg,Qualitative Urine (02/14/19 11:08) Insulin (Regular) Human (Humulin R (Per (02/14/19 11:30) Medications Given in ED Current Medications Medications Dose Ordered Sig/Kendall Route Start Time Stop Time Status Last Admin Dose Admin Azithromycin 500 mg/Sodium Chloride 250 ml @ 250 mls/hr ONCE ONCE IV 02/14/19 11:00 02/14/19 11:59 DC 02/14/19 12:10 250 MLS/HR Ceftriaxone Sodium 1000 mg/ Sterile Water 10 ml @ 200 mls/hr ONCE ONCE IV 02/14/19 11:00 02/14/19 11:02 DC 02/14/19 11:27 200 MLS/HR Insulin Human Regular 15 unit ONCE ONCE SC 02/14/19 11:30 02/14/19 11:31 DC 02/14/19 11:42 15 UNIT Ketorolac Tromethamine 30 mg ONCE ONCE IVP 02/14/19 11:00 02/14/19 11:01 DC 02/14/19 11:31 30 MG Lactated Ringer's 1,000 ml @ 0 mls/hr Q0M ONCE IV 02/14/19 10:48 02/14/19 10:53 DC 02/14/19 11:27 1,000 MLS/HR Lactated Ringer's 1,000 ml @ 0 mls/hr Q0M ONCE IV 02/14/19 10:48 02/14/19 10:53 DC 02/14/19 12:20 1,000 MLS/HR Ondansetron HCl 4 mg PRN PRN IV 02/14/19 11:00 02/14/19 11:31 DC 02/14/19 11:27 4 MG Vital Signs/I&O 02/14/19 10:38 Temp 98.0 Pulse 105 Resp 18 B/P (MAP) 147/94 (111) Pulse Ox 98 O2 Delivery Room Air Capillary Refill : Progress Note #1: Time: 10:59 Progress Note Afebrile, tachycardia. Possible she could have a lung infection or bladder infection in which case Rocephin will be helpful. Her abdomen is nontender and she's having diarrhea which could be viral. Plan to do a septic workup which will give her fluids to replace her she was dehydrated. She denies any rash, fever or evidence of tick bites. Toradol for her headache, body ache. Progress Note #2: Time: 12:50 Progress Note Patient is tearful as we are giving her diagnosis and plan and says she is just sensitive and does not endorse low mood, suicidal ideation, being unsafe at home or other acute concerns. Diagnostic Imaging Diagonstic Imaging: Xray Plain Films/CT/US/NM/MRI: chest (2v) Comments NAME: LEIDA WALDEN [facility] REC#: [id number] PT STATUS: REG ER : 1985 PHYSICIAN: AUGUSTINA GUTIERREZ MD ADMIT DATE: 02/14/19/ER Draft Date of Exam:02/14/19 CHEST PA/LAT (2 VIEW) INDICATION: Shortness of air and diarrhea as well as generalized fatigue. TIME OF EXAM: 11:35 AM Correlation is made with prior chest from 01/12/2018. FINDINGS: The heart size is normal. The pulmonary vascularity is unremarkable. The lungs are clear. No infiltrate, effusion or pneumothorax is detected. IMPRESSION: No acute cardiopulmonary process is detected. Dictated on workstation # [id number] Dict: 02/14/19 1137 Trans: 02/14/19 1139 [id number] Interpreted by: LAMINE AMADOR MD Electronically signed by: Reviewed: Reviewed by Me Departure Communication (Admissions) Time/Spoke to Admitting Phy: 12:40 Dr. Douglass agrees to admit the patient. She would like a hemoglobin A1c. She agrees with Rocephin IV fluids and medical floor. Impression Primary Impression: UTI (urinary tract infection) Qualified Codes: N30.00 - Acute cystitis without hematuria Additional Impressions: Sepsis Qualified Codes: A41.9 - Sepsis, unspecified organism Hyperglycemia due to type 2 diabetes mellitus Qualified Codes: E11.65 - Type 2 diabetes mellitus with hyperglycemia Disposition: ADMITTED INPATIENT Condition: Stable Admissions Decision to Admit Reason: Admit from ER (General) Decision to Admit/Date: Feb 14, 2019 Time/Decision to Admit Time: 16:30 Departure-Patient Inst. Referrals: [facility] (PCP) Primary Care Physician VIKTOR HENSON (Family) Primary Care Physician AUGUSTINA GUTIERREZ Feb 14, 2019 10:58
[2019-02-14] MEDS ORDERED: AZITHROMYCIN INJECTION 500 MG in NS (IVPB) 250 ML IV ONE (11:00)
[2019-02-14] MEDS ORDERED: KETOROLAC 30 MG/ML VIAL IVP ONE (11:00)
[2019-02-14] MEDS ORDERED: ONDANSETRON 4 MG/2 ML (SDV) Z0FRAN IV PRN (11:00)
[2019-02-14] MEDS ORDERED: cefTRIAXone FOR IV USE 1,000 MG in WATER (STERILE) FOR INJECTION 10 ML IV ONE (11:00)
[2019-02-14 11:01] LABS: BASOPHILS % (AUTO) 0 % (0-10); EOSINOPHILS # (AUTO) 0.1 10^3/uL (0.0-0.3); EOSINOPHILS % (AUTO) 1 % (0-10); HEMATOCRIT 34 % (35-52); HEMOGLOBIN 10.8 G/DL (11.5-16.0); LYMPHOCYTES # (AUTO) 2.4 X 10^3 (1.0-4.0); LYMPHOCYTES % (AUTO) 30 % (12-44); MEAN CORPUSCULAR HGB CONC 32 G/DL (32-36); MEAN CORPUSCULAR VOLUME 68 FL (80-99); MEAN PLATELET VOLUME 8.4 FL (7.4-10.4); MONOCYTES # (AUTO) 0.7 X 10^3 (0.0-1.0); MONOCYTES % (AUTO) 9 % (0-12); NEUTROPHILS # (AUTO) 4.7 X 10^3 (1.8-7.8); NEUTROPHILS % (AUTO) 60 % (42-75); PLATELET COUNT 629 10^3/uL (130-400); RED CELL DISTRIBUTION WIDTH 15.7 % (10.0-14.5); WHITE BLOOD COUNT 7.8 10^3/uL (4.3-11.0)
[2019-02-14 11:04] LABS: MEAN CORPUSCULAR HEMOGLOBIN 21 PG (25-34)
[2019-02-14 11:10] LABS: PROTHROMBIN TIME PATIENT 13.4 SEC (12.2-14.7)
[2019-02-14 11:13] LABS: BILIRUBIN,URINE NEGATIVE (NEGATIVE); CLARITY,URINE CLEAR; COLOR,URINE YELLOW; GLUCOSE, URINE (UA) 4+ (NEGATIVE); KETONES,URINE NEGATIVE (NEGATIVE); LEUKOCYTE ESTERASE ,URINE 1+ (NEGATIVE); NITRITE,URINE POSITIVE (NEGATIVE); PH,URINE 6 (5-9); PROTEIN,URINE NEGATIVE (NEGATIVE); UROBILINOGEN,URINE NORMAL (NORMAL)
[2019-02-14 11:16] LABS: ALBUMIN 4.4 GM/DL (3.2-4.5); BILIRUBIN,TOTAL 0.3 MG/DL (0.1-1.0); CALCIUM 9.9 MG/DL (8.5-10.1); CREATININE SERUM 1.25 MG/DL (0.60-1.30); POTASSIUM 4.1 MMOL/L (3.6-5.0); TOTAL PROTEIN 8.5 GM/DL (6.4-8.2)
[2019-02-14 11:18] LABS: HCG,QUALITATIVE URINE NEGATIVE (NEGATIVE)
[2019-02-14 11:25] LABS: BACTERIA,URINE MODERATE /HPF; RBC,URINE 0-2 /HPF
[2019-02-14 11:26] LABS: AMPHETAMINE SCREEN, URINE NEGATIVE (NEGATIVE); BARBITURATE SCREEN URINE NEGATIVE (NEGATIVE); BENZODIAZEPINES SCREEN URINE NEGATIVE (NEGATIVE); CANNABINOID SCREEN, URINE NEGATIVE (NEGATIVE); COCAINE SCREEN URINE NEGATIVE (NEGATIVE); METHADONE STAT NEGATIVE (NEGATIVE); METHAMPHETAMINE SCREEN URINE S NEGATIVE (NEGATIVE); OPIATE SCREEN URINE NEGATIVE (NEGATIVE); OXYCODONE STAT NEGATIVE (NEGATIVE); PROPOXYPHENE STAT NEGATIVE (NEGATIVE); TRICYCLIC ANTIDEPRESSANTS SCRE NEGATIVE (NEGATIVE)
[2019-02-14] MEDS ORDERED: inSUlin (REGULAR) HUMAN 1 UNIT/0.01 ML (CHARGE PER UNIT) SC ONE (11:30)
--- NOTE | 2019-02-14 11:32 | NUR ---
TO X RAY PER W/C
--- NOTE | 2019-02-14 11:40 | Diagnostic Imaging Report ---
INDICATION: Shortness of air and diarrhea as well as generalized fatigue. TIME OF EXAM: 11:35 AM Correlation is made with prior chest from 01/12/2018. FINDINGS: The heart size is normal. The pulmonary vascularity is unremarkable. The lungs are clear. No infiltrate, effusion or pneumothorax is detected. IMPRESSION: No acute cardiopulmonary process is detected. Dictated by: Dictated on workstation # [id number]
--- NOTE | 2019-02-14 12:50 | NUR ---
2ND LATIC ACID DRAWN AND SENT TO LAB
--- NOTE | 2019-02-14 13:00 | NUR ---
LEIDA WALDEN admitted to room 421-1, with an admitting diagnosis of UTI, SEPSIS, HYPERGLYCEMIA AND NIDDM, on 02/14/19 from ED via W/C, accompanied by ED STAFF. LEIDA WLADEN introduced to surroundings, call light, bed controls, phone, TV, temperature control, lights, meal times, smoking policy, visitor policy, side rail policy, bathrooms and showers. Patient Rights given to patient in the handbook. LEIDA WALDEN verbalizes understanding that [facility] is not responsible for the loss or damage to any personal effects or valuables that are kept in the patients possession during their hospitalization.
[2019-02-14 13:30] VITALS: BP 122/83
[2019-02-14] MEDS ORDERED: LORazepam INJ 2 MG/ML (ATIVAN) VIAL IVP PRN (14:00)
[2019-02-14] MEDS ORDERED: KETOROLAC 15 MG/ML VIAL IVP PRN (14:00)
[2019-02-14] MEDS ORDERED: ACETAMINOPHEN 500 MG TAB (TYLENOL) PO PRN (14:00)
[2019-02-14] MEDS ORDERED: ONDANSETRON 4 MG/2 ML (SDV) Z0FRAN IVP PRN (14:00)
--- NOTE | 2019-02-14 14:15 | NUR ---
PATIENT STATES SHE IS NOT CURRENTLY TAKING ANY MEDICATIONS. THE MEDICATIONS WE HAD ON FILE FROM HER LAST VISIT WERE REMOVED SHE VERIFIED SHE IS NO LONGER TAKING THEM. I CALLED [facility] AND VERIFIED THEY HAVE NOT DISPENSED ANY MEDICATIONS FOR HER SINCE AUG AND AT THAT TIME IT WAS AN ANTIBIOTIC.
[2019-02-14 16:33] VITALS: BP 118/78
[2019-02-14] MEDS: inSUlin ASPART (NovoLOG) 1 UNIT/0.01 ML (CHARGE PER UNIT) SC SCH ×3 (16:45→21:36)
[2019-02-14] MEDS: NS IV 1000 ML 1,000 ML IV SCH (16:45)
[2019-02-14 20:11] VITALS: BP 122/78
[2019-02-14] MEDS ORDERED: MELATONIN 3 MG TABLET PO PRN (21:00)
[2019-02-14] MEDS ORDERED: DOCUSATE SODIUM 100 MG (COLACE) CAP PO PRN (21:00)
[2019-02-14] MEDS ORDERED: LOPERAMIDE 2 MG (IMODIUM) TABLET PO PRN (21:00)
[2019-02-14] MEDS ORDERED: CALCIUM CARBONATE 500 MG (TUMS) TAB.CHEW PO PRN (21:00)
[2019-02-14] MEDS ORDERED: ALPRAZolam 0.25 MG (XANAX) TAB PO PRN (21:00)
[2019-02-14] MEDS ORDERED: HYDROcodone/APAP 5 MG/325 MG (LORTAB) TAB PO PRN (21:00)
[2019-02-14] MEDS: SENNA W/DOCUSATE (SENOKOT S) TABLET PO SCH (21:37)
[2019-02-15 00:22] VITALS: BP 108/64
[2019-02-15] MEDS: NS IV 1000 ML 1,000 ML IV SCH ×2 (02:26→09:38)
[2019-02-15 04:31] VITALS: BP 102/68
[2019-02-15 05:37] LABS: BASOPHILS % (AUTO) 0 % (0-10); EOSINOPHILS # (AUTO) 0.1 10^3/uL (0.0-0.3); EOSINOPHILS % (AUTO) 2 % (0-10); HEMATOCRIT 29 % (35-52); HEMOGLOBIN 8.9 G/DL (11.5-16.0); LYMPHOCYTES # (AUTO) 3.5 X 10^3 (1.0-4.0); LYMPHOCYTES % (AUTO) 41 % (12-44); MEAN CORPUSCULAR HEMOGLOBIN 21 PG (25-34); MEAN CORPUSCULAR HGB CONC 30 G/DL (32-36); MEAN CORPUSCULAR VOLUME 70 FL (80-99); MEAN PLATELET VOLUME 9.1 FL (7.4-10.4); MONOCYTES # (AUTO) 0.7 X 10^3 (0.0-1.0); MONOCYTES % (AUTO) 9 % (0-12); NEUTROPHILS # (AUTO) 4.1 X 10^3 (1.8-7.8); NEUTROPHILS % (AUTO) 49 % (42-75); PLATELET COUNT 470 10^3/uL (130-400); RED CELL DISTRIBUTION WIDTH 15.1 % (10.0-14.5); WHITE BLOOD COUNT 8.4 10^3/uL (4.3-11.0)
[2019-02-15 05:54] LABS: ALANINE AMINOTRANSFERASE 14 U/L (0-55); ALBUMIN 3.2 GM/DL (3.2-4.5); ALKALINE PHOSPHATASE 74 U/L (40-136); BILIRUBIN,TOTAL 0.1 MG/DL (0.1-1.0); BUN/CREATININE RATIO 14; CALCIUM 8.7 MG/DL (8.5-10.1); CARBON DIOXIDE 21 MMOL/L (21-32); CHLORIDE 106 MMOL/L (98-107); CREATININE SERUM 0.65 MG/DL (0.60-1.30); GFR ESTIMATED > 60; GLUCOSE 114 MG/DL (70-105); POTASSIUM 3.5 MMOL/L (3.6-5.0); SODIUM 137 MMOL/L (135-145); TOTAL PROTEIN 6.4 GM/DL (6.4-8.2)
[2019-02-15] MEDS: inSUlin ASPART (NovoLOG) 1 UNIT/0.01 ML (CHARGE PER UNIT) SC SCH ×4 (06:13→12:18)
[2019-02-15 08:00] VITALS: BP 117/86
[2019-02-15] MEDS: SENNA W/DOCUSATE (SENOKOT S) TABLET PO SCH (09:38)
[2019-02-15] MEDS ORDERED: INSU100I29 SQ (10:51)
[2019-02-15] MEDS ORDERED: AMOX-355 PO (10:51)
[2019-02-15] MEDS ORDERED: INSU100I14 SQ (10:51)
--- NOTE | 2019-02-15 10:52 | Short Stay Summary-Hospitalist ---
History of Present Illness HPI/Chief Complaint Chief complaint: Dysuria with elevated sugar History of present illness: This is a 33-year-old female with a past medical history of diabetes who has not taken insulin for several months who presented to the ER found to have UTI and severely elevated blood sugar requiring inpatient status for blood sugar control and empiric antibiotics. She has since improved a great deal and upon review of previous urine culture she will be placed on Augmentin at discharge and restarted on all of her home insulin regimen. I did secure close follow-up next week a [facility]. Source: patient Exam Limitations: no limitations Date Seen 02/15/19 Time Seen by a Provider: 10:00 Attending Physician Sybil Douglass DO [facility] Referring Physician Date of Admission Feb 14, 2019 at 12:55 Home Medications & Allergies Home Medications Reviewed patient Home Medication Reconciliation performed by pharmacy medication reconciliations auto body technician and/or nursing. Patients Allergies have been reviewed. Allergies Allergies Coded Allergies No Known Drug Allergies (Verified04/29/08) Past Ncolifx-Spztgp-Epwode Hx Past Med/Social Hx: Reviewed Nursing Past Med/Soc Hx, Reviewed and Corrections made Patient Social History Alcohol Use: Denies Use Recreational Drug Use: No Smoking Status: Never a Smoker 2nd Hand Smoke Exposure: No Recent Foreign Travel: No Contact w/other who traveled: No Recent Hopitalizations: No Recent Infectious Disease Expo: No Immunizations Up To Date Tetanus Booster (TDap): Less than 5yrs Date of Pneumonia Vaccine: Jan 11, 2015 Date of Influenza Vaccine: May 16, 2012 Seasonal Allergies Seasonal Allergies: No Past Medical History Surgeries: Section, Tubal Ligation Cardiac: High Cholesterol, Hypertension Reproductive: No Female Reproductive Disorders: Ovarian Cyst Tubal Ligation Genitourinary: Bladder Infection Gastrointestinal: Gastroesophageal Reflux Endocrine: Diabetes, Non-Insulin dep History of Blood Disorders: No Family History Patient reports no known family medical history. Review of Systems Constitutional: see HPI, malaise, weakness EENTM: no symptoms reported Respiratory: no symptoms reported Cardiovascular: no symptoms reported Gastrointestinal: no symptoms reported Genitourinary: dysuria, frequency Musculoskeletal: no symptoms reported Skin: no symptoms reported Psychiatric/Neurological: No Symptoms Reported All Other Systems Reviewed Negative Unless Noted: Yes Physical Exam Physical Exam Vital Signs Vital Signs - First Documented 02/14/19 10:38 Temp 98.0 Pulse 105 Resp 18 B/P (MAP) 147/94 (111) Pulse Ox 98 O2 Delivery Room Air Capillary Refill : Less Than 3 Seconds Height, Weight, BMI Height: 5'1.00" Weight: 141lbs. 14.4oz. 64.429507fn; 26.8 BMI Method:Stated General Appearance: No Apparent Distress, WD/WN, Chronically ill Eyes: Bilateral Eye Normal Inspection, Bilateral Eye PERRL, Bilateral Eye EOMI HEENT: PERRL/EOMI, Normal ENT Inspection, Pharynx Normal Neck: Full Range of Motion, Normal Inspection, Non Tender, Supple, Carotid Bruit Respiratory: Chest Non Tender, Lungs Clear, Normal Breath Sounds, No Accessory Muscle Use, No Respiratory Distress Cardiovascular: Regular Rate, Rhythm, No Edema, No Gallop, No JVD, No Murmur, Normal Peripheral Pulses Gastrointestinal: Normal Bowel Sounds, No Organomegaly, No Pulsatile Mass, Non Tender, Soft Back: Normal Inspection, No CVA Tenderness, No Vertebral Tenderness Extremity: Normal Capillary Refill, Normal Inspection, Normal Range of Motion, Non Tender, No Calf Tenderness, No Pedal Edema Neurologic/Psychiatric: Alert, Oriented x3, No Motor/Sensory Deficits, Normal Mood/Affect Skin: Normal Color, Warm/Dry Lymphatic: No Adenopathy Results Results/Procedures Labs Laboratory Tests 02/14/19 10:52 02/15/19 04:38 Patient resulted labs reviewed. Short Stay Diagnosis Discharge Diagnosis-Short Stay Admission Diagnosis Assessment: UTI Severe hyperglycemia Noncompliance with insulin Final Discharge Diagnosis Assessment: UTI Severe hyperglycemia Noncompliance with insulin Conclusion Plan Discharge home Close follow-up next week at [facility] Restart insulin Augmentin Diagnosis/Problems Diagnosis/Problems (1) UTI (urinary tract infection) Status: Acute Qualifiers: Qualified Codes: N30.00 - Acute cystitis without hematuria (2) Hyperglycemia due to type 2 diabetes mellitus Status: Acute Qualifiers: Qualified Codes: E11.65 - Type 2 diabetes mellitus with hyperglycemia (3) Anemia Status: Chronic Qualifiers: Qualified Codes: D64.9 - Anemia, unspecified Clinical Quality Measures DVT/VTE Risk/Contraindication: Risk Factor Score Per Nursin RFS Level Per Nursing on Admit: 2=Moderate SYBIL DOUGLASS DO Feb 15, 2019 10:52
[2019-02-15 12:33] VITALS: BP 117/86
[2019-02-15] MEDS ORDERED: cefTRIAXone 1,000 MG/SWFI 10 ML IV PUSH IV SCH ×2 (13:00)
== END 2019-02-15 12:39 | disposition home or self-care (01) ==
LOC: EDUNIT# 10:34 → ER 10:35 → INTOOBSV 12:55 → 4TH 12:55 → UNDOADMOB 12:55 → 4TH 13:30 → UNDODISOB 02-15 12:39
PROVIDERS: ADMIT Internal Medicine; ATTEND Internal Medicine
DX: N30.00 Acute cystitis without hematuria (principal); A41.9 Sepsis, unspecified organism; E11.65 Type 2 diabetes mellitus with hyperglycemia; E78.00 Pure hypercholesterolemia, unspecified; D64.9 Anemia, unspecified; I10 Essential (primary) hypertension; K21.9 Gastro-esophageal reflux disease without esophagitis; Z97.4 Presence of external hearing-aid; Z91.19 Patient's noncompliance with other medical treatment and regimen; Z98.51 Tubal ligation status
CPT/HCPCS: 36415; 71046; 80053; 80306; 81000; 82962; 83036; 83605; 84703; 85025; 85610; 85730; 87040; 87077; 87088; 87186; 87430; 96361; 96365; 96367; 96372; 96375; G0378

== ENCOUNTER 2019-08-10 09:38 | Emergency (ER) | payer BC, OTHER ==
[~2019-08-10] VITALS: Ht 154 cm; Wt 61.0 kg
[~2019-08-10 09:38] MED LIST changes: +AMOX-355 PO; -GLIM2TAB PO; +GLIM2TAB2 PO; -GLIM4TAB PO; +GLIM4TAB3 PO; +INSU100I14 SQ; +INSU100I29 SQ; +METF500T19 PO; -METF500T8 PO; +OMEP-280 PO; -OMEP20CA13 PO
[2019-08-10 10:07] LABS: BILIRUBIN,URINE NEGATIVE (NEGATIVE); CLARITY,URINE CLEAR; COLOR,URINE YELLOW; GLUCOSE, URINE (UA) 3+ (NEGATIVE); KETONES,URINE NEGATIVE (NEGATIVE); LEUKOCYTE ESTERASE ,URINE NEGATIVE (NEGATIVE); NITRITE,URINE POSITIVE (NEGATIVE); PROTEIN,URINE NEGATIVE (NEGATIVE)
[2019-08-10 10:16] LABS: BACTERIA,URINE LARGE /HPF
[2019-08-10] MEDS ORDERED: NS IV 500 ML 500 ML IV ONE (10:30)
--- NOTE | 2019-08-10 10:34 | ED Abdominal Pain ---
General Chief Complaint: Abdominal/GI Problems Stated Complaint: ABD PAIN Nursing Triage Note: PT CO OF ABD PAIN FOR 6 DAYS LOWER ABD TO L SIDE BACK, DENIES URINARY SX Sepsis Screen: No Definite Risk Source of Information: Patient, Spouse Exam Limitations: No Limitations History of Present Illness Date Seen by Provider: Aug 10, 2019 Time Seen by Provider: 10:14 Initial Comments Patient resents to ER by private conveyance with her spouse Adria and chief complaint of left-sided abdominal pain upper and lower quadrants. Unrelated to bowel movements. No diarrhea or constipation. This been going on for 6 days and [facility] and had a clean urinalysis. No labs or imaging were done. She was recommended to follow-up with her primary care doctor area and she says the pain is only progressively gotten worse and she rates it now as an 8 out of 10, constant, sharp, unrelenting. No history of kidn ey stones. No dysuria or hematuria. She's had 3 C-sections and a tubal ligation but no other abdominal surgeries or trauma. No other significant medical history. She does not take any medicines routinely. She's been using Tylenol and it rolled over her last dose of ibuprofen around midnight. Allergies and Home Medications Allergies Coded Allergies: No Known Drug Allergies (Verified , 04/29/08) Home Medications Insulin Detemir 100 Unit/1 Ml Insuln.pen, 20 UNIT SQ BID Prescribed by: JONA NAVARRO on 02/15/19 1051 Patient Home Medication List Home Medication List Reviewed: Yes Review of Systems Review of Systems Constitutional: No chills, No diaphoresis, No fever EENTM: No Blurred Vision, No Double Vision Respiratory: Denies Cough, Denies Shortness of Air Cardiovascular: Denies Chest Pain Gastrointestinal: Abdomen Distended, Abdominal Pain; Denies Constipated, Denies Diarrhea, Denies Nausea Genitourinary: Denies Burning, Denies Discharge Musculoskeletal: No back pain, No joint pain Skin: No pruritus, No rash All Other Systems Reviewed Negative Unless Noted: Yes Past Pmnkgld-Sxoazt-Krzqme Hx Patient Social History Alcohol Use: Denies Use Recreational Drug Use: No Smoking Status: Never a Smoker 2nd Hand Smoke Exposure: No Recent Foreign Travel: No Contact w/Someone Who Travel: No Recent Infectious Disease Expo: No Recent Hopitalizations: No Immunizations Up To Date Tetanus Booster (TDap): Less than 5yrs Date of Pneumonia Vaccine: Jan 11, 2015 Date of Influenza Vaccine: May 16, 2012 Seasonal Allergies Seasonal Allergies: No Past Medical History Surgeries: Yes (C-SECTIONS x3) Section, Tubal Ligation Respiratory: No Cardiac: No High Cholesterol, Hypertension Neurological: No : No Last Menstrual Period: Jul 27, 2019 Reproductive Disorders: No Female Reproductive Disorders: Ovarian Cyst RAYON WINDER History: Tubal Ligation Genitourinary: Yes Bladder Infection Gastrointestinal: Yes Gastroesophageal Reflux Musculoskeletal: No Endocrine: Yes (Type II) Diabetes, Non-Insulin dep HEENT: No Cancer: No Psychosocial: No Integumentary: No Blood Disorders: No Family Medical History Patient reports no known family medical history. Physical Exam Vital Signs Vital Signs - First Documented 08/10/19 09:50 Temp 36.5 Pulse 91 Resp 18 B/P (MAP) 127/85 (99) Pulse Ox 98 Capillary Refill : Less Than 3 Seconds Height/Weight/BMI Height: 5'1.00" Weight: 141lbs. 14.4oz. 64.272534yi; 25.00 BMI Method:Stated General Appearance: WD/WN, no apparent distress HEENT: PERRL/EOMI, normal ENT inspection, pharynx normal Neck: full range of motion, normal inspection Respiratory: lungs clear, normal breath sounds, no respiratory distress, no accessory muscle use Cardiovascular: normal peripheral pulses, regular rate, rhythm Peripheral Pulses: 2+ Radial Pulses (R), 2+ Radial Pulses (L) Gastrointestinal: normal bowel sounds, soft, tenderness Extremities: normal inspection, normal capillary refill Neurologic/Psychiatric: alert, normal mood/affect, oriented x 3 Skin: normal color, warm/dry Progress/Results/Core Measures Results/Orders Lab Results Laboratory Tests Test 08/10/19 10:00 08/10/19 10:55 Range/Units Urine Color YELLOW Urine Clarity CLEAR Urine pH 6.0 5-9 Urine Specific [place] 1.020 1.016-1.022 Urine Protein NEGATIVE NEGATIVE Urine Glucose (UA) 3+ H NEGATIVE Urine Ketones NEGATIVE NEGATIVE Urine Nitrite POSITIVE NEGATIVE Urine Bilirubin NEGATIVE NEGATIVE Urine Urobilinogen 0.2 < = 1.0 MG/DL Urine Leukocyte Esterase NEGATIVE NEGATIVE Urine RBC (Auto) NEGATIVE NEGATIVE Urine RBC NONE /HPF Urine WBC NONE /HPF Urine Squamous Epithelial Cells 5-10 /HPF Urine Crystals NONE /LPF Urine Bacteria LARGE H /HPF Urine Casts NONE /LPF Urine Mucus NEGATIVE /LPF Urine Culture Indicated YES White Blood Count 8.6 4.3-11.0 10^3/uL Red Blood Count 5.37 4.35-5.85 10^6/uL Hemoglobin 11.8 11.5-16.0 G/DL Hematocrit 37 35-52 % Mean Corpuscular Volume 70 L 80-99 FL Mean Corpuscular Hemoglobin 22 L 25-34 PG Mean Corpuscular Hemoglobin Concent 32 32-36 G/DL Red Cell Distribution Width 16.2 H 10.0-14.5 % Platelet Count 502 H 130-400 10^3/uL Mean Platelet Volume 8.5 7.4-10.4 FL Neutrophils (%) (Auto) 54 42-75 % Lymphocytes (%) (Auto) 37 12-44 % Monocytes (%) (Auto) 7 0-12 % Eosinophils (%) (Auto) 1 0-10 % Basophils (%) (Auto) 0 0-10 % Neutrophils # (Auto) 4.7 1.8-7.8 X 10^3 Lymphocytes # (Auto) 3.2 1.0-4.0 X 10^3 Monocytes # (Auto) 0.6 0.0-1.0 X 10^3 Eosinophils # (Auto) 0.1 0.0-0.3 10^3/uL Basophils # (Auto) 0.0 0.0-0.1 10^3/uL Sodium Level 136 135-145 MMOL/L Potassium Level 4.1 3.6-5.0 MMOL/L Chloride Level 102 98-107 MMOL/L Carbon Dioxide Level 21 21-32 MMOL/L Anion Gap 13 5-14 MMOL/L Blood Urea Nitrogen 8 7-18 MG/DL Creatinine 0.90 0.60-1.30 MG/DL Estimat Glomerular Filtration Rate > 60 BUN/Creatinine Ratio 9 Glucose Level 305 H 70-105 MG/DL Calcium Level 9.6 8.5-10.1 MG/DL Corrected Calcium 9.2 8.5-10.1 MG/DL Total Bilirubin 0.3 0.1-1.0 MG/DL Aspartate Amino Transf (AST/SGOT) 12 5-34 U/L Alanine Aminotransferase (ALT/SGPT) 15 0-55 U/L Alkaline Phosphatase 100 40-136 U/L Total Protein 8.6 H 6.4-8.2 GM/DL Albumin 4.5 3.2-4.5 GM/DL Monoscreen NEGATIVE NEGATIVE My Orders Orders - AUGUSTINA GUTIERREZ Ua Culture If Indicated (08/10/19 09:40) Urine Bedside (08/10/19 09:40) Urine Culture (08/10/19 10:00) Cbc With Automated Diff (08/10/19 10:30) Comprehensive Metabolic Panel (08/10/19 10:30) Monotest (08/10/19 10:30) Ct Abd/Pelvis Wo(Kidney Stone) (08/10/19 10:30) Ed Iv/Invasive Line Start (08/10/19 10:30) Ns Iv 500 Ml (Sodium Chloride 0.9%) (08/10/19 10:30) Ketorolac Injection (Toradol Injection) (08/10/19 10:45) Medications Given in ED Current Medications Medications Dose Ordered Sig/Kendall Route Start Time Stop Time Status Last Admin Dose Admin Ketorolac Tromethamine 30 mg ONCE ONCE IVP 08/10/19 10:45 08/10/19 10:46 DC 08/10/19 10:51 30 MG Sodium Chloride 500 ml @ 0 mls/hr Q0M ONCE IV 08/10/19 10:30 08/10/19 10:32 DC 08/10/19 10:51 500 MLS/HR Vital Signs/I&O 08/10/19 09:50 Temp 36.5 Pulse 91 Resp 18 B/P (MAP) 127/85 (99) Pulse Ox 98 Blood Pressure Mean: 99 Progress Progress Note : Time: 10:33 Progress Note Toradol for pain, 500 cc of fluid and some labs. Urine demonstrates nitrites but no red or white blood cells. Possible she has a kidney stone obstructing her ureter. Plan to get a CT without IV contrast. Diagnostic Imaging Diagonstic Imaging: CT (without IV contrast) Plain Films/CT/US/NM/MRI: abdomen, pelvis Comments NAME: MAGEN WALDENSHARADKAUR Dave MED REC#: [id number] PT STATUS: REG ER : 1985 PHYSICIAN: AUGUSTINA GUTIERREZ MD ADMIT DATE: 08/10/19/ER Draft Date of Exam:08/10/19 CT ABD/PELVIS WO(KIDNEY STONE) PROCEDURE: CT urinary tract, rule out kidney stone. TECHNIQUE: Multiple contiguous axial images were obtained through the abdomen and pelvis without the use of intravenous contrast. Auto Exposure Controls were utilized during the CT exam to meet ALARA standards for radiation dose reduction. INDICATION: Left flank pain x6 days. CORRELATION STUDY: 05/26/2017 FINDINGS: Visualized lung bases are clear. Heart size is normal. The unenhanced liver, gallbladder, spleen, pancreas and adrenal glands are unremarkable. Abdominal aorta is of normal contour. There is increased density of the medullary pyramids which could be reflective of underlying nephrocalcinosis. There is otherwise normal configuration of the renal parenchyma. Ureters are incompletely traceable, however, no definitive obstructive calcification. Stomach is relatively unremarkable. A few gas-filled loops of small bowel are noted in the left upper quadrant. Mild severity of fecal retention is noted. No evidence for large fecal impaction. Cecum sits very low within the pelvis. The appendix is not well-defined. No significant abdominal ascites or free air. Urinary bladder is decompressed. Uterus is mildly prominent and slightly retroverted towards the right. Probable small ovarian cyst. Osseous structures demonstrate no acute findings. IMPRESSION: 1. Negative for acute abnormality about the abdomen and/or pelvis. No definitive obstructive uropathy. 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 Dictated on workstation # [id number] Dict: 08/10/19 1146 Trans: 08/10/19 1157 [facility] [id number] Interpreted by: TERRANCE RODRIGEZ DO Electronically signed by: Reviewed: Reviewed by Me Departure Impression Primary Impression: Urinary tract infection Qualified Codes: N30.00 - Acute cystitis without hematuria Disposition: HOME, SELF-CARE Condition: Stable Departure-Patient Inst. Decision time for Depature: 12:38 Referrals: NO,LOCAL PHYSICIAN (PCP/Family) Primary Care Physician Patient Instructions: Urinary Tract Infections in Adults Add. Discharge Instructions: Drink plenty of fluids and start taking Keflex one capsule twice a day for the next week. Keep your follow-up appointment with your primary provider. Tylenol 1000 mg every 8 hours as needed for pain. Ibuprofen 800 mg every 8 hours as needed for pain. Heating pads As necessary. Return to the ER if you have intractable pain, intractable nausea vomiting or fever above 102.5. All discharge instructions reviewed with patient and/or family. Voiced under standing. Scripts Cephalexin (Keflex) 500 Mg Capsule 500 MG PO BID for 7 Days, #14 CAP 0 Refills Prov: AUGUSTINA GUTIERREZ 08/10/19 AUGUSTINA GUTIERREZ Aug 10, 2019 10:34
[2019-08-10] MEDS ORDERED: KETOROLAC 30 MG/ML VIAL IVP ONE (10:45)
[2019-08-10 11:03] LABS: BASOPHILS % (AUTO) 0 % (0-10); EOSINOPHILS # (AUTO) 0.1 10^3/uL (0.0-0.3); EOSINOPHILS % (AUTO) 1 % (0-10); HEMATOCRIT 37 % (35-52); HEMOGLOBIN 11.8 G/DL (11.5-16.0); LYMPHOCYTES # (AUTO) 3.2 X 10^3 (1.0-4.0); LYMPHOCYTES % (AUTO) 37 % (12-44); MEAN CORPUSCULAR HEMOGLOBIN 22 PG (25-34); MEAN CORPUSCULAR HGB CONC 32 G/DL (32-36); MEAN CORPUSCULAR VOLUME 70 FL (80-99); MEAN PLATELET VOLUME 8.5 FL (7.4-10.4); MONOCYTES # (AUTO) 0.6 X 10^3 (0.0-1.0); MONOCYTES % (AUTO) 7 % (0-12); NEUTROPHILS # (AUTO) 4.7 X 10^3 (1.8-7.8); NEUTROPHILS % (AUTO) 54 % (42-75); PLATELET COUNT 502 10^3/uL (130-400); RED CELL DISTRIBUTION WIDTH 16.2 % (10.0-14.5); WHITE BLOOD COUNT 8.6 10^3/uL (4.3-11.0)
[2019-08-10 11:23] LABS: ALANINE AMINOTRANSFERASE 15 U/L (0-55); ALBUMIN 4.5 GM/DL (3.2-4.5); ALKALINE PHOSPHATASE 100 U/L (40-136); BILIRUBIN,TOTAL 0.3 MG/DL (0.1-1.0); BUN/CREATININE RATIO 9; CALCIUM 9.6 MG/DL (8.5-10.1); CARBON DIOXIDE 21 MMOL/L (21-32); CHLORIDE 102 MMOL/L (98-107); GFR ESTIMATED > 60; GLUCOSE 305 MG/DL (70-105); POTASSIUM 4.1 MMOL/L (3.6-5.0); SODIUM 136 MMOL/L (135-145); TOTAL PROTEIN 8.6 GM/DL (6.4-8.2)
--- NOTE | 2019-08-10 11:58 | Diagnostic Imaging Report ---
PROCEDURE: CT urinary tract, rule out kidney stone. TECHNIQUE: Multiple contiguous axial images were obtained through the abdomen and pelvis without the use of intravenous contrast. Auto Exposure Controls were utilized during the CT exam to meet ALARA standards for radiation dose reduction. INDICATION: Left flank pain x6 days. CORRELATION STUDY: 05/26/2017 FINDINGS: Visualized lung bases are clear. Heart size is normal. The unenhanced liver, gallbladder, spleen, pancreas and adrenal glands are unremarkable. Abdominal aorta is of normal contour. There is increased density of the medullary pyramids which could be reflective of underlying nephrocalcinosis. There is otherwise normal configuration of the renal parenchyma. Ureters are incompletely traceable, however, no definitive obstructive calcification. Stomach is relatively unremarkable. A few gas-filled loops of small bowel are noted in the left upper quadrant. Mild severity of fecal retention is noted. No evidence for large fecal impaction. Cecum sits very low within the pelvis. The appendix is not well-defined. No significant abdominal ascites or free air. Urinary bladder is decompressed. Uterus is mildly prominent and slightly retroverted towards the right. Probable small ovarian cyst. Osseous structures demonstrate no acute findings. IMPRESSION: 1. Negative for acute abnormality about the abdomen and/or pelvis. No definitive obstructive uropathy. 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 Dictated by: Dictated on workstation # [id number]
[2019-08-10] MEDS ORDERED: CEPH-507 PO (12:39)
[2019-08-10 12:55] VITALS: BP 127/85
== END 2019-08-10 12:58 | disposition home or self-care (01) ==
LOC: EDUNIT# 09:38 → ER 09:39
DX: N39.0 Urinary tract infection, site not specified (principal); I10 Essential (primary) hypertension; E11.9 Type 2 diabetes mellitus without complications; E78.00 Pure hypercholesterolemia, unspecified; K21.9 Gastro-esophageal reflux disease without esophagitis; Z98.51 Tubal ligation status; Z79.4 Long term (current) use of insulin
CPT/HCPCS: 36415; 74176; 80053; 81000; 84703; 85025; 86308; 87077; 87088

== ENCOUNTER → 2020-09-28 | Outpatient (CLI) | payer BC ==
[~2020-09-28] MED LIST changes: +CEPH-507 PO; -GLIM2TAB2 PO; +GLIM2TAB4 PO; -GLIM4TAB3 PO; +GLIM4TAB5 PO; -LISI-556 PO; +LISI-729 PO; +METF-865 PO; -METF500T19 PO; -OMEP-280 PO; +OMEP20CA18 PO
--- NOTE | 2020-09-28 15:52 | Diagnostic Imaging Report ---
PROCEDURE: Pelvic comp/transvaginal sonogram. TECHNIQUE: Complete transabdominal and transvaginal pelvic ultrasound was performed. In addition, limited pelvic Doppler was performed. INDICATION: Left-sided pelvic pain. FINDINGS: Uterus is retroverted measuring 7.0 x 4.7 x 6.1 cm. Endometrium is 5 mm in thickness. No myometrial mass is detected. Right ovary measures 2.7 x 1.6 x 1.5 cm and left ovary measures 3.6 x 1.7 x 2.4 cm. Both ovaries contain small follicles. There is blood flow to both ovaries. No adnexal mass is seen. There is a small amount of free pelvic fluid which may be physiologic. IMPRESSION: Unremarkable transabdominal and transvaginal pelvic ultrasound. Dictated by: Dictated on workstation # [id number]
== END ==
LOC: RAD 14:15
PROVIDERS: ATTEND Surgery
DX: R10.2 Pelvic and perineal pain (principal)
CPT/HCPCS: 76830; 76856

== ENCOUNTER 2021-03-04 20:01 | Emergency (ER) | payer BC ==
[~2021-03-04] VITALS: Ht 154.9 cm; Wt 55.0 kg
--- NOTE | 2021-03-04 20:34 | ED General ---
General Stated Complaint: BODY ACHES/HIRSCH/SOB/COUGH Source of Information: Patient History of Present Illness Date Seen by Provider: Mar 04, 2021 Time Seen by Provider: 20:15 Initial Comments PT ARRIVES VIA POV FROM HOME\\ STATES SHE HAS BEEN SICK SINCE YESTERDAY C/O MUCH NASAL CONGESTION AND DRAINAGE C/O COUGH C/O FATIGUE C/O HEADACHE C/O BODY ACHES C/O SHORTNESS OF BREATH C/O CHEST TIGHTNESS NO FEVER/SWEATS/CHILLS NO GI SYMPTOMS NO LOSS OF TASTE OR SMELL NO SWELLING IN LEGS/FEET OR PAIN IN CALVES HAS NOT TAKEN ANYTHING FOR SYMPTOMS AT ANY TIME SYMPTOMS NO DIFFERENT TODAY/TONIGHT HAS NOT ATTEMPTED TO FOLLOW UP WITH [facility] FOR THIS PROBLEM PT HAS HAD MODERNA VACCINE X 2--LAST ONE WAS 3 MONTHS AGO NO KNOWN SICK CONTACTS AND 4 KIDS IN HOME ARE NOT ILL PT IS DIABETIC, IS SUPPOSED TO BE ON INSULIN PT WITH LONG HISTORY OF EXTREME NON-COMPLIANCE--HAS NOT TAKEN INSULIN IN "OVER 6 MONTHS", DOES NOT CHECK BLOOD SUGAR OR FOLLOW ANY DIET, HAS NOT FOLLOWED UP WITH ANYONE AT [facility] FOR UNKNOWN LENGTH OF TIME NO HISTORY OF RESPIRATORY OR CARDIAC PROBLEMS, BUT HAS HISTORY OF HTN AND HYPERLIPIDEMIA--ALSO REFUSES TO TAKE PRESCRIBED MEDICATIONS FOR THOSE CONDITIONS WELL PCP: [facility] Allergies and Home Medications Allergies Coded Allergies: No Known Drug Allergies (Verified , 04/29/08) Home Medications Cefdinir 300 Mg Capsule, 300 MG PO BID Prescribed by: ELLA AYALA on 03/04/21 2138 Cephalexin 500 Mg Capsule, 500 MG PO BID Prescribed by: AUGUSTINA GUTIERREZ on 08/10/19 1239 Insulin Detemir 100 Unit/1 Ml Insuln.pen, 20 UNIT SQ BID Prescribed by: JONA NAVARRO on 02/15/19 1051 Patient Home Medication List Home Medication List Reviewed: Yes Review of Systems Review of Systems Constitutional: see HPI; No chills, No diaphoresis, No fever; other (FATIGUE) EENTM: see HPI, nose congestion Respiratory: see HPI, cough, short of breath Cardiovascular: see HPI, chest pain Gastrointestinal: no symptoms reported Genitourinary: no symptoms reported Musculoskeletal: see HPI (BODY ACHES) Skin: no symptoms reported Psychiatric/Neurological: Headache Hematologic/Lymphatic: No Symptoms Reported Immunological/Allergic: no symptoms reported Past Fdnwnqc-Sbnulj-Hyusly Hx Patient Social History Tobacco Use?: No Smoking Status: Never a Smoker Use of E-Cig and/or Vaping Compa: Never a User Substance use?: No Alcohol Use?: No Immunizations Up To Date Tetanus Booster (TDap): Less than 5yrs Seasonal Allergies Seasonal Allergies: No Past Medical History Surgeries: Yes (C-SECTIONS x3) Section, Tubal Ligation Respiratory: No Cardiac: Yes High Cholesterol, Hypertension Neurological: No Reproductive Disorders: No Female 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 LONG HISTORY OF EXTREME NON-COMPLIANCE IN ALL ASPECTS OF CARE Physical Exam Vital Signs Vital Signs - First Documented 03/04/21 20:46 Temp 37.0 Pulse 113 Resp 24 B/P (MAP) 112/90 (97) Pulse Ox 97 O2 Delivery Room Air Capillary Refill : Height, Weight, BMI Height: 5'1.00" Weight: 141lbs. 14.4oz. [id number]; 25.00 BMI Method:Stated General Appearance: No Apparent Distress, WD/WN HEENT: PERRL/EOMI, TMs Normal, Other (NASAL CONGESTION, CLEAR POST NASAL DRAINAGHE) Neck: Normal Inspection Respiratory: Normal Breath Sounds, No Accessory Muscle Use, No Respiratory Distress Cardiovascular: Regular Rate, Rhythm, No Edema, No JVD, No Murmur, Normal Peripheral Pulses Gastrointestinal: Non Tender, Soft Back: No CVA Tenderness Extremity: Normal Inspection, No Pedal Edema Neurologic/Psychiatric: Alert, Oriented x3, No Motor/Sensory Deficits, Normal Mood/Affect, reagent tender helper II-XII Norm as Tested Skin: Normal Color (NORMAL FOR ETHNICITY), Warm/Dry; No Rash Progress/Results/Core Measures Suspected Sepsis SIRS Temperature: Pulse: Respiratory Rate: Laboratory Tests 03/04/21 20:25: White Blood Count 12.8H Blood Pressure / Mean: Laboratory Tests 03/04/21 20:25: Creatinine 0.88, Platelet Count 464H, Total Bilirubin 0.2 Results/Orders Lab Results Laboratory Tests Test 03/04/21 20:25 03/04/21 21:06 03/04/21 21:08 03/04/21 22:07 Range/Units White Blood Count 12.8 H 4.3-11.0 10^3/uL Red Blood Count 5.02 3.80-5.11 10^6/uL Hemoglobin 11.1 L 11.5-16.0 g/dL Hematocrit 35 35-52 % Mean Corpuscular Volume 70 L 80-99 fL Mean Corpuscular Hemoglobin 22 L 25-34 pg Mean Corpuscular Hemoglobin Concent 31 L 32-36 g/dL Red Cell Distribution Width 15.3 H 10.0-14.5 % Platelet Count 464 H 130-400 10^3/uL Mean Platelet Volume 8.5 L 9.0-12.2 fL Immature Granulocyte % (Auto) 0 % Neutrophils (%) (Auto) 73 42-75 % Lymphocytes (%) (Auto) 17 12-44 % Monocytes (%) (Auto) 8 0-12 % Eosinophils (%) (Auto) 1 0-10 % Basophils (%) (Auto) 0 0-10 % Neutrophils # (Auto) 9.4 H 1.8-7.8 10^3/uL Lymphocytes # (Auto) 2.2 1.0-4.0 10^3/uL Monocytes # (Auto) 1.0 0.0-1.0 10^3/uL Eosinophils # (Auto) 0.2 0.0-0.3 10^3/uL Basophils # (Auto) 0.1 0.0-0.1 10^3/uL Immature Granulocyte # (Auto) 0.1 0.0-0.1 10^3/uL Sodium Level 134 L 135-145 MMOL/L Potassium Level 3.7 3.6-5.0 MMOL/L Chloride Level 98 98-107 MMOL/L Carbon Dioxide Level 23 21-32 MMOL/L Anion Gap 13 5-14 MMOL/L Blood Urea Nitrogen 6 L 7-18 MG/DL Creatinine 0.88 0.60-1.30 MG/DL Estimat Glomerular Filtration Rate 73 BUN/Creatinine Ratio 7 Glucose Level 331 H 70-105 MG/DL Calcium Level 9.4 8.5-10.1 MG/DL Corrected Calcium 9.3 8.5-10.1 MG/DL Magnesium Level 1.8 1.6-2.4 MG/DL Total Bilirubin 0.2 0.1-1.0 MG/DL Aspartate Amino Transf (AST/SGOT) 15 5-34 U/L Alanine Aminotransferase (ALT/SGPT) 16 0-55 U/L Alkaline Phosphatase 110 40-136 U/L Troponin I < 0.028 <0.028 NG/ML C-Reactive Protein High Sensitivity 1.25 H 0.00-0.50 MG/DL B-Type Natriuretic Peptide < 10.0 <100.0 PG/ML Total Protein 8.4 H 6.4-8.2 GM/DL Albumin 4.1 3.2-4.5 GM/DL Procalcitonin 0.02 <0.10 NG/ML Influenza Type A (RT-PCR) Not Detected Not Detecte Influenza Type B (RT-PCR) Not Detected Not Detecte SARS-CoV-2 RNA (RT-PCR) Not Detected Not Detecte Glucometer 314 H 173 H 70-110 MG/DL Urine Color YELLOW Urine Clarity CLEAR Urine pH 5.5 5-9 Urine Specific [place] 1.020 1.016-1.022 Urine Protein NEGATIVE NEGATIVE Urine Glucose (UA) 2+ H NEGATIVE Urine Ketones NEGATIVE NEGATIVE Urine Nitrite POSITIVE H NEGATIVE Urine Bilirubin NEGATIVE NEGATIVE Urine Urobilinogen 0.2 < = 1.0 MG/DL Urine Leukocyte Esterase NEGATIVE NEGATIVE Urine RBC (Auto) NEGATIVE NEGATIVE Urine RBC 0-2 /HPF Urine WBC 5-10 H /HPF Urine Squamous Epithelial Cells 10-25 H /HPF Urine Crystals NONE /LPF Urine Bacteria MODERATE H /HPF Urine Casts NONE /LPF Urine Mucus NEGATIVE /LPF Urine Culture Indicated YES My Orders Orders - ELLA AYALA DO Covid 19 Inhouse Test (03/04/21 20:10) Influenza A And B By Pcr (03/04/21 20:10) Accucheck Stat ONCE (03/04/21 20:27) Ed Iv/Invasive Line Start (03/04/21 20:27) Ekg Tracing (03/04/21 20:27) Monitor-Rhythm Ecg Trace Only (03/04/21 20:27) BNP (03/04/21 20:27) Cbc With Automated Diff (03/04/21 20:27) Comprehensive Metabolic Panel (03/04/21 20:27) Magnesium (03/04/21 20:27) Ua Culture If Indicated (03/04/21 20:27) Troponin I (03/04/21 20:27) Chest 1 View, Ap/Pa Only (03/04/21 20:27) Procalcitonin (Pct) (03/04/21 20:27) Hs C Reactive Protein (03/04/21 20:27) Ed Iv/Invasive Line Start (03/04/21 20:58) Ns Iv 1000 Ml (Sodium Chloride 0.9%) (03/04/21 21:00) Insulin (Regular) Human (Novolin R (Per (03/04/21 21:15) Ed Iv/Invasive Line Start (03/04/21 21:09) Ns Iv 1000 Ml (Sodium Chloride 0.9%) (03/04/21 21:15) Urine Culture (03/04/21 21:08) Cefdinir Capsule (Omnicef Capsule) (03/04/21 21:45) Accucheck Stat ONCE (03/04/21 21:51) Medications Given in ED Current Medications Medications Dose Ordered Sig/Kendall Route Start Time Stop Time Status Last Admin Dose Admin Cefdinir 300 mg ONCE ONCE PO 03/04/21 21:45 03/04/21 21:46 DC 03/04/21 21:48 300 MG Insulin Human Regular 15 unit ONCE ONCE IV 03/04/21 21:15 03/04/21 21:16 DC 03/04/21 21:19 15 UNIT Vital Signs/I&O 03/04/21 03/04/21 20:46 20:46 Temp 37.0 Pulse 113 Resp 24 B/P (MAP) 112/90 (97) Pulse Ox 97 O2 Delivery Room Air Room Air Capillary Refill : Progress Note : Progress Note PLACED IN ISOLATION ROOM PPE WORN AT ALL TIMES COVID-19 TESTING PERFORMED NO COUGH NO HYPOXIA NO DYSPNEA NO FEVER GIVEN IV FLUIDS AND INSULIN BLOOD GLUCOSE DOWN TO 173 PRIOR TO DISMISSAL ADVISED OF NEED FOR QUARANTINE AND NEED FOR REPEAT COVID-19 TESTING IN 2-3 DAYS ADVISED OF NEED FOR FOLLOW UP WITH [facility] FOR HER DIABETES AND TO GET RESTARTED ON INSULIN / MEDICATIONS. ECG Initial ECG Impression Date: Mar 04, 2021 Initial ECG Impression Time: 20:34 Initial ECG Rate: 101 Initial ECG Rhythm: Normal Sinus Diagnostic Imaging Comments CXR--PER RADIOLOGIST REPORT AT 2134 FINDINGS: The heart size, mediastinal configuration and pulmonary vascularity are within normal limits. The lungs are clear with no consolidating infiltrate. There is no significant effusion or pneumothorax. IMPRESSION: 1. Negative portable chest. Reviewed: Reviewed by Me Departure Impression Primary Impression: Person under investigation for COVID-19 Additional Impressions: Upper respiratory infection Uncontrolled diabetes mellitus Non-compliance Urinary tract infection Disposition: HOME, SELF-CARE Condition: Stable Departure-Patient Inst. Decision time for Depature: 21:35 Referrals: [facility] (PCP/Family) Primary Care Physician Patient Instructions: COVID-19 (DC), Diabetic Meal Planning , How to Keep Track of Your Blood Sugar, Preventing the Spread of an Infectious Disease, Type 2 Diabetes, Urinary Tract Infection, Adult (DC), Viral Upper Respiratory Infection, Adult (DC) Add. Discharge Instructions: QUARANTINE YOURSELF, AND ALL HOUSEHOLD MEMBERS AND CLOSE CONTACTS FOR 2 WEEKS, OR UNTIL CLEARED BY YOUR DR YOU NEED TO FOLLOW UP WITH [facility] IN 2-3 DAYS TO BE RE-TESTED FOR COVID-19 YOU ALSO NEED TO FOLLOW UP WITH [facility] FOR FOLLOW UP ON YOUR DIABETES CHECK YOUR BLOOD SUGAR AT LEAST 3 TIMES A DAY--BEFORE EACH MEAL TYLENOL AND MOTRIN NEEDED FOR PAIN OR FEVER OVER THE COUNTER MUCINEX DM FOR COUGH AND CONGESTION OVER THE COUNTER FLONASE AND CLARITIN FOR NASAL DRAINAGE INCREASE YOUR FLUID INTAKE CALL [facility] IN THE MORNING TO SCHEDULE A FOLLOW UP APPOINTMENT Scripts Cefdinir (Cefdinir) 300 Mg Capsule 300 MG PO BID, #20 CAP Prov: ELLA AYALA DO 03/04/21 ELLA AYALA DO Mar 04, 2021 20:34
[2021-03-04 20:41] LABS: BASOPHILS # (AUTO) 0.1 10^3/uL (0.0-0.1); BASOPHILS % (AUTO) 0 % (0-10); EOSINOPHILS # (AUTO) 0.2 10^3/uL (0.0-0.3); EOSINOPHILS % (AUTO) 1 % (0-10); HEMATOCRIT 35 % (35-52); HEMOGLOBIN 11.1 g/dL (11.5-16.0); LYMPHOCYTES # (AUTO) 2.2 10^3/uL (1.0-4.0); LYMPHOCYTES % (AUTO) 17 % (12-44); MEAN CORPUSCULAR HEMOGLOBIN 22 pg (25-34); MEAN CORPUSCULAR HGB CONC 31 g/dL (32-36); MEAN CORPUSCULAR VOLUME 70 fL (80-99); MEAN PLATELET VOLUME 8.5 fL (9.0-12.2); MONOCYTES % (AUTO) 8 % (0-12); NEUTROPHILS # (AUTO) 9.4 10^3/uL (1.8-7.8); NEUTROPHILS % (AUTO) 73 % (42-75); PLATELET COUNT 464 10^3/uL (130-400); WHITE BLOOD COUNT 12.8 10^3/uL (4.3-11.0)
[2021-03-04 20:47] LABS: ALBUMIN 4.1 GM/DL (3.2-4.5); CHLORIDE 98 MMOL/L (98-107); POTASSIUM 3.7 MMOL/L (3.6-5.0); SODIUM 134 MMOL/L (135-145)
[2021-03-04 20:49] LABS: CALCIUM 9.4 MG/DL (8.5-10.1)
[2021-03-04 20:50] LABS: GLUCOSE 331 MG/DL (70-105); TOTAL PROTEIN 8.4 GM/DL (6.4-8.2)
[2021-03-04 20:51] LABS: CARBON DIOXIDE 23 MMOL/L (21-32)
[2021-03-04 20:52] LABS: BILIRUBIN,TOTAL 0.2 MG/DL (0.1-1.0)
[2021-03-04 20:53] LABS: ALKALINE PHOSPHATASE 110 U/L (40-136)
[2021-03-04 20:54] LABS: CREATININE SERUM 0.88 MG/DL (0.60-1.30); GFR ESTIMATED 73
[2021-03-04 20:55] LABS: BUN/CREATININE RATIO 7
[2021-03-04 20:56] LABS: ALANINE AMINOTRANSFERASE 16 U/L (0-55); MAGNESIUM 1.8 MG/DL (1.6-2.4)
[2021-03-04] MEDS ORDERED: NS IV 1000 ML 1,000 ML IV SCH ×2 (21:00→21:15)
[2021-03-04] MEDS ORDERED: inSUlin (REGULAR) HUMAN 1 UNIT/0.01 ML (CHARGE PER UNIT) IV ONE (21:15)
[2021-03-04 21:22] LABS: BILIRUBIN,URINE NEGATIVE (NEGATIVE); CLARITY,URINE CLEAR; COLOR,URINE YELLOW; GLUCOSE, URINE (UA) 2+ (NEGATIVE); KETONES,URINE NEGATIVE (NEGATIVE); LEUKOCYTE ESTERASE ,URINE NEGATIVE (NEGATIVE); NITRITE,URINE POSITIVE (NEGATIVE); PH,URINE 5.5 (5-9); PROTEIN,URINE NEGATIVE (NEGATIVE)
--- NOTE | 2021-03-04 21:30 | Diagnostic Imaging Report ---
INDICATION: Cough, body aches, shortness of air with exertion. Fatigue since yesterday.. TECHNIQUE: Single view chest 9:25 PM. CORRELATION STUDY: 02/14/2019 FINDINGS: The heart size, mediastinal configuration and pulmonary vascularity are within normal limits. The lungs are clear with no consolidating infiltrate. There is no significant effusion or pneumothorax. IMPRESSION: 1. Negative portable chest. Dictated by: Dictated on workstation # [id number]
[2021-03-04 21:32] LABS: BACTERIA,URINE MODERATE /HPF; RBC,URINE 0-2 /HPF
[2021-03-04] MEDS ORDERED: CEFD300C3 PO (21:38)
[2021-03-04] MEDS ORDERED: CEFDINIR 300 MG (OMNICEF) CAP PO ONE (21:45)
[2021-03-04 22:37] VITALS: BP 128/87
== END 2021-03-04 22:37 | disposition home or self-care (01) ==
LOC: EDUNIT# 20:01 → ER 20:03
DX: J06.9 Acute upper respiratory infection, unspecified (principal); E11.65 Type 2 diabetes mellitus with hyperglycemia; N39.0 Urinary tract infection, site not specified; I10 Essential (primary) hypertension; Z20.822 Contact with and (suspected) exposure to COVID-19; Z91.19 Patient's noncompliance with other medical treatment and regimen; Z79.4 Long term (current) use of insulin
CPT/HCPCS: 36415; 71045; 80053; 81000; 82947; 83735; 83880; 84145; 84484; 85025; 86141; 87077; 87088; 87184; 87186; 87636; 93005; 93041

== ENCOUNTER 2022-02-22 07:01 | Inpatient (IN) | payer BC ==
[~2022-02-22] VITALS: Ht 155 cm; Wt 62.7 kg
[~2022-02-22 07:01] MED LIST changes: +CEFD300C3 PO; -LISI-729 PO; +LISI5TAB20 PO; +OMEP20TA56 PO; -OMEP20TA7 PO
[2022-02-22] MEDS ORDERED: fentaNYL INJ 100 MCG/2 ML AMP IVP STA (07:36)
[2022-02-22] MEDS ORDERED: inSUlin (REGULAR) HUMAN 1 UNIT/0.01 ML (CHARGE PER UNIT) IV STA (07:36)
[2022-02-22] MEDS ORDERED: LACTATED RINGERS 1,000 ML IV STA (07:36)
[2022-02-22 07:43] LABS: BILIRUBIN,URINE NEGATIVE (NEGATIVE); CLARITY,URINE CLEAR; COLOR,URINE YELLOW; GLUCOSE, URINE (UA) 3+ (NEGATIVE); KETONES,URINE NEGATIVE (NEGATIVE); LEUKOCYTE ESTERASE ,URINE NEGATIVE (NEGATIVE); NITRITE,URINE POSITIVE (NEGATIVE); PH,URINE 5.5 (5-9); PROTEIN,URINE NEGATIVE (NEGATIVE)
--- NOTE | 2022-02-22 07:43 | ED General ---
General Chief Complaint: Glucose Problems Stated Complaint: HIGH BLOOD SUGAR Nursing Triage Note: PT STATES SHE SHOULD BE TAKING INSULIN BUT HAS NOT FOR "A VERY LONG TIME." CC OF BODY ACHES, SHAKES, AND PAIN IN ARMS AND LEGS FOR 4-5 DAYS. CONSTIPATED WITH LAST BM YESTERDAY, PAIN IN LLQ. Source of Information: Patient History of Present Illness Date Seen by Provider: Feb 22, 2022 Time Seen by Provider: 07:28 Initial Comments Here with report of aches in her arms and legs, back pain on the right and left lower quadrant abdominal pain. Started on Monday. Denies sore throat, runny no se or cough. She is vaccinated for COVID. She also had COVID last year. She is a diabetic and is not on insulin. She states she is a type I diabetic. She is due to follow-up with her doctor tomorrow. Timing/Duration: 2-3 Days Severity: Moderate Modifying Factors: improves with Rest Associated Systoms: No Chest Pain, No Cough, No Fever/Chills, No Nausea/Vomiting, No Shortness of Air, No Weakness Allergies and Home Medications Allergies Coded Allergies: No Known Drug Allergies (Verified , 04/29/08) Patient Home Medication List Home Medication List Reviewed: Yes Cefdinir (Cefdinir) 300 Mg Capsule, 300 MG PO BID Prescribed by: ELLA AYALA on 03/04/212137 Cephalexin (Keflex) 500 Mg Capsule, 500 MG PO BID Prescribed by: AUGUSTINA GUTIERREZ on 08/10/19 1239 Insulin Detemir (Levemir Flextouch) 100 Unit/1 Ml Insuln.pen, 20 UNIT SQ BID Prescribed by: JONA NAVARRO on 02/15/19 1051 Review of Systems Review of Systems Constitutional: see HPI; No chills, No fever EENTM: No nose congestion, No throat pain Respiratory: No cough, No short of breath Cardiovascular: No chest pain, No edema Gastrointestinal: abdominal pain; No nausea, No vomiting Genitourinary: No dysuria, No pain Musculoskeletal: back pain, muscle pain Skin: No change in color, No lesions Psychiatric/Neurological: Denies Numbness, Denies Tingling, Denies Weakness All Other Systems Reviewed Negative Unless Noted: Yes Past Jbailpg-Dqubbj-Ypcfkm Hx Patient Social History Tobacco Use?: No Substance use?: No Alcohol Use?: No Immunizations Up To Date Tetanus Booster (TDap): Less than 5yrs First/Initial COVID19 Vaccinat: 11/12/20 Second COVID19 Vaccination Arthur: 11/12/20 Third COVID19 Vaccination Date: 08/31/2021 Seasonal Allergies Seasonal Allergies: No Past Medical History Surgery/Hospitalization HX: TYPE I DIABETIC, 3 C SECTIONS Surgeries: Yes (C-SECTIONS x3) Section, Tubal Ligation Respiratory: No Cardiac: Yes High Cholesterol, Hypertension Neurological: No Last Menstrual Period: Jan 28, 2022 Reproductive Disorders: No 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 No Pertinent Family Hx LONG HISTORY OF EXTREME NON-COMPLIANCE IN ALL ASPECTS OF CARE Physical Exam Vital Signs Vital Signs - First Documented 02/22/22 07:11 Temp 36.3 Pulse 95 Resp 22 B/P (MAP) 121/85 (97) Pulse Ox 100 O2 Delivery Room Air Capillary Refill : Less Than 3 Seconds Height, Weight, BMI Height: 5'1.00" Weight: 141lbs. 14.4oz. 64.795055vl; 25.00 BMI Method:Stated General Appearance: WD/WN, Mild Distress (Not feeling well) HEENT: PERRL/EOMI, Pharynx Normal Neck: Non Tender, Supple Respiratory: Lungs Clear, Normal Breath Sounds Cardiovascular: No Murmur, Tachycardia Gastrointestinal: Non Tender, Soft Back: Normal Inspection, No CVA Tenderness, No Vertebral Tenderness Extremity: Normal Range of Motion, Non Tender Neurologic/Psychiatric: Alert, Oriented x3 Skin: Normal Color, Warm/Dry Progress/Results/Core Measures Suspected Sepsis SIRS Temperature: Pulse: 95 Respiratory Rate: 22 Laboratory Tests 02/22/22 07:30: White Blood Count 10.7 Blood Pressure 121 /85 Mean: 97 Laboratory Tests 02/22/22 07:30: Creatinine 0.90, Platelet Count 504H, Total Bilirubin 0.3 Results/Orders Lab Results Laboratory Tests Test 02/22/22 07:13 02/22/22 07:20 02/22/22 07:30 02/22/22 07:47 Range/Units Glucometer 359 H 70-110 MG/DL Urine Color YELLOW Urine Clarity CLEAR Urine pH 5.5 5-9 Urine Specific [place] 1.020 1.016-1.022 Urine Protein NEGATIVE NEGATIVE Urine Glucose (UA) 3+ H NEGATIVE Urine Ketones NEGATIVE NEGATIVE Urine Nitrite POSITIVE H NEGATIVE Urine Bilirubin NEGATIVE NEGATIVE Urine Urobilinogen 0.2 < = 1.0 MG/DL Urine Leukocyte Esterase NEGATIVE NEGATIVE Urine RBC (Auto) NEGATIVE NEGATIVE Urine RBC NONE /HPF Urine WBC 50-100 H /HPF Urine Squamous Epithelial Cells RARE /HPF Urine Crystals NONE /LPF Urine Bacteria LARGE H /HPF Urine Casts NONE /LPF Urine Mucus NEGATIVE /LPF Urine Culture Indicated YES White Blood Count 10.7 4.3-11.0 10^3/uL Red Blood Count 4.73 3.80-5.11 10^6/uL Hemoglobin 10.2 L 11.5-16.0 g/dL Hematocrit 34 L 35-52 % Mean Corpuscular Volume 72 L 80-99 fL Mean Corpuscular Hemoglobin 22 L 25-34 pg Mean Corpuscular Hemoglobin Concent 30 L 32-36 g/dL Red Cell Distribution Width 14.2 10.0-14.5 % Platelet Count 504 H 130-400 10^3/uL Mean Platelet Volume 8.6 L 9.0-12.2 fL Immature Granulocyte % (Auto) 0 % Neutrophils (%) (Auto) 67 42-75 % Lymphocytes (%) (Auto) 24 12-44 % Monocytes (%) (Auto) 7 0-12 % Eosinophils (%) (Auto) 1 0-10 % Basophils (%) (Auto) 0 0-10 % Neutrophils # (Auto) 7.1 1.8-7.8 10^3/uL Lymphocytes # (Auto) 2.6 1.0-4.0 10^3/uL Monocytes # (Auto) 0.8 0.0-1.0 10^3/uL Eosinophils # (Auto) 0.1 0.0-0.3 10^3/uL Basophils # (Auto) 0.0 0.0-0.1 10^3/uL Immature Granulocyte # (Auto) 0.0 0.0-0.1 10^3/uL Sodium Level 132 L 135-145 MMOL/L Potassium Level 4.0 3.6-5.0 MMOL/L Chloride Level 100 98-107 MMOL/L Carbon Dioxide Level 22 21-32 MMOL/L Anion Gap 10 5-14 MMOL/L Blood Urea Nitrogen 11 7-18 MG/DL Creatinine 0.90 0.60-1.30 MG/DL Estimat Glomerular Filtration Rate 85 BUN/Creatinine Ratio 12 Glucose Level 393 H 70-105 MG/DL Calcium Level 8.9 8.5-10.1 MG/DL Corrected Calcium 9.0 8.5-10.1 MG/DL Total Bilirubin 0.3 0.1-1.0 MG/DL Aspartate Amino Transf (AST/SGOT) 12 5-34 U/L Alanine Aminotransferase (ALT/SGPT) 16 0-55 U/L Alkaline Phosphatase 92 40-136 U/L C-Reactive Protein High Sensitivity 0.25 0.00-0.50 MG/DL Total Protein 7.8 6.4-8.2 GM/DL Albumin 3.9 3.2-4.5 GM/DL Influenza Type A (RT-PCR) Not Detected Not Detecte Influenza Type B (RT-PCR) Not Detected Not Detecte SARS-CoV-2 RNA (RT-PCR) Not Detected Not Detecte My Orders Orders - KILEY ADAIR MD Cbc With Automated Diff (02/22/22 07:36) Comprehensive Metabolic Panel (02/22/22 07:36) Hs C Reactive Protein (02/22/22 07:36) Ua Culture If Indicated (02/22/22 07:36) Ed Iv/Invasive Line Start (02/22/22 07:36) Urine Bedside (02/22/22 07:36) Ondansetron Injection (Zofran Injectio (02/22/22 07:45) Lactated Ringers (Lr 1000 Ml Iv Solution (02/22/22 07:36) Fentanyl Inj (Sublimaze Injection) (02/22/22 07:36) Insulin (Regular) Human (Novolin R (Per (02/22/22 07:36) Covid 19 Inhouse Test (02/22/22 07:43) Influenza A And B By Pcr (02/22/22 07:43) Urine Culture (02/22/22 07:20) Insulin (Regular) Human (Novolin R (Per (02/22/22 08:04) Lactic Acid Analyzer (02/22/22 08:24) Blood Culture (02/22/22 08:24) Ceftriaxone 1 Gm Pre-Mix (Rocephin 1 Gm (02/22/22 08:24) Medications Given in ED Current Medications Medications Dose Ordered Sig/Kendall Route Start Time Stop Time Status Last Admin Dose Admin Ondansetron HCl 4 mg ONCE ONCE IVP 02/22/22 07:45 02/22/22 07:46 DC 02/22/22 08:08 4 MG Vital Signs/I&O 02/22/22 02/22/22 07:11 08:08 Temp 36.3 36.3 Pulse 95 Resp 22 B/P (MAP) 121/85 (97) Pulse Ox 100 O2 Delivery Room Air Capillary Refill : Less Than 3 Seconds Blood Pressure Mean: 97 Point of Care Testing Finger Stick Blood Glucose: 359 Blood Glucose Action Taken: RN notified Progress Note : Progress Note Seen and evaluated. IV, labs, UA, LR 1 L bolus, Zofran 4 mg IV and fentanyl 50 mcg IV ordered. Insulin 10 units IV ordered. Monitor patient. 0828: Patient noted to have rather significant urinary tract infection in the setting of grossly uncontrolled hyperglycemia. She is not in DKA. We will initiate blood cultures and lactic acid followed by Rocephin 1 g IV. She is receiving fluids now. I did discuss the case with Dr. Navarro and she accepts patient for admission, inpatient status. She will write orders. Patient agrees to plan. She is more comfortable after fentanyl given earlier. Departure Communication (Admissions) Time/Spoke to Admitting Phy: 08:28 Impression Primary Impression: Urinary tract infection Qualified Codes: N30.00 - Acute cystitis without hematuria Additional Impression: Uncontrolled diabetes mellitus Qualified Codes: E10.65 - Type 1 diabetes mellitus with hyperglycemia Disposition: ADMITTED INPATIENT Condition: Stable Admissions Decision to Admit Reason: Admit from ER (General) Decision to Admit/Date: Feb 22, 2022 Time/Decision to Admit Time: 08:28 Departure-Patient Inst. Referrals: [facility] (PCP/Family) Primary Care Physician KILEY ADAIR MD Feb 22, 2022 07:43
[2022-02-22] MEDS ORDERED: ONDANSETRON 4 MG/2 ML (SDV) Z0FRAN IVP ONE (07:45)
[2022-02-22 07:46] LABS: BASOPHILS % (AUTO) 0 % (0-10); EOSINOPHILS # (AUTO) 0.1 10^3/uL (0.0-0.3); EOSINOPHILS % (AUTO) 1 % (0-10); HEMATOCRIT 34 % (35-52); HEMOGLOBIN 10.2 g/dL (11.5-16.0); LYMPHOCYTES # (AUTO) 2.6 10^3/uL (1.0-4.0); LYMPHOCYTES % (AUTO) 24 % (12-44); MEAN CORPUSCULAR HEMOGLOBIN 22 pg (25-34); MEAN CORPUSCULAR HGB CONC 30 g/dL (32-36); MEAN CORPUSCULAR VOLUME 72 fL (80-99); MEAN PLATELET VOLUME 8.6 fL (9.0-12.2); MONOCYTES # (AUTO) 0.8 10^3/uL (0.0-1.0); MONOCYTES % (AUTO) 7 % (0-12); NEUTROPHILS # (AUTO) 7.1 10^3/uL (1.8-7.8); NEUTROPHILS % (AUTO) 67 % (42-75); PLATELET COUNT 504 10^3/uL (130-400); WHITE BLOOD COUNT 10.7 10^3/uL (4.3-11.0)
[2022-02-22 07:49] LABS: ALBUMIN 3.9 GM/DL (3.2-4.5)
[2022-02-22 07:51] LABS: CALCIUM 8.9 MG/DL (8.5-10.1)
[2022-02-22 07:52] LABS: TOTAL PROTEIN 7.8 GM/DL (6.4-8.2)
[2022-02-22 07:54] LABS: BILIRUBIN,TOTAL 0.3 MG/DL (0.1-1.0)
[2022-02-22 07:56] LABS: CREATININE SERUM 0.9 MG/DL (0.60-1.30)
[2022-02-22 07:59] LABS: WBC,URINE 50-100 /HPF
[2022-02-22 08:00] LABS: BACTERIA,URINE LARGE /HPF; SQUAMOUS EPITHELIAL CELL,UR RARE /HPF
[2022-02-22] MEDS ORDERED: inSUlin (REGULAR) HUMAN 1 UNIT/0.01 ML (CHARGE PER UNIT) ONE (08:04)
[2022-02-22] MEDS ORDERED: cefTRIAXone 1 GM PRE-MIX 50 ML IV STA (08:24)
[2022-02-22] MEDS ORDERED: ONDANSETRON 4 MG (ZOFRAN) ORAL DISSOLVE TAB PO PRN (09:30)
[2022-02-22] MEDS ORDERED: diphenhydrAMINE 50 MG/ML INJ (BENADRYL) IVP PRN (09:30)
[2022-02-22] MEDS ORDERED: ANTACID SUSP 30 ML UDC (MYLANTA) PO PRN (09:30)
[2022-02-22] MEDS ORDERED: MELATONIN 3 MG TABLET PO PRN (09:30)
[2022-02-22] MEDS ORDERED: MILK OF MAGNESIA 400 MG/5 ML 30 ML UDC PO PRN (09:30)
[2022-02-22] MEDS ORDERED: polyethylene glycoL POWDER 17 GM (MIRALAX) PACK PO PRN (09:30)
[2022-02-22] MEDS ORDERED: morphine INJ 4 MG/ML 1 ML (VIAL/SYRINGE) IV PRN (09:30)
[2022-02-22] MEDS ORDERED: BISACODYL 10 MG SUPP (DULCOLAX) PR PRN (09:30)
[2022-02-22] MEDS ORDERED: diphenhydrAMINE 25 MG TAB (BENADRYL) PO PRN (09:30)
[2022-02-22] MEDS ORDERED: ONDANSETRON 4 MG/2 ML (SDV) Z0FRAN IV PRN (09:30)
[2022-02-22] MEDS ORDERED: LACTULOSE SYRUP 10GM/15ML (ENULOSE) 30ML UDC PO PRN (09:30)
[2022-02-22] MEDS ORDERED: CALCIUM CARBONATE 500 MG (TUMS) TAB.CHEW PO PRN (09:30)
[2022-02-22] MEDS: cefTRIAXone 1 GM PRE-MIX 50 ML IV SCH (10:12)
[2022-02-22 10:21] VITALS: BP 122/78
[2022-02-22] MEDS ORDERED: RT-ALBUTEROL SULF 2.5 MG/3 ML PRE-MIX VIAL INH PRN (10:30)
[2022-02-22] MEDS: ENOXAPARIN 40 MG/0.4 ML (LOVENOX) SYR SC SCH (10:48)
[2022-02-22] MEDS: NS IV 1000 ML 1,000 ML IV SCH ×3 (10:48→19:19)
[2022-02-22] MEDS: inSUlin ASPART (NovoLOG) 1 UNIT/0.01 ML (CHARGE PER UNIT) SC SCH ×3 (10:58→20:41)
--- NOTE | 2022-02-22 10:59 | History & Physical-Hospitalist ---
COREENEnmanuelYESSICA IRELAND 02/22/22 1059: History of Present Illness HPI/Chief Complaint Naomi Wu is a 36 yo female with past medical history of T2DM, HTN, HLD who presents with full body aches, headache, dysuria, and increased urinary frequency who was found to have blood sugars in the high 300s on arrival. She reports she was diagnosed with T2DM at the age of 20 and was started on Metformin. She was then started on Insulin at age 23. She reports that she has not taken her insulin in 1.5 years because she was feeling ok and thought she no longer needed it. Her symptoms began on and progressively worsened until today when her headache and shakiness became so bad that she decided to come to the hospital. She has been hospitalized for her diabetes before, the last time being about two years ago. Currently she reports that her headache and shakiness have improved, but she continues to have pain with urination. Source: patient Exam Limitations: no limitations Date Seen 02/22/22 Time Seen by a Provider: 11:00 Attending Physician [place] PCP Admitting Physician: Sybil Navarro DO Attending Physician: Sybil Navarro DO Referring Physician Date of Admission Feb 22, 2022 at 08:31 Home Medications & Allergies Home Medications Reviewed patient Home Medication Reconciliation performed by pharmacy medication reconciliations special equipment technician and/or nursing. Patients Allergies have been reviewed. Allergies Allergies Coded Allergies No Known Drug Allergies (Verified04/29/08) Past Axnthym-Tyxbku-Xfilwi Hx Patient Social History Tobacco Use?: No Use of E-Cig and/or Vaping dev: No Substance use?: No Alcohol Use?: No Pt feels they are or have been: No Immunizations Up To Date Date of Influenza Vaccine: May 16, 2012 First/Initial COVID19 Vaccinat: 11/12/20 Second COVID19 Vaccination Arthur: 11/12/20 Tetanus Booster (TDap): Less Than 5 Years Date of Pneumonia Vaccine: Jan 11, 2015 Seasonal Allergies Seasonal Allergies: No Current Status status: No Advance Directives: No Communicates: Verbally Primary Language: Yi Preferred Spoken Language: Yi Past Medical History Surgeries: Section, Tubal Ligation High Cholesterol, Hypertension 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 No Pertinent Family Hx LONG HISTORY OF EXTREME NON-COMPLIANCE IN ALL ASPECTS OF CARE Review of Systems Constitutional: No chills, No diaphoresis EENTM: No blurred vision Respiratory: No cough, No dyspnea on exertion Gastrointestinal: No abdominal pain Genitourinary: dysuria, frequency Musculoskeletal: back pain, joint pain, muscle pain Skin: No rash Psychiatric/Neurological: Headache; Denies Seizure Physical Exam Physical Exam Vital Signs Vital Signs - First Documented 02/22/22 02/22/22 07:11 10:21 Temp 36.3 Pulse 95 Resp 22 B/P (MAP) 121/85 (97) Pulse Ox 100 O2 Delivery Room Air FiO2 21 Capillary Refill : Less Than 3 Seconds Height, Weight, BMI Height: 5'1.00" Weight: 141lbs. 14.4oz. [id number]; 25.39 BMI Method:Stated General Appearance: No Apparent Distress HEENT: PERRL/EOMI, Moist Mucous Membranes Neck: Normal Inspection, Supple Respiratory: Lungs Clear, Normal Breath Sounds, No Accessory Muscle Use Cardiovascular: Regular Rate, Rhythm, No JVD Gastrointestinal: Normal Bowel Sounds, Non Tender, Soft Back: No CVA Tenderness Extremity: Normal Capillary Refill, Normal Inspection, No Calf Tenderness Neurologic/Psychiatric: Alert, Oriented x3 Skin: Normal Color, Warm/Dry Lymphatic: No Adenopathy Results Results/Procedures Labs Laboratory Tests 02/22/22 07:30 Patient resulted labs reviewed. Assessment/Plan Admission Diagnosis Uncontrolled T2DM, UTI Assessment and Plan 1) T2DM * Started on Levemir 20 BID * SSI * Monitor potassium closely and supplement as needed * A1C pending * clinical nurse educator 2) UTI * Ceftriaxone * Cultures and sensitivities pending 3) HTN * Blood pressures WNL * Continue to monitor DVT Ppx: Lovenox Dispo: Medical management on fourth floor. SYBIL NAVARRO DO 02/23/22 0608: History of Present Illness HPI/Chief Complaint CC: UTI with DM OOC HPI: This is a 36yoF of [facility] who has DM OOC in process of starting insulin at the clinic who came to ER with abdominal pain and found to have UTI and dehydration and hyperglycemia in need of insulin start. Source: patient Exam Limitations: no limitations Past Dczpxbg-Ygkgvq-Tqmiae Hx Family Medical History Patient reports no known family medical history. Review of Systems Constitutional: see HPI Physical Exam Physical Exam General Appearance: No Apparent Distress Eyes: Right Eye Normal Inspection, Right Eye PERRL HEENT: PERRL/EOMI, TMs Normal, Normal ENT Inspection, Pharynx Normal, Moist Mucous Membranes Neck: Full Range of Motion, Normal Inspection, Non Tender Respiratory: Chest Non Tender, Lungs Clear, Normal Breath Sounds, No Accessory Muscle Use, No Respiratory Distress Cardiovascular: Regular Rate, Rhythm, No Edema, No Gallop, No JVD, No Murmur, Normal Peripheral Pulses Gastrointestinal: Normal Bowel Sounds, No Organomegaly, No Pulsatile Mass, Non Tender, Soft Back: Normal Inspection, No CVA Tenderness, No Vertebral Tenderness Extremity: Normal Capillary Refill, Normal Inspection, Normal Range of Motion, Non Tender, No Calf Tenderness, No Pedal Edema Neurologic/Psychiatric: Alert, Oriented x3, No Motor/Sensory Deficits, Normal Mood/Affect Skin: Normal Color, Warm/Dry Lymphatic: No Adenopathy Assessment/Plan Admission Diagnosis Assessment: UTI DM Plan: IV abx Insulin Admission Status: Observation Supervisory-Addendum Brief Verification & Attestation Participated in pt care: history, MDM, physical Personally performed: exam, history, MDM, supervision of care Care discussed with: Medical Student Procedures: n/a Results interpretation: Verified all documentation Verification and Attestation of Medical Student E/M Service A medical student performed and documented this service in my presence. I reviewed and verified all information documented by the medical student and made modifications to such information, when appropriate. I personally performed the physical exam and medical decision making. Sybil Navarro Feb 23, 2022,06:08 YESSICA AGUSTIN Feb 22, 2022 10:59 SYBIL NAVARRO DO Feb 23, 2022 06:08
[2022-02-22 12:06] VITALS: BP 118/79
[2022-02-22] MEDS ORDERED: MAGNESIUM CITRATE 300 ML BTL PO NR (13:15)
[2022-02-22 15:25] VITALS: BP 113/63
[2022-02-22 19:09] VITALS: BP 110/75
[2022-02-22] MEDS: SENNOSIDES 8.6 MG (SENOKOT) TAB PO SCH (19:20)
[2022-02-22] MEDS: DOCUSATE SODIUM 100 MG (COLACE) CAP PO SCH (19:20)
[2022-02-22] MEDS: ACETAMINOPHEN 325 MG TABLET PO PRN (20:42)
[2022-02-23 00:42] VITALS: BP 118/78
[2022-02-23 04:56] VITALS: BP 115/74
[2022-02-23] MEDS: NS IV 1000 ML 1,000 ML IV SCH (05:40)
[2022-02-23 05:48] LABS: BASOPHILS % (AUTO) 0 % (0-10); EOSINOPHILS # (AUTO) 0.1 10^3/uL (0.0-0.3); EOSINOPHILS % (AUTO) 1 % (0-10); HEMATOCRIT 30 % (35-52); LYMPHOCYTES # (AUTO) 3.1 10^3/uL (1.0-4.0); LYMPHOCYTES % (AUTO) 31 % (12-44); MEAN CORPUSCULAR HEMOGLOBIN 22 pg (25-34); MEAN CORPUSCULAR HGB CONC 31 g/dL (32-36); MEAN CORPUSCULAR VOLUME 73 fL (80-99); MEAN PLATELET VOLUME 8.8 fL (9.0-12.2); MONOCYTES # (AUTO) 0.7 10^3/uL (0.0-1.0); MONOCYTES % (AUTO) 7 % (0-12); NEUTROPHILS % (AUTO) 60 % (42-75); PLATELET COUNT 459 10^3/uL (130-400); WHITE BLOOD COUNT 9.9 10^3/uL (4.3-11.0)
[2022-02-23 06:18] LABS: ALBUMIN 3.3 GM/DL (3.2-4.5)
[2022-02-23 06:19] LABS: CALCIUM 8.5 MG/DL (8.5-10.1)
[2022-02-23 06:20] LABS: TOTAL PROTEIN 6.4 GM/DL (6.4-8.2)
[2022-02-23 06:22] LABS: BILIRUBIN,TOTAL 0.2 MG/DL (0.1-1.0)
[2022-02-23 06:23] LABS: RETICULOCYTE % 1.96 % (0.50-2.40)
[2022-02-23 06:24] LABS: CREATININE SERUM 0.69 MG/DL (0.60-1.30)
[2022-02-23] MEDS: inSUlin ASPART (NovoLOG) 1 UNIT/0.01 ML (CHARGE PER UNIT) SC SCH ×2 (06:29→11:31)
[2022-02-23 07:12] VITALS: BP 120/78
[2022-02-23] MEDS: ENOXAPARIN 40 MG/0.4 ML (LOVENOX) SYR SC SCH (09:08)
[2022-02-23] MEDS: cefTRIAXone 1 GM PRE-MIX 50 ML IV SCH (09:10)
[2022-02-23] MEDS: SENNOSIDES 8.6 MG (SENOKOT) TAB PO SCH (09:10)
[2022-02-23] MEDS: DOCUSATE SODIUM 100 MG (COLACE) CAP PO SCH (09:10)
[2022-02-23] MEDS ORDERED: fluCOnazole (DIFLUCAN) 100 MG TAB PO ONE (10:45)
[2022-02-23] MEDS ORDERED: NITR-68 PO (11:14)
[2022-02-23] MEDS ORDERED: LANC1COM6 MC (11:14)
[2022-02-23] MEDS ORDERED: NEED-475 MC (11:14)
[2022-02-23] MEDS ORDERED: [UNRECOGNIZED DRUG - CODE] MC (11:14)
[2022-02-23] MEDS ORDERED: INSU100I34 SQ (11:14)
--- NOTE | 2022-02-23 11:15 | Discharge Summary ---
Discharge Summary Hospital Course Was the Problem List Reviewed?: Yes Problems/Dx: (1) Urinary tract infection Status: Acute Qualifiers: Qualified Codes: N30.00 - Acute cystitis without hematuria (2) Uncontrolled diabetes mellitus Status: Acute Qualifiers: Qualified Codes: E10.65 - Type 1 diabetes mellitus with hyperglycemia Hospital Course Date of Admission: Feb 22, 2022 at 08:31 Admission Diagnosis : Family Physician/Provider: [place] Date of Discharge: 02/23/22 Discharge Diagnosis: [ ] Hospital Course: Naomi Wu is a 36 yo female with past medical history of T2DM, HTN, HLD who was admitted on 02/22 for uncontrolled diabetes with blood sugars in the high 300s on arrival. She was found to also have a UTI with gram negative rods and GBS. She was started on Levemir 40 units BID with SSI and her electrolyte levels were monitored closely. She was also started on Ceftriaxone for her UTI. While inpatient she was found to have a yeast infection and Diflucan was prescribed. Her blood sugars were well controlled and she met with the museum educator. She will be discharged home in stable condition on Insulin Glargine 30 BID and Nitrofurantoin 100 BID with instructions to follow up with her PCP. YESSICA AGUSTIN Feb 23, 2022 13:13 Labs and Pending Lab Test: Laboratory Tests 02/22/22 15:28: Glucometer 169H 02/22/22 20:14: Glucometer 211H 02/23/22 05:25: White Blood Count 9.9, Red Blood Count 4.04, Hemoglobin 9.0L, Hematocrit 30L, Mean Corpuscular Volume 73L, Mean Corpuscular Hemoglobin 22L, Mean Corpuscular Hemoglobin Concent 31L, Red Cell Distribution Width 14.4, Platelet Count 459H, Mean Platelet Volume 8.8L, Immature Granulocyte % (Auto) 0, Neutrophils (%) ( Auto) 60, Lymphocytes (%) (Auto) 31, Monocytes (%) (Auto) 7, Eosinophils (%) (Auto) 1, Basophils (%) (Auto) 0, Neutrophils # (Auto) 6.0, Lymphocytes # (Auto) 3.1, Monocytes # (Auto) 0.7, Eosinophils # (Auto) 0.1, Basophils # (Auto) 0.0, Immature Granulocyte # (Auto) 0.0, Absolute Reticulocyte Count 79, Percent Reticulocyte Count 1.96, Sodium Level 135, Potassium Level 4.0, Chloride Level 104, Carbon Dioxide Level 22, Anion Gap 9, Blood Urea Nitrogen 12, Creatinine 0.69, Estimat Glomerular Filtration Rate 115, BUN/Creatinine Ratio 17, Glucose Level 178H, Calcium Level 8.5, Corrected Calcium 9.1, Total Bilirubin 0.2, Aspartate Amino Transf (AST/SGOT) 11, Alanine Aminotransferase (ALT/SGPT) 13, Alkaline Phosphatase 67, Total Protein 6.4, Albumin 3.3 02/23/22 10:28: Glucometer 303H Microbiology 02/22/22 Urine Culture - Preliminary, Resulted Gram Negative Simon Strep, Beta Hemolytic Group B Home Meds Active Macrodantin (Nitrofurantoin Macrocrystal) 100 Mg Capsule 100 Mg PO BID Lancet 30G-Glucose Test Strip (Lancets/Blood Glucose Strips) 30 Gauge Combo..pkg Each MC BID [place] Choice Hd Glucose Syst (Blood-Glucose Meter) 1 Each Each Each MC BID Advocate Pen Norwood ([place], Insulin Disposable) 31 Gauge X 3/16" Dis.needle Each MC BID Basaglar Kwikpen U-100 (Insulin Glargine,Hum.rec.anlog) 100 Unit/Ml (3 Ml) Insuln.pen 30 Unit SQ BID Assessment/Pt Instructions [facility] 1 week Discharge Planning: <30 minutes discharge planning Discharge Instructions Discharge Diet: ADA Diet Activity as Tolerated: Yes Discharge Physical Examination Vital Signs Vital Signs Date Time Temp Pulse Resp B/P (MAP) Pulse Ox O2 Delivery O2 Flow Rate FiO2 02/23/22 08:00 Room Air 02/23/22 07:12 37.2 91 20 120/78 (92) 99 02/22/22 10:21 21 General Appearance: No Apparent Distress, WD/WN, Chronically ill Allergies: Coded Allergies: No Known Drug Allergies (Verified , 04/29/08) Discharge Summary Date of Admission Feb 22, 2022 at 08:31 Date of Discharge Discharge Date: Feb 23, 2022 Admission Diagnosis Assessment: UTI DM Plan: IV abx Insulin JONA NAVARRO DO Feb 23, 2022 11:15
[2022-02-23 11:24] VITALS: BP 122/83
[2022-02-23] MEDS: ACETAMINOPHEN 325 MG TABLET PO PRN (11:31)
[2022-02-23 12:50] VITALS: BP 122/83
--- NOTE | 2022-02-23 13:13 | Progress Note ---
YESSICA AGUSTIN 02/23/22 1313: Progress Note Naomi Wu is a 36 yo female with past medical history of T2DM, HTN, HLD who was admitted on 02/22 for uncontrolled diabetes with blood sugars in the high 300s on arrival. She was found to also have a UTI with gram negative rods and GBS. She was started on Levemir 40 units BID with SSI and her electrolyte levels were monitored closely. She was also started on Ceftriaxone for her UTI. While inpatient she was found to have a yeast infection and Diflucan was prescribed. Her blood sugars were well controlled and she met with the showroom executive director. Sofi mojica will be discharged home in stable condition on Insulin Glargine 30 BID and Nitrofurantoin 100 BID with instructions to follow up with her PCP. SYBIL NAVARRO DO 02/24/22 0539: Supervisory-Addendum Brief Verification & Attestation Participated in pt care: history, MDM, physical Personally performed: exam, history, MDM, supervision of care Care discussed with: Medical Student Procedures: n/a Results interpretation: Verified all documentation Verification and Attestation of Medical Student E/M Service A medical student performed and documented this service in my presence. I reviewed and verified all information documented by the medical student and made modifications to such information, when appropriate. I personally performed the physical exam and medical decision making. Sybil Navarro, Feb 24, 2022,05:39 YESSICA AGUSTIN Feb 23, 2022 13:13 SYBIL NAVARRO DO Feb 24, 2022 05:39
== END 2022-02-23 12:50 | disposition home or self-care (01) | DRG 638 ==
LOC: EDUNIT# 07:01 → ER 07:04 → EDLOC 08:31 → 4TH 08:31
PROVIDERS: ADMIT Internal Medicine; ATTEND Internal Medicine
DX: E11.65 Type 2 diabetes mellitus with hyperglycemia (principal); N39.0 Urinary tract infection, site not specified; Z79.4 Long term (current) use of insulin; E78.00 Pure hypercholesterolemia, unspecified; I10 Essential (primary) hypertension; K21.9 Gastro-esophageal reflux disease without esophagitis; E86.0 Dehydration; Z20.822 Contact with and (suspected) exposure to COVID-19; Z79.84 Long term (current) use of oral hypoglycemic drugs
CPT/HCPCS: 36415; 80053; 81000; 82607; 82728; 82947; 83036; 83540; 83550; 83605; 84703; 85025; 85045; 86141; 87040; 87077; 87088; 87636; G0378

== ENCOUNTER → 2022-09-21 | Outpatient (CLI) | payer BC ==
[~2022-09-21] MED LIST changes: +HOLD METFORMIN - RECEIVED CONTRAST 20 ML VIAL IV SCH; +INSU100I34 SQ; +IOHEXOL 350 MG/ML 100 ML (OMNIPAQUE 350) VIAL IV ONE; +LANC1COM6 MC; +NEED-475 MC; +NITR-68 PO; +NS 100 ML (IVPB) BAG IV ONE; +[UNRECOGNIZED DRUG - CODE] MC
--- NOTE | 2022-09-21 08:50 | Diagnostic Imaging Report ---
EXAMINATION: CT abdomen and pelvis with intravenous contrast. TECHNIQUE: Multiple contiguous axial images were obtained through the abdomen and pelvis after the uneventful administration of intravenous contrast. All CT scans use one or more of the following dose optimizing techniques: automated exposure control, MA and/or KvP adjustment based on patient size and exam type or iterative reconstruction. HISTORY: Left upper quadrant pain COMPARISON: 08/10/2019 FINDINGS: Limited views of the lower thorax are unremarkable. The liver is normal without focal lesion. There is no biliary ductal dilation. Gallbladder is normal. Pancreas is normal. Spleen is normal. Adrenal glands are normal. The kidneys are normal. There is no hydronephrosis. Urinary bladder is normal. Endometrial thickening is likely secondary to phase of menstrual cycle. There is a physiologic cyst in the left ovary. Bowel is normal in caliber without obstruction or inflammation. There is a physiologic amount of free fluid in the pelvis. No free air. No abdominal or pelvic lymphadenopathy. Aorta is normal in caliber without aneurysm. There are no suspicious osseus lesions. IMPRESSION: 1. No acute abnormality in the abdomen or pelvis. Dictated by: Dictated on workstation # [id number]
== END ==
LOC: RAD 07:45
PROVIDERS: ATTEND Surgery
DX: R10.12 Left upper quadrant pain (principal); R11.0 Nausea; R10.2 Pelvic and perineal pain
CPT/HCPCS: 74177